=== PATIENT | female | born 1950 | race Caucasian/White ===

== ENCOUNTER → 2018-02-18 12:40 | Outpatient (CLI) | payer MEDICARE, BC, SELFPAY ==
--- NOTE | 2018-02-18 06:00 | DI.REPORT_ITS ---
SYMPTOMS/DIAGNOSIS: LUMBAR EPIDURAL STEROID INJECTION, LUMBAR RADICULOPATHY FLUOROSCOPY: Fluoroscopy Time: 11.45, 12.12 mGy Fluoroscopy was provided for guidance with lumbar spine pain clinic injection. Please see procedure note for details.
[2018-02-18 12:50] VITALS: BP 132/61; PULSE 55; RESP 22; TEMP 36.2; O2SAT 96
--- NOTE | 2018-02-18 13:13 | PDOC.PAIN ---
Date of Service: 02/18/18 Time of Service: 13:13 Pain Clinic Procedure Note Lumbar Epidural Steroid Injection Procedure Note COMMENTS: I did review Ms. Rey's notes on the patient. She has had this procedure in the past. SAMIRA MONTELONGO has been referred to the [facility] for lumbar epidural steroid injection. The patient was greeted by the nurse who verified patients name and . Patient was then taken to the fluoroscopy suite. The patient was interviewed and the medial record reviewed. There were no medical, pharmacologic, radiographic, or other structural contraindications to attempting fluoroscopically guided lumbar epidural steroid injection. Risks and expected side effects as well as potential benefits of the procedure were reviewed and voiced concerns expressed. The patient consent form was signed and witnessed. Standard patient time-out procedure was performed. The patient was placed in the prone position on the fluoroscopy table and automated blood pressure cuff and pulse oximeter applied. The skin entry point for entering/approaching the epidural space at the L5-S1 interspace on the left and marked. Following thorough chlorhexadine preparation of the skin and draping and 1% lidocaine infiltration of the skin entry point and subcutaneous tissues, a 18 gauge Touhy needle was placed under fluoroscopic guidance and with loss of resistance technique into the epidural space. Needle tip placement and depth were aided and confirmed by fluoroscopy. There was no paresthesia or return of blood or CSF through the needle. 1 cc's of Omnipaque 240 was injected with clear epidural spread confirmed with fluoroscopy. 15 mg Dexamethasone was injected. There was not any unusual discomfort expressed by SAMIRA MONTELONGO. Patient's vital signs were stable throughout the procedure and were as recorded in nursing records. Follow up plans and appointments were discussed with patient. Post procedure instruction was given as documented in nursing records and having met discharge criteria and was discharged from the [facility]. COMMENTS: If this procedure is found to be effective, it can be completed up to 3 times every 12 months.
[2018-02-18] MEDS: Dexamethasone Sod. Phos./Pres-Free 10 MG/ML VIAL IJ (13:18)
[2018-02-18] MEDS: Omnipaque 240 MG/ML 50 ML BTL IJ (13:18)
[2018-02-18 13:19] VITALS: BP 143/73; PULSE 62; RESP 17; O2SAT 98
== END ==
PROVIDERS: PCP Family Medicine; Visit Provider Preventive Medicine Occupational Medicine
DX: M54.17 Radiculopathy, lumbosacral region (principal)
CPT/HCPCS: 62323; 72100; Q9967

== ENCOUNTER 2018-06-03 01:59 | Outpatient (CLI) | payer MEDICARE, BC, SELFPAY ==
[2018-06-03 08:39] LABS: Anion Gap 10.7 mmol/L (3-11); BUN 29 mg/dL (7-18); CO2 27.3 mmol/L (21.0-32.0); CREATININE 0.95 mg/dL (0.55-1.02); Calcium 9.3 mg/dL (8.5-10.1); Chloride 102 mmol/L (98-107); Cholesterol 226 mg/dL (50-200); Glucose 106 mg/dL (70-100); HDL Cholesterol 88 mg/dL (40-60); LDL CHOLESTEROL 117 mg/dL (<100); Potassium 4.5 mmol/L (3.5-5.1); Sodium 140 mmol/L (136-145); Triglyceride 127 mg/dL (30-150)
== END 2018-06-03 02:19 ==
PROVIDERS: PCP Family Medicine; Visit Provider Family Medicine
DX: I73.9 Peripheral vascular disease, unspecified (principal); I10 Essential (primary) hypertension; E78.2 Mixed hyperlipidemia
CPT/HCPCS: 36415; 80048; 80061; 83721

== ENCOUNTER 2018-09-25 01:02 | Observation (INO) | payer MEDICARE, BC, SELFPAY ==
[2018-09-25] VITALS (65 sets, daily range): BP systolic 89–146; BP diastolic 35–77; PULSE 42–69; RESP 11–22; TEMP 36.1–36.9; O2SAT 89–100
--- NOTE | 2018-09-25 01:18 | ED.GENADUL_ITS ---
Discharge Plan Disposition Patient Disposition: [facility] INPATIENT Condition: Fair Discharge Details Chief Complaint: Chest Pain Clinical Impression: Chest pain Reason For Visit: JESSIE Primary Care Provider: Rehana Cornejo V ED Provider: Everardo Humphreys Diana Meds and New Rx's Prescriptions: No Action latanoprost [Xalatan] 2.5 ML drops 1 drp Ophthalmic DAILY RF: 0 sumatriptan succinate [Imitrex] 50 MG tablet 50 mg PO PRN RF: 0 Fish Oil 500 MG capsule,delayed release(DR/EC) 1,000 mg PO BID RF: 0 aspirin 81 MG tablet,delayed release (DR/EC) 81 mg PO DAILY RF: 0 venlafaxine [Effexor XR] 75 MG capsule,extended release 24hr 75 mg PO DAILY RF: 0 omeprazole 40 MG capsule,delayed release(DR/EC) 40 mg PO DAILY RF: 0 magnesium oxide 250 MG tablet 500 mg PO DAILY RF: 0 vitamin E mixed 1,000 UNIT capsule 1,600 unit PO DAILY RF: 0 Probiotic 1 EACH capsule, sprinkle 1 ea PO DAILY RF: 0 atenolol 50 MG tablet 50 mg PO HS RF: 0 Natural Psyllium Fiber 1,040 GM powder 8 oz PO DAILY RF: 0 pravastatin 40 MG tablet 60 mg PO HS RF: 0 losartan 100 MG tablet 100 mg PO QAM RF: 0 cholecalciferol (vitamin D3) [Vitamin D3] 2,000 UNIT capsule 5,000 unit PO DAILY RF: 0 amlodipine 10 MG tablet 10 mg PO DAILY RF: 0 timolol maleate 5 ML drops 1 drp Topical DAILY RF: 0 Medical Decision Making Patient presenting with chest pressure with associated symptoms that has waxed and waned in intensity since it started. IV eventually established here with ultrasound guidance. Laboratory studies sent. EKG shows an old left bundle branch block. She is given 1 nitroglycerin sublingually here. Residual chest pressure resolved. She already took aspirin, total of 4 baby, at home. Patient's laboratory studies are significant for LFTs being elevated. Her bilirubin is normal. She is status post cholecystectomy about 5 years ago. She has mild tenderness in the right upper quadrant. Doubt the chest pain is related to biliary disease given she is status post cholecystectomy but will need to consider right upper quadrant ultrasound in the morning to evaluate for duct stones. Her bilirubin being normal goes against this. CBC and chemistries are otherwise fine. First troponin is negative. Chest x-ray per my review is unremarkable. Case discussed with hospitalist for admission for chest pain. Pain did resolve with one nitroglycerin here. She does have known vascular disease with a carotid stent but does not have known coronary disease. She has remained hemodynamically stable. Lab Data Lab results reviewed: Yes I reviewed the patient's lab results. ECG Data Attestation: I personally reviewed and interpreted this ECG (s) as follows: Prior ECG tracings: available for review Interpretation: Sinus bradycardia at 49. Left bundle branch block present. This is old per comparison to [facility] records. HPI General Mode of arrival: EMS . Date/Time Provider Initiated Documentation: 09/25/18 01:04 . Limitations to Documentation: no limitations . Information obtained by: patient and old records reviewed . HPI Narrative: Patient presents to ED by ambulance with complaint of chest pain. Patient awoke from sleep with substernal chest pressure. She had achiness in both arms. She had some shortness of breath. She has had a cough for the last 2-3 weeks. She has been on a Z-Braulio. She had some diaphoresis and nausea. She went downstairs where she took 2 baby aspirin. Pain seemed to get a little bit better. Started to come back so she took more baby aspirin and EMS was eventually called. She did not receive nitroglycerin in route as EMS was unable to establish an IV. She does report that most of her symptoms have resolved other than some residual substernal chest discomfort. She has never had this previously. She does have a history of carotid stent. She does not smoke. She does have a history of hypertension and high cholesterol. Related Data Home Medications Medication Instructions Recorded Confirmed latanoprost [Xalatan] 1 drp OPHTHALMIC DAILY drp 10/19/14 02/18/18 omega 8-qmb-rgp-fish oil [Fish Oil] 1,000 mg PO BID 10/19/14 02/18/18 sumatriptan succinate [Imitrex] 50 mg PO PRN 10/19/14 02/18/18 atenolol 50 mg PO HS 10/20/14 02/18/18 psyllium husk (aspartame) 8 oz PO DAILY 10/20/14 02/18/18 [Metamucil Powder] cholecalciferol (vitamin D3) 6,000 unit PO DAILY 08/07/16 02/18/18 [Vitamin D3] losartan 100 mg PO QAM 08/07/16 02/18/18 pravastatin 60 mg PO HS 08/07/16 02/18/18 amlodipine 10 mg PO DAILY 08/19/16 02/18/18 timolol maleate 1 drp TOPICAL DAILY 12/24/16 02/18/18 aspirin 81 mg PO DAILY tab-cap 11/05/17 02/18/18 lactobacillus combo no.11 1 ea PO DAILY cap.[email or web address] 11/05/17 02/18/18 [Probiotic] magnesium oxide 500 mg PO DAILY 11/05/17 02/18/18 omeprazole 40 mg PO DAILY 11/05/17 02/18/18 venlafaxine [Effexor Xr] 75 mg PO DAILY 11/05/17 02/18/18 vitamin E mixed 1,000 unit PO DAILY 11/05/17 02/18/18 Allergies Allergy/AdvReac Type Severity Reaction Status Date / Time Sulfa (Sulfonamide Allergy Severe Anaphylaxsi Unverified 02/18/18 12:46 Antibiotics) s furosemide Allergy Intermediate Unverified 02/18/18 12:46 morphine Allergy Mild hives Unverified 02/18/18 12:46 brompheniramine maleate Allergy Unknown Unverified 02/18/18 12:46 [From Drixoral] dexbrompheniramine maleate Allergy Unknown Unverified 02/18/18 12:46 [From Drixoral] pseudoephedrine HCl Allergy Unknown Unverified 02/18/18 12:46 [From Drixoral] VINCENZO Inhibitors AdvReac Severe severe Unverified 02/18/18 12:46 muscle fatigue prednisone AdvReac Severe Psychosis, Unverified 09/25/18 02:46 SOB hydrochlorothiazide AdvReac Intermediate Doesn't Unverified 02/18/18 12:46 tolerate Review of Systems Constitutional Denies chills, Denies fever(s), Denies headache(s), Denies poor appetite and Denies weakness Eyes Denies eye pain ENT Denies vertigo, Denies dizziness, Denies otalgia, Denies facial pain, Denies headache(s), Denies neck pain and Denies sore throat Cardiovascular Reports chest pain, Reports diaphoresis, Denies syncope, Denies edema and Repo rts dyspnea Respiratory Reports cough and Reports dyspnea Gastrointestinal Denies abdominal pain, Denies diarrhea, Reports nausea and Denies vomiting Genitourinary Denies dysuria and Denies pelvic pain Musculoskeletal Denies back pain, Denies myalgias, Denies neck pain and Denies numbness Integumentary/Breasts Denies rash Neurologic Denies vertigo, Denies dizziness, Denies syncope, Denies headache(s), Denies focal weakness, Denies numbness, Denies sensory deficit and Denies weakness PFSH Medical History Barretts esophagus Bilateral hearing loss Depression Femoral neuropathy of right lower extremity History of anemia History of tobacco use Hx of abnormal mammogram Hypertension IBS (irritable bowel syndrome) Low back pain Lumbar radiculopathy Mixed hyperlipidemia Osteoarthritis of hip PVD (peripheral vascular disease) Pain of left calf Partial small bowel obstruction Sleep apnea Vertigo Surgical History History of common carotid artery stent placement (Chronic) S/P cholecystectomy (Resolved) Ventral hernia repair Social History Smoking and Tabacco status: Former Tobacco Use Exam Const General: cooperative, comfortable and no acute distress Orientation: alert and oriented x3 HENMT Head: normocephalic and atraumatic Neck Neck: trachea midline and supple Chest Chest: no tenderness Resp Effort & Inspection: normal respiratory effort Auscultation: clear to auscultation bilaterally Cardio Rate: regular rate Rhythm: regular rhythm Heart Sounds: S1 normal and S2 normal Pulses: radial pulses present GI Inspection: non-distended Palpation: soft, not firm, no guarding, no hepatomegaly and tender in the RUQ (mild) Skin Rashes: no rashes Neuro General: alert, oriented x3, no focal motor deficits and CN's II-XI intact bilaterally Cognition: normal cognition Speech: speech normal Extrem General: no clubbing, cyanosis or edema and no calf tenderness
[2018-09-25 01:38] LABS: Abs Immature Grans 0.02 k/cumm (0.0-0.09); Absolute Basophil Count 0.03 k/cumm (0.0-0.2); Absolute Lymphocyte Count 2.07 k/cumm (1.2-3.4); Absolute Monocyte Count 0.59 k/cumm (0.11-0.7); Absolute Neutrophil Count 4.03 k/cumm (1.2-6.7); Basophils % 0.4; Eosinophils % 2.9; HGB 12.5 g/dL (12.0-15.5); Immature Grans % 0.3; Lymphocytes % 29.8; Mean Corp. HGB Concentration 33.8 g/dL (32.0-36.0); Mean Corpuscular Hemoglobin 29.1 pg (27.0-33.0); Mean Corpuscular Volume 86.2 fL (80-95); Mean Platelet Volume 9.3 fL (8.0-11.0); Monocytes % 8.5; Neutrophils % 58.1; Platelet Count 216 x1000/uL (130-400); RBC 4.29 m/cumm (4.00-5.20); RBC Distribution Width 13.1 % (11.7-14.6); White Blood Cell Count 6.94 k/cumm (4.4-10.8)
[2018-09-25 01:57] LABS: ALT 111 U/L (12-78); AST 188 U/L (15-37); Albumin 3.3 g/dL (3.4-5.0); Alkaline Phosphatase 163 U/L (46-116); Anion Gap 8.5 mmol/L (3-11); BUN 29 mg/dL (7-18); Bilirubin, Total 0.7 mg/dL (0.2-1.0); CO2 27.5 mmol/L (21.0-32.0); CREATININE 1.03 mg/dL (0.55-1.02); Calcium 9.2 mg/dL (8.5-10.1); Chloride 102 mmol/L (98-107); Estimated GFR 53.29 (mL/min/1.73m2); Glucose 104 mg/dL (70-100); Magnesium 1.9 mg/dL (1.8-2.4); NT-proBNP 92 pg/mL; Potassium 4.1 mmol/L (3.5-5.1); Sodium 138 mmol/L (136-145); Total Protein 6.9 g/dL (6.4-8.2)
[2018-09-25 01:58] LABS: Troponin I < 0.02 ng/mL (0.00-0.06)
--- NOTE | 2018-09-25 02:24 | DI.RAD_ITS ---
SYMPTOM/DIAGNOSIS: CHEST PAIN PA AND LATERAL CHEST: Comparison is made with 03/18/17. Heart size appears stable. Pulmonary vasculature is within normal limits. The lungs are clear. No effusions or pneumothoraces are identified. IMPRESSION: No acute pulmonary process.
[2018-09-25] MEDS: Ondansetron 4 MG/2 ML VIAL (02:34)
--- NOTE | 2018-09-25 02:50 | W.PM.HP.N ---
Date of service: 09/25/18 Time of Service: 02:50 Assessment and Plan (1) Atypical chest pain: Current visit: Yes Status: Acute This is a 68-year-old lady who has a history of atherosclerotic arterial disease but no previous history of angina pectoris or cardiac disease. He was awakened with chest pressure and associated symptoms which responded to treatment with aspirin and nitroglycerin. She has a history of Arriaga's esophagus and elevated liver functions which are intermittent. Response gives some concern of new onset shortness and she will be admitted for observation trending troponins and cardiac monitoring. She may require cardiac stress test prior to discharge or transfer for cardiac catheterization if she has any recurrent symptoms or elevation in her troponins. She does have new left bundle branch block this admission. She is a full code and this will be respected. (2) Elevated liver function tests: Current visit: Yes Status: Acute Patient is through function tests have been elevated intermittently in the past and she is status post cholecystectomy. We will image her liver and common bile duct while she is hospitalized this stay. History of Present Illness Chief Complaint: Awakened with substernal chest pain Narrative: This is a 68-year-old lady who was awakened with substernal chest pressure and associated diaphoresis and nausea. She was awakened from a deep sleep with the sensation that the house was sitting on her chest with a 10 out of 10 discomfort and had soaked her sheets with diaphoresis. She tried to move her feet with arms a felt heavy but there was no radiation of the discomfort into her arms or neck. She got out of bed and went downstairs where she became weaker and sat On the floor and on the couch as her gave her 4 baby aspirin. EMS came and she did respond to questions sublingually. In the ED she was pain-free and had a new left bundle branch block on her EKG with previous EKG in 2008. Her troponins were negative and she had no acute interpretable ST-T changes. She does have a history of carotid stenosis requiring stenting on the right and PVD. She has been seen at [facility] before for her carotid stenosis. She has never had a cardiac workup the past and has had no cardiac symptoms in the past. She does have Arriaga's esophagus. In the emergency room was noted that her liver functions were slightly elevated but she has already had a cholecystectomy. Reviewing her past labs she has had intermittent elevation of her liver functions. She denies any weight gain or peripheral edema and she has not had exertional chest pain in the past. She was admitted for observation for atypical chest pain that responded well to treatment for possible angina. Review of Systems Review of Systems 13 point review of systems otherwise unrevealing or stable and as per HPI. COUNT INCLUDES [facility] Medical History Barretts esophagus Bilateral hearing loss Depression Femoral neuropathy of right lower extremity History of anemia History of tobacco use Hx of abnormal mammogram Hypertension IBS (irritable bowel syndrome) Low back pain Lumbar radiculopathy Mixed hyperlipidemia Osteoarthritis of hip PVD (peripheral vascular disease) Pain of left calf Partial small bowel obstruction Sleep apnea Vertigo Surgical History History of common carotid artery stent placement (Resolved) S/P cholecystectomy (Resolved) Ventral hernia repair Social History Smoking and Tabacco status: Former Tobacco Use Meds Home Medications Medication Instructions Recorded Confirmed Type latanoprost [Xalatan] 1 drp OPHTHALMIC DAILY drp 10/19/14 09/25/18 History omega 1-nsh-gpc-fish oil [Fish Oil] 1,000 mg PO BID 10/19/14 09/25/18 History sumatriptan succinate [Imitrex] 50 mg PO PRN 10/19/14 09/25/18 History atenolol 50 mg PO HS 10/20/14 09/25/18 History psyllium husk (aspartame) [Natural 8 oz PO DAILY 10/20/14 09/25/18 History Psyllium Fiber] cholecalciferol (vitamin D3) 5,000 unit PO DAILY 08/07/16 09/25/18 History [Vitamin D3] losartan 100 mg PO QAM 08/07/16 09/25/18 History pravastatin 60 mg PO HS 08/07/16 09/25/18 History amlodipine 10 mg PO DAILY 08/19/16 09/25/18 History timolol maleate 1 drp TOPICAL DAILY 12/24/16 09/25/18 History aspirin 81 mg PO DAILY tab-cap 11/05/17 09/25/18 History lactobacillus combo no.11 1 ea PO DAILY cap.[email or web address] 11/05/17 09/25/18 History [Probiotic] magnesium oxide 500 mg PO DAILY 11/05/17 09/25/18 History omeprazole 40 mg PO DAILY 11/05/17 09/25/18 History venlafaxine [Effexor Xr] 75 mg PO DAILY 11/05/17 09/25/18 History vitamin E mixed 1,600 unit PO DAILY 11/05/17 09/25/18 History Allergies Allergy/AdvReac Type Severity Reaction Status Date / Time Sulfa (Sulfonamide Allergy Severe Anaphylaxsi Unverified 02/18/18 12:46 Antibiotics) s furosemide Allergy Intermediate Unverified 02/18/18 12:46 morphine Allergy Mild hives Unverified 02/18/18 12:46 brompheniramine maleate Allergy Unknown Unverified 02/18/18 12:46 [From Drixoral] dexbrompheniramine maleate Allergy Unknown Unverified 02/18/18 12:46 [From Drixoral] pseudoephedrine HCl Allergy Unknown Unverified 02/18/18 12:46 [From Drixoral] VINCENZO Inhibitors AdvReac Severe severe Unverified 02/18/18 12:46 muscle fatigue prednisone AdvReac Severe Psychosis, Unverified 09/25/18 02:46 SOB hydrochlorothiazide AdvReac Intermediate Doesn't Unverified 02/18/18 12:46 tolerate Exam Narrative Exam Narrative: General: Patient appears older than stated age. She is alert and oriented x3. No acute distress. Patient's voice is raspy having had a recent URI occasional nonproductive cough. HEENT: Normocephalic, eyes with pupils equal react to light symmetrically, sclera anicteric and extra ocular movement intact, oropharynx with pink moist mucosa. Ears normal. Neck: Supple without JVD and no auscultated carotid bruits. Lungs: Clear to auscultation and percussion with no focalizing rales or rhonchi. Heart: Rate and rhythm with quiet systolic murmur over sternal border. No gallops or rubs appreciated. Heart sounds are distant. Breasts: Pendulous with no gross masses. Abdomen: Obese contour but soft to palpation but no tenderness. No palpable hepatosplenomegaly. Bowel sounds positive all quadrants. Genitalia rectal: Deferred. Extremities: Pitting edema, cyanosis or clubbing and some decreased range of motion of her larger joints lower extremities. Skin: Pale, warm and dry no rashes Neuro: Cranial nerves II through XII grossly intact. Motor intact with no focal findings. Psych: Normal mood and intact memory. Results Labs : 09/25/18 01:30 09/25/18 01:30 Laboratory Results - last 24 hr 09/25/18 09/25/18 01:30 01:30 WBC 6.94 RBC 4.29 Hgb 12.5 Hct 37.0 MCV 86.2 MCH 29.1 MCHC 33.8 RDW 13.1 Plt Count 216 MPV 9.3 Immature Gran % 0.3 Neutrophils % 58.1 Lymphocytes % 29.8 Monocytes % 8.5 Eosinophils % 2.9 Basophils % 0.4 Absolute Neutrophils 4.03 Absolute Lymphocytes 2.07 Absolute Monocytes 0.59 Absolute Eosinophils 0.20 Absolute Basophils 0.03 Sodium 138 Potassium 4.1 Chloride 102 Carbon Dioxide 27.5 Anion Gap 8.5 BUN 29 H Creatinine 1.03 H Estimated GFR/1.73 m2 53.29 Glucose 104 H Calcium 9.2 Magnesium 1.9 Total Bilirubin 0.7 AST 188 H ALT 111 H Alkaline Phosphatase 163 H Troponin I < 0.02 NT-Pro-B Natriuret Pep 92 Total Protein 6.9 Albumin 3.3 L Last Vital Signs Temp 36.4 C L 09/25/18 01:40 Pulse 52 L 09/25/18 02:31 Resp 19 09/25/18 02:31 BP 141/45 H 09/25/18 02:31 Pulse Ox 95 09/25/18 02:31
--- NOTE | 2018-09-25 03:01 | DI.VRAD_ITS ---
EXAM: XR Chest, 2 Views EXAM DATE/TIME: 09/25/2018 2:25 AM CLINICAL HISTORY: 68 years old, female; Pain; Chest pain; Type not specified TECHNIQUE: XR of the chest, 2 views. COMPARISON: No relevant prior studies available. FINDINGS: Lungs: Unremarkable. No consolidation. Pleural space: Unremarkable. No evidence of pneumothorax. Heart/Mediastinum: Unremarkable. Heart size within normal limits for technique. Bones/joints: Unremarkable. IMPRESSION: No acute findings. Dictated and Authenticated by: Nicolas Forrest MD. Ordering:TRINO Mcgee MD
[2018-09-25] MEDS: Normal Saline Flush 10 ML SYR IVP (06:08)
[2018-09-25] MEDS: Pantoprazole 40 MG VIAL IVP (06:08)
--- NOTE | 2018-09-25 06:19 | NUR.NOTE ---
Nursing Note: At 04:24 hrs. Patient admitted in room 214 via stretcher and accompanied by family., with presenting problem of chest pain and shortness of breath even at rest. Upon admission denied of pain. Has nitro paste on right chest remains intact. Pt has non productive cough Admission care rendered.Oriented to call lights system.
[2018-09-25 07:33] LABS: ALT 224 U/L (12-78); AST 305 U/L (15-37); Albumin 3.1 g/dL (3.4-5.0); Alkaline Phosphatase 172 U/L (46-116); Anion Gap 8.4 mmol/L (3-11); BUN 27 mg/dL (7-18); Bilirubin, Total 0.5 mg/dL (0.2-1.0); CO2 26.6 mmol/L (21.0-32.0); CREATININE 0.93 mg/dL (0.55-1.02); Calcium 8.6 mg/dL (8.5-10.1); Chloride 107 mmol/L (98-107); Estimated GFR 59.95 (mL/min/1.73m2); Glucose 101 mg/dL (70-100); Sodium 142 mmol/L (136-145); Total Protein 6.2 g/dL (6.4-8.2)
[2018-09-25 07:38] LABS: Troponin I 0.02 ng/mL (0.00-0.06)
[2018-09-25 07:44] LABS: TSH (W/Ref FT4) 3.52 uIU/mL (0.358-3.74)
[2018-09-25] MEDS: Psyllium PKT 1 EACH PO (09:00)
[2018-09-25] MEDS: Aspirin E.C. 81 MG TABEC PO (09:00)
[2018-09-25] MEDS: amLODIPine 10 MG TAB PO (09:00)
[2018-09-25] MEDS: Venlafaxine 37.5 MG CAPCR 75 MG PO (09:01)
[2018-09-25] MEDS: Timolol 0.5% 5 ML BTL OU (09:04)
[2018-09-25 10:53] LABS: Troponin I < 0.02 ng/mL (0.00-0.06)
--- NOTE | 2018-09-25 11:23 | DI.US_ITS ---
SYMPTOM/DIAGNOSIS: ATYPICAL CHEST PAIN WITH ELEVATED LFT'S, S/P CHOLECYSTECTOMY LIMITED ABDOMEN ULTRASOUND: The liver is homogeneous. No evidence of a hepatic mass is seen. No intrahepatic biliary ductal dilatation is present. Portal venous flow is normal in direction. The patient is status post cholecystectomy. The common duct is within normal limits measuring up to 6 mm. The pancreas could not be visualized due to overlying bowel. IMPRESSION: Limited examination. No acute abnormality.
--- NOTE | 2018-09-25 11:30 | PDOC.CMIN ---
Care Management Initial Assess REASON FOR HOSPITALIZATION:: Atypical Chest Pain PAST MEDICAL HISTORY/PAST SURGICAL HISTORY:: Barretts esophagus, Bilat hearing loss, depression, femoral neuropathy of right lower extremity, anemia, tobacco abuse, abnormal mammogram, hypertension, IBS, low back pain, hyperlipidemia, osteoarthritis of hip, pain of left calf, partial SBO, PVD, sleep apnea, vertigo, elevated liver function tests, spondylosis of lumbar region without myelopathy or radiculopathy PREVIOUS FUNCTIONAL STATUS/SOCIAL/FAMILY SUPPORTS:: Macy resides with her , Ant in [place], [place]. CURRENT FUNCTIONAL STATUS:: Macy was lying in bed when CM met with her, she was forthcoming with information and pleasant in interaction. She spoke in length about her life, and support network including her children and grandchildren. Her daughter was at her bedside. Has patient been provided with information about the portal?: Yes Did the patient sign up for the portal?: Yes (Previously) CODE STATUS:: Full Code INSURANCE COVERAGE / FINANCIAL ISSUES:: BC/BS. Medicare CURRENT HOME/COMMUNITY SERVICES/EQUIPMENT:: No current services or equipment. PRIMARY CARE PHYSICIAN:: Rehana Cornejo. POTENTIAL DISCHARGE NEEDS:: Possible MPI, transfer discharge, outpatient follow up plan. PATIENT/FAMILY EDUCATION NEEDS:: Review discharge instructions, discuss Ask Me Three. ANTICIPATED BARRIERS TO DISCHARGE:: None identified. TRANSPORTATION:: Via private vehicle with her , Ant. PLAN:: Per MD: She may require cardiac stress test prior to discharge or transfer for cardiac catheterization if she has any recurrent symptoms or elevation in her troponins. Anticipate with no recurrence of symptoms, Macy will likely discharge with an outpatient follow up [id number] MPI. She did request to restart home meds that were prescribed by her PCP yesterday, CM notified Clinical Coordinatior: Magi. CM will continue to follow.
--- NOTE | 2018-09-25 11:39 | INITIAL_ITS ---
Care Management Initial Assess REASON FOR HOSPITALIZATION:: Atypical Chest Pain PAST MEDICAL HISTORY/PAST SURGICAL HISTORY:: Barretts esophagus, Bilat hearing loss, depression, femoral neuropathy of right lower extremity, anemia, tobacco abuse, abnormal mammogram, hypertension, IBS, low back pain, hyperlipidemia, osteoarthritis of hip, pain of left calf, partial SBO, PVD, sleep apnea, vertigo, elevated liver function tests, spondylosis of lumbar region without myelopathy or radiculopathy PREVIOUS FUNCTIONAL STATUS/SOCIAL/FAMILY SUPPORTS:: Macy resides with her , Ant in [place], [place]. CURRENT FUNCTIONAL STATUS:: Macy was lying in bed when CM met with her, she was forthcoming with information and pleasant in interaction. She spoke in length about her life, and support network including her children and grandchildren. Her daughter was at her bedside. Has patient been provided with information about the portal?: Yes Did the patient sign up for the portal?: Yes (Previously) CODE STATUS:: Full Code INSURANCE COVERAGE / FINANCIAL ISSUES:: BC/BS. Medicare CURRENT HOME/COMMUNITY SERVICES/EQUIPMENT:: No current services or equipment. PRIMARY CARE PHYSICIAN:: Rehana Cornejo. POTENTIAL DISCHARGE NEEDS:: Possible MPI, transfer discharge, outpatient follow up plan. PATIENT/FAMILY EDUCATION NEEDS:: Review discharge instructions, discuss Ask Me Three. ANTICIPATED BARRIERS TO DISCHARGE:: None identified. TRANSPORTATION:: Via private vehicle with her , Ant. PLAN:: Per MD: She may require cardiac stress test prior to discharge or transfer for cardiac catheterization if she has any recurrent symptoms or elevation in her troponins. Anticipate with no recurrence of symptoms, Macy will likely discharge with an outpatient follow up [id number] MPI. She did request to restart home meds that were prescribed by her PCP yesterday, CM notified Clinical Coordinatior: Magi. CM will continue to follow.
--- NOTE | 2018-09-25 12:08 | DI.VRAD_ITS ---
EXAM: US Abdomen Limited EXAM DATE/TIME: 09/25/2018 11:46 AM CLINICAL HISTORY: 68 years old, female; Pain; Abdominal pain; Localized; Right upper quadrant (ruq); Prior surgery; Surgery date: 6+ months; Patient HX: Elevated lft's TECHNIQUE: Real-time ultrasound of the abdomen with image documentation. Examination is focused on the region of clinical interest. COMPARISON: No relevant prior studies available. FINDINGS: Limitations: Bowel gas. Liver: The liver is homogeneous in echotexture as seen. No demonstrated mass or intrahepatic biliary ductal dilatation. Gallbladder: The patient is status post cholecystectomy. No collection is demonstrated in the gallbladder fossa. Common bile duct: The common bile duct measures 6 mm. Pancreas: The pancreas is obscured by overlying bowel gas. Portal venous: Portal venous flow is normal in direction. IMPRESSION: No significant abnormality on this limited exam. Dictated and Authenticated by: Mc Perez MD. Ordering:DEBORAH Ruiz MD
--- NOTE | 2018-09-25 15:30 | PGE_ITS ---
Date of Service Date of service: 09/25/18 Time of Service: 15:23 Assessment and Plan (1) Atypical chest pain: Current visit: Yes Status: Acute 1 exacerbation this afternoon otherwise has been pain-free. Flat troponins, no dysrhythmias on telemetry. This still may be angina but no indication of acute coronary syndrome. I do not think we need to anticoagulate her at this point given ambiguity I am not making any changes to her aspirin, beta-madison or statin dose. Losartan remains on hold because of soft blood pressures. If no significant recurrent symptoms it is possible she could be discharged to return for an outpatient stress test. (2) Elevated liver function tests: Current visit: Yes Status: Acute Cause yet to be identified. No symptoms of right upper quadrant pain or tenderness. No nausea. No new drugs that might be hepatotoxic. Perhaps she passed a stone? Ultrasound does not show any abnormalities of the liver or obvious biliary dilatation. Concerning that LFTs and alk phos have been climbing. Await outcome of hepatitis B and C serology although I think it is doubtful this is the cause. Recheck labs tomorrow. If continuing to rise, consider MRCP. (3) Hypertension: Current visit: Yes Status: Chronic Spironolactone and losartan remain on hold. Follow with current beta- madison and calcium channel madison. (4) Chronic GERD: Current visit: Yes Status: Acute Possibly her chest pain related to exacerbation of GERD? Continue IV PPI tonight and likely change to p.o. tomorrow. (5) History of Arriaga's esophagus: Current visit: Yes Status: Acute Management as above. Subjective Interval history since last seen: Pain-free until this afternoon when she had another bout of chest pain, resolved on its own. ECG did not show any new changes, no dysrhythmias on telemetry. LFTs have gone up overnight. Has not had any nausea or right upper quadrant pain. Ultrasound was performed, did not show any evidence of obstruction. Poor view of the pancreas. Still has a nonproductive mild cough but no respiratory distress. Oxygen saturations have been good. She has not been febrile. Exam Narrative Exam Narrative: She is in good spirits and in no respiratory distress. Occasional cough. Cannot see neck veins because of neck size. Sclera are anicteric. Lungs clear no rub crackles or wheeze. Regular heart rhythm no S3- S4 or murmur heard. Abdomen soft obese nontender. No guarding or rebound. No mass felt in the epigastric area or right upper quadrant. Extremities are warm with 1+ pulses in the feet. She sits up unassisted with no ataxia. Oriented x3. Objective Objective Clinical Data: Abnormal lab results Abdominal ultrasound preliminary read with changes from her cholecystectomy, no hepatic abnormalities or evidence of biliary dilatation. Pancreas poorly viewed. 09/25/18 09/25/18 Range/Units 01:30 05:40 BUN 29 H 27 H (7-18) mg/dL Creatinine 1.03 H (0.55-1.02) mg/dL Glucose 104 H 101 H (70-100) mg/dL AST 188 H 305 H (15-37) U/L ALT 111 H 224 H (12-78) U/L Alkaline Phosphatase 163 H 172 H (46-116) U/L Total Protein 6.2 L (6.4-8.2) g/dL Albumin 3.3 L 3.1 L (3.4-5.0) g/dL Vital Signs Temperature 36.7 C 09/25/18 14:10 Temperature Source Tympanic 09/25/18 14:10 Pulse 54 L 09/25/18 14:10 Pulse Rhythm Regular 09/25/18 04:40 Pulse 47 L 09/25/18 04:12 Respiratory Rate 18 09/25/18 14:10 Respiratory Effort Non-Labored 09/25/18 04:40 Respiratory Depth Normal 09/25/18 04:40 Respiratory Pattern Normal 09/25/18 04:40 Blood Pressure 130/66 09/25/18 14:10 Blood Pressure Mean 55 09/25/18 04:12 Blood Pressure Position Supine 09/25/18 01:40 Pulse Oximetry 100 09/25/18 14:10 Oxygen Delivery Method Room Air 09/25/18 14:10 Oxygen Flow Rate 0 09/25/18 14:10 Pain Level 0 09/25/18 04:46 Comment 09/25/18 14:10 Intake & Output 09/24/18 09/25/18 09/25/18 23:59 11:59 23:59 Intake Total 260 / 500 240 / 500 Output Total 500 / 500 Balance -240 / 0 240 / 0 Weight 86.4 kg Intake: IV 20 / 20 Oral 240 / 480 240 / 480 Output: Urine 500 / 500 Other: Urine Color Light Fely Urine Appearance Clear Urine Odor Normal Comment pt daughter brought her to the bathroom, she said she went at about this time pt going to the bathroom right now with her daughter, hat was out of toilet when i went in there Voiding Methods Toilet Toilet Laboratory Results WBC 6.94 k/cumm (4.4-10.8) 09/25/18 01:30 RBC 4.29 m/cumm (4.00-5.20) 09/25/18 01:30 Hgb 12.5 g/dL (12.0-15.5) 09/25/18 01:30 Hct 37.0 % (36.0-46.0) 09/25/18 01:30 MCV 86.2 fL (80-95) 09/25/18 01:30 MCH 29.1 pg (27.0-33.0) 09/25/18 01:30 MCHC 33.8 g/dL (32.0-36.0) 09/25/18 01:30 RDW 13.1 % (11.7-14.6) 09/25/18 01:30 Plt Count 216 x1000/uL (130-400) 09/25/18 01:30 MPV 9.3 fL (8.0-11.0) 09/25/18 01:30 Immature Gran % 0.3 09/25/18 01:30 Neutrophils % 58.1 09/25/18 01:30 Lymphocytes % 29.8 09/25/18 01:30 Monocytes % 8.5 09/25/18 01:30 Eosinophils % 2.9 09/25/18 01:30 Basophils % 0.4 09/25/18 01:30 Absolute Neutrophils 4.03 k/cumm (1.2-6.7) 09/25/18 01:30 Absolute Lymphocytes 2.07 k/cumm (1.2-3.4) 09/25/18 01:30 Absolute Monocytes 0.59 k/cumm (0.11-0.7) 09/25/18 01:30 Absolute Eosinophils 0.20 k/cumm (0.0-0.7) 09/25/18 01:30 Absolute Basophils 0.03 k/cumm (0.0-0.2) 09/25/18 01:30 Sodium 142 mmol/L (136-145) 09/25/18 05:40 Potassium 4.0 mmol/L (3.5-5.1) 09/25/18 05:40 Chloride 107 mmol/L (98-107) 09/25/18 05:40 Carbon Dioxide 26.6 mmol/L (21.0-32.0) 09/25/18 05:40 Anion Gap 8.4 mmol/L (3-11) 09/25/18 05:40 BUN 27 mg/dL (7-18) H 09/25/18 05:40 Creatinine 0.93 mg/dL (0.55-1.02) 09/25/18 05:40 Estimated GFR/1.73 m2 59.95 (mL/min/1.73m2) 09/25/18 05:40 Glucose 101 mg/dL (70-100) H 09/25/18 05:40 Calcium 8.6 mg/dL (8.5-10.1) 09/25/18 05:40 Magnesium 1.9 mg/dL (1.8-2.4) 09/25/18 01:30 Total Bilirubin 0.5 mg/dL (0.2-1.0) 09/25/18 05:40 AST 305 U/L (15-37) H 09/25/18 05:40 ALT 224 U/L (12-78) H 09/25/18 05:40 Alkaline Phosphatase 172 U/L (46-116) H 09/25/18 05:40 Troponin I < 0.02 ng/mL (0.00-0.06) 09/25/18 10:15 NT-Pro-B Natriuret Pep 92 pg/mL (-299) 09/25/18 01:30 Total Protein 6.2 g/dL (6.4-8.2) L 09/25/18 05:40 Albumin 3.1 g/dL (3.4-5.0) L 09/25/18 05:40 TSH 3.52 uIU/mL (0.358-3.74) 09/25/18 05:40
[2018-09-25] MEDS: Benzonatate 100 MG CAP PO (19:54)
[2018-09-25] MEDS: Losartan 50 MG TAB 100 MG PO (19:55)
[2018-09-25] MEDS: Latanoprost 0.005% 2.5 ML BTL OU (19:55)
[2018-09-25] MEDS: Pravastatin 40 MG TAB 60 MG PO (21:21)
[2018-09-25] MEDS: Atenolol 50 MG TAB PO (21:22)
[2018-09-26 03:50] VITALS: BP 117/55; PULSE 54; RESP 16; TEMP 36.6; O2SAT 98
[2018-09-26] MEDS: Enoxaparin 40 MG/0.4 ML SYR SC (06:11)
[2018-09-26] MEDS: Normal Saline Flush 10 ML SYR IVP ×2 (06:12→08:42)
[2018-09-26] MEDS: Pantoprazole 40 MG VIAL IVP (06:12)
[2018-09-26 07:15] VITALS: BP 113/52; PULSE 53; RESP 18; TEMP 36.1; O2SAT 97
[2018-09-26 07:22] LABS: HCT 37.9 % (36.0-46.0); HGB 12.3 g/dL (12.0-15.5); Mean Corp. HGB Concentration 32.5 g/dL (32.0-36.0); Mean Corpuscular Hemoglobin 28.8 pg (27.0-33.0); Mean Corpuscular Volume 88.8 fL (80-95); Mean Platelet Volume 9.7 fL (8.0-11.0); Platelet Count 220 x1000/uL (130-400); RBC 4.27 m/cumm (4.00-5.20); RBC Distribution Width 13.4 % (11.7-14.6); White Blood Cell Count 5.22 k/cumm (4.4-10.8)
[2018-09-26 07:37] LABS: ALT 184 U/L (12-78); Albumin 3.5 g/dL (3.4-5.0); Alkaline Phosphatase 170 U/L (46-116); Anion Gap 6.5 mmol/L (3-11); BUN 21 mg/dL (7-18); Bilirubin, Total 0.6 mg/dL (0.2-1.0); CO2 29.5 mmol/L (21.0-32.0); CREATININE 1.04 mg/dL (0.55-1.02); Calcium 9.4 mg/dL (8.5-10.1); Chloride 105 mmol/L (98-107); Glucose 107 mg/dL (70-100); Potassium 4.1 mmol/L (3.5-5.1); Sodium 141 mmol/L (136-145)
[2018-09-26 07:47] LABS: AST 135 U/L (15-37)
[2018-09-26 07:55] VITALS: PULSE 55
[2018-09-26] MEDS: Timolol 0.5% 5 ML BTL OU (08:41)
[2018-09-26] MEDS: Benzonatate 100 MG CAP PO (08:41)
[2018-09-26] MEDS: Psyllium PKT 1 EACH PO (08:41)
[2018-09-26] MEDS: Venlafaxine 37.5 MG CAPCR 75 MG PO (08:42)
[2018-09-26] MEDS: Aspirin E.C. 81 MG TABEC PO (08:42)
[2018-09-26] MEDS: amLODIPine 10 MG TAB PO (08:42)
--- NOTE | 2018-09-26 09:52 | W.PM.DS.N ---
Date of service: 09/26/18 Time of Service: 09:54 DS: Diagnosis Discharge Diagnosis (1) Atypical chest pain: Status: Acute Asessment and Plan: Negative biomarkers, no dysrhythmias on telemetry other than sinus bradycardia. Recurrence during hospitalization resolved with GI cocktail. Asymptomatic on day of discharge. (2) Elevated liver function tests: Status: Acute Asessment and Plan: First increase then decrease on day of discharge. Never had abdominal pain. Ultrasound of the abdomen did not show any evidence of biliary obstruction. (3) Hypertension: Status: Chronic Asessment and Plan: Normal blood pressures on her outpatient medications except spironolactone which was held. (4) Chronic GERD: Status: Acute Asessment and Plan: Placed on IV Protonix. Still had some chest discomfort, resolved after GI cocktail and no recurrence since. (5) History of Arriaga's esophagus: Status: Acute Discharge Plan Disposition Patient Disposition: HOME Condition: Good Discharge Details Reason For Visit: ATYPICAL CHEST PAIN Admit Date/Time: 09/25/18 04:21 Admit Provider: Joseph Toney Attending Provider: Joseph Toney Primary Care Provider: Rehana Cornejo V Hospital Course Hospital Course: 68-year-old woman with no known cardiac history presented to the emergency room with sudden onset of crushing central chest pain, some radiation into the back, with associated diaphoresis, arm aching and sense of weakness. Self medicated with aspirin at home, nitroglycerin in the field and upon arrival her symptoms had abated. She had a little bit of tenderness transiently in the right side of her abdomen on palpation which also resolved. She found to have elevated transaminase levels and was admitted for assessment for acute coronary syndrome/unstable angina as well as further evaluation of her abnormal LFTs. She had recurrence of her chest discomfort during her hospitalization with no ECG changes or telemetry changes. Her troponins were all flat. Her symptoms resolved after GI cocktail and did not recur. She had been started on IV PPI at the time of admission and her symptoms broke through this but have not recurred. She never had any recurrence of abdominal pain. She did not have nausea. Her LFTs initially went up but on the day of discharge were trending down. She was never febrile. Ultrasound of the abdomen did not show any evidence of biliary obstruction, just or postsurgical changes. Pancreatic bed was not visualized due to overlying gas. It was felt that if her LFTs continue to normalize then no further workup would be needed but if they do not, consideration for outpatient MRCP. Because her symptoms were concerning for coronary etiology, she will be referred for outpatient stress test. Pending labs: Hepatitis B and hepatitis C serology Medication changes: Spironolactone put on hold, no changes to her other chronic home medications. Home Meds and New Rx's Prescriptions: Continued latanoprost [Xalatan] 2.5 ML drops 1 drp Ophthalmic DAILY RF: 0 sumatriptan succinate [Imitrex] 50 MG tablet 50 mg PO PRN RF: 0 Fish Oil 500 MG capsule,delayed release(DR/EC) 1,000 mg PO BID RF: 0 aspirin 81 MG tablet,delayed release (DR/EC) 81 mg PO DAILY RF: 0 venlafaxine [Effexor XR] 75 MG capsule,extended release 24hr 75 mg PO DAILY RF: 0 omeprazole 40 MG capsule,delayed release(DR/EC) 40 mg PO DAILY RF: 0 magnesium oxide 250 MG tablet 500 mg PO DAILY RF: 0 vitamin E mixed 1,000 UNIT capsule 1,600 unit PO DAILY RF: 0 Probiotic 1 EACH capsule, sprinkle 1 ea PO DAILY RF: 0 atenolol 50 MG tablet 50 mg PO HS RF: 0 Natural Psyllium Fiber 1,040 GM powder 8 oz PO DAILY RF: 0 pravastatin 40 MG tablet 60 mg PO HS RF: 0 losartan 100 MG tablet 100 mg PO QAM RF: 0 cholecalciferol (vitamin D3) [Vitamin D3] 2,000 UNIT capsule 5,000 unit PO DAILY RF: 0 amlodipine 10 MG tablet 10 mg PO DAILY RF: 0 timolol maleate 5 ML drops 1 drp Topical DAILY RF: 0 Discontinued spironolactone 25 mg Tablet 25 mg PO DAILY RF: 0 Discharge Instructions Instructions: Chest Pain (DC) Additional Instructions: Do not do any heavy lifting until you have had your stress test to be sure everything is okay with your heart. Hold spironolactone until instructed to resume it. Do not take atenolol the day before or the day of your stress test. Stand Alone Forms: Nursing Discharge Form Referrals: Rehana Cornejo MD [Primary Care Provider] - (Follow-up appointment after stress test) Activity:: no lifting >10 pounds Equipment/Supplies:: No Equipment Needed Diet:: As Tolerated Discharge Orders Discharge Orders: Discharge Order (Routine); Ordered 09/26/18 Ordered By: Nicolas Restrepo Other Ambulatory Orders: Comprehensive Metabolic Panel (Routine) Timeframe: 20181001 Facility: [facility] - Location: Laboratory Ordered By: Nicolas Restrepo Nuclear Medicine Stress Test (Outpt) (ONCE) (1) Timeframe: 1 Week Facility: [facility] - Location: DIAGNOSTIC IMAGING DEPT Ordered By: Nicolas Restrepo DS: Summary Status at Discharge Functional status at discharge: independent ambulation Time Spent with Patient Greater than 30 minutes Exam Narrative Exam Narrative: On the morning of discharge she is in excellent spirits, having had a good night sleep and feeling well with no pain. Neck veins are flat. Lungs are clear. No heart murmur S3 or S4. No chest wall tenderness. No epigastric pain. No pain to palpation in any part of the abdomen. No peripheral edema. 2+ distal pulses. Ambulatory without ataxia or development of any discomfort. DS: Data Vitals/I&O Vitals and I&O: Vital Signs Temperature 36.1 C L 09/26/18 07:15 Temperature Source Tympanic 09/26/18 07:15 Pulse 55 L 09/26/18 07:55 Pulse Rhythm Regular 09/25/18 20:24 Pulse 47 L 09/25/18 04:12 Respiratory Rate 18 09/26/18 07:15 Respiratory Effort Non-Labored 09/25/18 20:24 Respiratory Depth Normal 09/25/18 20:24 Respiratory Pattern Normal 09/25/18 20:24 Blood Pressure 113/52 L 09/26/18 07:15 Blood Pressure Mean 55 09/25/18 04:12 Blood Pressure Position Supine 09/25/18 01:40 Pulse Oximetry 97 09/26/18 07:15 Oxygen Delivery Method Room Air 09/26/18 07:15 Oxygen Flow Rate 0 09/26/18 07:15 Pain Level 0 09/26/18 03:50 Comment 09/26/18 07:15 Intake & Output 09/25/18 09/25/18 09/26/18 11:59 23:59 12:59 Intake Total 270 / 3270 3000 / 3270 1110 / 1110 Output Total 500 / 500 Balance -230 / 2770 3000 / 2770 1110 / 1110 Weight 86.4 kg 86.4 kg Intake: IV 30 / 30 Oral 240 / 3240 3000 / 3240 1110 / 1110 Output: Urine 500 / 500 Other: Urine Color Light Fely Yellow Yellow Urine Appearance Clear Clear Clear Urine Odor Normal Normal Comment pt daughter brought her to the bathroom, she said she went at about this time pt going to the bathroom right now with her daughter, hat was out of toilet when i went in there Voiding Methods Toilet Toilet Toilet Labs on day of discharge: Labs from last 24 hours 09/26/18 09/26/18 09/25/18 06:45 06:45 10:15 WBC 5.22 RBC 4.27 Hgb 12.3 Hct 37.9 MCV 88.8 MCH 28.8 MCHC 32.5 RDW 13.4 Plt Count 220 MPV 9.7 Sodium 141 Potassium 4.1 Chloride 105 Carbon Dioxide 29.5 Anion Gap 6.5 BUN 21 H D Creatinine 1.04 H Estimated GFR/1.73 m2 52.70 Glucose 107 H Calcium 9.4 Total Bilirubin 0.6 AST 135 H ALT 184 H Alkaline Phosphatase 170 H Troponin I < 0.02 Total Protein 7.0 Albumin 3.5 Chest x-ray on admission without infiltrate, effusion or cardiomegaly. EKG sinus bradycardia with left bundle branch block that was not present on ECG from 2008. No acute ST-T changes. Pending lab hepatitis B and hepatitis C serology. [facility] Medical History Barretts esophagus Bilateral hearing loss Depression Femoral neuropathy of right lower extremity History of anemia History of tobacco use Hx of abnormal mammogram Hypertension IBS (irritable bowel syndrome) Low back pain Lumbar radiculopathy Mixed hyperlipidemia Osteoarthritis of hip PVD (peripheral vascular disease) Pain of left calf Partial small bowel obstruction Sleep apnea Vertigo Surgical History History of common carotid artery stent placement (Resolved) S/P cholecystectomy (Resolved) Ventral hernia repair Social History Smoking and Tabacco status: Former Tobacco Use
[2018-09-26 10:36] VITALS: PULSE 47
--- NOTE | 2018-09-26 18:11 | PDOC.CMDIS ---
LACE Index Scoring Tool - Questions: Length of Stay (in days): 2 Acuity (Admit via E.D.?): Yes E.D. Visits: 1 - Answers: Total Score: 6 Risk of Readmission: Low Risk Care Management Discharge Reason for Hospitalization: Atypical Chest Pain Discharge Plan: Macy will discharge with an outpatient follow up plan. She will have orders for outpatient stress test and follow up with her PCP and plan of care as prescribed. She will transport home via private vehicle with family. Patient/Family Education Needs: Review of discharge instructions, activity limitations; discuss Ask Me Three.
[2018-09-27 10:04] LABS: HBs Antibody, Qual Negative; HBs Antibody, Quant 4.5 mIU/mL; Hepatitis B Core Antibody Negative (NEGAT); Hepatitis B surface Ag Negative (NEGAT); Hepatitis C Ab w Rflx HCV PCR Negative (NEGAT)
== END 2018-09-26 11:20 | disposition home or self-care (01) ==
LOC: ER 03:50 → MS 04:32
PROVIDERS: Admitting Provider Family Medicine; Emergency Provider Emergency Medicine; PCP Family Medicine; Visit Provider Internal Medicine
DX: R07.89 Other chest pain (principal); R74.8 Abnormal levels of other serum enzymes; I25.10 Atherosclerotic heart disease of native coronary artery without angina pectoris; I10 Essential (primary) hypertension; K21.9 Gastro-esophageal reflux disease without esophagitis; K22.70 Barrett's esophagus without dysplasia; I44.7 Left bundle-branch block, unspecified
CPT/HCPCS: 36415; 80053; 85027; 86704; 86706; 86803; 87340; 93005; 96374; 99217; 99220; 99226; 99285; J1650; 71046; 76705; 83735; 83880; 84443; 84484; 85025; 93010; G0378; J2405

== ENCOUNTER 2018-09-29 00:05 | Outpatient (CLI) | payer MEDICARE, BC, SELFPAY ==
--- NOTE | 2018-09-29 08:15 | MERGEMPI_ITS ---
*[facility]* *[facility]* [address] [place] [address] Myocardial Perfusion Imaging - SPECT Regadenoson Date of study: 09/29/2018 *PATIENT PRESENTATION* Height: 160cm (63in) Blood Pressure: Weight: 86.4kg (190lb) BSA: 2m^2 Referring physician: Angel Luis May Ordering physician: Nicolas Restrepo MD Impressions: Normal myocardial perfusion and contraction after pharmacological stress. Summary: 1. Myocardial perfusion imaging: No myocardial perfusion defects noted. 2. The calculated left ventricular ejection fraction after stress: 67%. LV global systolic function is normal. No left ventricular regional motion abnormality. 3. Stress: There is a normal resting blood pressure. Normal blood pressure response to adenosine. 4. Baseline ECG: Sinus bradycardia with left bundle branch block. Indication: R07.9. History: REASON FOR TESTING: ON 09/24/18 PATIENT WAS AWAKENED WITH HEAVY CRUSHING INTENSE MIDSTERAL CHEST PAIN (10/10), WITH BILATERAL ARM ACHING, BACK PAIN BETWEEN SHOULDER BLADES AND SOB; ALL OF WHICH LASTED APPROXIMATELY 15 MINUTES. CHEST PAIN AND ASSOCIATED SYMPTOMS SUBSIDED WITH TREATMENT OF ASPIRIN AND NITROGLYCERIN. TROPONINS NEGATIVE IN THE ER. PATIENT DENIES CHEST PAIN UPON ARRIVAL TO TESTING TODAY. NOTE: SPIRONOLACTONE 25 MG DAILY CURRENTLY ON HOLD UNTIL NEXT PCP'S VISIT. SIGNIFICANT PAST MEDICAL HISTORY: RIGHT CAROTID STENT 2006. SMOKING STATUS: QUIT 1976. SMOKED FOR 5 YEARS 1 PACK A WEEK. EXERCISE ROUTINE: DAILY WALKING OUTSIDE AND ADL'S. Risk factors: Hypertension. Obesity. Dyslipidemia. ALLERGIES: SULFA, FUROSEMIDE, MORPHINE, DEXBROMPHENIRAMINE MALEATE, BROMPHENIRAMINE MALEATE, PSEUDOEPHEDRINE, VINCENZO INHIBITORS, PREDNISONE, HYDROCHLOROTHIAZIDE. MEDICATIONS: VITAMIN E 1600 UNITS, VENLAFAXINE 75 MG DAILY, TIMOLOL MALEATE 1 DROP DAILY, IMITREX 50 MG PRN, BENEFIBER DAILY, PRAVASTATIN 60 MG HS, OMEPRAZOLE 40 MG DAILY, FISH OIL 1000 MG BID, MAGNESIUM OXIDE 500 DAILY, LOSARTAN 100 MG DAILY, LANTROPOST 1 DROP DAILY, PROBIOTIC DAILY, VITAMIN D 5000 MG DAILY, ATENOLOL 50 MG DAILY, ASPIRIN 81 MG DAILY, AMLODIPINE 10 MG DAILY. Imaging Technique: Protocol: Regadenoson. Acquisition: Gated SPECT; 1 day - rest/stress. The patient was imaged in the supine position. Attenuation correction used. Isotope administration: - Rest. Tc[99m]-sestamibi. Dose: 9.1mCi. Injection time: 08:30 AM. Injection to stress time: 00:45. - Stress. Tc[99m]-sestamibi. Dose: 29mCi. Injection time: 10:20 AM. 1-2 min before end of exercise Baseline ECG: SINUS BRADYCARDIA. LBBB. HR 55 BPM. Sinus bradycardia with left bundle branch block. Stress protocol: +--------+--+ + + !Stage !HR!BP (mmHg) !Comments ! +--------+--+ + + !Baseline!88!148/78 (101)! ! +--------+--+ + + !1 min !79!140/58 (85) !Inject Regadenoson.! +--------+--+ + + !3 min !77!130/58 (82) ! ! +--------+--+ + + !6 min !70!138/58 (85) ! ! +--------+--+ + + !9 min !70!144/64 (91) ! ! +--------+--+ + + !1 min !--! !Inject Regadenoson.! +--------+--+ + + * Stress results: LEXISCAN STRESS TEST ENDED IN 11 MINUTES 36 SECONDS. NORMAL HEART RATE AND BLOOD PRESSURE RESPONSE TO LEXISCAN INJECTION. LEFT BBB. MID CHEST HEAVYNESS (4/10) AT 3 MINUTES POST LEXISCAN INJECTION. MID CHEST HEAVYNESS SUBSIDED BY 7 MINUTES POST LEXISCAN INJECTION. NO SIGNIFICANT ST SEGMENT CHANGES. There is a normal resting blood pressure. Normal blood pressure response to adenosine. The rate-pressure product for the peak heart rate and blood pressure was 18679ux Hg/min. Myocardial perfusion: Imaging information: gated. The image quality was good. Left ventricular size is normal. No myocardial perfusion defects noted. Ventricular Function (Wall Motion): The calculated left ventricular ejection fraction after stress: 67%. LV global systolic function is normal. No left ventricular regional motion abnormality. Study data: Angel Luis May MD supervised and was readily available during the procedure. This study was interpreted by [facility]. Study status: Routine. Consent: The risks, benefits, and alternatives to the procedure were explained to the patient and informed consent was obtained. Procedure: Initial setup. A baseline ECG was recorded. Surface ECG leads and manual cuff blood pressure measurements were monitored. Heart sounds: Normal. Lung sounds: Normal. Regadenoson stress test. Stress testing was performed, with regadenoson by intravenous bolus, for a total dose of 0.4mgover 10.00sec, followed by a 5ml saline flush. The infusion was terminated due to per protocol. Study completion: All catheters inserted during the procedure were removed. The patient tolerated the procedure well and was discharged from the lab. Discharge: The patient left the laboratory in stable condition. Birthdate: Patient birthdate: 1950. Sex: Gender: female. Study date: Study date: 09/29/2018. Study time: 00:01 AM. Signature Documentation: - The imaging portion of this study was interpreted by Nuclear Photograph Inspector Angel Luis May MD. - The imaging portion of this study was interpreted by Nuclear Radiologist Kahlil London MD. - The Stress ECG portion of this study was interpreted by Angel Luis May MD. Electronically signed by Angel Luis May 09/29/2018 11:48
[2018-09-29] MEDS: Regadenoson 0.4 MG/5 ML SYR IVP (10:14)
== END 2018-09-29 00:25 ==
PROVIDERS: PCP Family Medicine; Visit Provider Internal Medicine
DX: R07.9 Chest pain, unspecified (principal); R06.02 Shortness of breath; I10 Essential (primary) hypertension; E78.5 Hyperlipidemia, unspecified; Z87.891 Personal history of nicotine dependence
CPT/HCPCS: 78452; 93016; 93018; 93017; J2785

== ENCOUNTER 2018-10-01 02:13 | Outpatient (CLI) | payer MEDICARE, BC, SELFPAY ==
[2018-10-01 12:50] LABS: ALT 59 U/L (12-78); AST 31 U/L (15-37); Albumin 3.6 g/dL (3.4-5.0); Alkaline Phosphatase 105 U/L (46-116); Anion Gap 7.4 mmol/L (3-11); BUN 21 mg/dL (7-18); Bilirubin, Total 0.4 mg/dL (0.2-1.0); CO2 28.6 mmol/L (21.0-32.0); CREATININE 1.03 mg/dL (0.55-1.02); Calcium 9.4 mg/dL (8.5-10.1); Chloride 101 mmol/L (98-107); Estimated GFR 53.29 (mL/min/1.73m2); Glucose 110 mg/dL (70-100); Potassium 5.4 mmol/L (3.5-5.1); Sodium 137 mmol/L (136-145); Total Protein 6.6 g/dL (6.4-8.2)
== END 2018-10-01 02:33 ==
PROVIDERS: PCP Family Medicine; Visit Provider Internal Medicine
DX: R94.5 Abnormal results of liver function studies (principal)
CPT/HCPCS: 36415; 80053

== ENCOUNTER 2018-10-11 01:54 | Outpatient (CLI) | payer MEDICARE, BC, SELFPAY ==
[2018-10-11 11:35] LABS: Anion Gap 13.1 mmol/L (3-11); BUN 24 mg/dL (7-18); CO2 22.9 mmol/L (21.0-32.0); CREATININE 1.04 mg/dL (0.55-1.02); Calcium 8.9 mg/dL (8.5-10.1); Chloride 102 mmol/L (98-107); Glucose 107 mg/dL (70-100); Potassium 4.4 mmol/L (3.5-5.1); Sodium 138 mmol/L (136-145)
== END 2018-10-11 02:14 ==
PROVIDERS: PCP Family Medicine; Visit Provider Family Medicine
DX: E87.5 Hyperkalemia (principal)
CPT/HCPCS: 36415; 80048

== ENCOUNTER 2018-12-24 14:42 | Outpatient (REF) | payer MEDICARE, BC, SELFPAY ==
[2018-12-24 19:12] LABS: ALT 41 U/L (12-78); AST 41 U/L (15-37); Alkaline Phosphatase 97 U/L (46-116); Anion Gap 14.1 mmol/L (3-11); BUN 18 mg/dL (7-18); Bilirubin, Direct 0.07 mg/dL (0.00-0.20); Bilirubin, Total 0.4 mg/dL (0.2-1.0); CO2 20.9 mmol/L (21.0-32.0); CREATININE 0.74 mg/dL (0.55-1.02); Calcium 9.6 mg/dL (8.5-10.1); Chloride 101 mmol/L (98-107); Creatine Kinase 97 U/L (26-192); Glucose 98 mg/dL (70-100); Potassium 4.9 mmol/L (3.5-5.1); Sodium 136 mmol/L (136-145); Total Protein 7.7 g/dL (6.4-8.2)
[2018-12-24 19:27] LABS: Abs Immature Grans 0.02 k/cumm (0.0-0.09); Absolute Basophil Count 0.04 k/cumm (0.0-0.2); Absolute Eosinophil Count 0.24 k/cumm (0.0-0.7); Absolute Lymphocyte Count 1.97 k/cumm (1.2-3.4); Absolute Monocyte Count 0.68 k/cumm (0.11-0.7); Absolute Neutrophil Count 3.77 k/cumm (1.2-6.7); Basophils % 0.6; Eosinophils % 3.6; HCT 42.1 % (36.0-46.0); HGB 13.8 g/dL (12.0-15.5); Immature Grans % 0.3; Lymphocytes % 29.3; Mean Corp. HGB Concentration 32.8 g/dL (32.0-36.0); Mean Corpuscular Hemoglobin 28.6 pg (27.0-33.0); Mean Corpuscular Volume 87.3 fL (80-95); Mean Platelet Volume 10.7 fL (8.0-11.0); Monocytes % 10.1; Neutrophils % 56.1; Platelet Count 195 x1000/uL (130-400); RBC 4.82 m/cumm (4.00-5.20); RBC Distribution Width 13.3 % (11.7-14.6); White Blood Cell Count 6.72 k/cumm (4.4-10.8)
[2018-12-27 11:07] LABS: Lyme Ab w Rflx to Lyme Confirm Negative
[2018-12-28 00:03] LABS: Anaplasma phagocytophilum Negative (Negative); B. miyamotoi PCR Negative (Negative); Babesia divergens/MO-1 Negative (Negative); Babesia duncani Negative (Negative); Babesia microti Negative (Negative); Ehrlichia chaffeensis Negative (Negative); Ehrlichia ewingii/canis Negative (Negative); Ehrlichia muris eauclairensis Negative (Negative)
== END 2018-12-24 15:02 ==
LOC: NCHCN 14:42
PROVIDERS: PCP Family Medicine; Visit Provider Physician Assistant Medical
DX: M79.10 Myalgia, unspecified site (principal); R53.83 Other fatigue; R79.89 Other specified abnormal findings of blood chemistry
CPT/HCPCS: 80048; 80076; 82550; 85025; 86618; 87798

== ENCOUNTER 2019-01-06 00:23 | Outpatient (CLI) | payer MEDICARE, BC, SELFPAY ==
[2019-01-06] MEDS: Omnipaque 350 MG/ML 50 ML BTL IJ (08:31)
[2019-01-06] MEDS: Normal Saline Flush 10 ML SYR IVP (08:31)
[2019-01-06] MEDS: Breeza Beverage 473 ML BTL PO ×2 (08:32)
[2019-01-06] MEDS: Omnipaque 350 MG/ML 100 ML BTL IJ (08:32)
--- NOTE | 2019-01-06 08:52 | DI.CT_ITS ---
SYMPTOM/DIAGNOSIS: RUQ PAIN R10.11 CT ABDOMEN AND PELVIS: The study was carried out according to the usual protocol with an intravenous administration of 100 cc Omnipaque 350. The lung bases are unremarkable. The liver is intact. The patient is status post cholecystectomy. There is no evidence of ductal dilatation. The pancreas and spleen are intact. The adrenals are normal. Aside from a small area of scarring involving the upper pole of the right kidney no renal abnormality is identified. There is no evidence of bowel obstruction. The appendix is not seen but there is nothing to suggest an acute appendix. There is no evidence of diverticulosis or diverticulitis. There is no evidence of free fluid or free air in the intraperitoneal space. The inferior portion of the pelvis is obscured by artifacts generated by the patient's hip prosthesis. The bladder is incompletely distended. The patient is status post hysterectomy. There is no evidence of an abdominal aortic aneurysm. There are degenerative changes involving the lumbar spine with a narrow vacuum disc at L4-5 and associated hypertrophic changes. There is no evidence of an acute bony abnormality. SUMMARY: No evidence of an acute abdomen.
== END 2019-01-06 00:43 ==
PROVIDERS: PCP Family Medicine; Visit Provider Physician Assistant Medical
DX: R10.11 Right upper quadrant pain (principal); Z90.49 Acquired absence of other specified parts of digestive tract; Z90.710 Acquired absence of both cervix and uterus
CPT/HCPCS: 74177; J3490; Q9967

== ENCOUNTER 2019-01-10 19:13 | Emergency (ER) | payer MEDICARE, BC, SELFPAY ==
[2019-01-10 19:17] VITALS: BP 186/68; PULSE 77; RESP 20; TEMP 36.4; O2SAT 96
--- NOTE | 2019-01-10 19:48 | DI.RAD_ITS ---
SYMPTOM/DIAGNOSIS: S/[P FALL ON TO LT SHOULDER, R/O ACUTE FRACTURE LEFT SHOULDER: No fracture or dislocation is seen. There are mild degenerative changes at the A-C joint and glenohumeral joint. Subchondral cyst is seen in the humeral head. No rib fracture or pneumothorax is seen. IMPRESSION: No acute abnormality.
--- NOTE | 2019-01-10 19:49 | ED.GENADUL_ITS ---
Discharge Plan Disposition Patient Disposition: HOME Condition: Stable Discharge Details Chief Complaint: Orthopedic Clinical Impression: Contusion of left shoulder, Contusion of face Primary Care Provider: Rehana Cornejo V ED Provider: Ayah Vincent Home Meds and New Rx's Prescriptions: Continued latanoprost [Xalatan] 2.5 ML drops 1 drp Ophthalmic DAILY RF: 0 sumatriptan succinate [Imitrex] 50 MG tablet 50 mg PO PRN RF: 0 Fish Oil 500 MG capsule,delayed release(DR/EC) 1,000 mg PO BID RF: 0 aspirin 81 MG tablet,delayed release (DR/EC) 81 mg PO DAILY RF: 0 venlafaxine [Effexor XR] 75 MG capsule,extended release 24hr 75 mg PO DAILY RF: 0 omeprazole 40 MG capsule,delayed release(DR/EC) 40 mg PO DAILY RF: 0 magnesium oxide 250 MG tablet 500 mg PO DAILY RF: 0 vitamin E mixed 1,000 UNIT capsule 1,600 unit PO DAILY RF: 0 Probiotic 1 EACH capsule, sprinkle 1 ea PO DAILY RF: 0 atenolol 50 MG tablet 50 mg PO HS RF: 0 Natural Psyllium Fiber 1,040 GM powder 8 oz PO DAILY RF: 0 pravastatin 40 MG tablet 60 mg PO HS RF: 0 losartan 100 MG tablet 100 mg PO QAM RF: 0 cholecalciferol (vitamin D3) [Vitamin D3] 2,000 UNIT capsule 5,000 unit PO DAILY RF: 0 amlodipine 10 MG tablet 10 mg PO DAILY RF: 0 timolol maleate 5 ML drops 1 drp Topical DAILY RF: 0 Discharge Instructions Instructions: Rib Fracture (ED), Head Injury (ED), Contusion in Adults (ED) Additional Instructions: Your shoulder was normal on your x-ray. Your x-ray noted a possible rib fracture. You may not have a rib fracture but a rib bruise or rib fracture are treated same with rest, ice and pain control. Rest and ice left shoulder several times daily for 20 minutes at a time. Alternate Tylenol and Motrin as needed and directed for pain. Use gentle range of motion exercises to left shoulder to prevent frozen shoulder. Follow-up with your primary care doctor in 1 week for reevaluation. Return immediately to the emergency department if you develop any worsening or concerning symptoms. Discharge Data Discharge Physician: Ayah Vincent Medical Decision Making 68-year-old female who presents with left shoulder pain status post mechanical fall at home prior to arrival. She has not taken anything for pain. She is holding her left upper extremity close to her body. No evidence of trauma to face. No C-spine/T-spine/L-spine tenderness. No chest tenderness. Lungs clear to auscultation. Abdomen soft nontender. Pain in left shoulder with range of motion or palpation. Neurovascular intact. No deformities. Do not see any indication for CT head or C-spine or facial imaging and patient is agreeable. Will send for left shoulder x-ray and give a dose of ibuprofen. 2114 --shoulder x-ray negative for fracture. There is a questionable fracture versus artifact in the left third rib which was noted on the scapular Y view. On reassessment of this area, patient has some mild tenderness but there is no evidence of trauma. Lungs clear to auscultation. Discussed with patient that we can obtain a rib series/chest x-ray but she is declining at this time. She was informed that the treatment for a rib contusion versus fracture is the same in terms of pain control, ice. No evidence of pneumothorax on limited view of lungs on rib x-ray. Patient instructed to rest and ice left shoulder and alternate Tylenol and Motrin. She is instructed to follow-up with her primary care doctor for reevaluation and to return at any time if worse. Medical Records Medical records reviewed: Yes I reviewed the patient's medical records. Imaging Data Radiologic Study: Radiologist's impression: XR Left Shoulder EXAM DATE/TIME: 01/10/2019 7:48 PM CLINICAL HISTORY: 68 years old, female; Pain; Left; Patient HX: S/P fall onto L shoulder; Additional info: R/O acute fracture TECHNIQUE: Imaging protocol: XR Left shoulder. Views: 2 or more views. COMPARISON: No relevant prior studies available. FINDINGS: Bones/joints: Minimal degenerative changes at the acromioclavicular joint. No acutely displaced fracture to the scapula, humerus, or clavicle. Subtle cortical discontinuity at the left third rib, only seen on the scapular Y-view. Visualized chest is unremarkable. Soft tissues: No significant soft tissue swelling. IMPRESSION: 1. No acute skeletal abnormality to the clavicle, scapula, or humerus. 2. Questionable fracture versus artifact in the left third rib, detailed above. Consider rib series if clinically warranted. HPI General Mode of arrival: ambulatory . Date/Time Provider Initiated Documentation: 01/10/19 19:20 . Limitations to Documentation: no limitations . Information obtained by: patient . HPI Narrative: Patient is a 68-year-old female who presents status post mechanical fall at home with left shoulder pain. Patient states she was walking when she tripped over a dog bed and fell hitting the left side of her face and left shoulder on the wooden banister. She denies LOC, vomiting, headache, dizziness, visual changes, neck pain or back pain. She states her main complaint is the left shoulder pain. She also states she hit her knee but denies any knee pain. She denies any left-sided facial swelling, pain or bruising. She has not taken anything for pain yet. She has applied ice to her left shoulder. Related Data Home Medications Medication Instructions Recorded Confirmed Fish Oil 1,000 mg PO BID 10/19/14 09/25/18 latanoprost [Xalatan] 1 drp OPHTHALMIC DAILY drp 10/19/14 01/10/19 sumatriptan succinate [Imitrex] 50 mg PO PRN 10/19/14 09/25/18 Natural Psyllium Fiber 8 oz PO DAILY 10/20/14 01/10/19 atenolol 50 mg PO HS 10/20/14 09/25/18 cholecalciferol (vitamin D3) 5,000 unit PO DAILY 08/07/16 09/25/18 [Vitamin D3] losartan 100 mg PO QAM 08/07/16 09/25/18 pravastatin 60 mg PO HS 08/07/16 09/25/18 amlodipine 10 mg PO DAILY 08/19/16 09/25/18 timolol maleate 1 drp TOPICAL DAILY 12/24/16 01/10/19 Probiotic 1 ea PO DAILY cap.sprink 11/05/17 09/25/18 aspirin 81 mg PO DAILY tab-cap 11/05/17 09/25/18 magnesium oxide 500 mg PO DAILY 11/05/17 09/25/18 omeprazole 40 mg PO DAILY 11/05/17 01/10/19 venlafaxine [Effexor XR] 75 mg PO DAILY 11/05/17 09/25/18 vitamin E mixed 1,600 unit PO DAILY 11/05/17 09/25/18 Allergies Allergy/AdvReac Type Severity Reaction Status Date / Time Sulfa (Sulfonamide Allergy Severe Anaphylaxsi Unverified 01/10/19 19:20 Antibiotics) s furosemide Allergy Intermediate Unverified 01/10/19 19:20 morphine Allergy Mild hives Unverified 01/10/19 19:20 brompheniramine maleate Allergy Unknown Unverified 01/10/19 19:20 [From Drixoral] dexbrompheniramine maleate Allergy Unknown Unverified 01/10/19 19:20 [From Drixoral] pseudoephedrine HCl Allergy Unknown Unverified 01/10/19 19:20 [From Drixoral] VINCENZO Inhibitors AdvReac Severe severe Unverified 01/10/19 19:20 muscle fatigue prednisone AdvReac Severe Psychosis, Unverified 01/10/19 19:20 SOB Blqxkse-Meo-Nik Reductase AdvReac Severe Other (See Unverified 01/10/19 19:21 Inhibitor Comment) hydrochlorothiazide AdvReac Intermediate Doesn't Unverified 01/10/19 19:20 tolerate General Stated Complaint: Orthopedic JULIO C: 4 Review of Systems Review of Systems All systems reviewed & are unremarkable except as noted in HPI and below Constitutional Reports as per HPI, Denies chills and Denies fever(s) Eyes Denies blurry vision ENT Denies dizziness, Denies sore throat and Denies throat swelling Cardiovascular Denies chest pain and Denies dyspnea Respiratory Denies cough and Denies dyspnea Gastrointestinal Denies abdominal pain, Denies diarrhea and Denies vomiting Genitourinary Denies hematuria and Denies dysuria Musculoskeletal Denies back pain and Denies numbness Comments: Left shoulder pain Integumentary/Breasts Denies lesions and Denies rash Neurologic Denies dizziness, Denies focal weakness and Denies numbness Allergic/Immunologic Denies throat swelling PFSH Medical History Barretts esophagus Bilateral hearing loss Depression Femoral neuropathy of right lower extremity History of anemia History of tobacco use Hx of abnormal mammogram Hypertension IBS (irritable bowel syndrome) Low back pain Lumbar radiculopathy Mixed hyperlipidemia Osteoarthritis of hip PVD (peripheral vascular disease) Pain of left calf Partial small bowel obstruction Sleep apnea Vertigo Surgical History History of common carotid artery stent placement (Resolved) S/P cholecystectomy (Resolved) Ventral hernia repair Social History Smoking/Tobacco Use Status: Former Tobacco Use Alcohol Intake: never Drug use: Never Substance use type: does not use Do you feel safe in your relationship?: Yes Exam Const General: cooperative, healthy appearing and no acute distress HENMT Head: normal to inspection Ears: hearing grossly normal bilaterally, external ears normal and TM's normal bilaterally General nose exam: external nose normal Face and sinus: normal facial exam Mouth: oral mucosae normal Teeth and gingiva: dentition normal Throat: posterior oropharynx normal Other: Minimal tenderness to palpation of area lateral to left eye and left temporal region but without evidence of trauma. No edema, ecchymosis, erythema, lacerations, abrasions. Eyes General: appearance normal, both eyes and all related structures Pupils: PERRL EOM: EOM intact bilaterally Neck Neck: normal visual inspection and No submandibular swelling Lymphatic: no lymphadenopathy noted Chest Chest: normal inspection of the chest and no tenderness Resp Effort & Inspection: normal respiratory effort and able to speak in complete sentences Auscultation: clear to auscultation bilaterally Cardio Rate: regular rate Rhythm: regular rhythm GI Inspection: normal to inspection Palpation: soft, not firm, not rigid and nontender Auscultation: normal bowel sounds Back/Spine/Pelvis Cervical Spine: No cervical spinal tenderness Thoracic/Lumbar Spine: thoracic and lumbar spine normal to inspection Pelvis: no pain with anterior-posterior compression Skin General skin exam: no rashes or lesions noted Neuro General: alert, awake and oriented x3 Cognition: normal cognition Speech: speech normal Motor: muscle tone normal throughout Sensory Exam: no sensory deficits noted Extrem General: normal to inspection, full ROM, normal capillary refill, no calf tenderness bilaterally and no edema Other: Pain in left shoulder with range of motion. Limitation of motion in left shoulder due to pain. No obvious deformities noted. No tenderness palpation of left elbow, left wrist or left hand. Normal range of motion without evidence of trauma to right upper extremity. No pain with palpation to right hip or right knee. Normal gait. Left radial and ulnar pulses intact. Cap refill less than 2 seconds. Psych Appearance: grossly normal Mental Status: mental status grossly normal Speech and Movement: speech and movement normal Affect: normal affect Course Vital Signs Temperature 97.5 F L 01/10/19 19:17 Pulse 77 01/10/19 19:17 Respiratory Rate 20 01/10/19 19:17 Blood Pressure 186/68 H 01/10/19 19:17 Pulse Oximetry 96 01/10/19 19:17 Temperature 97.5 F L 01/10/19 19:17 Temperature Source Skin 01/10/19 19:17 Pulse 77 01/10/19 19:17 Respiratory Rate 20 01/10/19 19:17 Respiratory Effort Non-Labored 01/10/19 19:22 Blood Pressure 186/68 H 01/10/19 19:17 Blood Pressure Position Sitting 01/10/19 19:17 Pulse Oximetry 96 01/10/19 19:17 Oxygen Delivery Method Room Air 01/10/19 19:17 Oxygen Flow Rate 0 01/10/19 19:17 Pain Level 12 01/10/19 19:17
[2019-01-10] MEDS: Ibuprofen 600 MG TAB PO (19:58)
--- NOTE | 2019-01-10 20:54 | DI.VRAD_ITS ---
EXAM: XR Left Shoulder EXAM DATE/TIME: 01/10/2019 7:48 PM CLINICAL HISTORY: 68 years old, female; Pain; Left; Patient HX: S/P fall onto L shoulder; Additional info: R/O acute fracture TECHNIQUE: Imaging protocol: XR Left shoulder. Views: 2 or more views. COMPARISON: No relevant prior studies available. FINDINGS: Bones/joints: Minimal degenerative changes at the acromioclavicular joint. No acutely displaced fracture to the scapula, humerus, or clavicle. Subtle cortical discontinuity at the left third rib, only seen on the scapular Y-view. Visualized chest is unremarkable. Soft tissues: No significant soft tissue swelling. IMPRESSION: 1. No acute skeletal abnormality to the clavicle, scapula, or humerus. 2. Questionable fracture versus artifact in the left third rib, detailed above. Consider rib series if clinically warranted. Dictated and Authenticated by: Venkat Watson MD. Ordering:MARGOT Poon MD
== END 2019-01-10 21:39 | disposition home or self-care (01) ==
PROVIDERS: Emergency Provider Physician Assistant; PCP Family Medicine
DX: S40.012A Contusion of left shoulder, initial encounter (principal); S00.83XA Contusion of other part of head, initial encounter; W01.0XXA Fall on same level from slipping, tripping and stumbling without subsequent striking against object, initial encounter; I10 Essential (primary) hypertension
CPT/HCPCS: 99283; 73030; 99282

== ENCOUNTER 2019-01-13 11:14 | Outpatient (CLI) | payer MEDICARE, BC, SELFPAY ==
--- NOTE | 2019-01-13 13:37 | DI.RAD_ITS ---
SYMPTOM/DIAGNOSIS: LT ARM PAIN, M79.602 LEFT HUMERUS: Two views were obtained. There are mild hypertrophic degenerative changes of acromioclavicular joint. No other significant bony abnormality is seen.
== END 2019-01-13 11:34 ==
PROVIDERS: PCP Family Medicine; Visit Provider Family Medicine
DX: M79.602 Pain in left arm (principal)
CPT/HCPCS: 73060

== ENCOUNTER 2019-01-19 15:31 | Outpatient (REF) | payer MEDICARE, BC, SELFPAY ==
[2019-01-19 18:59] LABS: HDL Cholesterol 78 mg/dL (40-60); LDL CHOLESTEROL 158 mg/dL (<100)
== END 2019-01-19 15:51 ==
LOC: NCHCN 15:31
PROVIDERS: PCP Family Medicine; Visit Provider Nurse Practitioner Family
DX: E78.2 Mixed hyperlipidemia (principal)
CPT/HCPCS: 83721; 83718

== ENCOUNTER 2019-02-03 00:30 | Outpatient (CLI) | payer MEDICARE, BC, SELFPAY ==
--- NOTE | 2019-02-03 08:38 | DI.MRI_ITS ---
SYMPTOM/DIAGNOSIS: LEFT SHOULDER PAIN M25.512, FELL 01/10. LIMITED ROM, ? ROTATOR CUFF TEAR MRI LEFT UPPER EXTREMITY: There is some increased signal seen in the supraspinatus tendon suggestive of a tendinosis or a partial tear on the bursal surface. The teres minor tendon is intact as is the subscapularis tendon. The muscles are within normal limits for size and signal. The biceps tendon has a normal appearance and location. There is increased signal seen in the superior labrum. This may represent degeneration or partial tear. The glenohumeral articular cartilage appears well maintained. There is increased signal in the lateral aspect of the humeral head. This may represent a bone bruise. There is a question of a nondisplaced trabecular fracture involving the greater tuberosity (Series 7, Image 14). There are degenerative changes seen at the acromioclavicular joint with moderate hypertrophic changes. There is a moderate amount of fluid seen in the subacromial, subdeltoid bursa. IMPRESSION: 1. Partial bursal surface tear involving the supraspinatus tendon. 2. Tendinosis vs partial tear of the infraspinatus tendon 3. Abnormal signal seen in the superior labrum which may represent degeneration vs a tear. 4. Marrow edema seen in the lateral aspect of the humeral head with a curvilinear hypo intense signal noted suspicious for a nondisplaced fracture 5. Moderate amount of fluid seen in the subacromial, subdeltoid bursa.
--- NOTE | 2019-02-03 16:48 | DI.VRAD_ITS ---
EXAM: MR Left Upper Extremity Joint Without Contrast, Shoulder EXAM DATE/TIME: 02/03/2019 8:35 AM CLINICAL HISTORY: 68 years old, female; Pain; Shoulder; Left; Patient HX: Fell 01/14 TECHNIQUE: Imaging protocol: MR of the Left upper extremity without contrast. Exam focused on the shoulder. COMPARISON: CR XR shoulder LT complete 2+V 01/10/2019 8:02 PM FINDINGS: TENDONS: Supraspinatus: There is moderate supraspinatus tendinopathy with partial-thickness bursal surface fraying and undersurface tearing. Infraspinatus: There is mild infraspinatus tendinopathy. Subscapularis: Unremarkable. No evidence of tear. Teres minor: Unremarkable. No evidence of tear. Biceps brachii, long head: Intact and normal in position. LIGAMENTS: Glenohumeral: Unremarkable. Glenoid labrum: Mild increased signal in the superior aspect of the glenoid labrum could be degenerative or related to tearing. Cartilage: There is very mild glenohumeral chondromalacia. Bones/joints: There is mild acromioclavicular arthrosis. A very small osteophyte projects from the undersurface of the acromion. There is a small degenerative cystic focus in the superior aspect of the glenoid. There is moderate marrow edema in the humeral head laterally, including along the greater tuberosity. This may represent bone bruising in the setting of trauma, though there could be a degenerative component. There may be nondisplaced curvilinear trabecular fracture along the greater tuberosity (images 7:14, 4:10, 9:8). There is also mild cystic change in the humeral head superiorly at the margin of the articular surface and greater tuberosity, likely degenerative. Fluid: Fluid in the glenohumeral joint is within physiologic limits. Muscles: There is mild patchy edema in the deltoid muscle posteriorly, which may relate to strain or contusion. Soft tissues: There is small to moderate fluid in the subacromial, subdeltoid bursa, as well as in the subcoracoid bursa. IMPRESSION: 1. Degenerative changes as described. 2. Moderate marrow in the humeral head laterally, may represent bone bruising in the setting of trauma, though there could be a degenerative component. 3. Rotator cuff tendinopathy as described, without full-thickness tear identified. 4. Small to moderate fluid in the subacromial, subdeltoid and subcoracoid bursae, suggesting bursitis, which could be posttraumatic. 5. Mild patchy edema in the deltoid muscle posteriorly, may relate to strain or contusion. Dictated and Authenticated by: Mc Perez MD. Ordering:DANNIELLE Mccormack MD
== END 2019-02-03 00:50 ==
PROVIDERS: PCP Nurse Practitioner Family; Visit Provider Nurse Practitioner Family
DX: M25.512 Pain in left shoulder (principal); M75.102 Unspecified rotator cuff tear or rupture of left shoulder, not specified as traumatic; R60.0 Localized edema; M75.82 Other shoulder lesions, left shoulder
CPT/HCPCS: 73221

== ENCOUNTER 2019-03-01 01:47 | Outpatient (CLI) | payer MEDICARE, BC, SELFPAY ==
--- NOTE | 2019-03-01 10:00 | NS.NUTBLAN_ITS ---
DESCRIPTION.ASSESSMENT: : Macy Mccurdy presents for nutrition consult to manage hyperlipidemia. She has had a recent fall and has decreased her physical activity because of need for arm surgery. Macy has not been receptive to medications as she has had reactions to many attempts. She would like to do this through lifestyle management. Macy describes eating from the DASH eating plan. She avoids processed foods and has an air frier. She only uses olive oil. She is lactose and glucose intolerant; she does not use salt, only spices. She recognizes her problem with food as portion control and she loves cheese. They have started to have their main meal mid=day. She also is following the clean food plan of eating between 10-6. SHe has a kale protein powder smoothie for breakfast with grapes and tumeric; protein and vegetables for dinner limiting beef to less than once a week. If she snacks in the afternoon it is microwaved popcorn. Last night she had 12 grapes and 1/4 c walnuts; at noon she had roast turkey with gravy, 1 cup mashed potato, sliced cucumbers. Macy goes to PT 3 times a week and walks he dogs twice a day, maybe walking a mile. She also does home exercise and hamstring stretch. She denies stress and states she has a great quality of life. ASSESSMENT: Description of food intake indicates less than 1200 calories daily. Voiced support for her current lifestyle changes INTERVENTION: Discussed elements of DASH food plan and noted she is not eating as much as is described. Discussed physical activity. Discussed priorities and she recognizes she could be more intentional about following the food plan and with physical activity. Discussed alternative medications including red yeast rice, She does take fish oil already. PLAN: She will increase physical activity to 150-200 minutes a week She will have at least 5 vegetable servings daily She knows to call with questions.
== END 2019-03-01 02:07 ==
PROVIDERS: PCP Nurse Practitioner Family; Visit Provider Dietitian, Registered
DX: E78.2 Mixed hyperlipidemia (principal); Z71.3 Dietary counseling and surveillance
CPT/HCPCS: 97802

== ENCOUNTER 2019-03-25 01:32 | Outpatient (CLI) | payer MEDICARE, BC, SELFPAY ==
--- NOTE | 2019-03-25 09:30 | DI.MAMMO_ITS ---
SYMPTOM/DIAGNOSIS: SCREENING, [facility] Z00.00 MAMMOGRAM: 03/25 Mammograms were interpreted according to the usual protocol including computer analysis with CAD system, tomosynthesis and C view imaging. The breasts are heterogeneously dense. No dominant mass or clumped microcalcification is identified in either breast. The current examination is compared with previous examinations including February 2017 and there has been no gross interval change in appearance in comparison with the previous studies. CONCLUSION: No specific evidence of malignancy at this time. Routine screening examinations are suggested at yearly intervals in this age group according to the ACS/ACR guidelines. Category 1, breast density category C. MQSA ASSESSMENT OF FINDINGS: Negative. Category 1. Patient will receive a letter notifying them of these results. Bi-RADS category C. The breasts are heterogeneously dense, which may obscure small masses.
== END 2019-03-25 01:52 ==
PROVIDERS: PCP Nurse Practitioner Family; Visit Provider Family Medicine
DX: Z12.31 Encounter for screening mammogram for malignant neoplasm of breast (principal)
CPT/HCPCS: 77063; 77067

== ENCOUNTER 2019-04-01 11:29 | Outpatient (CLI) | payer MEDICARE, BC, SELFPAY ==
[2019-04-01 12:52] LABS: Uric Acid 5.2 mg/dL (2.6-6.0)
== END 2019-04-01 11:49 ==
PROVIDERS: PCP Family Medicine; Visit Provider Family Medicine
DX: M79.675 Pain in left toe(s) (principal)
CPT/HCPCS: 36415; 84550; 86140

== ENCOUNTER 2019-04-04 12:36 | Outpatient (CLI) | payer MEDICARE, BC, SELFPAY ==
--- NOTE | 2019-04-04 12:43 | DI.RAD_ITS ---
SYMPTOMS/DIAGNOSIS: LEFT TOE PAIN LEFT GREAT TOE: The bony structures are normally mineralized. There are minimal periarticular degenerative changes. There is no evidence of a fracture or dislocation.
== END 2019-04-04 12:56 ==
PROVIDERS: PCP Family Medicine; Visit Provider Physician Assistant Medical
DX: M79.675 Pain in left toe(s) (principal); M19.072 Primary osteoarthritis, left ankle and foot
CPT/HCPCS: 73660

== ENCOUNTER 2019-06-14 14:33 | Outpatient (CLI) | payer MEDICARE, BC, SELFPAY ==
[2019-06-14 15:09] LABS: Bilirubin Negative (Negative); Blood Large (Negative); Clarity Cloudy (Clear); Glucose Negative (Negative); Ketones Trace mg/dL (Negative); Leukocyte Esterase Moderate (Negative); Nitrite Negative (Negative); Urobilinogen 0.2 EU/dL (Up TO 0.2); pH 6.5 (5-8)
[2019-06-14 15:24] LABS: Bacteria Few HPF (Negative); C & S Indicated? Yes; Crystals Negative HPF (Negative); Epithelial Cells Negative HPF (Negative); Mucus Negative (Negative); Other Cells Few Transitional (Negative); RBC >50 HPF (0-2); WBC >50 HPF (0-5)
== END 2019-06-14 14:53 ==
PROVIDERS: PCP Family Medicine; Visit Provider Physician Assistant Medical
DX: N39.0 Urinary tract infection, site not specified (principal)
CPT/HCPCS: 87077; 81003; 81015; 87086; 87186

== ENCOUNTER 2020-03-12 09:00 | Outpatient (REF) | payer MEDICARE, BC, SELFPAY ==
[2020-03-12 20:17] LABS: ALT 32 U/L (14-59); AST 23 U/L (15-37); Albumin 3.8 g/dL (3.4-5.0); Alkaline Phosphatase 58 U/L (46-116); Anion Gap 4.4 mmol/L (3-11); BUN 18 mg/dL (7-18); Bilirubin, Total 0.3 mg/dL (0.2-1.0); CO2 29.6 mmol/L (21.0-32.0); Calcium 9.3 mg/dL (8.5-10.1); Calculated LDL 162 mg/dL (<100); Chloride 107 mmol/L (98-107); Cholesterol 275 mg/dL (<200); Glucose 103 mg/dL (74-106); HDL Cholesterol 82 mg/dL (40-60); Potassium 4.4 mmol/L (3.5-5.1); Sodium 141 mmol/L (136-145); Total Protein 6.7 g/dL (6.4-8.2); Triglyceride 156 mg/dL (<150)
== END 2020-03-12 09:20 ==
LOC: NCHCN 09:00
PROVIDERS: PCP Family Medicine; Visit Provider Family Medicine
DX: I10 Essential (primary) hypertension (principal); E78.2 Mixed hyperlipidemia; I73.9 Peripheral vascular disease, unspecified
CPT/HCPCS: 80053; 80061

== ENCOUNTER 2020-04-03 09:39 | Outpatient (CLI) | payer MEDICARE, BC, SELFPAY ==
--- NOTE | 2020-04-03 08:00 | DI.RAD_ITS ---
EXAM: XR SHOULDER LT COMPLETE 2+V CLINICAL HISTORY: shoulder pain. TECHNIQUE: 2D digital imaging was performed. COMPARISON: CR XR shoulder LT complete 2+V from 01/10/2019 FINDINGS: BONES: No acute fracture is present. No bony destructive lesion is seen. JOINTS: No dislocation present. There are mild degenerative changes of the left acromioclavicular be nt. SOFT TISSUE: Normal. IMPRESSION: Mild degenerative changes of the left AC joint. DATA REPOSITORY: RADIATION DOSE DELIVERED:
== END 2020-04-03 09:59 ==
PROVIDERS: PCP Family Medicine; Referring Provider Family Medicine; Visit Provider Student in an Organized Health Care Education/Training Program
DX: M19.012 Primary osteoarthritis, left shoulder (principal); M25.512 Pain in left shoulder; M75.52 Bursitis of left shoulder; M75.22 Bicipital tendinitis, left shoulder; W19.XXXA Unspecified fall, initial encounter
CPT/HCPCS: 99204; 99215; 73030

== ENCOUNTER 2020-04-12 02:06 | Outpatient (CLI) | payer MEDICARE, BC, SELFPAY ==
--- NOTE | 2020-04-12 11:05 | DI.MAMMO_ITS ---
EXAM: MG MAMMO SCREENING CLINICAL HISTORY: SCREENING,Z12.39 TECHNIQUE: Bilateral full field digital CC and MLO mammographic images were obtained with 3D tomosyn thesis and utilizing computer aided detection (CAD). COMPARISON: Available for comparison. FINDINGS: Masses/Architectural Distortion: There is increased prominence of a focal asymmetric density in the u pper central left breast. Microcalcifications: No suspicious pleomorphic-type are seen. Skin Thickening/Nipple Retraction: None. IMPRESSION: 1. Increased prominence of asymmetric density in the upper central left breast. 2. This area should be further evaluated with spot compression views. Left breast ultrasound may be considered for further evaluation. BI-RADS Category 0 - Assessment Incomplete: Need additional imaging evaluation Breast Density - Category C - Heterogeneously dense The mammogram demonstrates the patient's breast tissue is dense. Dense breast tissue is very common a nd is not abnormal but dense breast tissue can make it harder to find cancer on a mammogram. Also, de nse breast tissue may increase their breast cancer risk. This information about the result of the [facility] mogram report was provided to the patient to raise their awareness. Use this report when you speak wi th the patient about their risks for breast cancer, which includes their family history. At that time , you may recommend for more screening tests (Ultrasound or MRI) as they might be useful based on the ir risk. A negative radiographic report should not delay biopsy if a dominant or clinically suspicious mass is present. Up to ten percent of cancers are not identified on mammography. A negative report may reinforce clinical impression. Adenosis and dense breasts may obscure an underlying neoplasm. False positive reports average 6 to 10%. Patient will receive a letter notifying them of these results.
== END 2020-04-12 02:26 ==
PROVIDERS: PCP Family Medicine; Visit Provider Family Medicine
DX: Z12.31 Encounter for screening mammogram for malignant neoplasm of breast (principal)
CPT/HCPCS: 77063; 77067

== ENCOUNTER 2020-04-13 04:00 | Outpatient (CLI) | payer MEDICARE, BC, SELFPAY ==
--- NOTE | 2020-04-13 09:55 | DI.MRI_ITS ---
EXAM: MR UPPER JOINT LT WO CLINICAL HISTORY: Question worsening rotator cuff tear,BURSITIS,TENDINITIS,M75.52,M75.22,. TECHNIQUE: Multiplanar multisequence MRI was performed. FINDINGS: The examination is limited due to patient motion artifact. BONES: There is no fracture or contusion pattern. JOINTS: Mild degenerative changes of the acromioclavicular joint. The glenohumeral joint is normal. TENDONS: Supraspinatus: There has been an increased size of the supraspinatus tear which is now full-thickness . Infraspinatus: Hyperintense signal is seen in the infraspinatus tendon consistent with tendinosis and /or partial tear. Subscapularis: Unremarkable. Teres [place]: Unremarkable. Biceps and [place]: Unremarkable. MUSCLES: Mild fatty atrophy of the supraspinatus muscle. The other rotator cuff muscles are unremark able. GLENOID LABRUM: Thickening and increased signal seen in the superior labrum. This may represent dege neration and/or partial tear. SOFT TISSUES: Unremarkable. LIGAMENTS: Unremarkable. OTHER: There is fluid in the subacromial subdeltoid bursa. There is a moderate glenohumeral joint ef fusion IMPRESSION: 1. Full-thickness supraspinatus tendon tear. 2. Tendinosis or partial tear involving the infraspinatus tendon. 3. Degeneration and/or partial tear of the superior labrum. 4. Mild fatty atrophy of the supraspinatus muscle. 5. Degenerative changes of the AC joint. 6. Fluid in the subacromial subdeltoid bursa. Moderate glenohumeral joint effusion. DATA REPOSITORY:
== END 2020-04-13 04:20 ==
PROVIDERS: PCP Family Medicine; Visit Provider Student in an Organized Health Care Education/Training Program
DX: M75.122 Complete rotator cuff tear or rupture of left shoulder, not specified as traumatic (principal); M19.012 Primary osteoarthritis, left shoulder; M25.412 Effusion, left shoulder; M75.22 Bicipital tendinitis, left shoulder; M75.52 Bursitis of left shoulder
CPT/HCPCS: 73221

== ENCOUNTER 2020-04-13 08:57 | Outpatient (CLI) | payer MEDICARE, BC, SELFPAY ==
--- NOTE | 2020-04-13 09:15 | DI.US_ITS ---
EXAM: MG MAMMO SCREEN CALL BACK UNI and U/S breast LT limited CLINICAL HISTORY: F/U MAMMO, INCREASED PROMINENCE FOCAL ASYMMETRIC DENSITY. TECHNIQUE: Craniocaudal and mediolateral oblique Full Field Digital Mammography views of the left br east with Computer Aided Diagnosis followed by Tomosynthesis and left breast ultrasound. COMPARISON: Priors available for comparison. FINDINGS: Mammography/Tomosynthesis: Masses/Architectural Distortion: None seen. Microcalcifictions: No suspicious pleomorphic-type are seen. Skin Thickening/Nipple Retraction: None. Left breast US: Echotexture: Normal appearance of the glandular tissue. Shadowing: No suspicious foci. Cyst: None. Solid lesions: None seen. Ductal dilation: None. IMPRESSION: 1. No evidence of malignancy is noted. 2. A six-month follow-up left mammogram is recommended for re-evaluation. 3. The findings were discussed with the patient on the date of the examination. BI-RADS Category 3 - 6 month - Probably Benign Finding: Recommend follow-up mammography in 6 months Breast Density - Category C - Heterogeneously dense The mammogram demonstrates the patient's breast tissue is dense. Dense breast tissue is very common a nd is not abnormal but dense breast tissue can make it harder to find cancer on a mammogram. Also, de nse breast tissue may increase their breast cancer risk. This [facility] was provided to the patient to raise their awareness. Use this report when you speak wi th the patient about their risks for breast cancer, which includes their family history. At that time , you may recommend for more screening tests (Ultrasound or MRI) as they might be useful based on the ir risk. A negative radiographic report should not delay biopsy if a dominant or clinically suspicious mass is present. Up to ten percent of cancers are not identified on mammography. A negative report may reinforce clinical impression. Adenosis and dense breasts may obscure an underlying neoplasm. False positive reports average 6 to 10%. Patient will receive a letter notifying them of these results.
== END 2020-04-13 09:17 ==
PROVIDERS: PCP Family Medicine; Visit Provider Family Medicine
DX: R92.8 Other abnormal and inconclusive findings on diagnostic imaging of breast (principal); R92.2 Inconclusive mammogram
CPT/HCPCS: 76642; 77063; 77067

== ENCOUNTER → 2020-04-24 08:06 | Outpatient (BNVA) | payer MEDICARE, BC, SELFPAY | PROVIDERS: PCP Family Medicine; Referring Provider Family Medicine; Visit Provider Student in an Organized Health Care Education/Training Program | DX: S46.012D Strain of muscle(s) and tendon(s) of the rotator cuff of left shoulder, subsequent encounter (principal); W01.0XXD Fall on same level from slipping, tripping and stumbling without subsequent striking against object, subsequent encounter; M75.52 Bursitis of left shoulder; M75.22 Bicipital tendinitis, left shoulder; I10 Essential (primary) hypertension | CPT/HCPCS: 99214 ==

== ENCOUNTER 2020-04-30 01:44 | Outpatient (CLI) | payer MEDICARE, BC, SELFPAY ==
[2020-05-01 20:26] LABS: COVID-19 RT-PCR Result NEGATIVE (Negative)
== END 2020-04-30 02:04 ==
PROVIDERS: PCP Family Medicine; Visit Provider Student in an Organized Health Care Education/Training Program
DX: Z11.59 Encounter for screening for other viral diseases (principal); Z01.818 Encounter for other preprocedural examination
CPT/HCPCS: U0003

== ENCOUNTER 2020-05-03 07:16 | Day surgery (SDC) | payer MEDICARE, BC, SELFPAY ==
--- NOTE | 2020-04-24 09:46 | PDOC.ANES ---
Anesthesia Note Request for Anestheisa consult due to medication intolerances and hx of Lt carotid stent 15 years ago by Jojo Stringer. I reviewed the patients [facility] and [facility] charts and found ongoing and recent cardiology notes relating to this patient. Due to concerns related to orthostatic dizziness the patient has had recent followup with [facility] cardilogy, including a carotid duplex study which found bilateral internal carotid stenosis to be less than 15% with no significant change from her previous study in 2019. The patients ECAs were stenotic >50% bilaterally. Right internal carotid artery stent was present and widely patent per study. Review of recent EKG at [facility] found: Normal sinus rhythm with left axis deviation, left bundle branch block. No significant change from previous studies. The patient was experiencing recurrent chest pain in 2019, stress test was negative and has been evaluated by cardiology since. Notes entered into plexus preop and appears appropriate to proceed.
[2020-05-03 07:24] VITALS: BP 130/50; PULSE 46; RESP 18; TEMP 36.2; O2SAT 97
[2020-05-03] MEDS: Lactated Ringers 1,000 ML 100 ML IV (08:24)
[2020-05-03] MEDS: ceFAZolin 2 GM/50 ML BAG IVPB (09:16)
--- NOTE | 2020-05-03 12:00 | PDOC.DSDIS_ITS ---
Discharge Plan Disposition Patient Disposition: HOME Condition: Stable Discharge Details Reason For Visit: Left rotator cuff tear Attending Provider: Ad Stringer Primary Care Provider: Rehana Cornejo V Home Meds and New Rx's Prescriptions: New ibuprofen 800 mg tablet 800 mg PO BID PRN (Reason: pain, moderate) Qty: 90 RF: 0 ondansetron 4 mg tablet,disintegrating 4 mg PO Q6H PRN (Reason: nausea or vomiting) Qty: 5 RF: 0 oxycodone 5 mg tablet 5 - 10 mg PO Q4H PRN (Reason: moderate to severe pain) Qty: 12 RF: 0 Continued vitamin B complex Tablet 1 tab PO DAILY RF: 0 cholecalciferol (vitamin D3) 125 mcg (5,000 unit) capsule 125 mcg PO DAILY RF: 0 vitamin E 200 unit capsule 400 unit PO DAILY RF: 0 biotin 5 mg tablet 5 mg PO DAILY RF: 0 olmesartan [Benicar] 20 mg tablet 20 mg PO HS RF: 0 baclofen 10 mg tablet 10 mg PO DAILY PRNRF: 0 ibuprofen 800 mg tablet 800 mg PO Q8H PRNRF: 0 latanoprost [Xalatan] 2.5 ML drops 1 drp Ophthalmic DAILY RF: 0 aspirin 81 MG tablet,delayed release (DR/EC) 81 mg PO DAILY RF: 0 omeprazole 40 MG capsule,delayed release(DR/EC) 40 mg PO DAILY RF: 0 vitamin E mixed 1,000 UNIT capsule 1,600 unit PO DAILY RF: 0 Probiotic 1 EACH capsule, sprinkle 1 ea PO DAILY RF: 0 Natural Psyllium Fiber 1,040 GM powder 8 oz PO DAILY RF: 0 cholecalciferol (vitamin D3) [Vitamin D3] 2,000 UNIT capsule 5,000 unit PO DAILY RF: 0 timolol maleate 0.5 % drops 1 drp Topical BID RF: 0 Discharge Instructions Additional Instructions: Surgery: Shoulder arthroscopy with rotator cuff repair, arthroscopic biceps tenodesis, extensive debridement, and subacromial decompression. Activity: You should keep your arm at your side in a neutral position at all times except for physical therapy. Do not try to lift or raise your arm using your own muscles. You should use the sling whenever you are out of the house. You may have to adjust the abduction pillow or remove it for comfort. At home it is best to remove the sling and rest the arm on a pillow at your side or support the operative side with your other hand. You may allow the arm to dangle at your side. A physical therapy prescription will be sent electronically to start in about 3 weeks. Prescriptions: Aspirin 81 mg take 1 daily resume tomorrow Ibuprofen 800 mg take 1-2 every 12 hours with a meal as needed for moderate pain Oxycodone 5 mg take 1-2 every 4-6 hours as needed for severe pain You may use [id number] Tylenol (acetaminophen) as needed for mild pain. These pain medications may be taken all at once or in different combinations as needed. Also, recommend Colace (docusate) as a stool softener as surgery and pain medicine cause constipation. Ondansetron (Zofran) 4 mg take 1 orally dissolving tablet every 6 hours as needed for nausea or vomiting Dressings: Remove shoulder bandage after 3 days. Leave the sticky Steri-Strips in place until they fall off or remove them after you shower. Cover the incisions with Band-Aids or leave them open to air. You may shower after 5 days. Follow-up: 10-[address] Stringer You may take off the leg compression stockings this evening at home. You may also leave them on a few days longer if you have a history of leg swelling or edema. Let us know right away if you develop any redness, drainage, fevers, chest pain, or trouble breathing. Do not drink alcohol or drive for at least 24 hours after anesthesia. Please call the office during business hours with any questions or concerns. Referrals: Ad Stringer MD [ [facility] STAFF PHYSICIAN] - Discharge Orders Discharge Orders: Discharge Order (Routine); Ordered 05/03/20 Ordered By: Ad Stringer DS: Diagnosis Discharge Diagnosis (1) Tendinitis of long head of biceps brachii of left shoulder: Status: Acute (2) Bursitis of left shoulder: Status: Acute (3) Left rotator cuff tear: Status: Acute
[2020-05-03] MEDS: EPINEPHrine 30 MG/30 ML VIAL (12:05)
--- NOTE | 2020-05-03 12:13 | W.PM.OP ---
Date of service: 05/03/20 Time of Service: 12:02 Operative Note Operative Note DATE OF PROCEDURE: 05/03/20 PRE-OP DIAGNOSIS: Left: 1. Rotator cuff tear 2. LHB tendinopathy 3. Bursitis POST-OP DIAGNOSIS: same PROCEDURE: Left: 1. Rotator cuff repair, CPT# 69581. This involved repair of the supraspinatus using anchors and sutures to reattach the rotator cuff back to the footprint of the greater tuberosity. 2. Extensive debridement, CPT# 09406. This involved using arthroscopic hand instruments, power instruments, and radiofrequency instruments to release to release the long head of the biceps tendon and debride areas of labral tearing, synovitis, and frayed middle glenohumeral ligament within the glenohumeral joint anteriorly, superiorly and posteriorly. 3. Subacromial decompression with partial acromioplasty, CPT# 50072. This involved using arthroscopic power instruments and a radiofrequency wand to complete a bursectomy and remove bone spurs on the undersurface of the acromion. 4. Arthroscopic biceps tenodesis, CPT# 53053. This involved arthroscopically suturing and reattaching the long head of the biceps tendon to the proximal humerus in the subacromial space with a screw at the correct tension. The sales assistant entertainment and media was medically required in order to help assist in techniques above, which require positioning the arm, holding the arthroscope, and manipulating multiple instruments and sutures at the same time. This cannot be done without the help of an experienced sales assistant entertainment and media. SURGEON: Ad Stringer PMO BUSINESS ANALYST: Yoli Braswell ANESTHESIA: GETA and regional ESTIMATED BLOOD LOSS: 5 PATHOLOGY: none sent COMPLICATIONS: None Patient was transported to: PACU Patient's condition: stable Implants: Arthrex: 4.75mm SwiveLocks x 2, 4.75 mm knotless SwiveLocks x2 Indications: The patient was diagnosed with the above conditions and appropriately indicated for surgical intervention. Please see complete medical record for details. Findings: Exam under anesthesia: Full, symmetrical range of motion with no instability Glenohumeral joint: Significant anterior synovitis and hemorrhagic fraying about the rotator interval, split tearing of the long head of the biceps tendon and a displaced SLAP tear, fraying of the middle glenohumeral ligament, majority intact subscapularis tendon, anterior full-thickness supraspinatus tear, undersurface minor tearing of the infraspinatus, degenerative labral fraying anteriorly superiorly and posteriorly Subacromial space: Moderate bursitis, moderate subacromial bone spur, full-thickness supraspinatus tear with moderate retraction starting at the anterior margin with the rotator interval with delamination throughout and stopping at the start of infraspinatus, which was attached strongly wrapping around the humerus Procedure Description: In the operating room, general anesthesia was induced. Bilateral shoulders were examined. The patient was positioned in the beachchair position. All bony prominences were well-padded. Preoperative antibiotics were administered. The shoulder was prepped and draped in the usual sterile fashion. The correct patient, procedure, and side of the procedure were all verified prior to incision. Starting through the posterior portal a standard complete diagnostic arthroscopy was performed of the glenohumeral joint including inspection of the long head of the biceps, anterior and superior labrum, subscapularis tendon, supraspinatus and infraspinatus tendons, and axillary recess. The glenoid and humeral head cartilage as well as the posterior labrum were inspected from an anterior viewing portal. Significant findings and interventions noted above. The biceps tendon was released from the superior labrum using arthroscopic scissors. Starting through the posterior portal, the arthroscope was directed into the subacromial space. A lateral 50 yard line lateral portal was created. A combination of power instruments and a radiofrequency ablator were used to debride bursitis anteriorly, posteriorly, and laterally as well as expose and smooth bone spurring on the undersurface of the acromion. The cortical acromial ligament was preserved. The bursectomy was completed viewing laterally and working from posteriorly and the rotator cuff was thoroughly inspected with findings noted above. Cannulas were inserted at the superior anterior lateral and superior posterior lateral margins of the acromion as well as at the lateral 50 yard line portal. The rotator cuff tear was inspected and debrided of frayed tissue at the margins exposing a full-thickness moderately sized supraspinatus tear. The greater was tuberosity cleared of fibrous tissue over the footprint and the bursectomy was extended laterally. A punch was used to localize placement through a percutaneous portal of the first medial row anchor at the articular margin starting anteriorly that was loaded with fiber tape. A suture passer was used as well as a tissue grasper was used to pass both ends of this fiber tape through all layers of the tendon at the appropriate level medially. This process was repeated for the second posterior medial row anchor. Next, a self retrieving suture passer was used to pass fiber link suture in cinch mode anterior to the first medial row anchor. The rotator cuff tear was provisionally reduced across the entire greater tuberosity footprint with gentle traction on this FiberLink and a fiber tape and had been grasped from each of the medial row anchors. An anterior lateral row anterior anchor was localized and used to secure these 3 sutures. A knotless swivel lock was selected for this anterior lateral row anchor as the biceps tendon that had been released was clearly visible adjacent to this very anterior supraspinatus tear. The repair stitch from this knotless anchor was passed through the biceps tendon and tested with good pullout strength before tensioning appropriately down through this knotless anchor. This process repeated for the posterior lateral row posterior anchor. Another knotless anchor was used in the repair stitch was passed at the margin of the supraspinatus tear and infraspinatus posterior to the posterior middle row fiber tape to secure fixation of the tissue at this level. The repair and biceps tenodesis were probed and inspected through shoulder range of motion and found to be stable with secure fixation. The shoulder was drained of arthroscopic fluid. All portal sites were copiously irrigated. These incisions were closed using 3-0 Monocryl in a buried fashion, covered with Mastisol, Steri-Strips, Xeroform, dry gauze, and ABDs. The dressings were covered and secured with Medipore tape. The operative extremity was placed into a sling for immobilization. The patient awoke from anesthesia without complication and was transferred to the recovery room in a stable condition.
[2020-05-03 12:24] VITALS: BP 103/38; PULSE 53; RESP 17; TEMP 36.5; O2SAT 97
[2020-05-03 12:29] VITALS: BP 107/81; PULSE 56; RESP 11; TEMP 36.5; O2SAT 99
[2020-05-03 12:34] VITALS: BP 111/34; PULSE 50; RESP 13; TEMP 36.5; O2SAT 99
[2020-05-03 12:49] VITALS: BP 113/40; PULSE 54; RESP 13; TEMP 36.8; O2SAT 99
[2020-05-03 13:31] VITALS: BP 128/54; PULSE 52; RESP 16; TEMP 36.4; O2SAT 96
== END 2020-05-03 14:13 | disposition home or self-care (01) ==
PROVIDERS: PCP Family Medicine; Visit Provider Student in an Organized Health Care Education/Training Program
PROC: (CPT 29827; principal; 2020-05-03 08:30)
PROC: (CPT 23430; 2020-05-03 08:30)
DX: M75.22 Bicipital tendinitis, left shoulder (principal); M75.52 Bursitis of left shoulder; M75.122 Complete rotator cuff tear or rupture of left shoulder, not specified as traumatic; M65.812 Other synovitis and tenosynovitis, left shoulder; M75.82 Other shoulder lesions, left shoulder
CPT/HCPCS: 29827; 29823; 29828; 29826; 76942; L3670; J0690; J1100; J2405

== ENCOUNTER → 2020-05-15 09:46 | Outpatient (BNVA) | payer MEDICARE, BC, SELFPAY | PROVIDERS: PCP Family Medicine; Referring Provider Family Medicine; Visit Provider Student in an Organized Health Care Education/Training Program | DX: Z47.89 Encounter for other orthopedic aftercare (principal); M75.22 Bicipital tendinitis, left shoulder; M75.52 Bursitis of left shoulder; I10 Essential (primary) hypertension ==

== ENCOUNTER 2020-06-06 14:21 | Outpatient (REF) | payer MEDICARE, BC, SELFPAY ==
[2020-06-10 13:15] LABS: Patient Race White; SARS-CoV-2 RNA Undetected (Undetected); SARS-CoV-2 Specimen Source Nasal
== END 2020-06-06 14:41 ==
LOC: NCHCN 14:21
PROVIDERS: PCP Family Medicine; Visit Provider Family Medicine
DX: R09.81 Nasal congestion (principal)
CPT/HCPCS: U0003

== ENCOUNTER → 2020-07-03 10:28 | Outpatient (BNVA) | payer MEDICARE, BC, SELFPAY | PROVIDERS: PCP Family Medicine; Referring Provider Family Medicine; Visit Provider Student in an Organized Health Care Education/Training Program | DX: Z47.89 Encounter for other orthopedic aftercare (principal); M75.22 Bicipital tendinitis, left shoulder; M75.52 Bursitis of left shoulder ==

== ENCOUNTER 2020-07-06 11:29 | Outpatient (REF) | payer MEDICARE, BC, SELFPAY ==
[2020-07-06 19:44] LABS: Anion Gap 4.9 mmol/L (3-11); BUN 23 mg/dL (7-18); CO2 30.1 mmol/L (21.0-32.0); CREATININE 0.82 mg/dL (0.55-1.02); Calculated LDL 170 mg/dL (<100); Chloride 102 mmol/L (98-107); Cholesterol 289 mg/dL (<200); Glucose 96 mg/dL (74-106); HDL Cholesterol 96 mg/dL (40-60); Potassium 5.9 mmol/L (3.5-5.1); Sodium 137 mmol/L (136-145); Triglyceride 119 mg/dL (<150)
== END 2020-07-06 11:49 ==
LOC: NCHCN 11:29
PROVIDERS: PCP Family Medicine; Visit Provider Family Medicine
DX: E78.2 Mixed hyperlipidemia (principal)
CPT/HCPCS: 80048; 80061

== ENCOUNTER → 2020-08-22 09:17 | Outpatient (BNVA) | payer MEDICARE, BC, SELFPAY | PROVIDERS: PCP Family Medicine; Visit Provider Student in an Organized Health Care Education/Training Program | DX: S46.012D Strain of muscle(s) and tendon(s) of the rotator cuff of left shoulder, subsequent encounter (principal); X58.XXXD Exposure to other specified factors, subsequent encounter; M75.22 Bicipital tendinitis, left shoulder; M75.52 Bursitis of left shoulder | CPT/HCPCS: 99213 ==

== ENCOUNTER 2020-10-16 02:44 | Outpatient (CLI) | payer MEDICARE, BC, SELFPAY ==
--- NOTE | 2020-10-16 | DI.MAMMO_ITS ---
EXAM: MG MAMMO DIAGNOSTIC UNI CLINICAL HISTORY: DIAGNOSTIC, 6 MO F/U, F/U ABNL MAMMO,R92.8. COMPARISON: MG MG MAMMO SCREENING from 04/12/2020 MG MG MAMMO SCREENING from 04/12/2020 MG MG MAMMO SCREEN CALL BACK UNI from 04/13/2020 [id number] TECHNIQUE: Craniocaudal and mediolateral oblique Full Field Digital Mammography views of the left br east with Computer Aided Diagnosis FINDINGS: Mammography/Tomosynthesis: Masses/Architectural Distortion: None seen. Microcalcifications: No suspicious pleomorphic-type are seen. Skin Thickening/Nipple Retraction: None. IMPRESSION: 1. No evidence of malignancy is noted. 2. Resume bilateral screening in 6 months. BI-RADS Category 1 - Negative Breast Density - Category C - Heterogeneously dense Breast density category C or D implies that the patient has dense breast tissue. Dense breast tissue is very common and is not abnormal but dense breast tissue can make it harder to find cancer on a ma mmogram. Also, dense breast tissue may increase their breast cancer risk. This information about the result of the mammogram report was provided to the patient to raise their awareness. Use this report when you speak with the patient about their risks for breast cancer, which includes their family hist ory. At that time, you may recommend for more screening tests (Ultrasound or MRI) as they might be us eful based on their risk. A negative radiographic report should not delay biopsy if a dominant or clinically suspicious mass is present. Up to ten percent of cancers are not identified on mammography. A negative report may reinforce clinical impression. Adenosis and dense breasts may obscure an underlying neoplasm. False positive reports average 6 to 10%. Patient will receive a letter notifying them of these results.
== END 2020-10-16 03:04 ==
PROVIDERS: PCP Family Medicine; Visit Provider Family Medicine
DX: Z12.31 Encounter for screening mammogram for malignant neoplasm of breast (principal); R92.8 Other abnormal and inconclusive findings on diagnostic imaging of breast; N64.89 Other specified disorders of breast
CPT/HCPCS: 77061; 77065; G0279

== ENCOUNTER 2020-11-21 14:44 | Outpatient (REF) | payer MEDICARE, BC, SELFPAY ==
[2020-11-21 15:48] LABS: Anion Gap 11.4 mmol/L (3-11); BUN 19 mg/dL (7-18); CO2 27.6 mmol/L (21.0-32.0); CREATININE 0.9 mg/dL (0.55-1.02); Calcium 10.1 mg/dL (8.5-10.1); Chloride 102 mmol/L (98-107); Glucose 99 mg/dL (74-106); Sodium 141 mmol/L (136-145)
== END 2020-11-21 14:45 | disposition home or self-care (01) ==
LOC: NCHCN 14:44
PROVIDERS: PCP Family Medicine; Visit Provider Nurse Practitioner Family
DX: R10.11 Right upper quadrant pain (principal); R20.8 Other disturbances of skin sensation
CPT/HCPCS: 80048

== ENCOUNTER 2020-11-26 09:00 | Outpatient (CLI) | payer MEDICARE, BC, SELFPAY ==
[2020-11-26] MEDS: Omnipaque 350 MG/ML 50 ML BTL PO (14:02)
--- NOTE | 2020-11-26 14:30 | DI.CT_ITS ---
Exam(s) CT ABDOMEN PELVIS W EXAM: CT ABDOMEN PELVIS W CLINICAL HISTORY: RUQ PAIN, R10.11,H/O ABSCESS 7 YEARS AGO,H/O APPY AND JULIAN AND HYST. TECHNIQUE: Imaging Protocol: Axial computed tomography images with coronal and sagittal reformatted images were created and reviewed CONTRAST MATERIAL: Intravenous: Omnipaque 100cc Oral: Yes COMPARISON: CT CT ABDOMEN PELVIS W from 01/06/2019 FINDINGS: VISUALIZED LUNG BASES: No nodules nor pleural effusions evident. ABDOMEN: There is no ascites. LIVER: Tiny 3 millimeters cyst in the lateral aspect of the right hepatic lobe is unchanged from 2019 . No new significant focal hepatic lesions evident. GALLBLADDER/BILIARY: The gallbladder is again noted be surgically absent. CBD is not dilated and the re is no dilatation of intrahepatic ducts. PANCREAS: No evidence of pancreatic mass nor dilatation of the pancreatic duct. SPLEEN: Spleen is not enlarged. No obvious intrasplenic lesions. Splenic and portal veins are paten t. ADRENALS: There are no significant adrenal masses. KIDNEYS:No cysts evident. No solid renal masses. No calculi nor hydronephrosis.. ABDOMINAL AORTA: Abdominal aorta is not enlarged. LYMPH NODES:There is no retroperitineal nor paraaortic adenopathy. ABDOMINAL WALL: No evidence of significant anterior abdominal wall hernia. GI: Slightly thickened terminal ileum at the level of the ileocecal valve. PELVIS: GI: Appendix is not seen and is probably surgically absent.No evidence of sigmoid diverticulitis. LYMPH NODES: There is no intrapelvic nor inguinal adenopathy. REPRODUCTIVE: Prior hysterectomy. No abnormal adnexal masses. Lower pelvis somewhat obscured by christiane m hardening artifact from bilateral hip prostheses. URINARY BLADDER: Not distended but poorly visualized due to beam hardening artifact from hip prosthes es. OSSEOUS: Bilateral hip prostheses.. Advanced disc space narrowing at L3-4 level with retrolisthesis of L3 upon L4. No osseous lesions identified. IMPRESSION: 1. Previous cholecystectomy, hysterectomy and probable appendectomy. No bowel obstruction. No free air. No abscess. No ascites. 2. Slight irregular appearance of the terminal ileum at the ileocecal valve level. Follow-up colonos copy would be prudent. Comment access terminal ileum. 3. Bilateral hip prostheses. Beam hardening artifact from this hardware makes evaluation of the lowe r pelvis difficult. Bladder is not distended but is difficult to evaluate because of this beam harde amaris artifact. RADIATION DOSE DELIVERED: 833.14mGy.cm Total DLP DATA REPOSITORY: All CT scans at this facility are submitted to the National Radiology Data Registry (NRDR) Dose Index Registry (DIR) with the [employer] ([employer]). RADIATION OPTIMIZATION: All CT scans at this facility use at least one of these dose optimization te chniques: automated exposure control; mA and/or kV adjustment per patient size (includes targeted exa ms where dose is matched to clinical indication); or iterative reconstruction.
[2020-11-26] MEDS: Omnipaque 350 MG/ML 100 ML BTL IJ (14:39)
[2020-11-26] MEDS: Normal Saline - Diluent 50 ML VIAL IV (14:40)
== END 2020-11-26 09:20 ==
PROVIDERS: PCP Family Medicine; Visit Provider Nurse Practitioner Family
DX: R10.11 Right upper quadrant pain (principal); K76.89 Other specified diseases of liver; K63.89 Other specified diseases of intestine; Z96.643 Presence of artificial hip joint, bilateral
CPT/HCPCS: 74177; J3490; Q9967

== ENCOUNTER 2020-12-06 12:48 | Outpatient (CLI) | payer MEDICARE, BC, SELFPAY ==
--- NOTE | 2020-12-06 14:45 | DI.RAD_ITS ---
Exam(s) XR ABDOMEN FLAT UPRIGHT EXAM: XR ABDOMEN FLAT UPRIGHT CLINICAL HISTORY: ruq pain/hx of SBO, partial small bowel obstruction, K56.600. TECHNIQUE: 2D digital imaging was performed. COMPARISON: CR ABDOMEN FLAT PLATE from 03/31/2017 FINDINGS: There are surgical clips in right upper quadrant from prior cholecystectomy. Bilateral hip prosthese s are noted. There appears to be a: I ileus pattern the transverse colon. No obvious small bowel obstruction. No free air. No calcifications seen over the kidneys nor along the course of the ureters. Lumbar scol iosis noted as well as multilevel degenerative disc disease. IMPRESSION: I ileus pattern. Previous surgery. Bilateral hip prostheses. DATA REPOSITORY: RADIATION DOSE DELIVERED:
== END 2020-12-06 13:08 ==
PROVIDERS: PCP Family Medicine; Visit Provider Surgery
DX: K56.600 Partial intestinal obstruction, unspecified as to cause (principal)
CPT/HCPCS: 74019

== ENCOUNTER → 2020-12-06 13:53 | Outpatient (BNVA) | payer MEDICARE, BC, SELFPAY | PROVIDERS: PCP Family Medicine; Referring Provider Family Medicine; Visit Provider Surgery | DX: R10.11 Right upper quadrant pain (principal); K56.600 Partial intestinal obstruction, unspecified as to cause; Z98.890 Other specified postprocedural states ==

== ENCOUNTER 2020-12-06 16:05 | Inpatient (IN) | payer MEDICARE, BC, SELFPAY ==
[2020-12-06 16:59] VITALS: BP 155/71; PULSE 67; RESP 18; TEMP 37; O2SAT 97
[2020-12-06 17:01] VITALS: BP 155/71; PULSE 67; RESP 18; TEMP 37; O2SAT 97
[2020-12-06 17:10] VITALS: BP 155/71; PULSE 67; RESP 18; TEMP 37; O2SAT 97
[2020-12-06 18:40] LABS: Source Nasal/Nares
[2020-12-06] MEDS: Lactated Ringers 1,000 ML 150 ML IV (19:19)
[2020-12-06] MEDS: Normal Saline Flush 10 ML SYR IVP (19:19)
[2020-12-06] MEDS: Enoxaparin 40 MG/0.4 ML SYR SC (19:19)
[2020-12-06 20:05] VITALS: PULSE 67; RESP 18; O2SAT 97
[2020-12-06 21:49] LABS: ALT 28 U/L (14-59); AST 31 U/L (15-37); Albumin 3.4 g/dL (3.4-5.0); Alkaline Phosphatase 57 U/L (46-116); Anion Gap 10.4 mmol/L (3-11); BUN 10 mg/dL (7-18); Bilirubin, Total 0.7 mg/dL (0.2-1.0); CO2 23.6 mmol/L (21.0-32.0); CREATININE 0.8 mg/dL (0.55-1.02); Calcium 8.8 mg/dL (8.5-10.1); Chloride 94 mmol/L (98-107); Glucose 85 mg/dL (74-106); Magnesium 1.4 mg/dL (1.8-2.4); Sodium 128 mmol/L (136-145); Total Protein 6.3 g/dL (6.4-8.2)
[2020-12-06 21:58] LABS: COVID-19 PCR Negative (Negative)
--- NOTE | 2020-12-06 22:39 | HPE_ITS ---
Date of service: 12/06/20 Time of Service: 22:46 Assessment and Plan Assessment and plan (1) Partial small bowel obstruction: Status: None Assessment and plan: Patient is being admitted for hydration and pain management. I do not feel she needs an NG tube at this time. There is no signs of acute abdomen. We discussed that because of her multiple surgeries and 2 intra-abdominal infections she probably has a lot of scar tissue that is formed. We discussed how this functions in producing a bowel obstruction. I think she is intermittently obstructing. I do not think she has a severe active ins truction currently. I would not recommend surgical intervention unless she has a obstruction that persists for more than 5 days. She has had quite a bit of surgery and probably has a very hostile abdomen. 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 sHe states the pain started in October.?during August she was having constipation.? She started MIralax in mid aug.-it is helped with her constipation. The constipation is new for her. She has never had any problems like that before..? She had her GB our 6yrs ago at [facility].? She had it out for biliary dyskinesia and sludge. ? Patient has had multiple abdominal surgeries. She had a open ruptured appendix as a child. She had a laparoscopic hysterectomy. She had what sounded like off and on again partial bowel obstructions, and she underwent a quasielective laparoscopic lysis of adhesions this turned into a open laparotomy. She sustained a enterotomy at that time. She developed an abscess from this. She had to have another laparotomy for repair. She did not have any bowel resection that she is aware of. This was in 2015. she developed a wound infection after this surgery. She ultimately went and had a hernia repair with mesh down at [facility] in 2017. She says she has not had any problems with bowel obstructions since hernia repair in 2017. She has been on a liquid diet for the last 7 dyas.?She has a low heaviness and feeling like not completely empyting her bowels.? Bowels are moving daily, her.? stools are liquid. ? She has not had any vomiting, but she feels feels very nauseated.? She feels very bloated. She has having crampy right upper quadrant pain that comes in spasms. When she does get pain it is pretty sharp and takes her breath away. She has had no fevers or chills. She has had no chest pain or shortness of breath. She is not she has no productive cough. She is not been exposed to Covid that she is aware Review of Systems All systems reviewed & are unremarkable except as noted in HPI and below PFSH Medical History (Updated 12/06/20 @ 14:44 by Yoli Abdi DO) Abn find-abdominal area Abnormal laboratory test Arm pain, left Barretts esophagus Bilateral hearing loss Carotid artery stenosis Depression Disturbance of skin sensation Femoral neuropathy of right lower extremity Head congestion History of anemia History of post traumatic stress disorder History of tobacco use Hx of abnormal mammogram Hypertension IBS (irritable bowel syndrome) Low back pain Lumbar radiculopathy Mixed hyperlipidemia Osteoarthritis of hip Pain of left calf Partial obstruction of small intestine Partial small bowel obstruction PVD (peripheral vascular disease) RUQ pain Scapulalgia Screening for HPV (human papillomavirus) Shoulder pain, left Sleep apnea Toe pain, left Unresolved grief Vertigo Surgical History (Updated 12/05/20 @ 13:02 by Nadine Duong RN) History of appendectomy History of cholecystectomy History of common carotid artery stent placement On the right carotid system History of hysterectomy History of ventral hernia repair Hx of bilateral hip replacements S/P cholecystectomy Ventral hernia repair Social History Smoking/Tobacco Use Status: Former Tobacco Use Quit Date: 07/20/76 Smoking risk assessment performed?: Yes Alcohol Intake: never Drug use: Never Substance use type: does not use Current gender identity: female Do you feel safe at home: Yes Do you feel safe in your relationship?: Yes Meds Allergies and Home Medications Allergies Allergy/AdvReac Type Severity Reaction Status Date / Time Calcium Channel Blocking Allergy Severe Verified 08/22/20 09:28 Agent Dilt furosemide Allergy Severe Other (See Unverified 05/15/20 09:53 Comment) Sulfa (Sulfonamide Allergy Severe Anaphylaxsi Unverified 05/15/20 09:53 Antibiotics) s morphine Allergy Mild hives Unverified 05/15/20 09:53 brompheniramine maleate Allergy Unknown Anaphylaxsi Unverified 05/15/20 09:53 [From Drixoral] s dexbrompheniramine maleate Allergy Unknown Anaphylaxsi Unverified 05/15/20 09:53 [From Drixoral] s pravastatin Allergy Unknown Verified 12/03/20 11:14 pseudoephedrine HCl Allergy Unknown Anaphylaxsi Unverified 05/15/20 09:53 [From Drixoral] s VINCENZO Inhibitors AdvReac Severe severe Unverified 05/15/20 09:53 muscle fatigue prednisone AdvReac Severe Psychosis, Unverified 05/15/20 09:53 SOB Qbohpis-Zew-Awq Reductase AdvReac Severe Other (See Unverified 05/15/20 09:53 Inhibitor Comment) hydrochlorothiazide AdvReac Intermediate Doesn't Unverified 05/15/20 09:53 tolerate Furosemide Allergy Unknown Uncoded 12/03/20 11:14 Home Medications Medication Instructions Recorded Confirmed Type latanoprost [Xalatan] 1 drp OPHTHALMIC DAILY drp 10/19/14 12/06/20 History Probiotic 1 ea PO DAILY cap.sprink 11/05/17 12/06/20 History aspirin 81 mg PO DAILY tab-cap 11/05/17 12/06/20 History omeprazole 40 mg PO DAILY 11/05/17 12/06/20 History vitamin E mixed 1,600 unit PO DAILY 11/05/17 12/06/20 History biotin 5 mg tablet 5 mg PO DAILY 04/03/20 12/06/20 History timolol maleate 0.5 % eye drops 1 drp TOPICAL BID ml 04/03/20 12/06/20 History vitamin B complex 1 tab PO DAILY 04/03/20 12/06/20 History vitamin E 200 unit capsule 400 unit PO DAILY cap 04/03/20 12/06/20 History cholecalciferol (vitamin D3) 125 250 mcg PO DAILY cap 08/22/20 12/06/20 History mcg (5,000 unit) capsule olmesartan 20 mg tablet 25 mg PO HS tab 08/22/20 12/06/20 History gabapentin 100 mg capsule 100 mg PO TID 12/03/20 12/06/20 History polyethylene glycol 3350 [Miralax] 17 g PO DAILY 12/06/20 12/06/20 History psyllium 1 packet PO DAILY 12/06/20 12/06/20 History Exam HENMT Head: normal to inspection Ears: hearing grossly normal bilaterally General nose exam: external nose normal Mouth: oral mucosae normal Teeth and gingiva: other (Dentition in good repair) Eyes Sclera: sclerae normal EOM: EOM intact bilaterally Resp Effort & Inspection: normal respiratory effort and able to speak in complete sentences Auscultation: clear to auscultation bilaterally Cardio Rate: regular rate Rhythm: regular rhythm GI Inspection: distended Auscultation: hyperactive bowel sounds Other: pain in ruq. localized guarding. No peritonitis Extrem General: normal exam except as noted Other: Joints show mild changes consistent with osteoarthritis Results Labs Result diagrams: 12/06/20 21:25 12/06/20 21:25 Labs: Laboratory Results - last 24 hr 12/06/20 12/06/20 18:30 21:25 Sodium 128 L Potassium 4.0 Chloride 94 L Carbon Dioxide 23.6 Anion Gap 10.4 BUN 10 Creatinine 0.8 Estimated GFR/1.73 m2 >= 60.00 Glucose 85 Calcium 8.8 Magnesium 1.4 L Total Bilirubin 0.7 AST 31 ALT 28 Alkaline Phosphatase 57 Total Protein 6.3 L Albumin 3.4 COVID-19 Source Nasal/nares SARS-CoV-2 (PCR) Negative Last Vital Signs Temp 37.0 C 12/06/20 17:10 Pulse 67 12/06/20 20:05 Resp 18 12/06/20 20:05 BP 155/71 H 12/06/20 17:10 Pulse Ox 97 12/06/20 20:05 COVID-19 Screening Have you, or household traveled for leisure in last 14 days?: No Had IN PERSON contact w/suspected or confirmed C-19 person: No
[2020-12-06 23:56] VITALS: BP 148/55; PULSE 59; RESP 18; TEMP 36.7; O2SAT 92
[2020-12-07] MEDS: MAGNESIUM SULFATE 2 GM/50 ML BAG IVPB (00:52)
[2020-12-07] MEDS: Lactated Ringers 1,000 ML 150 ML IV ×2 (04:32→13:40)
[2020-12-07] MEDS: Hyoscyamine 0.125 MG SL/ORAL/CHEW PO ×4 (04:33→22:39)
--- NOTE | 2020-12-07 07:00 | DI.RAD_ITS ---
Exam(s) XR ABDOMEN FLAT UPRIGHT EXAM: XR ABDOMEN FLAT UPRIGHT CLINICAL HISTORY: partial SBO TECHNIQUE: COMPARISON: CR XR ABDOMEN FLAT UPRIGHT from 12/06/2020 FINDINGS: Three views were obtained. Bowel gas pattern is within normal limits with no gross small bowel or la rge bowel dilatation and gas noted throughout the colon to the level of the rectum. No organomegaly. No free air seen on the upright view. IMPRESSION: Negative examination of the abdomen. Apparent resolution of previously noted small bowel obstruction . RADIATION DOSE DELIVERED: Total DLP
[2020-12-07 07:10] LABS: Anion Gap 6.8 mmol/L (3-11); BUN 7 mg/dL (7-18); CO2 29.2 mmol/L (21.0-32.0); CREATININE 0.8 mg/dL (0.55-1.02); Calcium 9.2 mg/dL (8.5-10.1); Chloride 102 mmol/L (98-107); Glucose 90 mg/dL (74-106); Potassium 4.7 mmol/L (3.5-5.1); Sodium 138 mmol/L (136-145)
[2020-12-07 07:19] VITALS: BP 122/69; PULSE 68; RESP 17; TEMP 36.5; O2SAT 97
[2020-12-07] MEDS: Pantoprazole 40 MG VIAL IVP (07:43)
[2020-12-07] MEDS: Normal Saline Flush 10 ML SYR IVP ×2 (07:43→10:09)
--- NOTE | 2020-12-07 08:09 | W.PM.PROGNOT ---
Date of Service Date of service: 12/07/20 Time of Service: 08:09 Assessment and Plan Assessment and plan (1) Partial small bowel obstruction: Status: None Assessment and plan: Continue supportive care for pain management and hydration. She appears to be opening up, will continue NPO and re-evaluate around lunch time. Encouraged ambulation and activity as tolerated. 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 (+) Flatus and BM. She states that she has not had any discomfort since 4am. Exam Const General: cooperative, healthy appearing and comfortable Orientation: alert and oriented x3 Resp Effort & Inspection: normal respiratory effort, no audible wheezes and no cough GI Inspection: normal to inspection Palpation: soft, no guarding and nontender Auscultation: normal bowel sounds Objective Last Vital Signs Temp 36.5 C 12/07/20 07:19 Pulse 68 12/07/20 07:19 Resp 17 12/07/20 07:19 BP 122/69 12/07/20 07:19 Pulse Ox 97 12/07/20 07:19 Laboratory Results - last 24 hr 12/06/20 12/06/20 12/07/20 18:30 21:25 06:33 Sodium 128 L 138 Potassium 4.0 4.7 Chloride 94 L 102 Carbon Dioxide 23.6 29.2 Anion Gap 10.4 6.8 BUN 10 7 Creatinine 0.8 0.8 Estimated GFR/1.73 m2 >= 60.00 >= 60.00 Glucose 85 90 Calcium 8.8 9.2 Magnesium 1.4 L 2.0 Total Bilirubin 0.7 AST 31 ALT 28 Alkaline Phosphatase 57 Total Protein 6.3 L Albumin 3.4 COVID-19 Source Nasal/nares SARS-CoV-2 (PCR) Negative
[2020-12-07] MEDS: Ondansetron 4 MG/2 ML VIAL IVP (10:09)
[2020-12-07 15:55] VITALS: BP 125/64; PULSE 60; RESP 17; TEMP 36.6; O2SAT 97
--- NOTE | 2020-12-07 16:08 | INITIAL_ITS ---
- If Service Date Differs Date of service: 12/07/20 Time of Service: 16:08 Care Management Initial Assess REASON FOR HOSPITALIZATION:: SBO PAST MEDICAL HISTORY/PAST SURGICAL HISTORY:: Abn find-abdominal area. Abnormal laboratory test. Arm pain, left. Barretts esophagus. Bilateral hearing loss. Carotid artery stenosis. Depression. Disturbance of skin sensation. Femoral neuropathy of right lower extremity. Head congestion. History of anemia. His tory of post traumatic stress disorder. History of tobacco use. Hx of abnormal mammogram. Hypertension. IBS (irritable bowel syndrome). Low back pain. Lumbar radiculopathy. Mixed hyperlipidemia. Osteoarthritis of hip. Pain of left calf. Partial obstruction of small intestine. Partial small bowel obstruction. PVD (peripheral vascular disease). RUQ pain. Scapulalgia. Screening for HPV (human papillomavirus). Shoulder pain, left. Sleep apnea. Toe pain, left. Unresolved grief. Vertigo. History of appendectomy. History of cholecystectomy. History of common carotid artery stent placement. On the right carotid system. History of hysterectomy. History of ventral hernia repair. Hx of bilateral hip replacements. S/P cholecystectomy. Ventral hernia repair PREVIOUS FUNCTIONAL STATUS/SOCIAL/FAMILY SUPPORTS:: Macy resides in [place] with her Be and their dog, Susan. She is independent at baseline in the community. The couple has a daughter, Aixa who resides with her family nearby. CURRENT FUNCTIONAL STATUS:: Macy is sitting up in her chair when meets with her. She is pleasant in interaction and forthcoming with information, speaking to her experience with recurrent SBO as well as her family that she is quite close with. ADVANCE DIRECTIVES:: Be as agent, Be Bui as alternate. Has patient been provided with info about the portal/API?: Yes Did the patient sign up for the portal?: Yes (Previously) CODE STATUS:: Full Code INSURANCE COVERAGE / FINANCIAL ISSUES:: BC/BS. Medicare CURRENT HOME/COMMUNITY SERVICES/EQUIPMENT:: None, currently PRIMARY CARE PHYSICIAN:: Rehana Cornejo POTENTIAL DISCHARGE NEEDS:: Follow up appointments. PATIENT/FAMILY EDUCATION NEEDS:: Review discharge instructions, discuss Ask Me Three. ANTICIPATED BARRIERS TO DISCHARGE:: None identified at this time. TRANSPORTATION:: Via private vehicle with family. PLAN:: Macy will return home when ready per MD. She anticipates being treated conservatively with IVF, with slow diet advancement. No additional services anticipated upon discharge, she will transport via private vehicle with family.
[2020-12-07] MEDS: Enoxaparin 40 MG/0.4 ML SYR SC (17:48)
[2020-12-07 18:18] LABS: Platelet Count 206 10^3/uL (130-400)
[2020-12-07] MEDS: Acetaminophen 325 MG TAB 650 MG PO (20:50)
[2020-12-07] MEDS: Lactated Ringers 1,000 ML 80 ML IV (21:53)
[2020-12-07 22:49] VITALS: BP 140/47; PULSE 56; RESP 19; TEMP 36.4; O2SAT 97
[2020-12-08] MEDS: Hyoscyamine 0.125 MG SL/ORAL/CHEW PO (02:32)
[2020-12-08 05:10] VITALS: BP 167/66; PULSE 58; RESP 18; TEMP 36.6; O2SAT 97
[2020-12-08 07:15] LABS: Platelet Count 197 10^3/uL (130-400)
[2020-12-08 07:49] VITALS: BP 183/68; PULSE 59; RESP 17; TEMP 36.1; O2SAT 97
[2020-12-08] MEDS: Normal Saline Flush 10 ML SYR IVP (08:59)
[2020-12-08] MEDS: Pantoprazole 40 MG VIAL IVP (08:59)
--- NOTE | 2020-12-08 09:58 | W.PM.PROGNOT ---
Date of Service Date of service: 12/08/20 Time of Service: 09:58 Assessment and Plan Assessment and plan (1) Partial small bowel obstruction: Status: None Assessment and plan: Will have her try a soft diet for lunch. If able to tolerate then will D/C to home. Small bowel follow through as outpatient. Order placed in computer. Follow up with me or Dr. 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 She is drinking without increased pain. She continues to pass flatus and has now had a couple of liquid BM's. The abdominal pain has resolved. Abdominal Xray yesterday showed resolution of her dilated bowel. Exam Const General: cooperative, comfortable and no acute distress Orientation: alert and oriented x3 HENMT Head: normocephalic and atraumatic GI Inspection: normal to inspection Palpation: soft and nontender Auscultation: normal bowel sounds Objective Last Vital Signs Temp 97.0 F L 12/08/20 07:49 Pulse 59 L 12/08/20 07:49 Resp 17 12/08/20 07:49 BP 183/68 H 12/08/20 07:49 Pulse Ox 97 12/08/20 07:49 Laboratory Results - last 24 hr 12/07/20 12/08/20 18:05 06:34 Plt Count 206 197
--- NOTE | 2020-12-08 10:03 | W.PM.DS.N ---
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 Mccurdy is a pleasant 70 year old female with a PMHx significant for multiple abdominal surgeries who was admitted for a PSBO on . On Thursday her XRay showed resolution of her dilated small bowel. She was started on a clear liquid diet which she tolerated without increase in pain, N?V. On Thursday her diet was advanced to a soft, low fiber diet which she tolerated. She is passing flatus and has had several liquid stools. Home Meds and New Rx's Prescriptions: Continued vitamin B complex Tablet 1 tab PO DAILY RF: 0 vitamin E 200 unit capsule 400 unit PO DAILY RF: 0 biotin 5 mg tablet 5 mg PO DAILY RF: 0 cholecalciferol (vitamin D3) 125 mcg (5,000 unit) capsule 250 mcg PO DAILY RF: 0 olmesartan [Benicar] 20 mg tablet 25 mg PO HS RF: 0 latanoprost [Xalatan] 2.5 ML drops 1 drp Ophthalmic DAILY RF: 0 aspirin 81 MG tablet,delayed release (DR/EC) 81 mg PO DAILY RF: 0 omeprazole 40 MG capsule,delayed release(DR/EC) 40 mg PO DAILY RF: 0 vitamin E mixed 1,000 UNIT capsule 1,600 unit PO DAILY RF: 0 Probiotic 1 EACH capsule, sprinkle 1 ea PO DAILY RF: 0 gabapentin 100 mg capsule 100 mg PO TID RF: 0 polyethylene glycol 3350 [Miralax] 17 gram/dose Powder 17 g PO DAILY RF: 0 timolol maleate 0.5 % drops 1 drp Topical BID RF: 0 Discontinued psyllium Packet 1 packet PO DAILY RF: 0 Discharge Instructions Instructions: Low Fiber Diet (GEN) Additional Instructions: Small bowel follow through has been ordered as an outpatient. You should be getting a call from Radiology at [facility] to schedule that. Once it has been scheduled please give the Surgical office a call at and make an appointment to see Dr. Abdi or Dr. lowry in the office so we can reviewe the results. Stand Alone Forms: Nursing Discharge Form Activity:: Activity as Tolerated Equipment/Supplies:: No Equipment Needed Diet:: low fiber Discharge Orders Discharge Orders: Discharge Order (Routine); Ordered 12/08/20 Ordered By: Rae Lowry DS: Summary Time Spent with Patient providing and/or coordinating discharge services: Greater than 30 minutes Status at Discharge Functional status at discharge: independent ambulation Overall status at discharge: patient is back to baseline Mental Status: mental status grossly normal Speech and Movement: speech and movement normal Mood: congruent mood Affect: normal affect Exam GI Inspection: normal to inspection Palpation: soft and nontender Auscultation: normal bowel sounds Psych Mental Status: mental status grossly normal Speech and Movement: speech and movement normal Mood: congruent mood Affect: normal affect DS: Data Vitals/I&O Vitals and I&O: Vital Signs Temperature 97.0 F L 12/08/20 07:49 Temperature Source Tympanic 12/08/20 07:49 Pulse 59 L 12/08/20 07:49 Pulse Rhythm Regular 12/08/20 04:38 Respiratory Rate 17 12/08/20 07:49 Respiratory Effort Non-Labored 12/08/20 04:38 Respiratory Depth Normal 12/08/20 04:38 Respiratory Pattern Normal 12/08/20 04:38 Blood Pressure 183/68 H 12/08/20 07:49 Pulse Oximetry 97 12/08/20 07:49 Oxygen Delivery Method Room Air 12/08/20 07:49 Oxygen Flow Rate 0 12/08/20 07:49 Pain Level 0 12/08/20 07:49 Comment 12/06/20 23:56 Intake & Output 12/07/20 12/07/20 12/08/20 11:59 23:59 11:59 Intake Total 835 / 2806.333 1970.333 / 2806.333 160 / 160 Output Total 1000 / 1000 Balance -165 / 0925.730 2135.333 / 1806.333 160 / 160 Intake: IV 835 / 2586.333 1751.333 / 2586.333 Oral 220 / 220 150 / 150 Output: Urine 1000 / 1000 Other: Urine Color Yellow Yellow Urine Appearance Clear Clear Clear Urine Odor None None Comment Patient reports normal voiding independently in toilet. Patient reports normal voiding independently in toilet. Stool Size Moderate Stool Characteristics Liquid Voiding Methods Toilet Toilet Data Completed and Pending Labs on day of discharge: Labs from last 24 hours 12/08/20 12/07/20 06:34 18:05 Plt Count 197 206 PFSH Medical History Abn find-abdominal area Abnormal laboratory test Arm pain, left Barretts esophagus Bilateral hearing loss Carotid artery stenosis Depression Disturbance of skin sensation Femoral neuropathy of right lower extremity Head congestion History of anemia History of post traumatic stress disorder History of tobacco use Hx of abnormal mammogram Hypertension IBS (irritable bowel syndrome) Low back pain Lumbar radiculopathy Mixed hyperlipidemia Osteoarthritis of hip Pain of left calf Partial obstruction of small intestine Partial small bowel obstruction PVD (peripheral vascular disease) RUQ pain Scapulalgia Screening for HPV (human papillomavirus) Shoulder pain, left Sleep apnea Toe pain, left Unresolved grief Vertigo Surgical History History of appendectomy History of cholecystectomy History of common carotid artery stent placement On the right carotid system History of hysterectomy History of ventral hernia repair Hx of bilateral hip replacements S/P cholecystectomy Ventral hernia repair Social History Smoking/Tobacco Use Status: Former Tobacco Use Quit Date: 07/20/76 Smoking risk assessment performed?: Yes Alcohol Intake: never Drug use: Never Substance use type: does not use Current gender identity: female Do you feel safe at home: Yes Do you feel safe in your relationship?: Yes
--- NOTE | 2020-12-08 18:14 | PDOC.CMDIS ---
- If Service Date Differs Date of service: 12/08/20 Time of Service: 18:14 LACE Index Scoring Tool - Questions: Length of Stay (in days): 2 Acuity (Admit via E.D.?): No E.D. Visits: 0 - Answers: Total Score: 2 Risk of Readmission: Low Risk Care Management Discharge Reason for Hospitalization: SBO Discharge Plan: Macy will return home with no new services at this time. Her will drive her home via private vehicle. She will follow up with surgical services, her PCP and discharge plan of care. She is happy to be going home. Patient/Family Education Needs: Review discharge instructions regarding activity levels and medications, discussion of self care needs and goals of care.
== END 2020-12-08 14:05 | disposition home or self-care (01) | DRG 390 ==
PROVIDERS: Admitting Provider Surgery; PCP Family Medicine; Visit Provider Surgery
DX: K56.600 Partial intestinal obstruction, unspecified as to cause (principal); K21.9 Gastro-esophageal reflux disease without esophagitis; H90.3 Sensorineural hearing loss, bilateral; K22.70 Barrett's esophagus without dysplasia; I65.29 Occlusion and stenosis of unspecified carotid artery; F32.9 Major depressive disorder, single episode, unspecified; G62.9 Polyneuropathy, unspecified; F43.10 Post-traumatic stress disorder, unspecified; Z87.891 Personal history of nicotine dependence; I10 Essential (primary) hypertension; K58.9 Irritable bowel syndrome, unspecified; M47.26 Other spondylosis with radiculopathy, lumbar region; E78.2 Mixed hyperlipidemia; I73.9 Peripheral vascular disease, unspecified; G47.30 Sleep apnea, unspecified; Z96.643 Presence of artificial hip joint, bilateral; Z20.822 Contact with and (suspected) exposure to COVID-19
CPT/HCPCS: 36415; 80048; 80053; 87635; 99221; 99232; 99239; J1650; 74019; 83735; 85049; 94667; J2405; J3490

== ENCOUNTER 2020-12-12 06:11 | Outpatient (CLI) | payer MEDICARE, BC, SELFPAY ==
--- NOTE | 2020-12-12 08:00 | DI.RAD_ITS ---
Exam(s) RF SMALL BOWEL SERIES EXAM: RF SMALL BOWEL SERIES CLINICAL HISTORY: ? chronic narrowing in the small bowel,PARTIAL SMALL BOWEL OBSTRUCTION,K56. TECHNIQUE: 2D and realtime digital imaging was performed. CONTRAST MATERIAL: Oral barium Oral water soluble contrast was administered. COMPARISON: No exams were available for comparison FINDINGS: The standing c d reactor operator film reveals no free air and no obvious bowel obstruction pattern. Surgical clips from prior cholecystectomy in the right upper quadrant are noted. Bilateral hip prostheses are note d. The stomach and duodenum are not distended. Diverticulum on the medial aspect of the descending duod enum is noted, the this being the typical location for this finding. No evidence of midgut malrotation. The caliber and fold pattern of left-sided jejunal loops is ellyn l. Also no abnormalities seen in the ileum loops which also exhibit normal caliber and fold thicknes s. Spot imaging of the right lower quadrant reveals normal appearing terminal ileum. No abnormal thicke amaris nor nodularity of the terminal ileum. The appendix is surgically absent. Transit time to the colon is normal. IMPRESSION: Normal small bowel follow-through. No evidence of small-bowel obstruction. No strictures evident. Terminal ileum appears unremarkable. Appendix is surgically absent RADIATION DOSE DELIVERED: Ka,r=34.4 mGy
[2020-12-12] MEDS: Barium Sulfate 60% W/V 355 ML BTL PO ×2 (10:34→12:24)
== END 2020-12-12 06:31 ==
PROVIDERS: PCP Family Medicine; Visit Provider Surgery
DX: K63.89 Other specified diseases of intestine (principal)
CPT/HCPCS: 74250

== ENCOUNTER → 2020-12-20 11:18 | Outpatient (BNVA) | payer MEDICARE, BC, SELFPAY | PROVIDERS: PCP Family Medicine; Referring Provider Family Medicine; Visit Provider Surgery | DX: K56.600 Partial intestinal obstruction, unspecified as to cause (principal) | CPT/HCPCS: 99213; 99214 ==

== ENCOUNTER → 2021-02-12 13:00 | Outpatient (BNVA) | payer MEDICARE, BC, SELFPAY | PROVIDERS: PCP Family Medicine; Referring Provider Family Medicine; Visit Provider Student in an Organized Health Care Education/Training Program | DX: M75.22 Bicipital tendinitis, left shoulder (principal); M75.52 Bursitis of left shoulder; Z98.890 Other specified postprocedural states | CPT/HCPCS: 99213 ==

== ENCOUNTER 2021-04-09 15:55 | Outpatient (REF) | payer MEDICARE, BC, SELFPAY ==
[2021-04-09 20:25] LABS: ALT 32 U/L (14-59); AST 33 U/L (15-37); Albumin 3.8 g/dL (3.4-5.0); Alkaline Phosphatase 67 U/L (46-116); Anion Gap 10.9 mmol/L (3-11); BUN 9 mg/dL (7-18); Bilirubin, Total 0.5 mg/dL (0.2-1.0); CO2 26.1 mmol/L (21.0-32.0); CREATININE 0.7 mg/dL (0.55-1.02); Calcium 9.3 mg/dL (8.5-10.1); Calculated LDL 118 mg/dL (<100); Chloride 102 mmol/L (98-107); Cholesterol 214 mg/dL (<200); Glucose 95 mg/dL (74-106); HDL Cholesterol 76 mg/dL (40-60); Potassium 4.2 mmol/L (3.5-5.1); Sodium 139 mmol/L (136-145); Total Protein 6.8 g/dL (6.4-8.2); Triglyceride 103 mg/dL (<150)
[2021-04-09 20:58] LABS: HCT 35.9 % (36.0-46.0); HGB 11.7 g/dL (11.2-15.7)
== END 2021-04-09 15:56 | disposition home or self-care (01) ==
LOC: NCHCN 15:55
PROVIDERS: PCP Family Medicine; Visit Provider Family Medicine
DX: I10 Essential (primary) hypertension (principal); E78.5 Hyperlipidemia, unspecified; Z86.2 Personal history of diseases of the blood and blood-forming organs and certain disorders involving the immune mechanism; I65.29 Occlusion and stenosis of unspecified carotid artery
CPT/HCPCS: 80053; 80061; 85014; 85018

== ENCOUNTER → 2021-04-18 09:16 | Outpatient (BNVA) | payer MEDICARE, BC, SELFPAY | PROVIDERS: PCP Family Medicine; Referring Provider Family Medicine; Visit Provider Surgery | DX: K22.70 Barrett's esophagus without dysplasia (principal); K56.600 Partial intestinal obstruction, unspecified as to cause; Z12.11 Encounter for screening for malignant neoplasm of colon; Z87.19 Personal history of other diseases of the digestive system | CPT/HCPCS: 99213 ==

== ENCOUNTER 2021-05-03 00:18 | Outpatient (CLI) | payer MEDICARE, BC, SELFPAY ==
--- NOTE | 2021-05-03 | DI.MAMMO_ITS ---
Exam(s) MAMMO SCREENING EXAM: MAMMO SCREENING CLINICAL HISTORY: SCREENING, Z12.31 TECHNIQUE: Mammograms were interpreted according to the usual protocol including computer analysis w [employer] CAD system, tomosynthesis and C-view imaging. COMPARISON: 2011 through 16 October 2020 FINDINGS: The breasts are composed of heterogeneously dense fibroglandular densities, Breast Density category C . No suspicious masses or suspicious microcalcifications are seen. No skin thickening or abnormal axillary lymph nodes are seen. There has been no significant change from prior exams. IMPRESSION: BI-RADS Category 1, Negative mammogram. Yearly screening mammography is recommended. Breast Density Category C, heterogeneously Dense. The mammogram demonstrates the patient's breast tissue is dense. Dense breast tissue is very common a nd is not abnormal but dense breast tissue can make it harder to find cancer on a mammogram. Also, de nse breast tissue may increase breast cancer risk. This information about the result of the mammogram report was provided to the patient to raise their awareness. Use this report when you speak with the patient about their risks for breast cancer, which includes their family history. At that time, you may recommend additional screening tests (Ultrasound or MRI) as they might be useful based on their r isk. A negative radiographic report should not delay biopsy if a dominant or clinically suspicious mass is present. Up to ten percent of cancers are not identified on mammography. A negative report may reinforce clinical impression. Adenosis and dense breasts may obscure an underlying neoplasm. False positive reports average 6 to 10%.
== END 2021-05-03 00:38 ==
PROVIDERS: PCP Family Medicine; Visit Provider Family Medicine
DX: Z12.31 Encounter for screening mammogram for malignant neoplasm of breast (principal)
CPT/HCPCS: 77063; 77067

== ENCOUNTER 2021-05-13 02:22 | Outpatient (CLI) | payer MEDICARE, BC, SELFPAY ==
[2021-05-13 11:18] LABS: Source Nasal/Nares
[2021-05-13 14:48] LABS: COVID-19 PCR Negative (Negative)
== END 2021-05-13 02:23 | disposition home or self-care (01) ==
LOC: LBO 02:23
PROVIDERS: PCP Family Medicine; Visit Provider Surgery
DX: Z20.822 Contact with and (suspected) exposure to COVID-19 (principal); Z01.818 Encounter for other preprocedural examination
CPT/HCPCS: 87635

== ENCOUNTER 2021-05-14 07:27 | Day surgery (SDC) | payer MEDICARE, BC, SELFPAY ==
--- NOTE | 2021-05-13 14:39 | W.COLOREPORT ---
Colonoscopy Report Date of procedure: 05/14/21 Pre-op diagnosis general: enlarged IC helen on CT Post-op diagnosis procedure note: other (divertic) Surgeon: Yoli Abdi Anesthesia Type: General:No Airway Estimated blood loss (mL): 0 Pathology: none sent Complications: None Disposition: same day Prep: Miralax/Dulcolax Retraction Time: 7 mins Procedure Description: After informed consent was obtained the patient was taken to the procedure room and placed in a left decubitous position. Monitors were applied and a time out was done. The patients name, date of , procedure, allergies to medications and metal in their body was reviewed. The patient was then sedated. Once sedated and comfortable a rectal exam was done. External exam was normal. Internal exam revealed a normal sphincter tone and no palpable masses. The scope was then introduced and retrofelexed. no internal hemorrhoids were identified. The scope was then advanced to the cecum w/out difficulty. The TI and appendiceal orifice were identified. The prep was good. The scope was then slowly retracted over 7 minutes back into the rectum. There are no polyps or AVMs noted today. Patient has a few small scattered diverticula in sigmoid colon. These are very minor. We will schedule the scope was removed and the patient was woken up and taken back to Same day surgery in stable condition. The patient tolerated the procedure well and there were no immediate complications. Follow up: The patient does not require any further colonoscopies, unless they develop changes in bowel habits or other new gastrointestinal complaints.
--- NOTE | 2021-05-13 14:40 | W.PM.ENDDOP ---
Date of service: 05/14/21 Endoscopy Report DATE OF PROCEDURE: 05/14/21 PRE-OP DIAGNOSIS: hx of mathews's POST-OP DIAGNOSIS: other (bile reflux/chronic esophagitis) SURGEON: Yoli Abdi ESTIMATED BLOOD LOSS: 1 PATHOLOGY: other COMPLICATIONS: None DISPOSITION: same day PROCEDURE DESCRIPTION: After informed consent was obtained the patient was take to the procedure room and placed in a supine position. Monitors were applied and a time out was done. The patients name, date of , procedure type, allergies to medications and metal in their body was reviewed. A bite block was placed and the patient was sedated. Once sedated and comfortable the gastroscope was advanced through the oropharynx which was grossly normal into the esophagus. The proximal and mid-esophagus were nl. In the distal esophagus there was no: Varices, diverticula, or stricture apparent. The scope was advanced into the stomach and through the pylorus into the 3rd portion of the duodenum. The duodenum was noted to be normal. Biopsies were done, all specimens are retrieved and no bleeding is noted. The scope was retracted back into the stomach and biopsies were done to rule out H. pylori. There were no ulcers. The scope was retroflexed. The cardia and fundus were noted to be normal. There no a hiatal hernia noted. The scope was retracted back into the esophagus and biopsies were done of the GE junction to rule out Mathews's. The GE junction, the Z-line is irregular. She appears to have 2 less than 1 cm tongues of Mathews's. There are no active erosions or ulcerations. There is signs of chronic esophagitis and chronic reflux. Biopsies were taken. The scope was removed and the patient was woken up and taken back to [facility] in stable condition.
--- NOTE | 2021-05-13 14:41 | PDOC.DSDIS_ITS ---
Discharge Plan Disposition Patient Disposition: HOME Condition: Good Discharge Details Reason For Visit: stomach and colon scope Attending Provider: Yoli Abdi Primary Care Provider: Rehana Cornejo V Home Meds and New Rx's Prescriptions: Continued vitamin B complex Tablet 1 tab PO DAILY RF: 0 vitamin E 200 unit capsule 400 unit PO DAILY RF: 0 biotin 5 mg tablet 5 mg PO DAILY RF: 0 cholecalciferol (vitamin D3) 125 mcg (5,000 unit) capsule 250 mcg PO DAILY RF: 0 olmesartan [Benicar] 20 mg tablet 25 mg PO HS RF: 0 latanoprost [Xalatan] 2.5 ML drops 1 drp Ophthalmic DAILY RF: 0 aspirin 81 MG tablet,delayed release (DR/EC) 81 mg PO DAILY RF: 0 omeprazole 40 MG capsule,delayed release(DR/EC) 40 mg PO DAILY RF: 0 Probiotic 1 EACH capsule, sprinkle 1 ea PO DAILY RF: 0 polyethylene glycol 3350 [Miralax] 17 gram/dose Powder 17 g PO DAILY RF: 0 timolol maleate 0.5 % drops 1 drp Topical BID RF: 0 Discontinued polyethylene glycol 3350 17 gram/dose powder 238 g PO ONCE Qty: 238 RF: 0 bisacodyl [Dulcolax (bisacodyl)] 5 mg tablet,delayed release (DR/EC) 5 mg PO ONCE Qty: 4 RF: 0 Discharge Instructions Additional Instructions: [facility] Colonoscopy Post- Op Instructions Instructions for Everyone who is given Anesthesia: For your safety, please do the following for the next twenty-four (24) hours: *Do Not operate a motor vehicle (car, truck, motorcycle, etc.) *Do Not drink alcoholic beverages or use any recreational drugs for the first 24 hours or while taking pain medications. The medications in your body may have a reaction that can be dangerous. *Do Not make any important decisions or sign any important papers. Findings: chronic esophagitis Continue with lifestyle modifications: no alcohol, tobacco products, Aspirin or NSAID's (ibuprofen, Motrin, Naprosyn, aleve, etc), soda pop/any carbonated beverages, caffeine (including tea & chocolate), and acidic foods, (tomatoes, citrus, onions, peppermints) spicy or fried/fatty foods. Do not lie down for 30 minutes after eating, and do not eat 2 hours prior to bedtime. Avoid wearing tight fitting clothing/ belts Follow up: My office will send a letter in 2 to 3 weeks time with the biopsy results 1. No lifting over 20 pounds or strenuous activity for the first 24 hours after your procedure. After 24 hours there are no restrictions on your activity but you may feel fatigued for a few days. 2. After you arrive home you may have a light meal and return to your normal diet as you can tolerate it without feeling sick to your stomach. 3. You may have a bloated, gaseous feeling in your belly (abdomen) after a colonoscopy. Passing gas and belching will help. Walking or lying down on your left side with your knees flexed may relieve the discomfort. Call the office at [phone] (Office) or [phone] (Hospital) right away if you notice any of the following: a.Vomiting of blood or ?coffee ground stools?. b.Rectal bleeding 1Tbsp, blood clots or continuous bleeding. c.Severe belly (abdominal) pain. d.A hard distended belly (abdomen) and an inability to pass gas. 4. Please don?t expect to have a normal BM (bowel movement) for 2-3 days after your procedure. 5. If there are questions regarding the findings of your procedure, please contact your doctor 6. If you are unable to contact your doctor with a problem, contact the hospital at [phone]. 7. Continue all your regular medications unless directed otherwise. I understand the above instructions and have no questions. Signature of Patient or Adult Escort Name of Responsible Adult Escort Signature of Nurse Date/Time Activity:: see above Diet:: see above Discharge Orders Discharge Orders: Discharge Order (Routine); Ordered 05/13/21 Ordered By: Yoli Abdi DS: Diagnosis Discharge Diagnosis (1) Chronic GERD: Status: Acute (2) History of Arriaga's esophagus: Status: Acute (3) Abnormal CT of the abdomen: Status: Acute (4) Diverticular disease of left colon: Status: Acute
--- NOTE | 2021-05-14 07:26 | ANES.PREOP_ITS ---
General Info Date of Service Date Performed: 05/14/21 Height: 5 ft 2 in Weight: 65.771 kg Body Mass Index (BMI): 26.5 Surgical Procedure: Operation Date: 05/14/21 08:50 Proposed Procedures Side Surgeon p Colonoscopy/Gastroscopy Yoli Abdi, DO Meds Allergies and Home Medications Allergies Allergy/AdvReac Type Severity Reaction Status Date / Time Calcium Channel Blocking Allergy Severe Verified 05/14/21 08:19 Agent Dilt furosemide Allergy Severe SOB and Unverified 05/14/21 08:19 severe muscle pain Sulfa (Sulfonamide Allergy Severe Anaphylaxsi Unverified 05/14/21 08:19 Antibiotics) s morphine Allergy Mild hives Unverified 05/14/21 08:19 brompheniramine maleate Allergy Unknown Anaphylaxsi Unverified 05/14/21 08:19 [From Drixoral] s dexbrompheniramine maleate Allergy Unknown Anaphylaxsi Unverified 05/14/21 08:19 [From Drixoral] s pseudoephedrine HCl Allergy Unknown Anaphylaxsi Unverified 05/14/21 08:19 [From Drixoral] s VINCENZO Inhibitors AdvReac Severe severe Unverified 05/14/21 08:19 muscle fatigue prednisone AdvReac Severe Psychosis, Unverified 05/14/21 08:19 SOB Fcwziqx-NFL-FlU Reductase AdvReac Severe Severe Unverified 05/14/21 08:30 Inhibitor muscle [Elnyepk-Ulg-Yfj Reductase aches/ankle Inhibitor] & foot swelling hydrochlorothiazide AdvReac Intermediate Doesn't Unverified 05/14/21 08:19 tolerate pravastatin AdvReac Unknown fatigue, Verified 05/14/21 08:30 muscle pain Furosemide Allergy Unknown Uncoded 05/14/21 08:19 Home Medication Medication Instructions Recorded latanoprost [Xalatan] 1 drp OPHTHALMIC DAILY drp 10/19/14 Probiotic 1 ea PO DAILY cap.sprink 11/05/17 aspirin 81 mg PO DAILY tab-cap 11/05/17 omeprazole 40 mg PO DAILY 11/05/17 biotin 5 mg tablet 5 mg PO DAILY 04/03/20 timolol maleate 0.5 % eye drops 1 drp TOPICAL BID ml 04/03/20 vitamin B complex 1 tab PO DAILY 04/03/20 vitamin E 200 unit capsule 400 unit PO DAILY cap 04/03/20 cholecalciferol (vitamin D3) 125 250 mcg PO DAILY cap 08/22/20 mcg (5,000 unit) capsule olmesartan 20 mg tablet 25 mg PO HS tab 08/22/20 polyethylene glycol 3350 [Miralax] 17 g PO DAILY 12/06/20 bisacodyl 5 mg tablet,delayed 5 mg PO ONCE #4 tab 04/18/21 release polyethylene glycol 3350 17 238 g PO ONCE #238 g 04/18/21 gram/dose oral powder Current Visit Medications: Current Medications Generic Name Dose Route Start Last Admin Trade Name Freq PRN Reason Stop Dose Admin Hyoscyamine Sulfate 0.125 mg 05/13/21 14:35 Hyoscyamine 0.125 Mg Sl/Oral/Chew SL DIRECTED PRN Ringer's Solution 1,000 mls @ 80 mls/hr 05/14/21 06:00 IV 06/12/21 23:59 [facility] IV Miscellaneous Supplies 1 each 05/14/21 06:00 Iv Access IV 06/12/21 23:59 DIRECTED [facility] Ondansetron HCl 4 mg 05/13/21 14:35 Ondansetron 4 Mg/2 Ml Vial IVP Q4H PRN PRN Nausea / Vomiting Sodium Chloride 0 ml 05/14/21 06:00 Normal Saline Flush 10 Ml Syr IV 06/12/21 23:59 PRN PRN Sodium Chloride 0 ml 05/14/21 06:00 Normal Saline 10 Ml Vial IJ 06/12/21 23:59 DIRECTED PRN Sterile Water 0 ml 05/14/21 06:00 Water,Injection,Sterile 10 Ml Vial IJ 06/12/21 23:59 DIRECTED PRN PFSH Active Problems Active Problems: Problem Status Onset Code Abnormal CT of the abdomen R93.5 Spondylosis of lumbar region without myelopathy or radiculopathy M47.816 Lumbar radiculitis M54.16 Atypical chest pain R07.89 Elevated liver function tests R94.5 Hypertension I10 Chronic GERD K21.9 History of Arriaga's esophagus Z87.19 Sensorineural hearing loss of combined sites, bilateral 01/28/16 Dizziness R42 Abnormal auditory perception of both ears 01/28/16 H93.293 Left rotator cuff tear ~12/2018 M75.102 Tendinitis of long head of biceps brachii of left shoulder M75.22 Bursitis of left shoulder M75.52 Medical History Medical History Abn find-abdominal area Abnormal laboratory test Arm pain, left Barretts esophagus Bilateral hearing loss Carotid artery stenosis Depression Disturbance of skin sensation Femoral neuropathy of right lower extremity Head congestion History of anemia History of post traumatic stress disorder History of tobacco use Hx of abnormal mammogram Hypertension IBS (irritable bowel syndrome) Low back pain Lumbar radiculopathy Mixed hyperlipidemia Osteoarthritis of hip Pain of left calf Partial obstruction of small intestine Partial small bowel obstruction PVD (peripheral vascular disease) RUQ pain Scapulalgia Screening for HPV (human papillomavirus) Shoulder pain, left Sleep apnea Toe pain, left Unresolved grief Vertigo Surgical History Surgical History (Updated 05/14/21 @ 07:50 by Alta Gomes) History of appendectomy History of cholecystectomy History of colonoscopy History of common carotid artery stent placement On the right carotid system History of hysterectomy History of ventral hernia repair Hx of bilateral hip replacements S/P cholecystectomy Ventral hernia repair Tobacco Smoking/Tobacco Use Status: Former Tobacco Use Alcohol Alcohol Intake: never Substance Use Substance use: Never Substance use type: does not use Vital Signs and Lab Results Lab Results Blood Type / Crossmatch: No Data to Display Complete Blood Count: No Data to Display Complete Metabolic Panel: No Data to Display Liver Function Panel: No Data to Display Coagulation Panel: No Data to Display Cardiac Panel: No Data to Display Arterial Blood Gas: No Data to Display Venous Blood Gas: No Data to Display Pancreas Panel: No Data to Display Thyroid Panel: No Data to Display Infectious Disease: Coronavirus (COVID-19)(PCR) Negative (Negative) 05/13/21 09:10 05/13/21 Coronavirus 2019 Source Nasal/Nares 05/13/21 09:10 05/13/21 Blood Cultures: No Data to Display Toxicology Panel: No Data to Display Imaging and Studies Imaging and Studies Stress Test Summary: Impressions: Normal myocardial perfusion and contraction after pharmacological stress. Summary: 1. Myocardial perfusion imaging: No myocardial perfusion defects noted. 2. The calculated left ventricular ejection fraction after stress: 67%. LV global systolic function is normal. No left ventricular regional motion abnormality. 3. Stress: There is a normal resting blood pressure. Normal blood pressure response to adenosine. 4. Baseline ECG: Sinus bradycardia with left bundle branch block. Anesthesia Assessment and Plan Anesthesia History Personal History: No History of Anesthesia Complications Family History: No Family History of Anesthesia Complications Exercise Tolerance Exercise Tolerance: Metabolic Equivalents>4 Pertinent Negatives Pertinent Negatives: No Symptoms of GERD, No Major Cardiovascular Symptoms or Complaints, No Major Pulmonary Symptoms or Complaints and No History of CVA/TIA Cardiac & Pulmonary Exam Cardiac Exam: Normal S1/S2 Heart Sounds Pulmonary Exam: Clear Bilateral Breath Sounds Airway Exam Known Difficult Airway: No Mallampati Class: 2 Mouth Opening: Normal (> 3cm) Thyromental Distance: Greater than 3 cm Neck Range of Motion: Full ROM Neck Circumference: Normal Teeth Condition: Normal Dentition ASA Classification ASA Score: ASA 3 Emergency Case?: No NPO Status NPO Status: NPO Clears >2 hours, Solids >8 hours Anesthesia Plan Resuscitation Status: Full Code Anesthesia Technique: General Anesthesia Airway Planned: Natural Airway Monitors Used: Standard Monitors
[2021-05-14 07:30] VITALS: BP 198/57; PULSE 59; RESP 18; TEMP 36.2; O2SAT 97
[2021-05-14] MEDS: Lactated Ringers 1,000 ML 80 ML IV (08:15)
[2021-05-14 08:30] VITALS: BMI 26.5
--- NOTE | 2021-05-14 08:40 | STOM_PTH ---
PATIENT: Macy Mccurdy LOC: [facility] U#:[id number] AGE/SX: 71/F ROOM: RE05/14/[address]: Yoli Abdi : 1950 BED: DIS: 05/14/2021 SPEC #: [id number] RECD: 05/14/21 12:33 STATUS: MARIA D REBill #: [id number] DAGO: 05/14/21 08:[address]: Yoli Abdi DEPT: Surgical Specimen RECD BY: Ilene Duffy ENTERED: 05/14/21 12:36 SP TYPE: STOMACH OTHR DR: Rehana Cornejo V Tissues: 1 - BIOPSY BOWEL 2 - BIOPSY BOWEL 3 - STOMACH BIOPSY 4 - STOMACH BIOPSY 5 - ESOPHAGUS BIOPSY 6 - ESOPHAGUS BIOPSY Procedures: GROSS AND MICRO LEVEL 4 Comments: [id number]
[2021-05-14 09:14] VITALS: BP 106/36; PULSE 49; RESP 16; TEMP 36.1; O2SAT 98
--- NOTE | 2021-05-14 10:06 | W.ANESPOSTOP ---
Postoperative Evaluation Date, Time and Location Date Performed: 05/14/21 Time Performed: 10:07 Patient Location: Day Surgery Unit Vital Signs Most Recent Imported Vital Signs: Most Recent Vital Signs Temp Pulse Resp BP Pulse Ox 36.1 C L 49 L 16 106/36 L 98 05/14/21 09:14 05/14/21 09:14 05/14/21 09:14 05/14/21 09:14 05/14/21 09:14 Pain Score Most Recent Pain Score: Most Recent Pain Score Pain Level 0 05/14/21 09:14 Assessment Mental Status: Awake (Alert & Oriented to Patient Baseline) Airway and Respiratory Function: Patent airway with normal (patient baseline) respiratory exam Cardiovascular Function: Hemodynamically Stable Hydration Status: Adequately Hydrated Nausea & Vomiting: No Nausea or Vomiting Pain: Pt. Denies Any Pain Peripheral Nerve Block: Patient did not receive a nerve block
== END 2021-05-14 10:38 | disposition home or self-care (01) ==
PROVIDERS: PCP Family Medicine; Visit Provider Surgery
PROC: (CPT 43239; principal; 2021-05-14 08:45)
DX: Z12.11 Encounter for screening for malignant neoplasm of colon (principal); K21.00 Gastro-esophageal reflux disease with esophagitis, without bleeding; K57.30 Diverticulosis of large intestine without perforation or abscess without bleeding; K31.89 Other diseases of stomach and duodenum
CPT/HCPCS: 43239; G0121; 88305; J2001

== ENCOUNTER 2021-07-15 15:41 | Emergency (ER) | payer MEDICARE, BC, SELFPAY ==
[2021-07-15] VITALS (7 sets, daily range): BP systolic 129–159; BP diastolic 40–60; PULSE 63–95; RESP 14–16; TEMP 36.3–37.3; O2SAT 90–96
--- NOTE | 2021-07-15 16:03 | W.ED.GENAD ---
Discharge Plan Disposition Patient Disposition: HOME Condition: Improving Discharge Details Clinical Impression: Pyelonephritis Primary Care Provider: Rehana Cornejo V ED Provider: Ayah Vincent Home Meds and New Rx's Prescriptions: New prochlorperazine maleate [Compazine] 10 mg tablet 10 mg PO TID PRN (Reason: nausea and vomiting) Qty: 7 RF: 0 ciprofloxacin HCl 500 mg tablet 500 mg PO BID 7 Days Qty: 14 RF: 0 Continued vitamin B complex Tablet 1 tab PO DAILY RF: 0 vitamin E 200 unit capsule 400 unit PO DAILY RF: 0 biotin 5 mg tablet 5 mg PO DAILY RF: 0 cholecalciferol (vitamin D3) 125 mcg (5,000 unit) capsule 250 mcg PO DAILY RF: 0 olmesartan [Benicar] 20 mg tablet 25 mg PO HS RF: 0 latanoprost [Xalatan] 2.5 ML drops 1 drp Ophthalmic DAILY RF: 0 aspirin 81 MG tablet,delayed release (DR/EC) 81 mg PO DAILY RF: 0 omeprazole 40 MG capsule,delayed release(DR/EC) 40 mg PO DAILY RF: 0 Probiotic 1 EACH capsule, sprinkle 1 ea PO DAILY RF: 0 polyethylene glycol 3350 [Miralax] 17 gram/dose Powder 17 g PO DAILY RF: 0 timolol maleate 0.5 % drops 1 drp Topical BID RF: 0 Discharge Instructions Instructions: Kidney Infection (ED) Additional Instructions: Your lab work and imaging today revealed evidence of a kidney infection. There was no evidence of small bowel obstruction on your CT scan today. There is no obvious fluid collection consistent with a drainable kidney abscess at this time, however the urologist would like you to follow-up with his office within the next 48 hours for reevaluation and consideration for repeat imaging if your symptoms do not improve or are worsening to rule out potential development of a kidney abscess. Drink plenty of fluids and get plenty of rest. Alternate tylenol and motrin as needed and directed for pain. Take the oxycodone for pain not relieved with Tylenol or Motrin. A prescription for antibiotics and nausea medication has been sent electronically to your pharmacy. Call the urology office tomorrow to confirm your follow-up appointment within the next 48 hours. Return immediately to the emergency department if you develop any worsening or new concerning symptoms such as fever, worsening pain or any other concerns. Referrals: Elder Nickerson MD [ [facility] STAFF PHYSICIAN] - Discharge Data Discharge Physician: Ayah Vincent Medical Decision Making 71-year-old female w/a h/o GERD, hypertension, hyperlipidemia, Arriaga's esophagus, history of small bowel obstruction with multiple abdominal surgeries including hysterectomy, appendectomy, cholecystectomy, ventral hernia repair presents for nausea since yesterday and right lower quadrant pain today. Patient appears comfortable and nontoxic. She has right upper and lower quadrant tenderness but no rigidity or guarding. Differential diagnosis includes bowel obstruction, UTI, pyelonephritis, gastroenteritis, etc. Will place an IV, bolus with fluids, screening labs, urinalysis, CT abdomen pelvis with p.o. and IV contrast. Patient given a dose of IV Tylenol and zofran. Labs reviewed. Normal white blood cell count at 9. Sodium 131. Urinalysis consistent with UTI. Patient reassessed and her nausea and pain is improved. Just prior to transfer to CT, patient complained of return of nausea and give a dose of Phenergan. She declines any pain medication. Imaging reviewed and notes: IMPRESSION: 1. There is evidence of pyelonephritis involving the lower pole of the left kidney, with associated right-sided ureteritis/pyelitis. No hydronephrosis. 2. 1.5 cm low-density component in the medial lower pole cortex could represent very early changes of developing renal abscess although no clearly defined peripheral enhancing wall is present currently. Consider short-term follow-up imaging as clinically indicated. Case discussed and imaging reviewed with Dr. Nickerson. Agrees that as patient has no fever, normal white blood cell count, and no obvious drainable fluid collection, can trial with oral antibiotics and reassess within 48 hours. Does not see any indication for stent or percutaneous nephrostomy tube. If patient symptoms do not improve or worsen, can consider repeat imaging at this time. Recommends treatment with Cipro. Patient reassessed and her pain and nausea is returned. She feels restless which is likely from the Phenergan. Will order a dose of Dilaudid, Benadryl and Compazine and additional fluids and reassess. Patient states she would prefer to go home if possible. Patient reassessed and she feels much better and feels good to go home. Denies any nausea or pain at this time. Prescriptions for antibiotics and nausea medication sent electronically to her pharmacy. We will also sent home with pain medication, antibiotics and nausea medication for home tonight. Patient placed on urology follow-up list. Advised to return here immediately if she develops any worsening or new concerning symptoms. Medical Records Medical records reviewed: Yes I reviewed the patient's medical records. Imaging Data Radiologic Study: Radiologist's impression: CT Abdomen And Pelvis With Contrast Exam date and time: 07/15/2021 4:46 PM Age: 71 years old Clinical indication: Abdominal pain; Localized; Right lower quadrant (rlq); Prior surgery; Surgery date: 6+ months; Surgery type: Appendectomy, cholecystectomy, total hysterectomy, f/u surgery to remove scar tissue; Patient HX: Rlq abd pain, nausea, constipation. H/o sbo, abd surgeries, R/O sbo TECHNIQUE: Imaging protocol: Computed tomography of the abdomen and pelvis with contrast. Total images: 1168 Radiation optimization: All CT scans at this facility use at least one of these dose optimization techniques: automated exposure control; mA and/or kV adjustment per patient size (includes targeted exams where dose is matched to clinical indication); or iterative reconstruction. Contrast material: OMNIPAQUE 350; Contrast volume: 100 ml; Contrast route: INTRAVENOUS (IV); Other contrast: Oral, omnipaque 350, 50; COMPARISON: CT ABDOMEN PELVIS W 11/26/2020 2:30 PM FINDINGS: Lungs: Moderate bronchiectasis in the visualized lung bases with mild bilateral peripheral pulmonary fibrosis which is unchanged. Heart: Heart size normal. Mediastinal space: The visualized distal esophagus is largely contracted without gross abnormality. Liver: Normal contour. Well-circumscribed low-density hepatic lesions demonstrating benign CT features consistent with hepatic cysts. No further imaging evaluation is required based on current consensus criteria. No intrahepatic biliary ductal dilatation. Gallbladder and bile ducts: Prior cholecystectomy with expected mild postoperative dilatation of the common bile duct. This is unchanged. 10 mm aerated duodenal diverticulum noted near the ampulla. Pancreas: Normal. No inflammatory changes or ductal dilation. Spleen: Normal. No splenomegaly. Adrenal glands: Normal. No adrenal mass. Kidneys and ureters: Ill-defined renal cortical under enhancement in the lower pole of the right kidney consistent with pyelonephritis. Rounded 15 mm low-density component in this region without a well-defined peripheral enhancing rim, suspicious for early developing renal abscess. Moderate right periureteral stranding with mild ureterectasis and ureteral wall thickening consistent with associated ureteritis. No hydronephrosis. No urinary tract stones are identified. The left kidney and left collecting system are unremarkable. Stomach and bowel: The stomach is largely contracted without gross abnormality. The small bowel is nondilated with no gross abnormality. No acute colonic abnormalities. Mild diverticulosis involving the distal colon without evidence of acute diverticulitis. Appendix: Prior appendectomy. Intraperitoneal space: No free fluid or air. Vasculature: Moderate atherosclerotic aortoiliac calcification without aneurysm. Lymph nodes: No adenopathy. Urinary bladder: Unremarkable as visualized. Reproductive: Unremarkable as visualized. Bones/joints: No acute osseous abnormalities. Bilateral bipolar hip arthroplasties without gross hardware complication or change. Moderate multilevel lumbar degenerative disc and facet changes and mild rightward convexity lumbar scoliosis. Soft tissues: Unremarkable. IMPRESSION: 1. There is evidence of pyelonephritis involving the lower pole of the left kidney, with associated right-sided ureteritis/pyelitis. No hydronephrosis. 2. 1.5 cm low-density component in the medial lower pole cortex could represent very early changes of developing renal abscess although no clearly defined peripheral enhancing wall is present currently. Consider short-term follow-up imaging as clinically indicated. 3. Additional nonemergent findings detailed above. Lab Data Lab results reviewed: Yes I reviewed the patient's lab results. Labs: 07/15/21 16:25 Urine - Reflex from Ua Urine Culture - Pending Laboratory Tests Range/Units 07/15/21 07/15/21 07/15/21 16:14 16:14 16:25 WBC (4.4-10.8) 10^3/uL 9.21 RBC (3.93-5.22) 10^6/uL 4.15 Hgb (11.2-15.7) g/dL 11.9 Hct (36.0-46.0) % 36.7 MCV (80-95) fL 88.4 MCH (27.0-33.0) pg 28.7 MCHC (32.0-36.0) % 32.4 RDW (11.7-14.6) % 13.2 Plt Count (130-400) 10^3/uL 207 MPV (8.0-11.0) fL 8.9 Immature Gran % 0.3 Neutrophils % 80.5 Lymphocytes % 9.1 Monocytes % 9.8 Eosinophils % 0.0 Basophils % 0.3 Nucleated RBC % % 0 Absolute Neutrophils (1.2-6.7) 10^3/uL 7.41 H Absolute Lymphocytes (1.2-3.4) 10^3/uL 0.84 L Absolute Monocytes (0.1-0.8) 10^3/uL 0.90 H Absolute Eosinophils (0.0-0.7) 10^3/uL 0.00 Absolute Basophils (0.0-0.2) 10^3/uL 0.03 Sodium (136-145) mmol/L 131 L Potassium (3.5-5.1) mmol/L 4.1 Chloride (98-107) mmol/L 96 L Carbon Dioxide (21.0-32.0) mmol/L 25.6 Anion Gap (3-11) mmol/L 9.4 BUN (7-18) mg/dL 17 Creatinine (0.55-1.02) mg/dL 0.9 Estimated GFR/1.73 m2 (mL/min/1.73m2) >= 60.00 Glucose (74-106) mg/dL 122 H Calcium (8.5-10.1) mg/dL 8.9 Total Bilirubin (0.2-1.0) mg/dL 0.6 AST (15-37) U/L 51 H ALT (14-59) U/L 49 Alkaline Phosphatase (46-116) U/L 117 H Total Protein (6.4-8.2) g/dL 7.4 Albumin (3.4-5.0) g/dL 3.4 Lipase (73-393) U/L 171 Urine Color (Yellow) Yellow Urine Clarity (Clear) Sl Cloudy Urine pH (5-8) 6.0 Ur Specific [place] (1.005-1.025) 1.025 Urine Protein (Negative) mg/dL 30 H Urine Ketones (Negative) mg/dL 15 H Urine Blood (Negative) Trace-intact H Urine Nitrite (Negative) Positive H Urine Bilirubin (Negative) Negative Urine Urobilinogen (Up TO 0.2) EU/dL 0.2 Ur Leukocyte Esterase (Negative) Small H Urine RBC (0-2) HPF 0-2 Urine WBC (0-5) HPF >50 H Ur Epithelial Cells (Negative) HPF Rare Urine Crystals (Negative) HPF Negative Urine Bacteria (Negative) HPF Many Urine Casts (Negative) LPF Negative Urine Mucus (Negative) Negative Ur Culture Indicated? Yes Urine Glucose (Negative) mg/dL Negative HPI General Mode of arrival: ambulatory. Date/Time Provider Initiated Documentation: 07/15/21 15:58. Limitations to Documentation: no limitations. Information obtained by: patient. HPI Narrative: Patient is a 71-year-old female with a history of GERD, hypertension, hyperlipidemia, Arriaga's esophagus, history of small bowel obstruction with multiple abdominal surgeries including hysterectomy, appendectomy, cholecystectomy, ventral hernia repair presents for nausea since yesterday and right lower quadrant pain today. Review of records note that patient had an EGD in April which noted chronic esophagitis and a colonoscopy which noted diverticula. Patient states that she has had nausea since yesterday but has not had any vomiting. She states today she developed aching right lower quadrant pain which is 7/10 at worst and has been constant. She denies any radiation of pain, aggravating or alleviating factors. She took a Zofran earlier with temporary relief of her nausea. She has not taken a medication for pain. She states her symptoms do feel similar with previous small bowel obstruction. She states she normally has a daily bowel movement but has not had one since yesterday which is unusual for her. She states she took MiraLAX yesterday with a regular bowel movement and MiraLAX today without any bowel movement. She denies any fever, urinary symptoms, new prescriptions or recent antibiotics. She states she has not eaten anything today due to the nausea. Related Data Home Medications Medication Instructions Recorded Confirmed latanoprost [Xalatan] 1 drp OPHTHALMIC DAILY drp 10/19/14 07/15/21 Probiotic 1 ea PO DAILY cap.sprink 11/05/17 07/15/21 aspirin 81 mg PO DAILY tab-cap 11/05/17 07/15/21 omeprazole 40 mg PO DAILY 11/05/17 07/15/21 biotin 5 mg tablet 5 mg PO DAILY 04/03/20 07/15/21 timolol maleate 0.5 % eye drops 1 drp TOPICAL BID ml 04/03/20 07/15/21 vitamin B complex 1 tab PO DAILY 04/03/20 07/15/21 vitamin E 200 unit capsule 400 unit PO DAILY cap 04/03/20 07/15/21 cholecalciferol (vitamin D3) 125 250 mcg PO DAILY cap 08/22/20 07/15/21 mcg (5,000 unit) capsule olmesartan 20 mg tablet 25 mg PO HS tab 08/22/20 07/15/21 polyethylene glycol 3350 [Miralax] 17 g PO DAILY 12/06/20 07/15/21 ciprofloxacin HCl 500 mg PO BID 7 Days #14 tab 07/15/21 prochlorperazine maleate 10 mg PO TID PRN #7 tab 07/15/21 [Compazine] Previous Rx's Medication Instructions Recorded ciprofloxacin HCl 500 mg PO BID 7 Days #14 tab 07/15/21 prochlorperazine maleate 10 mg PO TID PRN #7 tab 07/15/21 [Compazine] Allergies Allergy/AdvReac Type Severity Reaction Status Date / Time Calcium Channel Blocking Allergy Severe Verified 07/15/21 15:53 Agent Dilt furosemide Allergy Severe SOB and Unverified 07/15/21 15:53 severe muscle pain Sulfa (Sulfonamide Allergy Severe Anaphylaxsi Unverified 07/15/21 15:53 Antibiotics) s morphine Allergy Mild hives Unverified 07/15/21 15:53 brompheniramine maleate Allergy Unknown Anaphylaxsi Unverified 07/15/21 15:53 [From Drixoral] s dexbrompheniramine maleate Allergy Unknown Anaphylaxsi Unverified 07/15/21 15:53 [From Drixoral] s pseudoephedrine HCl Allergy Unknown Anaphylaxsi Unverified 07/15/21 15:53 [From Drixoral] s VINCENZO Inhibitors AdvReac Severe severe Unverified 07/15/21 15:53 muscle fatigue prednisone AdvReac Severe Psychosis, Unverified 07/15/21 15:53 SOB [id number] Reductase AdvReac Severe Severe Unverified 07/15/21 15:53 Inhibitor muscle [[id number] Reductase aches/ankle Inhibitor] & foot swelling hydrochlorothiazide AdvReac Intermediate Doesn't Unverified 07/15/21 15:53 tolerate pravastatin AdvReac Unknown fatigue, Verified 07/15/21 15:53 muscle pain Furosemide Allergy Unknown Uncoded 07/15/21 15:53 General Stated Complaint: Abd Prob JULIO C: 3 Review of Systems All systems reviewed & are unremarkable except as noted in HPI and below Constitutional Constitutional: Reports as per HPI, Denies chills and Denies fever(s) Eyes Eyes: Denies blurry vision ENT Ears, Nose, Mouth, and Throat: Denies dizziness, Denies sore throat and Denies throat swelling Cardiovascular Cardiovascular: Denies chest pain and Denies dyspnea Respiratory Respiratory: Denies cough and Denies dyspnea Gastrointestinal Gastrointestinal: Reports abdominal pain, Reports constipation, Denies diarrhea, Reports nausea and Denies vomiting Genitourinary Genitourinary: Denies hematuria and Denies dysuria Musculoskeletal Musculoskeletal: Denies back pain and Denies numbness Integumentary/Breasts Skin/Breast: Denies lesions and Denies rash Neurologic Neurologic: Denies dizziness, Denies localized weakness and Denies numbness Allergic/Immunologic Allergic/Immunologic: Denies throat swelling PFSH All Active Problems (Updated 07/15/21 @ 22:21 by Ayah Vincent DO) Pyelonephritis (Acute) Diverticular disease of left colon (Acute) minimal Spondylosis of lumbar region without myelopathy or radiculopathy (Chronic) Lumbar radiculitis (Acute) Atypical chest pain (Acute) Elevated liver function tests (Acute) Hypertension (Chronic) Chronic GERD (Acute) History of Arriaga's esophagus (Acute) Sensorineural hearing loss of combined sites, bilateral (Acute 01/28/16) fit with b/l tamekae sean zhu [id number] [facility] 02/08/16 [place] Dizziness (Acute) Abnormal auditory perception of both ears (Acute 01/28/16) Left rotator cuff tear (Acute ~12/2018) Tendinitis of long head of biceps brachii of left shoulder (Acute) Bursitis of left shoulder (Acute) Abnormal CT of the abdomen (Acute) Medical History (Updated 07/15/21 @ 22:21 by Ayah Vincent DO) Abn find-abdominal area Abnormal laboratory test Arm pain, left Barretts esophagus Bilateral hearing loss Carotid artery stenosis Depression Disturbance of skin sensation Femoral neuropathy of right lower extremity Head congestion History of anemia History of post traumatic stress disorder History of tobacco use Hx of abnormal mammogram Hypertension IBS (irritable bowel syndrome) Low back pain Lumbar radiculopathy Mixed hyperlipidemia Osteoarthritis of hip Pain of left calf Partial obstruction of small intestine PVD (peripheral vascular disease) RUQ pain Scapulalgia Screening for HPV (human papillomavirus) Shoulder pain, left Sleep apnea Toe pain, left Unresolved grief Vertigo Surgical History (Updated 05/22/21 @ 13:34 by Nadine Duong RN) History of appendectomy History of cholecystectomy History of colonoscopy (~05/14/21) History of common carotid artery stent placement On the right carotid system History of esophagogastroduodenoscopy (EGD) (~05/14/21) History of hysterectomy History of ventral hernia repair Hx of bilateral hip replacements S/P cholecystectomy Ventral hernia repair Social History Smoking/Tobacco Use Status: Former Tobacco Use Quit Date: 07/20/76 Smoking risk assessment performed?: Yes Alcohol Intake: never Drug use: Never Substance use type: does not use Current gender identity: female Do you feel safe at home: Yes Do you feel safe in your relationship?: Yes Exam Const General: cooperative, healthy appearing and no acute distress HENMT Head: normal to inspection Face and sinus: normal facial exam Eyes General: appearance normal, both eyes and all related structures Pupils: PERRL EOM: EOM intact bilaterally Neck Neck: normal visual inspection and No submandibular swelling Lymphatic: no lymphadenopathy noted Chest Chest: normal inspection of the chest and no tenderness Resp Effort & Inspection: normal respiratory effort and able to speak in complete sentences Auscultation: clear to auscultation bilaterally Cardio Rate: regular rate Rhythm: regular rhythm GI Inspection: normal to inspection Palpation: soft, not firm, not rigid and nontender Auscultation: normal bowel sounds Back/Spine/Pelvis Thoracic/Lumbar Spine: thoracic and lumbar spine normal to inspection Pelvis: no pain with anterior-posterior compression Skin General skin exam: no rashes or lesions noted Neuro General: patient alert, patient awake and patient oriented x3 Cognition: normal cognition Speech: speech normal Motor: muscle tone normal throughout Sensory Exam: no sensory deficits noted Extrem General: normal to inspection, full ROM, capillary refill normal, no calf tenderness bilaterally and no edema Psych Appearance: grossly normal Mental Status: mental status grossly normal Speech and Movement: speech and movement normal Affect: normal affect Course Vital Signs Vital signs: Vital Signs Temperature 99.1 F 07/15/21 15:48 Pulse 95 H 07/15/21 15:48 Respiratory Rate 14 07/15/21 15:48 Blood Pressure 159/60 H 07/15/21 15:48 Pulse Oximetry 96 07/15/21 15:48 Temperature 99.1 F 07/15/21 15:48 Temperature Source Temporal Artery Scan 07/15/21 15:48 Pulse 95 H 07/15/21 15:48 Respiratory Rate 14 07/15/21 15:48 Respiratory Effort Non-Labored 07/15/21 15:51 Blood Pressure 159/60 H 07/15/21 15:48 Blood Pressure Position Sitting 07/15/21 15:48 Pulse Oximetry 96 07/15/21 15:48 Oxygen Delivery Method Room Air 07/15/21 15:48 Oxygen Flow Rate 0 07/15/21 15:48 Pain Level 7 07/15/21 15:48
[2021-07-15 16:27] LABS: Abs Immature Grans 0.03 10^3/uL (0.0-0.06); Absolute Basophil Count 0.03 10^3/uL (0.0-0.2); Absolute Lymphocyte Count 0.84 10^3/uL (1.2-3.4); Absolute Neutrophil Count 7.41 10^3/uL (1.2-6.7); Basophils % 0.3; HCT 36.7 % (36.0-46.0); HGB 11.9 g/dL (11.2-15.7); Immature Grans % 0.3; Lymphocytes % 9.1; MCH 28.7 pg (27.0-33.0); MCHC 32.4 % (32.0-36.0); MCV 88.4 fL (80-95); MPV 8.9 fL (8.0-11.0); Monocytes % 9.8; Neutrophils % 80.5; Nucleated RBC 0 %; Platelet Count 207 10^3/uL (130-400); RBC 4.15 10^6/uL (3.93-5.22); RDW 13.2 % (11.7-14.6); WBC 9.21 10^3/uL (4.4-10.8)
--- NOTE | 2021-07-15 16:30 | DI.CT_ITS ---
Exam(s) CT ABDOMEN PELVIS W EXAM: CT ABDOMEN PELVIS W INDICATION: RLQ abd pain, nausea, constipation. COMPARISON: CT CT ABDOMEN PELVIS W from 11/26/2020 TECHNIQUE: FINDINGS: CT examination of the abdomen and pelvis was performed with a bolus infusion of 100 cc of Omnipaque 3 50. Images obtained through the lung bases are unremarkable. The liver is unremarkable in appearance except tiny low-attenuation lesions too small to characterize but consistent with cysts.. Prior cholecystectomy noted. No biliary dilatation. Pancreas appears normal. Spleen is unremarkable in appearance. Adrenals appear normal. The left kidney is unremarkable in appearance with no evidence of hydronephrosis or left nephrolithia sis. No ureterolithiasis on the right or left. The right kidney shows decreased attenuation of the cortex at the lower pole raising the possibility of infectious process, this finding was not present on prior examination November 26 of this year. Bin y renal abscess not excluded with a rounded 15 millimeter area of significantly lower attenuation. N o right nephrolithiasis. Mild enhancement the wall of the pelvicaliceal system noted which is also c onsistent with infectious process. Urinary bladder partially obscured by artifact from bilateral hip prostheses. No definite urinary bl adder identified as visualized. Abdominal aorta is of normal diameter. There are atheromatous changes of aorta and major visceral br anches. Probable 50 percent luminal diameter stenosis proximal superior mesenteric artery. No abdominal wall hernia. No abdominal or pelvic adenopathy. The uterus is atrophic or absent. Appendix not specifically visualized but there is no evidence of appendicitis.. No evidence of diver ticulitis or bowel obstruction. IMPRESSION: The appearance of the right kidney is suggestive of an infectious process, presumably pyelonephritis predominantly involving lower pole of the kidney, early renal abscess not excluded on the basis this examination. Appropriate follow-up studies requested. No urinary tract obstruction or calcification. RADIATION DOSE DELIVERED: 784.57mGy.cm Total DLP 784.57mGy.cm Total DLP 15.98mGy CTDIvol RADIATION OPTIMIZATION: All CT scans at this facility use at least one of these dose optimization te chniques: automated exposure control; mA and/or kV adjustment per patient size (includes targeted exa ms where dose is matched to clinical indication); or iterative reconstruction.
[2021-07-15 16:37] LABS: Bilirubin Negative (Negative); Blood Trace-intact (Negative); Clarity Sl Cloudy (Clear); Glucose Negative (Negative); Ketones 15 mg/dL (Negative); Leukocyte Esterase Small (Negative); Nitrite Positive (Negative); Specific Gravity 1.025 (1.005-1.025); Urobilinogen 0.2 EU/dL (Up TO 0.2)
[2021-07-15 16:46] LABS: Bacteria Many HPF (Negative); C & S Indicated? Yes; Casts Negative LPF (Negative); Crystals Negative HPF (Negative); Epithelial Cells Rare HPF (Negative); Mucus Negative (Negative); RBC 0-2 HPF (0-2); WBC >50 HPF (0-5)
[2021-07-15 16:54] LABS: ALT 49 U/L (14-59); AST 51 U/L (15-37); Albumin 3.4 g/dL (3.4-5.0); Alkaline Phosphatase 117 U/L (46-116); Anion Gap 9.4 mmol/L (3-11); BUN 17 mg/dL (7-18); Bilirubin, Total 0.6 mg/dL (0.2-1.0); CO2 25.6 mmol/L (21.0-32.0); CREATININE 0.9 mg/dL (0.55-1.02); Calcium 8.9 mg/dL (8.5-10.1); Chloride 96 mmol/L (98-107); Glucose 122 mg/dL (74-106); Lipase 171 U/L (73-393); Potassium 4.1 mmol/L (3.5-5.1); Sodium 131 mmol/L (136-145); Total Protein 7.4 g/dL (6.4-8.2)
[2021-07-15] MEDS: ACETAMINOPHEN 1,000 MG/100 ML BTL 400 MG IVPB (17:10)
[2021-07-15] MEDS: Normal Saline 250 ML IV (17:10)
[2021-07-15] MEDS: Ondansetron 4 MG/2 ML VIAL IVP (17:11)
[2021-07-15] MEDS: Omnipaque 350 MG/ML 100 ML BTL IJ (18:56)
--- NOTE | 2021-07-15 20:05 | DI.VRAD_ITS ---
Addendum created by Elkin Thakur MD on 07/15/2021 9:36:46 PM EST: Addendum: There is an error in the 1st item of the impression. This was intended to read as follows: There is evidence of pyelonephritis involving the lower pole of the right kidney, with associated right-sided ureteritis/pyelitis. No hydronephrosis. Initial report created on 07/15/2021 8:04:30 PM EST: PROCEDURE INFORMATION: Exam: CT Abdomen And Pelvis With Contrast Exam date and time: 07/15/2021 4:46 PM Age: 71 years old Clinical indication: Abdominal pain; Localized; Right lower quadrant (rlq); Prior surgery; Surgery date: 6+ months; Surgery type: Appendectomy, cholecystectomy, total hysterectomy, f/u surgery to remove scar tissue; Patient HX: Rlq abd pain, nausea, constipation. H/o sbo, abd surgeries, R/O sbo TECHNIQUE: Imaging protocol: Computed tomography of the abdomen and pelvis with contrast. Total images: 1168 Radiation optimization: All CT scans at this facility use at least one of these dose optimization techniques: automated exposure control; mA and/or kV adjustment per patient size (includes targeted exams where dose is matched to clinical indication); or iterative reconstruction. Contrast material: OMNIPAQUE 350; Contrast volume: 100 ml; Contrast route: INTRAVENOUS (IV); Other contrast: Oral, omnipaque 350, 50; COMPARISON: CT ABDOMEN PELVIS W 11/26/2020 2:30 PM FINDINGS: Lungs: Moderate bronchiectasis in the visualized lung bases with mild bilateral peripheral pulmonary fibrosis which is unchanged. Heart: Heart size normal. Mediastinal space: The visualized distal esophagus is largely contracted without gross abnormality. Liver: Normal contour. Well-circumscribed low-density hepatic lesions demonstrating benign CT features consistent with hepatic cysts. No further imaging evaluation is required based on current consensus criteria. No intrahepatic biliary ductal dilatation. Gallbladder and bile ducts: Prior cholecystectomy with expected mild postoperative dilatation of the common bile duct. This is unchanged. 10 mm aerated duodenal diverticulum noted near the ampulla. Pancreas: Normal. No inflammatory changes or ductal dilation. Spleen: Normal. No splenomegaly. Adrenal glands: Normal. No adrenal mass. Kidneys and ureters: Ill-defined renal cortical under enhancement in the lower pole of the right kidney consistent with pyelonephritis. Rounded 15 mm low-density component in this region without a well-defined peripheral enhancing rim, suspicious for early developing renal abscess. Moderate right periureteral stranding with mild ureterectasis and ureteral wall thickening consistent with associated ureteritis. No hydronephrosis. No urinary tract stones are identified. The left kidney and left collecting system are unremarkable. Stomach and bowel: The stomach is largely contracted without gross abnormality. The small bowel is nondilated with no gross abnormality. No acute colonic abnormalities. Mild diverticulosis involving the distal colon without evidence of acute diverticulitis. Appendix: Prior appendectomy. Intraperitoneal space: No free fluid or air. Vasculature: Moderate atherosclerotic aortoiliac calcification without aneurysm. Lymph nodes: No adenopathy. Urinary bladder: Unremarkable as visualized. Reproductive: Unremarkable as visualized. Bones/joints: No acute osseous abnormalities. Bilateral bipolar hip arthroplasties without gross hardware complication or change. Moderate multilevel lumbar degenerative disc and facet changes and mild rightward convexity lumbar scoliosis. Soft tissues: Unremarkable. IMPRESSION: 1. There is evidence of pyelonephritis involving the lower pole of the left kidney, with associated right-sided ureteritis/pyelitis. No hydronephrosis. 2. 1.5 cm low-density component in the medial lower pole cortex could represent very early changes of developing renal abscess although no clearly defined peripheral enhancing wall is present currently. Consider short-term follow-up imaging as clinically indicated. 3. Additional nonemergent findings detailed above. Dictated and Authenticated by: Elkin Thakur MD. Ordering:MARGOT Poon MD
[2021-07-15] MEDS: Ciprofloxacin 500 MG TAB PO (20:38)
[2021-07-15] MEDS: HYDROmorphone 2 MG/ML VIAL 1 MG IVP (20:54)
[2021-07-15] MEDS: diphenhydrAMINE 50 MG/ML VIAL 25 MG IVP (20:54)
[2021-07-15] MEDS: Prochlorperazine 10 MG/2 ML VIAL IVP (20:55)
[2021-07-15] MEDS: Normal Saline 500 ML IV (20:55)
--- NOTE | 2021-07-15 21:23 | NUR.NOTE ---
Referral faxed to [facility] to f/u in 48 hours for possible Renal Abscess per Dr Nickerson.Nursing Note:
[2021-07-15] MEDS: Prochlorperazine 10 MG TAB 30 MG PO (22:43)
== END 2021-07-15 22:50 | disposition home or self-care (01) ==
PROVIDERS: Emergency Provider Physician Assistant; PCP Family Medicine
DX: N10 Acute pyelonephritis (principal); R10.31 Right lower quadrant pain; B96.1 Klebsiella pneumoniae [K. pneumoniae] as the cause of diseases classified elsewhere; R11.0 Nausea
CPT/HCPCS: 36415; 80053; 83690; 87077; 96361; 96374; 96375; 99284; 74177; 81003; 81015; 85025; 87086; 87186; J0131; J0780; J1200; J2405; J3490

== ENCOUNTER → 2021-07-22 08:34 | Outpatient (BNVA) | payer MEDICARE, BC, SELFPAY | PROVIDERS: PCP Family Medicine; Referring Provider Family Medicine; Visit Provider Urology | DX: N12 Tubulo-interstitial nephritis, not specified as acute or chronic (principal); Z98.890 Other specified postprocedural states | CPT/HCPCS: 81003; 99214 ==

== ENCOUNTER → 2022-07-10 13:07 | Outpatient (CLI) | payer MEDICARE, BC, SELFPAY ==
--- NOTE | 2022-07-10 09:38 | DI.RAD_ITS ---
Exam(s) XR LUMBAR SPINE COMPLETE EXAM: XR LUMBAR SPINE COMPLETE CLINICAL HISTORY: LOW BACK PAIN M54.59, LEFT LEG PAIN, WEAKNESS, NUMBNESS. TECHNIQUE: 2D digital imaging was performed. Five views. COMPARISON: No exams were available for comparison FINDINGS: Vertebral body heights are maintained. There is multi level disc space narrowing, greatest at L3-4 a nd L4-5. The disc space narrowing is eccentric toward the left creating dextroscoliosis. There prom inent endplate osteophytes at these levels projecting toward the left. Facet degenerative changes ar e prominent from from L2-3 through L5-S1. There is mild degenerative spondylolisthesis at L 3 4 and L4-5 no spondylolysis. Bilateral hip prostheses noted. IMPRESSION: Degenerative disc changes and facet degenerative changes as well as scoliosis. DATA REPOSITORY: RADIATION DOSE DELIVERED:
== END ==
PROVIDERS: PCP Family Medicine; Visit Provider Nurse Practitioner Family
DX: M47.816 Spondylosis without myelopathy or radiculopathy, lumbar region (principal); M41.86 Other forms of scoliosis, lumbar region; M43.16 Spondylolisthesis, lumbar region
CPT/HCPCS: 72110

== ENCOUNTER 2022-07-23 15:35 | Outpatient (CLI) | payer MEDICARE, BC, SELFPAY ==
--- NOTE | 2022-07-23 13:40 | DI.MRI_ITS ---
Exam(s) MR LUMBAR SPINE WO EXAM: MR LUMBAR SPINE WO CLINICAL HISTORY: LUMBAR RADICULOPATHY, M54.16, LT LEG WEAKNESS, ANTERIOR LT THIGH NUMBNESS. TECHNIQUE: Multiplanar multisequence MRI of the Lumbar spine was performed. CR XR LUMBAR SPINE COMPLETE from 07/10/2022 FINDINGS: Bones: The last intervertebral disc space is designated the L5/S1 level for the numbering purpose of this examination. The vertebral body heights are well maintained. A dextroscoliosis is present. Th e marrow signal characteristics are unremarkable. Cord: The conus tip ends at the T12 level. It is of normal size and signal intensity. T12-L1: No disc herniations or bulges are present. No central spinal canal or neural foraminal stenos is. L1-2: Slight loss of disc height. Mild concentric bulging. Facet degenerative changes mild in the e ncroaching into the central canal. There is mild bilateral neural foraminal encroachment. L2-3: Mild loss of disc height, mild concentric disc bulging. Mild facet degenerative changes, great er on the left. Severe left neural foraminal narrowing. No significant central canal stenosis. L3-4: Severe loss of disc height eccentric toward the left where there are prominent endplate osteoph ytes. There are also prominent facet degenerative changes combine to produce moderate to severe neur al foraminal narrowing. No significant central canal stenosis. L4-5: Loss of disc height on the right side with right-sided disc bulging. Facet degenerative change s combine with disc osteophytes combine produce moderate central canal stenosis and moderate neural f oraminal narrowing. The facet degenerative changes cause slight spondylolisthesis at this level. L5-S1: Minimal disc bulging. Facet degenerative changes. No significant neural foraminal encroachme nt or central canal stenosis. The visualized SI joints and sacrum are well maintained. Soft tissues: The paraspinal soft tissues are unremarkable. IMPRESSION: Multilevel degenerative disc changes and facet degenerative changes combine to produce multilevel kourtney ateral neural foraminal narrowing, greatest on the left at L2-3. Moderate central canal stenosis at L4-5. Some interval worsening of degenerative changes when compared with 2018 DATA REPOSITORY:
== END 2022-07-23 15:55 ==
LOC: DI 15:37
PROVIDERS: PCP Family Medicine; Visit Provider Nurse Practitioner Family
DX: R20.2 Paresthesia of skin; M51.16 Intervertebral disc disorders with radiculopathy, lumbar region; M48.061 Spinal stenosis, lumbar region without neurogenic claudication; M47.26 Other spondylosis with radiculopathy, lumbar region
CPT/HCPCS: 72148

== ENCOUNTER 2022-07-28 11:17 | Outpatient (REF) | payer MEDICARE, BC, SELFPAY ==
[2022-07-28 16:09] LABS: Anion Gap 6.1 mmol/L (3-11); BUN 27 mg/dL (7-18); CO2 26.9 mmol/L (21.0-32.0); CREATININE 0.8 mg/dL (0.55-1.02); Calcium 8.9 mg/dL (8.5-10.1); Chloride 101 mmol/L (98-107); Estimated GFR 78.24 (mL/min/1.73m2); Glucose 102 mg/dL (74-106); Potassium 4.8 mmol/L (3.5-5.1); Sodium 134 mmol/L (136-145)
== END 2022-07-28 11:18 | disposition home or self-care (01) ==
LOC: NCHCN 11:17
PROVIDERS: PCP Family Medicine; Visit Provider Family Medicine
DX: I10 Essential (primary) hypertension (principal); E78.2 Mixed hyperlipidemia
CPT/HCPCS: 80048

== ENCOUNTER 2022-07-31 10:53 | Outpatient (CLI) | payer MEDICARE, BC, SELFPAY ==
--- NOTE | 2022-07-31 09:55 | DI.RAD_ITS ---
Exam(s) XR HIP RT AP LAT ONLY EXAM: XR HIP RT AP LAT ONLY CLINICAL HISTORY: RIGHT HIP PAIN. TECHNIQUE: 2D digital imaging was performed. Two images were obtained. AP, lateral and oblique view s were obtained. COMPARISON: CR PELVIS AP from 10/16/2008 FINDINGS: BONES: There are stable post operative changes present. No fracture or dislocation. JOINTS: The orthopedic hardware is in good position. No evidence of hardware loosening. SOFT TISSUE: Normal. IMPRESSION: Stable postoperative changes. DATA REPOSITORY: RADIATION DOSE DELIVERED:
== END 2022-07-31 10:54 | disposition home or self-care (01) ==
LOC: DIORS 10:53
PROVIDERS: PCP Family Medicine; Referring Provider Family Medicine; Visit Provider Student in an Organized Health Care Education/Training Program
DX: M25.551 Pain in right hip (principal); Z96.641 Presence of right artificial hip joint; Z96.642 Presence of left artificial hip joint; G89.29 Other chronic pain
CPT/HCPCS: 99214; 73502

== ENCOUNTER 2022-08-04 01:54 | Outpatient (CLI) | payer MEDICARE, BC, SELFPAY ==
--- NOTE | 2022-08-04 06:45 | DI.CT_ITS ---
Exam(s) CT LOWER EXTREMITY RT WO EXAM: CT LOWER EXTREMITY RT WO CLINICAL HISTORY: rt hip PAIN, ?LOOSENING,infection,inflammtory,t84.50xa,m25.551. TECHNIQUE: Imaging Protocol: Axial computed tomography images with coronal and sagittal reformatted images were created and reviewed. COMPARISON: CR XR HIP RT AP LAT ONLY from 07/31/2022 FINDINGS: Bones: The patient has a right total hip replacement. No lucencies are seen about the orthopedic aponte rdware to suggest loosening. No osseous fracture is identified. The orthopedic hardware is intact. Bony alignment is satisfactory. No cellulitic or osteomyelitic changes are identified. No lytic or sclerotic lesions are identified. Soft Tissues: Normal. No fluid collection is identified. IMPRESSION: Right total hip replacement. No evidence to suggest loosening or infection. RADIATION DOSE DELIVERED: 213.89mGy.cm Total DLP 213.89mGy.cm Total DLP DATA REPOSITORY: All CT scans at this facility are submitted to the National Radiology Data Registry (NRDR) Dose Index Registry (DIR) with the [employer] (A[employer]). RADIATION OPTIMIZATION: All CT scans at this facility use at least one of these dose optimization te chniques: automated exposure control; mA and/or kV adjustment per patient size (includes targeted exa ms where dose is matched to clinical indication); or iterative reconstruction.
== END 2022-08-04 02:14 ==
LOC: DI 01:54
PROVIDERS: PCP Family Medicine; Visit Provider Student in an Organized Health Care Education/Training Program
DX: Z96.641 Presence of right artificial hip joint (principal); T84.51XA Infection and inflammatory reaction due to internal right hip prosthesis, initial encounter
CPT/HCPCS: 73700

== ENCOUNTER 2022-08-06 01:45 | Outpatient (CLI) | payer MEDICARE, BC, SELFPAY ==
--- NOTE | 2022-08-06 07:15 | DI.NM_ITS ---
Exam(s) NM BONE SCAN 3 PHASE EXAM: NM BONE SCAN 3 PHASE CLINICAL HISTORY: ?LOOSENING OR INFECTION, RT HIP PAIN, M25.551,T84.50XA. TECHNIQUE: Injected Dose: 24 mCi Tc-99m MDP Triple phase study was performed COMPARISON: Plain films 07/31/2022 FINDINGS: Perfusion phase: No asymmetric flow evident in the pelvis and hip region. Blood Pool: No abnormal asymmetric uptake Delayed (3.5 hours) imaging: Photopenic zones in both hips are consistent with bilateral prostheses. There is mild increased upta ke in the right femur around the lower aspect of the femoral stem when compared to the opposite side. Mild focal symmetrical uptake in both greater trochanters. No abnormal uptake in the pubic rami an d other bones of the pelvis. Incidentally noted is some mild increased uptake in the right ankle consistent with degenerative higgins ge. Also some uptake in the lower lumbosacral spine consistent with facet arthropathy. No evidence of osseous metastatic disease. IMPRESSION: 1. There is mild increased uptake around the lower femoral stem of the right hip evident on delayed i maging. May indicate mild loosening. 2. Other findings as above. DATA REPOSITORY:
[2022-08-06 11:22] LABS: ESR 11 mm/hr (0-30)
[2022-08-06 11:35] LABS: C-Reactive Protein 0.08 mg/dL (0.0-0.3)
== END 2022-08-06 02:05 ==
LOC: DI 01:47
PROVIDERS: PCP Family Medicine; Visit Provider Student in an Organized Health Care Education/Training Program
DX: M25.551 Pain in right hip (principal); Z96.641 Presence of right artificial hip joint; T84.030A Mechanical loosening of internal right hip prosthetic joint, initial encounter; T84.51XA Infection and inflammatory reaction due to internal right hip prosthesis, initial encounter
CPT/HCPCS: 85652; 78315; 86140

== ENCOUNTER 2022-08-12 02:24 | Outpatient (CLI) | payer MEDICARE, BC, SELFPAY ==
--- NOTE | 2022-08-12 | DI.MAMMO_ITS ---
Exam(s) MAMMO SCREENING EXAM: MAMMO SCREENING CLINICAL HISTORY: SCREENING, Z12.31, H/O ABNL LT MAMMO. TECHNIQUE: Bilateral full field digital CC and MLO mammographic images were obtained with 3D tomosyn thesis and utilizing computer aided detection (CAD). COMPARISON: Prior mammograms were reviewed. FINDINGS: There has been no significant change in the appearance and distribution of the fibroglandular tissue. Asymmetric tissue in the left breast is unchanged from prior mammograms dating back to at least 2013. Few benign-appearing nodules in the upper outer quadrant of the left breast also unchanged prior ma mmograms. There are no new spiculated masses nor malignant appearing microcalcification groups. There is no significant architectural distortion nor skin thickening-retraction. IMPRESSION: No radiographic evidence of malignancy. BI-RADS Category 1 - Negative Breast Density - Category C - Heterogeneously dense Breast density Category C or D implies that the patient has dense breast tissue. Dense breast tissue can make it harder to find cancer on a mammogram. Dense breast tissue is also associated with an incr eased risk of breast cancer. This information about the result of the mammogram report was provided to the patient to raise their awareness. Use this report when you speak with the patient about their risks for breast cancer, which includes their family history. At that time, you may recommend additional screening tests (Ultrasoun d or MRI) as these tests may add significant information. A negative radiographic report should not delay biopsy if a dominant or clinically suspicious mass is present. Up to ten percent of cancers are not identified on mammography. A negative report may reinforce clinical impression. Adenosis and dense breasts may obscure an underlying neoplasm. False positive reports average 6 to 10%. Patient will receive a letter notifying them of these results.
== END 2022-08-12 02:44 ==
PROVIDERS: PCP Family Medicine; Visit Provider Family Medicine
DX: Z12.31 Encounter for screening mammogram for malignant neoplasm of breast (principal)
CPT/HCPCS: 77063; 77067

== ENCOUNTER 2022-09-01 12:06 | Outpatient (REF) | payer MEDICARE, BC, SELFPAY ==
[2022-09-01 16:30] LABS: ALT 25 U/L (14-59); AST 33 U/L (15-37); Albumin 3.8 g/dL (3.4-5.0); Alkaline Phosphatase 65 U/L (46-116); Anion Gap 6.6 mmol/L (3-11); BUN 17 mg/dL (7-18); Bilirubin, Total 0.4 mg/dL (0.2-1.0); CO2 28.4 mmol/L (21.0-32.0); CREATININE 1.1 mg/dL (0.55-1.02); Chloride 106 mmol/L (98-107); Estimated GFR 53.39 (mL/min/1.73m2); Glucose 112 mg/dL (74-106); Lipase 96 U/L (16-77); Potassium 4.3 mmol/L (3.5-5.1); Sodium 141 mmol/L (136-145)
== END 2022-09-01 12:07 | disposition home or self-care (01) ==
LOC: NCHCN 12:06
PROVIDERS: PCP Family Medicine; Visit Provider Family Medicine
DX: R10.13 Epigastric pain (principal); I10 Essential (primary) hypertension
CPT/HCPCS: 80053; 83690

== ENCOUNTER 2022-09-04 00:18 | Outpatient (CLI) | payer MEDICARE, BC, SELFPAY ==
--- NOTE | 2022-09-04 07:45 | DI.RAD_ITS ---
Exam(s) RF JOINT INJECTION FLUORO GUID EXAM: RF JOINT INJECTION FLUORO GUID CLINICAL HISTORY: R HIP INJ UNDER FLUORO,chronic hip pain, m25.551,z96.641,presence of hip TECHNIQUE: Fluoroscopy provided. Radiologist not present. CONTRAST MATERIAL: None COMPARISON: No exams were available for comparison FINDINGS: Fluoroscopy was provided for Dr. Sotelo during right hip para prosthetic therapeutic injection. Please refer to the procedure report for complete details. Cumulative Dose: tana Nam=0.2 mGy IMPRESSION: RADIATION DOSE DELIVERED:
--- NOTE | 2022-09-04 14:22 | W.PROCNOTE ---
Date of service: 09/04/22 Time of Service: 14:22 Procedure Note Date of procedure: 09/04/22 Procedure: Right Hip Injection with Fluoroscopic Guidance Surgeon/Proceduralist/Physician: Gregg Sotelo Procedure Diagnosis: Right Hip Osteoarthritis Procedure Indications: Tawnya has had persistent pain of the RIGHT hip and groin after hip replacement. Noninvasive measures have been tried. To serve as diagnosti, an injection under fluoroscopy was recommended. I had discussed the risks of the procedure and the patient elected to proceed. Procedure Description: Tawnya was greeted in the flouroscopy room. The correct side was identified and the consent was reviewed with the patient and signed. The patient was then placed in the supine position on the fluoroscopy table. The RIGHT hip was then prepped with Chloraprep. The anterolateral injection starting point was identiifed by bony landmarks and fluoroscopy. The skin and soft tissue in the tract of the injection was anesthetized with 1% Lidocaine. A spinal needle was then inserted deep into the hip joint at the level of the lateral femoral neck under fluoroscopic guidance. A small amount of Omnipaque solution was injected to confirm intraarticular placement. Once confirmed, the hip was injected with 5cc of 0.5% Bupivicaine and 80mg of Depo-Medrol. A bandaid was placed on the injection site. The patient tolerated the procedure well and noted improvement in pre-injection pain.
[2022-09-04] MEDS: Bupivacaine 0.5% Pres-Free 10 ML VIAL 8 ML IJ (14:36)
== END 2022-09-04 00:38 ==
LOC: DI 00:19
PROVIDERS: PCP Family Medicine; Visit Provider Student in an Organized Health Care Education/Training Program
DX: G89.29 Other chronic pain (principal); M25.551 Pain in right hip; Z96.641 Presence of right artificial hip joint
CPT/HCPCS: 20610; 77002

== ENCOUNTER 2022-09-18 02:02 | Outpatient (CLI) | payer MEDICARE, BC, SELFPAY ==
--- NOTE | 2022-09-18 07:30 | DI.US_ITS ---
APPROVED REPORT EXAM: Comprehensive 2D, Doppler, and color-flow Echocardiogram Patient Location: Out-Patient Lap Welder: Jeannette Tinoco RDCS (AE) Indications: HTN, LBBB Other Information Study Quality: Adequate Conclusion Normal left ventricular wall thickness and chamber size. Estimated ejection fraction is 55 to 60%. There are no segmental wall motion abnormalities Normal right ventricular size and systolic function Left atrium is mildly dilated. Right atrial size is normal The aortic valve is trileaflet, mildly sclerotic without stenosis or regurgitation Normal mitral valve with mild to moderate regurgitation Estimated right ventricular systolic pressure is 22 mmHg Borderline dilated ascending aorta Wall motion Left Ventricle The left ventricle is normal size. The left ventricular systolic function is normal. The left ventric ular ejection fraction is within the normal range. There is normal left ventricular wall thickness. T here is normal LV segmental wall motion. There is no ventricular septal defect visualized. LVEF is 55 -60%. Right Ventricle The right ventricle is normal size. The right ventricular systolic function is normal. The RVSP is 21 .7mmHg. Atria Left atrium is mildly dilated. The right atrium size is normal. The interatrial septum is intact with no evidence for an atrial septal defect. Aortic Valve The Aortic valve is mildly sclerotic. Aortic valve is trileaflet. There is no aortic valvular stenosi s. No aortic regurgitation is present. Mitral Valve The mitral valve is normal in structure. No evidence of mitral valve stenosis. Mild to moderate mitr al regurgitation. Tricuspid Valve The tricuspid valve is normal in structure. There is no tricuspid valve stenosis. Mild tricuspid regu rgitation. Pulmonic Valve The pulmonary valve is normal in structure. There is no pulmonic valvular stenosis. Trace pulmonic re gurgitation. Great Vessels The aortic root is normal in size. The ascending aorta is mildly dilated. Aortic arch is normal in ca liber. IVC is normal in size and collapses >50% with inspiration. Pericardium There is no pericardial effusion. 2D Dimensions IVSD d PLAX 1.03 cm F: 0.6-1.0 LV Vol A2C d MOD 94.6 mL LVPW d PLAX 1.02 cm F: 0.6 - 1.0 LV Vol A4C d MOD 94.8 mL LVID d PLAX 4.22 cm F: 3.8 - 5.2 LA vol/ BSA A2C s A-L 39.4 mL/m2 LVDs 2.95 cm F: 2.2 - 3.5 LA vol/ BSA A4C s A-L 34.8 mL/m2 Ao Root d 2.80 cm F: 2.7 - 3.3 LA Vol/ BSA Biplane s A-L 37.9 mL/m2 RA Area A4C 15.31 cm2 LA Area A4C s MOD 20.62 cm2 RA Vol/ BSA A4C s A-L 23.6 mL/m2 LA Area A2C s MOD 21.42 cm2 Ao Asc Diam d 3.31 cm F: 2.3 - 3.1 LV EF A4C MOD 55.0 % LV EF Teichholz 56.1 % LV EF A2C MOD 58.0 % LVEF (Cole's) 56.65 % F: 54 - 74 LV EF Biplane MOD 56.6 % LV Volume 77.27 mL F: 46 - 106 SV 55.13 mL LV Volume Index 45.45 mL/m2 F: 29 - 61 SV Index 32.41 mL/m2 LV Vol Biplane MOD 97.3 mL FS 29.00 % M-Mode TAPSE 1.57 cm (M/F) >1.7 LV Diastology MV E' medial 0.078 (>0.07 m/s) E/A Ratio 0.9 LV E/e MED 7.60 (<14) MV E Vmax 0.60 (0.4-1.3 m/s) MV E' lateral 0.075 (>0.1 m/s) MV A Vmax 0.70 (0.4-1.3 m/s) LV E/e LAT 7.95 (<14) MV E/A Ratio 0.85 MV E/E' medial 7.62 MV E/E' lateral 7.99 Aortic Valve LVOT Area 2.88 cm2 AoV Area Vmax 2.07 cm2 LVOT Vmax 1.15 m/s AoV Area/ BSA (Vmax) 1.21 cm2/m2 LVOT Mean Chucho. 0.79 m/s JONO Mean Chucho. 2.06 cm2 LVOT Peak Grad 5.3 mmHg JONO Mean Chucho. Index 1.21 cm2/m2 LVOT Mean Grad 2.9 mmHg LVOT VTI 0.268 m LVOT Diam s 1.90 cm AoV Vmax 1.60 m/s Velocity Ratio 0.72 AoV Mean Chucho. 1.11 m/s AoV Peak Grad 10.3 mmHg LVOT SV 77.31 mL AoV Mean Grad 5.7 mmHg AoV VTI 0.331 m AoV Area VTI 2.33 cm2 AoV Area/ BSA (VTI) 1.37 cm/m2 Mitral Valve MV DT 222 (160-240 msec) MR Vmax 5.48 m/s MV PHT 64 msec MR VTI 1.888 m MV Area PHT 3.41 cm2 MR Peak Grad 119.9 mmHg MV VTI 0.280 m MR Mean Grad 79.9 mmHg MV VTI Annulus 0.280 m MV Area VTI 2.75 (4.0-6.0 cm2) Pulmonary Valve PV Vmax 0.92 (0.5-1.5 m/s) RVOT Peak Gr. 1.79 mmHg PV Peak Grad 3.4 mmHg RVOT Mean Gr. 1.00 mmHg PV Mean Grad 1.8 mmHg RVOT VTI 0.154 m PV VTI 0.190 m RVOT Vmax 0.67 m/s Tricuspid Valve TR Peak Grad 18.6 mmHg TR Vmax 2.16 m/s RA Pressure 3.00 mmHg RVSP (TR) 21.7 mmHg
== END 2022-09-18 02:22 ==
LOC: DI 02:03
PROVIDERS: PCP Family Medicine; Visit Provider Family Medicine
DX: I10 Essential (primary) hypertension (principal)
CPT/HCPCS: 93306

== ENCOUNTER 2022-09-29 03:14 | Outpatient (CLI) | payer MEDICARE, BC, SELFPAY ==
[2022-09-29 15:25] LABS: HCT 40.3 % (36.0-46.0); HGB 12.8 g/dL (11.2-15.7); MCH 28.9 pg (27.0-33.0); MCHC 31.8 % (32.0-36.0); MCV 91 fL (80-95); MPV 9.1 fL (8.0-11.0); Platelet Count 292 10^3/uL (130-400); RBC 4.43 10^6/uL (3.93-5.22); RDW 13.1 % (11.7-14.6); RDW-SD 43.7 fL; WBC 9.45 10^3/uL (4.4-10.8)
[2022-09-29 16:22] LABS: Anion Gap 10.8 mmol/L (3-11); BUN 30 mg/dL (7-18); CO2 26.2 mmol/L (21.0-32.0); CREATININE 1.1 mg/dL (0.55-1.02); Calcium 10.3 mg/dL (8.5-10.1); Chloride 101 mmol/L (98-107); Estimated GFR 53.39 (mL/min/1.73m2); Glucose 107 mg/dL (74-106); Potassium 4.1 mmol/L (3.5-5.1); Sodium 138 mmol/L (136-145)
== END 2022-09-29 03:15 | disposition home or self-care (01) ==
LOC: LBO 03:14
PROVIDERS: PCP Family Medicine; Visit Provider Student in an Organized Health Care Education/Training Program
DX: M25.551 Pain in right hip (principal); T84.84XA Pain due to internal orthopedic prosthetic devices, implants and grafts, initial encounter; Z96.641 Presence of right artificial hip joint; Z01.818 Encounter for other preprocedural examination; Z01.812 Encounter for preprocedural laboratory examination
CPT/HCPCS: 36415; 80048; 85027

== ENCOUNTER 2022-10-14 07:30 | Inpatient (IN) | payer MEDICARE, BC, SELFPAY ==
[2022-10-14] VITALS (10 sets, daily range): BP systolic 101–146; BP diastolic 25–74; PULSE 50–64; RESP 16–20; TEMP 36–37.2; O2SAT 95–99; BMI 29.2
[2022-10-14 09:06] LABS: Source Nasal/Nares
[2022-10-14 09:38] LABS: COVID-19 PCR Negative (Negative)
[2022-10-14] MEDS: Acetaminophen 500 MG TAB 1000 MG PO ×2 (10:02→20:32)
--- NOTE | 2022-10-14 10:18 | W.ANESPRE ---
General Info Date of Service Date Performed: 10/14/22 Height: 5 ft 2 in Weight: 72.5 kg Body Mass Index (BMI): 29.2 Surgical Procedure: Operation Date: 10/14/22 11:55 Proposed Procedure Side Surgeon p Hip Revision- Acetabular Revision Right Gregg Sotelo MD Meds Allergies and Home Medications Allergies Allergy/AdvReac Type Severity Reaction Status Date / Time Calcium Channel Blocking Allergy Severe Anaphylaxis Verified 10/14/22 09:09 Agent Dilt furosemide Allergy Severe SOB and Unverified 10/14/22 09:09 severe muscle pain Sulfa (Sulfonamide Allergy Severe Anaphylaxsi Unverified 10/14/22 09:09 Antibiotics) s morphine Allergy Mild hives Unverified 10/14/22 09:09 brompheniramine maleate Allergy Unknown Anaphylaxsi Unverified 10/14/22 09:09 [From Drixoral] s dexbrompheniramine maleate Allergy Unknown Anaphylaxsi Unverified 10/14/22 09:09 [From Drixoral] s pseudoephedrine HCl Allergy Unknown Anaphylaxsi Unverified 10/14/22 09:09 [From Drixoral] s VINCENZO Inhibitors AdvReac Severe severe Unverified 10/14/22 09:09 muscle fatigue Fvvjprs-SME-GwE Reductase AdvReac Severe Severe Unverified 10/14/22 09:09 Inhibitor muscle [Zjnjdms-Qkg-Xkp Reductase aches/ankle Inhibitor] & foot swelling hydrochlorothiazide AdvReac Intermediate Doesn't Unverified 10/14/22 09:09 tolerate pravastatin AdvReac Unknown fatigue, Verified 10/14/22 09:09 muscle pain Furosemide Allergy Unknown Other (See Uncoded 10/14/22 09:09 Comment) Home Medication Medication Instructions Recorded latanoprost 0.005 % eye drops 1 drp ophthalmic (eye) DAILY 10/19/14 (Xalatan) lactobacillus combo no.11 15 1 ea PO DAILY 11/05/17 billion cell sprinkle capsule (Probiotic) biotin 5 mg tablet 5 mg PO DAILY 04/03/20 timolol maleate 0.5 % eye drops 1 drp topical BID 04/03/20 vitamin B complex 1 tab PO DAILY 04/03/20 vitamin E 200 unit capsule 400 unit PO DAILY 04/03/20 cholecalciferol (vitamin D3) 125 250 mcg PO DAILY 08/22/20 mcg (5,000 unit) capsule polyethylene glycol 3350 17 17 g PO DAILY 12/06/20 gram/dose oral powder (Miralax) olmesartan 20 mg tablet (Benicar) 30 mg PO HS 07/22/21 evolocumab 140 mg/mL subcutaneous 140 mg subcut Q2W 05/14/22 pen injector (Allen VijayaShea) hydralazine 25 mg tablet 25 mg PO TID 05/14/22 resveratrol 250 mg capsule 1,200 mg PO DAILY 05/14/22 ascorbate calcium (vitamin C) 500 1 g PO DAILY 09/05/22 mg tablet selenium 200 mcg tablet 200 mcg PO DAILY 09/05/22 pantoprazole 40 mg tablet,delayed 40 mg PO BID 09/16/22 release (Protonix) acetaminophen 500 mg tablet 1,000 mg PO Q8H PRN pain #90 tabs 10/14/22 aspirin 81 mg tablet,delayed 81 mg PO BID 30 days #60 tabs 10/14/22 release dexamethasone 4 mg tablet 4 mg PO DAILY #2 tabs 10/14/22 docusate sodium 100 mg capsule 100 mg PO BID #30 caps 10/14/22 (Colace) meloxicam 15 mg tablet 15 mg PO DAILY #30 tabs 10/14/22 oxycodone 5 mg tablet 5 mg PO Q6H PRN #12 tabs 10/14/22 Current Visit Medications: Current Medications Generic Name Dose Route Start Last Admin Trade Name Freq PRN Reason Stop Dose Admin Acetaminophen 1,000 mg 10/14/22 06:00 10/14/22 10:02 Acetaminophen 500 Mg Tab PO 10/14/22 16:00 1,000 mg PREOP GREYSON Administration Acetaminophen 1,000 mg 10/14/22 08:30 Acetaminophen 500 Mg Tab PO TID GREYSON Aspirin 81 mg 10/14/22 20:00 Aspirin E.C. 81 Mg Tabec PO BID GREYSON Dexamethasone 4 mg 10/15/22 08:30 Dexamethasone 4 Mg Tab PO 10/16/22 08:31 DAILY GREYSON Docusate Sodium 100 mg 10/14/22 07:30 Docusate Sodium 100 Mg Cap PO BID PRN PRN Constipation Hydromorphone HCl 0.5 mg 10/14/22 07:30 Hydromorphone 2 Mg/Ml Syr IVP Q2H PRN PRN Tranexamic Acid 1,000 mg/ 60 mls @ 360 mls/hr 10/14/22 06:00 Sodium Chloride IV 10/14/22 16:00 PREOP GREYSON Ringer's Solution 1,000 mls @ 80 mls/hr 10/14/22 06:00 IV 11/12/22 23:59 INFUSION GREYSON Cefazolin Sodium/Dextrose 2 gm in 50 mls @ 100 mls/hr 10/14/22 06:00 Ancef Duplex IVPB 11/12/22 23:59 PREOP GREYSON Cefazolin Sodium/Dextrose 1 gm in 50 mls @ 100 mls/hr 10/14/22 08:00 Ancef Duplex IVPB 10/15/22 00:29 Q8H GREYSON IV Miscellaneous Supplies 1 each 10/14/22 06:00 Iv Access IV 11/12/22 23:59 DIRECTED GREYSON Meloxicam 15 mg 10/14/22 08:30 Meloxicam 15 Mg Tab PO DAILY GREYSON Oxycodone HCl 0 mg 10/14/22 07:30 Oxycodone 5 Mg Tab PO Q3H PRN PRN Pain Pantoprazole Sodium 40 mg 10/15/22 07:30 Pantoprazole 40 Mg Tabcr PO DAILY@0730 GREYSON Polyethylene Glycol 17 gm 10/14/22 07:30 Polyethylene Glycol 3350 17 Gm Packet PO BID PRN PRN Constipation Sodium Chloride 0 ml 10/14/22 06:00 Normal Saline Flush 10 Ml Syr IV 11/12/22 23:59 PRN PRN Sodium Chloride 0 ml 10/14/22 06:00 Normal Saline 10 Ml Vial IJ 11/12/22 23:59 DIRECTED PRN Sterile Water 0 ml 10/14/22 06:00 Water,Injection,Sterile 10 Ml Vial IJ 11/12/22 23:59 DIRECTED PRN PFSH Active Problems Active Problems: Problem Status Onset Code Spondylosis of lumbar region without myelopathy or radiculopathy M47.816 Lumbar radiculitis M54.16 Atypical chest pain R07.89 Elevated liver function tests R94.5 Hypertension I10 Chronic GERD K21.9 History of Arriaga's esophagus Z87.19 Sensorineural hearing loss of combined sites, bilateral 01/28/16 Dizziness R42 Abnormal auditory perception of both ears 01/28/16 H93.293 Left rotator cuff tear ~12/2018 M75.102 Tendinitis of long head of biceps brachii of left shoulder M75.22 Bursitis of left shoulder M75.[address] of the abdomen R93.5 Diverticular disease of left colon K57.30 Chronic hip pain after total replacement of right hip joint M25.551, G89.29, Z96.641 Pain in hip region after total hip replacement T84.84XA, Z96.649 Medical History Medical History (Updated 10/14/22 @ 09:05 by Marquita Adhikari) Abn find-abdominal area Abnormal laboratory test Anemia Arm pain, left Barretts esophagus Bilateral hearing loss Carotid artery stenosis Cellulitis Depression Disturbance of skin sensation Femoral neuropathy of right lower extremity Head congestion History of anemia History of post traumatic stress disorder History of tobacco use Hx of abnormal mammogram Hx of fracture of ankle right Hyperlipidemia Hypertension IBS (irritable bowel syndrome) Low back pain Lumbar radiculopathy Mixed hyperlipidemia Osteoarthritis Osteoarthritis of hip Pain in right hip Pain of left calf Pain of left sacroiliac joint Partial obstruction of small intestine Partial small bowel obstruction PTSD (post-traumatic stress disorder) PVD (peripheral vascular disease) RUQ pain Scapulalgia Screening for HPV (human papillomavirus) Shoulder pain, left Sleep apnea CPAP Superior mesenteric artery syndrome Synovial cyst Toe pain, left Unresolved grief Vertigo Medical History Comments:: chronic low back pin; 4/10 at rest Surgical History Surgical History History of appendectomy History of cholecystectomy History of colonoscopy (~05/14/21) History of common carotid artery stent placement On the right carotid - 2006 [facility] [place] Follows yearly - no complications History of esophagogastroduodenoscopy (EGD) (~05/14/21) History of exploratory laparotomy (2012) SBO due to adhesions [facility] then had abscess and repeat surgery at [facility] History of hysterectomy (1998) Followed by bladder mesh in 2011 History of total left hip arthroplasty History of total right hip replacement (2008) History of ventral hernia repair Status post carpal tunnel release of both wrists 1999 2002 Tobacco Smoking/Tobacco Use Status: Former Tobacco Use Alcohol Alcohol Intake: never Substance Use Substance use: Never Substance use type: does not use Vital Signs and Lab Results Vital Signs Most Recent Vital Signs in EMR: Most Recent Vital Signs Temp Pulse Resp BP Pulse Ox 36 C L 64 16 123/59 L 99 10/14/22 09:00 10/14/22 09:00 10/14/22 09:00 10/14/22 09:00 10/14/22 09:00 Lab Results Blood Type / Crossmatch: No Data to Display Complete Blood Count: White Blood Count 9.45 10^3/uL (4.4-10.8) 09/29/22 15:15 Red Blood Count 4.43 10^6/uL (3.93-5.22) 09/29/22 15:15 Hemoglobin 12.8 g/dL (11.2-15.7) 09/29/22 15:15 Hematocrit 40.3 % (36.0-46.0) 09/29/22 15:15 Platelet Count 292 10^3/uL (130-400) 09/29/22 15:15 Complete Metabolic Panel: Sodium 138 mmol/L (136-145) 09/29/22 15:15 Potassium 4.1 mmol/L (3.5-5.1) 09/29/22 15:15 Chloride 101 mmol/L (98-107) 09/29/22 15:15 Carbon Dioxide 26.2 mmol/L (21.0-32.0) 09/29/22 15:15 BUN 30 mg/dL (7-18) H 09/29/22 15:15 Creatinine 1.1 mg/dL (0.55-1.02) H 09/29/22 15:15 Est GFR (CKD-EPI 2020) 53.39 (mL/min/1.73m2) 09/29/22 15:15 Calcium 10.3 mg/dL (8.5-10.1) H 09/29/22 15:15 Glucose 107 mg/dL (74-106) H 09/29/22 15:15 Liver Function Panel: No Data to Display Coagulation Panel: No Data to Display Cardiac Panel: No Data to Display Arterial Blood Gas: No Data to Display Venous Blood Gas: No Data to Display Pancreas Panel: No Data to Display Thyroid Panel: No Data to Display Infectious Disease: Coronavirus (COVID-19)(PCR) Negative (Negative) 10/14/22 08:50 Coronavirus 2019 Source Nasal/Nares 10/14/22 08:50 Blood Cultures: No Data to Display Toxicology Panel: No Data to Display Imaging and Studies Imaging and Studies Study information below may be from another EMR and interpreted by another provider. Please see original notes in EMR for more complete details. Stress Test Summary: Impressions: Normal myocardial perfusion and contraction after pharmacological stress. Summary: 1. Myocardial perfusion imaging: No myocardial perfusion defects noted. 2. The calculated left ventricular ejection fraction after stress: 67%. LV global systolic function is normal. No left ventricular regional motion abnormality. 3. Stress: There is a normal resting blood pressure. Normal blood pressure response to adenosine. 4. Baseline ECG: Sinus bradycardia with left bundle branch block. Echocardiogram Summary: Patient Name: Macy Mccurdy #: [id number]: DI Ordering Provider: Rehana Cornejo M.D. : [facility] Primary Care Provider: Rehana Cornejo M.D.Date of Exam: 09/18/22Sex: F Admission Date: 09/18/22 : 1950 Age: 72 APPROVED REPORT EXAM: Comprehensive 2D, Doppler, and color-flow Echocardiogram Patient Location: Out-Patient Regional Economic Liaison: Jeannette Tinoco RDCS (AE) Indications: HTN, LBBB Other Information Study Quality: Adequate Conclusion Normal left ventricular wall thickness and chamber size. Estimated ejection fraction is 55 to 60%. There are no segmental wall motion abnormalities Normal right ventricular size and systolic function Left atrium is mildly dilated. Right atrial size is normal The aortic valve is trileaflet, mildly sclerotic without stenosis or regurgitation Normal mitral valve with mild to moderate regurgitation Estimated right ventricular systolic pressure is 22 mmHg Borderline dilated ascending aorta Other Study Summary:: Patient Name: Macy Mccurdy #: [id number]: DI Ordering Provider: Jennifer Velásquez #: [id number]: [facility] Primary Care Provider: Rehana Cornejo M.D.Date of Exam: 07/23/22Sex: F Admission Date: 07/23/22 : 1950 Age: 72 Exam(s) MR LUMBAR SPINE WO EXAM: MR LUMBAR SPINE WO CLINICAL HISTORY: LUMBAR RADICULOPATHY, M54.16, LT LEG WEAKNESS, ANTERIOR LT THIGH NUMBNESS. TECHNIQUE: Multiplanar multisequence MRI of the Lumbar spine was performed. CR XR LUMBAR SPINE COMPLETE from 07/10/2022 FINDINGS: Bones: The last intervertebral disc space is designated the L5/S1 level for the numbering purpose of this examination. The vertebral body heights are well maintained. A dextroscoliosis is present. The marrow signal characteristics are unremarkable. Cord: The conus tip ends at the T12 level. It is of normal size and signal intensity. T12-L1: No disc herniations or bulges are present. No central spinal canal or neural foraminal stenosis. L1-2: Slight loss of disc height. Mild concentric bulging. Facet degenerative changes mild in the encroaching into the central canal. There is mild bilateral neural foraminal encroachment. L2-3: Mild loss of disc height, mild concentric disc bulging. Mild facet degenerative changes, greater on the left. Severe left neural foraminal narrowing. No significant central canal stenosis. L3-4: Severe loss of disc height eccentric toward the left where there are prominent endplate osteophytes. There are also prominent facet degenerative changes combine to produce moderate to severe neural foraminal narrowing. No significant central canal stenosis. L4-5: Loss of disc height on the right side with right-sided disc bulging. Facet degenerative changes combine with disc osteophytes combine produce moderate central canal stenosis and moderate neural foraminal narrowing. The facet degenerative changes cause slight spondylolisthesis at this level. L5-S1: Minimal disc bulging. Facet degenerative changes. No significant neural foraminal encroachment or central canal stenosis. The visualized SI joints and sacrum are well maintained. Soft tissues: The paraspinal soft tissues are unremarkable. IMPRESSION: Multilevel degenerative disc changes and facet degenerative changes combine to produce multilevel bilateral neural foraminal narrowing, greatest on the left at L2-3. Moderate central canal stenosis at L4-5. Some interval worsening of degenerative changes when compared with 2018 Anesthesia Assessment and Plan Anesthesia History Personal History: No History of Anesthesia Complications Family History: No Family History of Anesthesia Complications Exercise Tolerance Exercise Tolerance: Metabolic Equivalents>4 Pertinent Negatives Pertinent Negatives: No Symptoms of GERD, No Major Cardiovascular Symptoms or Complaints, No Major Pulmonary Symptoms or Complaints and No History of CVA/TIA Cardiac & Pulmonary Exam Cardiac Exam: Normal S1/S2 Heart Sounds Pulmonary Exam: Clear Bilateral Breath Sounds Implantable Cardiac Device Does patient have a Pacemaker or an ICD?: No Airway Exam Known Difficult Airway: No Mallampati Class: 2 Mouth Opening: Normal (> 3cm) Thyromental Distance: Greater than 3 cm Neck Range of Motion: Full ROM Neck Circumference: Normal Teeth Condition: Normal Dentition ASA Classification ASA Score: ASA 3 Emergency Case?: No NPO Status NPO Status: NPO Clears >2 hours, Solids >8 hours Anesthesia Plan Resuscitation Status: Full Code Anesthesia Technique: Spinal Anesthesia Airway Planned: Natural Airway Monitors Used: Standard Monitors Preoperative Comments:: Discussed plan at length, as noted in lumbar MRI, significant disk space loss. I believe best approach at L2/L3. Patient agrees to give the spinal a chance, if any significant issues will transition to GA.
[2022-10-14] MEDS: Lactated Ringers 1,000 ML 80 ML IV ×2 (10:48→23:50)
[2022-10-14] MEDS: ceFAZolin 2 GM/50 ML BAG IVPB (11:57)
--- NOTE | 2022-10-14 12:33 | SYNOVIUM_PTH ---
PATIENT: Macy Mccurdy LOC: U#:[id number] AGE/SX: 72/F ROOM: [id number] RE10/14/[address]: Gregg Sotelo MD : 1950 BED: A DIS: 10/15/2022 SPEC #: [id number] RECD: 10/14/22 17:46 STATUS: SOULucas REQ #: [id number] DAGO: 10/14/22 12:[address]: Gregg Sotelo DEPT: Surgical Specimen RECD BY: Ilene Duffy ENTERED: 10/14/22 17:47 SP TYPE: SYNOVIUM OTHR DR: Rehana Cornejo Tissues: 1 - SYNOVIUM/IAL Procedures: GROSS AND MICRO LEVEL 4 Comments: [id number]
--- NOTE | 2022-10-14 13:39 | DI.RAD_ITS ---
Exam(s) XR HIP RT IN OR EXAM: XR HIP RT IN OR CLINICAL HISTORY: revision right hip TECHNIQUE: 2D and realtime digital imaging was performed. CONTRAST MATERIAL: Refer to procedure report. COMPARISON: CR XR HIP RT AP LAT ONLY from 07/31/2022 RF RF JOINT INJECTION FLUORO GUID from 09/04/2022 FINDINGS: Fluoroscopy was provided for Dr. Sotelo during the performance of a right hip arthroplasty revisio n. Please refer to the procedure report for complete details. Ka,r=3 mGy IMPRESSION: RADIATION DOSE DELIVERED:
--- NOTE | 2022-10-14 14:09 | ROE_ITS ---
Date of service: 10/14/22 Time of Service: 14:09 Operative Note Operative Note DATE OF PROCEDURE: 10/14/22 PRE-OP DIAGNOSIS: Painful Right Hip Replacement POST-OP DIAGNOSIS: same PROCEDURE: Right Acetabular Revision with Dual Mobility Component, Anterior Approach SURGEON: Gregg Sotelo STATOR CONNECTOR: Yoli Braswell ANESTHESIA TYPE: Spinal Refer to Anesthesia Record ESTIMATED BLOOD LOSS: 250 PATHOLOGY: none sent TOURNIQUET TIME: 0 COMPLICATIONS: None Patient was transported to: PACU Patient's condition: stable Implants: 1. Newman [employer] Nephew Redapt Acetabular Component, 54mm 2. Newman [employer]hew Dual Mobility Acetabular Liner, [id number] 3. Selena Trunion Sleeve, +2.5 4. Selena Biolox Ceramic Femoral Head, 28mm Indications: Tawnya is an active 72-year-old who has had ongoing pain about her right hip after hip replacement done in 2008. She had constant groin pain with all activities which is only worsened over the years. CT scan confirmed a retroverted acetabular component and examination fit with this diagnosis along with iliopsoas impingement. Therefore, given the persistence of her symptoms I offered revision of the acetabular component. I explained the risks of the procedure to include, but not limited to, bleeding, infection, pain, stiffness, fracture, damage to nerves and vessels, damage to muscles and tendons, loosening, instability, leg length inequality, need for repeat procedure, blood clot and cardiopulmonary demise. Despite these risks, Tawnya elected to proceed. Findings: There was significant retroversion of the acetabular component with a significant amount of porous coated metal exposed anteriorly. The iliopsoas tendon was seen draped over the anterior edge of the acetabulum with fraying about the tendon. There was hemosiderin stained synovium with dark blood fluid pockets throughout. Procedure Description: Tawnya was greeted in the preoperative holding area where the correct side was identified and marked. The consent was reviewed with the patient and signed. The history and physical was updated. All questions were answered. She was taken back to the operating room. A spinal anesthestic was then ad ministered. The feet were wrapped with cast padding and Coban and then placed into the boot liners and then into the boots. Care was taken to protect the skin and make sure the heels were fully down and the boots were stable. The patient was then positioned onto the HANA table. Both legs were held in a neutral position. SCDs were applied. The patient was then slid down onto a peroneal post. Prophylactic antibiotics in the form of Cefazolin were administered. 1g of Tranxemic Acid was given intravenously within 30 minutes of incision. The right leg was then prepped with Chloraprep and draped in a standard fashion. A second prep with Chloraprep was performed prior to placement of a shower-curtain type drape with Iodine impregnated skin protection. A timeout to confirm correct identity, side and site, procedure, allergies, anesthesia, and medical concerns was performed. An obliquely oriented incision was made starting lateral to the ASIS and running distal over the Tensor Fascia Suzy (TFL) muscle belly toward the fibular head, approximately 10cm. The skin and soft tissue was dissected sharply, through Bisi?s fascia, and to the fascia of the TFL. With the fascia and superior border of the IT band identified, the fascia was incised with a new knife just above any perforators from the IT band. The TFL muscle belly was bluntly dissected away from the fascia and moved laterally. The fat between TFL and rectus was identified to ensure the dissection was not within the TFL. Blunt dissection created space between abductors and the capsule and retractor was placed over the lateral femoral neck. The fibers of the rectus femoris tendon were identified and these were freed from the anterior capsule. A second cobra retractor was placed around the medial femoral neck. The TFL was further retracted laterally to show the deep fascia. Careful dissection through this layer identified three main crossing vessels of the lateral femoral circumflex. These were cauterized in multiple locations and then cut without any noticeable bleeding. The TFL was further released bluntly from the deep fascia to expose anterior hip capsule and fat The Gallo orthopaedic retractor was then placed beneath the TFL and against sartorius and medial soft tissues to protect and retract the soft tissues. A T-capsulotomy was then performed starting at the superior lateral acetabulum and moving distally to the intertrochanteric ridge. These capsular flaps were tagged with a No. 1 Ethibond and elevated from within. The capsular flaps were released to the shoulder of the lateral neck and to the lesser trochanter to give excellent visualization of the proximal femur. There was notable hemosiderin stained tissue as well as bronze colored joint fluid abundantly throughout the hip. The synovium which was easily accessible was resected at this time. The capsule was released fully to give exposure to the hip joint. There is significant scarring seen around the base of the hip component. This was released. I then dislocated the hip. Using a bone tamp I removed the femoral head. Capsular releases were continued around the proximal femur until I was able to actively externally rotate the right femur. In doing so there was notable tension against the iliopsoas and the anterior acetabulum. The acetabulum was easily retroverted 20+ degrees with direct irritation of the iliopsoas tendon over the anterior aspect of the acetabular component. Using osteotome I remove the polyethylene. I then removed the screws from within the cup without difficulty. An aggressive synovectomy was performed within the hip joint. This had excellent visualization now of the acetabular component in its whole entirety. Unfortunate, given the amount of retroversion was difficult to utilize the cup extractor system. I was able to use it briefly but the positioning of the cuff rendered it very difficult. Therefore, I was able to assemble a back slap component to the central hole of the cup and backstop to component out with minimal bone loss. The acetabulum was inspected and there showed to be some small cystic areas but otherwise good bone. Acetabular reaming began with a 52mm reamer. This first reaming was directed anterior to posterior and medial to get down to the true floor and medialize the cup position. I then reamed with a 54 mm reamer and the proposed positioning of the cup. This seemed to have good purchase of the surrounding bone without any overhang of the acetabular reamer. I then inserted a 54 mm Newman & Nephew readapt cup. This was positioned under fluoroscopy with an AP pelvis showing approximately 40-45 degrees of abduction and 15-20 degrees of anteversion. This is a berry contrast to the retroverted position at the start. There was excellent chainstitch binder of the acetabular component and the inserting handle was removed. A primary acetabular screw was placed into the ilium by drilling through one of the holes in the acetabular component. This was measured and an approrpriately sized screw was placed with excellent purchase. It was checked not to be proud. A second screw was placed in a similar fashion. The acetabular liner, Newman [employer] Nephew 54x48 dual mobility liner, was inserted and impacted into position and confirmed to be well-seated. A portion of the oc- articular cocktail was then injected around the acetabulum into the capsule and periosteum. This cocktail consisted of 123mg of Ropivacaine, 0.25mg of Epinephrine, 0.04mg of Clonidine, and 15mg of Ketorolac, diluted to 50cc. I then trialed the dual ability system with a 28+2.5 mm head. This was able to be reduced and showed excellent range of motion without any impingement nor dislocation either anteriorly or posteriorly. I then removed the trial components and we assembled the bipolar construct on the back table using a [email or web address] 2.5 mm metal taper inside the 28 mm Biolox ceramic head. This was impacted and then this head was then seated into the dual mobility liner. The dual mobility construct was then impacted onto the clean and dried trunnion. The hip was reduced. The deep and subcutaneous tissues were injected with remaining portion of the pe ri-articular cocktail. The deep tissues were thoroughly irrigated with Irrisept chlorhexidine solution. This was allowed to sit in the wound for 3 minutes before being thoroughly irrigated out with normal saline. The capsule was then reapproximated with the previously placed Ethibond sutures in addition to #1 Vicryl. The TFL fascia was finally closed with a No. 2 Stratafix, barbed suture. Deep tissues were then reapproximated with 0 Vicryl and a running 2-0 Vicryl. The skin was closed with a running 4-0 Monocryl in a subcuticular fashion. This was reinforced with skin glue. A Mepilex silver dressing was applied. At the end of the case, all counts were correct. Tawnya was transferred to the hospital bed without difficulty and suffering no apparent complication. She has a good prognosis. Physical therapy will start today and without restrictions, weight-bearing as tolerated. Aspirin 81mg BID will be used for DVT prophylaxis.
--- NOTE | 2022-10-14 14:28 | W.ANESPOSTOP ---
Postoperative Evaluation Date, Time and Location Date Performed: 10/14/22 Time Performed: 14:28 Patient Location: PACU Vital Signs Most Recent Imported Vital Signs: Most Recent Vital Signs Temp Pulse Resp BP Pulse Ox 36 C L 64 16 123/59 L 99 10/14/22 09:00 10/14/22 09:00 10/14/22 09:00 10/14/22 09:00 10/14/22 09:00 Pain Score Most Recent Pain Score: Most Recent Pain Score Pain Level 4 10/14/22 09:00 Pain currently 0/10 at 1429 Assessment Mental Status: Awake (Alert & Oriented to Patient Baseline) Airway and Respiratory Function: Patent airway with normal (patient baseline) respiratory exam Cardiovascular Function: Hemodynamically Stable Hydration Status: Adequately Hydrated Nausea & Vomiting: No Nausea or Vomiting Pain: Pt. Denies Any Pain Peripheral Nerve Block: Regional nerve block not resolved at time of post operative discharge (Spinal wearing off appropriately. )
[2022-10-14] MEDS: ceFAZolin 1 GM/50 ML BAG IVPB ×2 (15:55→23:51)
[2022-10-14] MEDS: oxyCODONE 5 MG TAB PO (16:55)
--- NOTE | 2022-10-14 16:55 | IN_ITS ---
Date of service: 10/14/22 Time of Service: 16:08 PT Notes Visit Reasons: Chronic pain following right MADDIE Physical Therapy Inpatient Initial Evaluation Date: 10/14/2022 Referring Doctor: NITISH Gresham PT Orders: PT CONSULT: S/P Ortho surgery Precautions: Fall. Standard. WBAT on left LE with AD. Patient Profile/Admitting Diagnosis: Macy Mccurdy is a 72-year-old female with chronic painful right hip from right MADDIE 14 years ago. Patient is status post R partial hip arthroplasty with acetabular revision with a dual mobility component utilizing anterior approach on postoperative day 0. PMHX: Medical History?(Updated 09/29/22 @ 14:31 by Yoli Braswell) Abn find-abdominal area Abnormal laboratory test Anemia Arm pain, left Barretts esophagus Bilateral hearing loss Carotid artery stenosis Cellulitis Depression Disturbance of skin sensation Femoral neuropathy of right lower extremity Head congestion History of anemia History of post traumatic stress disorder History of tobacco use Hx of abnormal mammogram Hyperlipidemia Hypertension IBS (irritable bowel syndrome) Low back pain Lumbar radiculopathy Mixed hyperlipidemia Osteoarthritis Osteoarthritis of hip Pain in right hip Pain of left calf Pain of left sacroiliac joint Partial obstruction of small intestine Partial small bowel obstruction PTSD (post-traumatic stress disorder) PVD (peripheral vascular disease) RUQ pain Scapulalgia Screening for HPV (human papillomavirus) Shoulder pain, left Sleep apnea CPAPSuperior mesenteric artery syndrome Synovial cyst Toe pain, left Unresolved grief Vertigo Surgical History?(Updated 09/29/22 @ 14:31 by Yoli Braswell) History of appendectomy History of cholecystectomy History of colonoscopy (~05/14/21) History of common carotid artery stent placement On the right carotid - 2006 [facility] – [place] Follows yearly - no complications History of esophagogastroduodenoscopy (EGD) (~05/14/21) History of exploratory laparotomy (2012) SBO due to adhesions [facility] then had abscess and repeat surgery at [facility] [place] History of hysterectomy (1998) Followed by bladder mesh in 2011 History of total left hip arthroplasty History of total right hip replacement (2008) History of ventral hernia repair Status post carpal tunnel release of both wrists 1999 2002 Social History/Home Situation: Lives with in a private home with 4 steps to enter with rails on both sides. There is a flight of steps to the bedroom. Patient had manage level surface indoor ambulation without an assistive device but had been hurting in the left hip prior to surgery. Equipment Owned/DME: [facility] Subjective: Patient states that her left hip began to hurt postoperatively 14 years ago but she has learned to get used to the pain until 2 years before today when the pain was getting too much and she needed to work with physicl therapy. She stopped PT when the COVID pandemic hit and she came back and continued strengthening about 2 months ago. Reports lack of full control of the R leg stating that it moves a little awkwardly. Denies headache, chest pain, and lightheadedness throughout session. Complained of burnig pain in the R hip and thigh at 4-5/10. States that she has visited the [employer] website and has been doing her pre-op exercises. Objective: General Observation: Supine in bed. In NAD. IV through L UE. TEDS to B legs. SCDs to B legs unattached. Mepilex Ag over surgical incision. Mental Status: Alert and oriented as to person, place, time, and purpose. Able to pay attention, focus, and respond appropriately. Pain: 4-5/10 in the R hip and thigh Vital Signs: WNL as closely monitored by nursing staff ROM: Right Lower Extremity: Hip flexion lacks the last 25% of AROM with discomfort at end of range. Hip abduction WFL. Knee flexion WFL. Ankle dorsiflexion WFL. Ankle plantarflexion WFL. Left Lower Extremity: Hip flexion WFL. Hip abduction WFL. Knee flexion WFL. Ankle dorsiflexion WFL. Ankle plantarflexion WFL. Strength: Right Lower Extremity: Hip flexors 3-/5. Hip abductors 4-/5. Knee flexors 4-/5. Knee extensors 4-/5. Ankle dorsiflexors 5/5. Ankle plantarflexors 5/5. Left Lower Extremity: Hip flexors 5/5. Hip abductors 5/5. Knee flexors 5/5. Knee extensors 5/5. Ankle dorsiflexors 5/5. Ankle plantarflexors 5/5. Bed Mobility/Transfers: Supine to sit stand by assist Sit to stand contact guard assist Stand to sit contact guard assist Bed to reclining chair minimal assist Gait: Instructed patient with level surface ambulation of 30 feet requiring minimal assist. Step to gait pattern. Cues given to ensure that R knee is locked into extension prior to advancing the L LE to prevent R knee buckling. Denies headache, chest pain, and lightheadedness throughout activity. Wheelchair follow provided by MAUDE Jones for safety. Balance: Static Sitting: Normal Dynamic Sitting: Good Static Standing: Fair Dynamic Standing: Fair Special Tests: Mobility Limitations Standardized Measure [facility] AM-PAC 6 clicks Basic Mobility Inpatient Short Form: Raw Score: 19 CMS Score: 42% deficit Informed Consent/Education: Patient was instructed in purpose of PT consult and plan of care. Agreeable to proceed with established PT POC to achieve personal goals. THERA EX: Supine quads sets x 5, 5 sh Supine glutes sets x 5, 5 sh Supine ankle pumps x 10 Seated B LAQs x 10 Seated ankle DF/PF x 10 Seated marches x 10 Assessment: R quadricep activation impaired resulting in initial R knee buckling but no LOB. Needed to ensure that R knee is locked during R LE weight acceptance prior to L LE advancement to avoid buckling of R knee allowing up to 30 feet of ambulation with FWW. Patient presents with clinical signs and symptoms consistent with current/admitting diagnoses that have resulted to mobility limitations, gait instability, generalized weakness, and overall ADL decline as demonstrated by the following impairment level findings: 1. Decreased strength to R anterior thigh muscle group 2. Impaired sitting/standing balance 3. Impaired activity tolerance 4. Limitation of joint range of motion in R hip due to discomfort 5. Pain at 4-5/10 in the R hip 6. Abnormal gait pattern Impairments are contributing to the following functional limitations: 1. Difficulty with ambulation without assistive device and physical assistance 2. Increased completion time for mobility ADL performance 3. Increased risk for falls 4. Difficulty with managing steps alone safely Patient is assessed as a 04022 moderate complexity based on the following: History: 72-year-old female with past medical history as indicated above Examination: Demonstrable impairment in strength, balance, and mobility level with underlying impairments and functional limitations as exhibited above as well as deficit score of 42% utilizing the [facility] Mobility Inpatient Short Form Presentation: Evolving Decision Makin moderate complexity Goals: Goals X1 week 1. Supine-Sit independent 2. Sit-Supine independent 3. Sit-Stand independent 4. Stand-Sit independent with FWW 5. Bed-Chair independent with FWW 6. Chair-Bed independent with FWW 7. Independent gait on level surface with use of FWW for at least 300 feet without report of pain nor dyspnea 8. Independent stair negotiation while holding onto B rails for at least 4 steps without report of pain nor dyspnea 9. Independent with home exercise program 10. Good static and dynamic standing balance/tolerance Plan of Care/Treatment Plan: 1-2x/day, 7 days/week x 1 week. Plan of care has been reviewed with the LABOR CUSTODIAN providing the service under Physical Therapy direction. Initiate Physical Therapy intervention for pain management as needed, strengthening, bed mobility, transfers, gait, stairs, balance training, and use of assistive device. DISCHARGE RECOMMENDATIONS: [] Home with no services [] [] Home with services [specify] [X] Home with outpatient PT. Home when medically cleared by orthopedic surgeon. Recommend doing outpatient PT services in order to optimize functional mobility outcomes and facilitate return to independent community ambulation without an assistive device. [] SNF for continued rehabilitation [] [] [facility] [employer] [facility] [] [] SNF versus LTC based on ability to participate and progress [] TREATMENT CODE/TIME: 59146 x 20 minutes, 41126 x 17 minutes beginning at 16:08 PM Thank you for the opportunity to participate in the care of this patient. Linda Stoll PT, DPT, CLT [facility] [place], [place]
[2022-10-14] MEDS: Pantoprazole 40 MG TABCR PO (20:33)
[2022-10-14] MEDS: hydrALAZINE 25 MG TAB PO (20:33)
[2022-10-14] MEDS: Aspirin E.C. 81 MG TABEC PO (20:34)
[2022-10-14] MEDS: Timolol 0.5% 5 ML BTL OU (20:34)
[2022-10-14] MEDS: Latanoprost 0.005% 2.5 ML BTL OP (21:29)
[2022-10-14] MEDS: Polyethylene Glycol 3350 17 GM PACKET PO (21:30)
[2022-10-15 03:28] VITALS: BP 134/60; PULSE 60; RESP 17; TEMP 36.5; O2SAT 98
--- NOTE | 2022-10-15 07:27 | W.PM.DS.N ---
Date of service: 10/15/22 Time of Service: 07:26 DS: Diagnosis Discharge Diagnosis (1) Pain in hip region after total hip replacement: Status: Acute (2) Chronic hip pain after total replacement of right hip joint: Status: Acute Discharge Plan Disposition Patient Disposition: Home Condition: Good Discharge Details Reason For Visit: Chronic pain following right MADDIE Admit Date/Time: 10/14/22 08:17 Admit Provider: Gregg Sotelo Attending Provider: Gregg Sotelo Primary Care Provider: Rehana Cornejo V Hospital Course Hospital Course: Patient was admitted to the medical/surgical floor following the procedure. The surgery was tolerated well without any notable medical, surgical, or anesthetic complications. Mobilization began postoperatively. She was voiding spontaneously. Vitals were stable. Physical therapy worked with the patient and was cleared for discharge home. No acute medical issues. Pain was controlled on oral regimen. Home Meds and New Rx's Prescriptions: New docusate sodium [Colace] 100 mg capsule 100 mg PO BID Qty: 30 0RF oxycodone 5 mg tablet 5 mg PO Q6H PRNQty: 12 0RF Rx Instructions: Take one tablet up to every 6 hours as needed for severe postoperative pain oxycodone 5 mg tablet 5 mg PO Q6H PRNQty: 10 0RF acetaminophen 500 mg tablet 1,000 mg PO Q8H PRN (Reason: pain) Qty: 90 3RF aspirin 81 mg tablet,delayed release (DR/EC) 81 mg PO BID Qty: 60 0RF dexamethasone 4 mg tablet 4 mg PO DAILY Qty: 2 0RF Rx Instructions: Starting Post-Operative Day #1 (Day after surgery) meloxicam 15 mg tablet 15 mg PO DAILY Qty: 30 0RF Continued ascorbate calcium (vitamin C) 500 mg tablet 1 g PO DAILY selenium 200 mcg tablet 200 mcg PO DAILY pantoprazole [Protonix] 40 mg tablet,delayed release (DR/EC) 40 mg PO BID vitamin B complex Tablet 1 tab PO DAILY vitamin E 200 unit capsule 400 unit PO DAILY biotin 5 mg tablet 5 mg PO DAILY cholecalciferol (vitamin D3) 125 mcg (5,000 unit) capsule 250 mcg PO DAILY latanoprost [Xalatan] 2.5 ML drops 1 drp Ophthalmic HS Probiotic 1 EACH capsule, sprinkle 1 ea PO DAILY resveratrol 250 mg capsule 1,200 mg PO DAILY hydralazine 25 mg tablet 25 mg PO TID Repatha SureClick 140 mg/mL pen injector 140 mg subcut Q2W polyethylene glycol 3350 [Miralax] 17 gram/dose Powder 17 g PO DAILY timolol maleate 0.5 % drops 1 drp Topical BID Discontinued aspirin 81 MG tablet,delayed release (DR/EC) 81 mg PO DAILY No Action olmesartan 40 mg tablet 40 mg PO HS Discharge Instructions Additional Instructions: Total Hip Discharge Instructions Activity: The most important activity is to walk. You should try to take short walks a few times a day. You have no restrictions on movement or positioning, but do not try to force what you do. You will find some stiffness and weakness with hip flexion (lifting your knee). Do not try to strengthen this too early, continue to practice walking and stairs and this will come. - Outpatient physical therapy can be helpful to help return you to a normal gait and improve your flexibility and strength. This can start around 2 weeks. For some patients, it?s not necessary. Usually this is determined at the time of discharge or at the first post-operative visit. - You should wear the MEKA hose on both legs for 2 weeks. Dressing: Keep the surgical dressing in place for at least one week. After the first week it may be removed and replace with light gauze and tape or nothing. It may get wet after 3 days but avoid soaking the dressing. If it gets wet, just lightly pat dry. It is important to always keep some gauze between skin folds, especially when you are sitting. Spend some time with the wound exposed when you are lying flat as the incision does wrinkle onto itself. Medications: - You should take Tylenol and an anti-inflammatory Meloxicam as your primary pain control medications. If the Meloxicam is too expensive or not covered, please call the office for another alternative (Advil/Ibuprofen or Naproxen/Aleve). - You have been prescribed a stronger pain medication Oxycodone for breakthrough pain, take as needed as prescribed. - You take a stomach acid reduction agent Pantoprozole at baseline - continue with this to help reduce stomach acid and reflux. - You have also been prescribed Decadron to help with post-operative nausea and pain. You will take this for two days starting tomorrow. - You will be taking Aspirin 81mg twice a day for DVT prevention unless instructed otherwise. - If you have constipation you should take Colace (which has been prescribed) or Miralax (which is available [id number]). It takes most people 3-4 days to have a bowel movement. Follow-up: 2 weeks If you have any acute concerns or questions, please do not hesitate to contact the office at [phone]. You may contact Dr. Sotelo with any questions after hours through the hospital at [phone] or on his cell phone at [phone]. Referrals: Gregg Sotelo MD [ [facility] STAFF PHYSICIAN] - Activity:: Activity as Tolerated Equipment/Supplies:: Walker Diet:: As Tolerated Discharge Orders Discharge Orders: Discharge Order (Routine); Ordered 10/15/22 Ordered By: Gregg Sotelo DS: Summary Time Spent with Patient providing and/or coordinating discharge services: Less than 30 minutes Status at Discharge Functional status at discharge: uses cane/walker Overall status at discharge: patient is progressing back to baseline Mental Status: mental status grossly normal Speech and Movement: speech and movement normal Mood: congruent mood Affect: normal affect Exam Const General: cooperative, healthy appearing, comfortable and no acute distress Extrem Other: RLE dressing is c/d/i. Decreased sensation over the lateral thigh. Femoral nerve sensation intact. SILT DP/SP/Tib. Hip flexion is week but knee extension is strong. +ADF/APF/EHL/FHL. No pain with hip IR/ER. Psych Mental Status: mental status grossly normal Speech and Movement: speech and movement normal Mood: congruent mood Affect: normal affect DS: Data Vitals/I&O Vitals and I&O: Intake & Output 10/13/22 10/13/22 10/14/22 11:59 23:59 11:59 Weight 158 lb 15.993 oz Data Completed and Pending Labs on day of discharge: Labs from last 24 hours 10/14/22 08:30 COVID-19 Source Pending SARS-CoV-2 (PCR) Pending [facility] All Active Problems Spondylosis of lumbar region without myelopathy or radiculopathy (Chronic) Lumbar radiculitis (Acute) Atypical chest pain (Acute) Elevated liver function tests (Acute) Hypertension (Chronic) Chronic GERD (Acute) History of Arriaga's esophagus (Acute) Sensorineural hearing loss of combined sites, bilateral (Acute 01/28/16) fit with b/l bte sean zhu [id number] [facility] 02/08/16 [place] Dizziness (Acute) Abnormal auditory perception of both ears (Acute 01/28/16) Left rotator cuff tear (Acute ~12/2018) Tendinitis of long head of biceps brachii of left shoulder (Acute) Bursitis of left shoulder (Acute) Abnormal CT of the abdomen (Acute) Diverticular disease of left colon (Acute) minimal Chronic hip pain after total replacement of right hip joint (Acute) Pain in hip region after total hip replacement (Acute) Medical History Abn find-abdominal area Abnormal laboratory test Anemia Arm pain, left Barretts esophagus Bilateral hearing loss Carotid artery stenosis Cellulitis Depression Disturbance of skin sensation Femoral neuropathy of right lower extremity Head congestion History of anemia History of post traumatic stress disorder History of tobacco use Hx of abnormal mammogram Hx of fracture of ankle right Hyperlipidemia Hypertension IBS (irritable bowel syndrome) Low back pain Lumbar radiculopathy Mixed hyperlipidemia Osteoarthritis Osteoarthritis of hip Pain in right hip Pain of left calf Pain of left sacroiliac joint Partial obstruction of small intestine Partial small bowel obstruction PTSD (post-traumatic stress disorder) PVD (peripheral vascular disease) RUQ pain Scapulalgia Screening for HPV (human papillomavirus) Shoulder pain, left Sleep apnea CPAP Superior mesenteric artery syndrome Synovial cyst Toe pain, left Unresolved grief Vertigo Surgical History History of appendectomy History of cholecystectomy History of colonoscopy (~05/14/21) History of common carotid artery stent placement On the right carotid - 2006 [facility] Follows yearly - no complications History of esophagogastroduodenoscopy (EGD) (~05/14/21) History of exploratory laparotomy (2012) SBO due to adhesions [facility] then had abscess and repeat surgery at [facility] History of hysterectomy (1998) Followed by bladder mesh in 2011 History of total left hip arthroplasty History of total right hip replacement (2008) History of ventral hernia repair Status post carpal tunnel release of both wrists 1999 2002 Social History Smoking/Tobacco Use Status: Former Tobacco Use Quit Date: 07/20/76 Smoking risk assessment performed?: Yes Alcohol Intake: never Drug use: Never Substance use type: does not use Current gender identity: female Do you feel safe at home: Yes Do you feel safe in your relationship?: Yes Time Spent with Patient Time Spent with Patient: <45 minutes Time was spent: obtaining and/or reviewing separately otained hiistory, ordering medications,tests, procedures and counseling the patient
[2022-10-15 07:30] VITALS: BP 166/73; PULSE 63; RESP 16; TEMP 36.4; O2SAT 97
[2022-10-15] MEDS: ceFAZolin 1 GM/50 ML BAG IVPB (07:35)
[2022-10-15] MEDS: Aspirin E.C. 81 MG TABEC PO (07:36)
[2022-10-15] MEDS: Acetaminophen 500 MG TAB 1000 MG PO (07:36)
[2022-10-15] MEDS: Meloxicam 15 MG TAB PO (07:37)
[2022-10-15] MEDS: Pantoprazole 40 MG TABCR PO (07:37)
[2022-10-15] MEDS: hydrALAZINE 25 MG TAB PO (07:37)
[2022-10-15] MEDS: Dexamethasone 4 MG TAB PO (07:37)
[2022-10-15] MEDS: Lactobacillus Acidophilus CAP 1 CAP PO (07:37)
[2022-10-15] MEDS: Timolol 0.5% 5 ML BTL OU (07:39)
[2022-10-15] MEDS: Polyethylene Glycol 3350 17 GM PACKET PO (07:47)
--- NOTE | 2022-10-15 10:59 | PT.INTREAT ---
Date of service: 10/15/22 Time of Service: 08:30 PT Notes Visit Reasons: Chronic Right Hip Pain,S/P Right MADDIE Inpatient Physical Therapy Treatment Note [facility] Date: 10/15/2022 PRECAUTIONS: WBAT R, Activity as tolerated SUBJECTIVE: Tawnya is pleasant and agreeable to participating in PT. She reports that she is feeling good and does not have pain. She feels ready to return to home later today. OBJECTIVE: PAIN: Patient c/o burning along anterior thigh with gait training BED MOBILITY/TRANSFERS Supine-sit: I with HOB flat Sit-supine: I with HOB flat Sit-stand: I Stand-sit: I Bed-Chair: I Chair-bed: I GAIT Assistive Device: FWW Weight bearing: WBAT R Assist: S Distance: 300' Deviation: Slightly antalgic gait THEREX: Patient was instructed in a LE strengthening program, completed in a seated position, to include: ankle pumps, LAQ, hip flexion and hip abduction. STAIRS: Up/down 6x4 and 4x6 using B rails and a step-to pattern with supervision ASSESSMENT: Patient tolerated session well, although with minimal complaint of burning in anterior thigh with gait training. She demonstrates independence with all bed mobility and transfers at this time. PLAN: Patient to discharge to home later today, per provider. Recommend follow up with outpatient PT, per surgeon's recommendations. TREATMENT CODE/TIME: 30 minutes; [id number], [id number] (08:30)
--- NOTE | 2022-10-16 16:42 | PT.INDS ---
Date of service: 10/15/22 PT Notes Visit Reasons: Chronic Right Hip Pain,S/P Right MADDIE Physical Therapy Inpatient Discharge Summary Date: 10/15/2022 Dates of service: 10/14/2022 through 10/15/2022 This is a clinical summary of care provided for the duration of dates listed above. No charge was made in the completion of this documentation. Referring Doctor: NITISH Gresham PT Orders: PT CONSULT: S/P Ortho surgery Precautions: Fall. Standard.? WBAT on left LE with AD. Patient Profile/Admitting Diagnosis:?? Macy Mccurdy is a 72-year-old female with chronic painful right hip from right MADDIE 14 years ago.? Patient is status post R partial hip arthroplasty with acetabular revision with a dual mobility component utilizing anterior approach on postoperative day 0. PMHX: Medical History?(Updated 09/29/22 @ 14:31 by Yoli Braswell) Abn find-abdominal area Abnormal laboratory test Anemia Arm pain, left Barretts esophagus Bilateral hearing loss Carotid artery stenosis Cellulitis Depression Disturbance of skin sensation Femoral neuropathy of right lower extremity Head congestion History of anemia History of post traumatic stress disorder History of tobacco use Hx of abnormal mammogram Hyperlipidemia Hypertension IBS (irritable bowel syndrome) Low back pain Lumbar radiculopathy Mixed hyperlipidemia Osteoarthritis Osteoarthritis of hip Pain in right hip Pain of left calf Pain of left sacroiliac joint Partial obstruction of small intestine Partial small bowel obstruction PTSD (post-traumatic stress disorder) PVD (peripheral vascular disease) RUQ pain Scapulalgia Screening for HPV (human papillomavirus) Shoulder pain, left Sleep apnea CPAPSuperior mesenteric artery syndrome Synovial cyst Toe pain, left Unresolved grief Vertigo Surgical History?(Updated 09/29/22 @ 14:31 by Yoli Braswell) History of appendectomy History of cholecystectomy History of colonoscopy (~05/14/21) History of common carotid artery stent placement On the right carotid - [place] [facility] [place] - no complications History of esophagogastroduodenoscopy (EGD) (~05/14/21) History of exploratory laparotomy (2012) SBO due to adhesions [facility] then had abscess and repeat surgery [place] [facility] History of hysterectomy (1998) Followed by bladder mesh in 2011 History of total left hip arthroplasty History of total right hip replacement (2008) History of ventral hernia repair Status post carpal tunnel release of both wrists 1999 2002 Social History/Home Situation:? Lives with in a private home with 4 steps to enter with rails on both sides.? There is a flight of steps to the bedroom.? Patient had manage level surface indoor ambulation without an assistive device but had been hurting in the left hip prior to surgery.? Equipment Owned/DME: FWW Subjective: NT. See most recent [employer] MACHINE OPERATOR HELPER notes. Objective: General Observation: NT. See most recent [employer]ACHINE OPERATOR HELPER notes. Mental Status: NT. See most recent [employer] BL[employer] MACHINE OPERATOR HELPER notes. Pain: NT. See most recent [employer] BL[employer] MACHINE OPERATOR HELPER notes. Vital Signs: NT. See most recent [employer] BL[employer] MACHINE OPERATOR HELPER notes. ROM: Right Lower Extremity: Hip flexion lacks the last 25% of AROM with discomfort at end of range. Hip abduction WFL. Knee flexion WFL. Ankle dorsiflexion WFL.? Ankle plantarflexion WFL. Left Lower Extremity: Hip flexion WFL. Hip abduction WFL. Knee flexion WFL. Ankle dorsiflexion WFL. Ankle plantarflexion WFL. Strength: Right Lower Extremity: Hip flexors 3-/5. Hip abductors 4-/5. Knee flexors 4-/5. Knee extensors 4-/5. Ankle dorsiflexors 5/5. Ankle plantarflexors 5/5. Left Lower Extremity: Hip flexors 5/5. Hip abductors 5/5. Knee flexors 5/5. Knee extensors 5/5. Ankle dorsiflexors 5/5. Ankle plantarflexors 5/5. BED MOBILITY/TRANSFERS? Supine-sit: I with HOB flat? Sit-supine: I with HOB flat ? Sit-stand: I? Stand-sit: I ? Bed-Chair: I ? Chair-bed: I ? GAIT? Assistive Device: FWW? Weight bearing: WBAT R Assist: S? Distance:? 300' ? Deviation: Slightly antalgic gait? Balance: Static Sitting: Normal Dynamic Sitting: Good Static Standing: Fair Dynamic Standing: Fair Special Tests: Mobility Limitations Standardized Measure [facility] AM-PAC 6 clicks Basic Mobility Inpatient Short Form: Raw Score: 19? CMS Score: 42% deficit? ? ? THERA EX: Supine quads sets x 5,? 5 sh Supine glutes sets x 5,? 5 sh Supine ankle pumps x 10 Seated B LAQs x 10 Seated ankle DF/PF x 10 Seated marches x 10 Assessment: R quadricep activation impaired resulting in initial R knee buckling but no LOB.? Needed to ensure that R knee is locked during R LE weight acceptance prior to L LE advancement to avoid buckling of R knee allowing up to 30 feet of ambulation with FWW. ? Patient presents with clinical signs and symptoms consistent with current/admitting diagnoses that have resulted to mobility limitations, gait instability, generalized weakness, and overall ADL decline as demonstrated by the following impairment level findings: 1.? Decreased strength to R anterior thigh muscle group 2.? Impaired sitting/standing balance 3.? Impaired activity tolerance ? Impairments are contributing to the following functional limitations: 1.? Difficulty with ambulation without assistive device 2.? Increased completion time for mobility ADL performance 3.? Increased risk for falls 4.? Difficulty with managing steps alone safely Goals: Goals X1 week 1. Supine-Sit independent MET 2. Sit-Supine independent MET 3. Sit-Stand independent MET 4. Stand-Sit independent with FWW MET 5. Bed-Chair independent with FWW MET 6. Chair-Bed independent with FWW MET 7. Independent gait on level surface with use of FWW for at least 300 feet without report of pain nor dyspnea NOT MET 8. Independent stair negotiation while holding onto B rails for at least 4 steps without report of pain nor dyspnea NOT MET 9. Independent with home exercise program MET 10. Good static and dynamic standing balance/tolerance NOT MET DISCHARGE RECOMMENDATIONS: [] ? Home with no services [] [] ? Home with services [specify] [X] ? Home with outpatient PT. Home when medically cleared by orthopedic surgeon.? Recommend doing outpatient PT services in order to optimize functional mobility outcomes and facilitate return to independent community ambulation without an assistive device. [] ? SNF for continued rehabilitation [] [] ? Intermediate Care [] [] ? SNF versus LTC based on ability to participate and progress [] TREATMENT CODE/TIME: AK Thank you for the opportunity to participate in the care of this patient. Linda Stoll PT, DPT, CLT [facility], [place]
== END 2022-10-15 11:40 | disposition home or self-care (01) | DRG 468 ==
LOC: PDS 08:58 → MS 10-15 07:42 → PDS 10-28 10:04
PROVIDERS: Admitting Provider Student in an Organized Health Care Education/Training Program; PCP Family Medicine; Visit Provider Student in an Organized Health Care Education/Training Program
PROC: 0SRA00A Replacement of Right Hip Joint, Acetabular Surface with Polyethylene Synthetic Substitute, Uncemented, Open Approach (ICD-10-PCS; CPT 27137; principal; 2022-10-14 11:45)
DX: T84.84XA Pain due to internal orthopedic prosthetic devices, implants and grafts, initial encounter (principal); I10 Essential (primary) hypertension; D64.9 Anemia, unspecified; I65.29 Occlusion and stenosis of unspecified carotid artery; F32.A Depression, unspecified; Z96.641 Presence of right artificial hip joint; M54.16 Radiculopathy, lumbar region; G89.29 Other chronic pain; K21.9 Gastro-esophageal reflux disease without esophagitis; M75.52 Bursitis of left shoulder; H90.3 Sensorineural hearing loss, bilateral; E78.5 Hyperlipidemia, unspecified; K58.9 Irritable bowel syndrome, unspecified; E78.2 Mixed hyperlipidemia; M47.816 Spondylosis without myelopathy or radiculopathy, lumbar region
CPT/HCPCS: 27137; 87635; 88305; 97110; 97162; 97530; 27134; 73501; J0690; J1100; J2370; J2405; J8540

== ENCOUNTER 2022-10-27 15:36 | Outpatient (CLI) | payer MEDICARE, BC, SELFPAY ==
--- NOTE | 2022-10-27 15:15 | DI.RAD_ITS ---
Exam(s) XR HIP RT AP LAT ONLY EXAM: XR HIP RT AP LAT ONLY CLINICAL HISTORY: 1ST POST OP S/P REVISION L MADDIE. TECHNIQUE: 2D digital imaging was performed. Two images were obtained. AP and lateral views were ob tained. COMPARISON: CR XR HIP RT AP LAT ONLY from 07/31/2022 FINDINGS: BONES: There are stable post operative changes present. No fracture or dislocation. JOINTS: The orthopedic hardware is in good position. No evidence of hardware loosening. SOFT TISSUE: Normal. IMPRESSION: Stable postoperative changes. DATA REPOSITORY: RADIATION DOSE DELIVERED:
== END 2022-10-27 15:37 | disposition home or self-care (01) ==
LOC: DIORS 15:36
PROVIDERS: PCP Family Medicine; Referring Provider Family Medicine; Visit Provider Student in an Organized Health Care Education/Training Program
DX: M25.551 Pain in right hip (principal); G89.29 Other chronic pain; Z96.641 Presence of right artificial hip joint; Z47.89 Encounter for other orthopedic aftercare
CPT/HCPCS: 73502

== ENCOUNTER 2022-11-12 02:58 | Outpatient (CLI) | payer MEDICARE, BC, SELFPAY ==
[2022-11-12 08:07] LABS: Anion Gap 8.4 mmol/L (3-11); BUN 53 mg/dL (7-18); CO2 26.6 mmol/L (21.0-32.0); CREATININE 1.6 mg/dL (0.55-1.02); Calcium 9.7 mg/dL (8.5-10.1); Calculated LDL 67 mg/dL (<100); Chloride 102 mmol/L (98-107); Cholesterol 192 mg/dL (<200); Estimated GFR 34.05 (mL/min/1.73m2); Glucose 110 mg/dL (74-106); HDL Cholesterol 100 mg/dL (40-60); Potassium 4.9 mmol/L (3.5-5.1); Sodium 137 mmol/L (136-145); Triglyceride 128 mg/dL (<150)
== END 2022-11-12 02:59 | disposition home or self-care (01) ==
PROVIDERS: PCP Family Medicine; Visit Provider Family Medicine
DX: K55.1 Chronic vascular disorders of intestine (principal); R10.13 Epigastric pain; I10 Essential (primary) hypertension; E78.2 Mixed hyperlipidemia
CPT/HCPCS: 36415; 80048; 80061

== ENCOUNTER 2022-11-17 15:54 | Emergency (ER) | payer MEDICARE, BC, SELFPAY ==
[2022-11-17] VITALS (7 sets, daily range): BP systolic 174–198; BP diastolic 55–98; PULSE 55–78; RESP 18; TEMP 37; O2SAT 97–99
--- NOTE | 2022-11-17 16:46 | W.ED.GENAD ---
Discharge Plan Disposition Patient Disposition: Home Discharge Details Clinical Impression: Creatinine elevation, Abnormal laboratory test Primary Care Provider: Rehana Cornejo V ED Provider: Betsy Way Home Meds and New Rx's Prescriptions: Continued pantoprazole [Protonix] 40 mg tablet,delayed release (DR/EC) 40 mg PO BID aspirin 81 mg tablet,delayed release (DR/EC) 81 mg PO BID Qty: 60 0RF No Action ascorbate calcium (vitamin C) 500 mg tablet 1 g PO DAILY selenium 200 mcg tablet 200 mcg PO DAILY vitamin B complex Tablet 1 tab PO DAILY vitamin E 200 unit capsule 400 unit PO DAILY biotin 5 mg tablet 5 mg PO DAILY cholecalciferol (vitamin D3) 125 mcg (5,000 unit) capsule 250 mcg PO DAILY latanoprost [Xalatan] 2.5 ML drops 1 drp Ophthalmic HS Probiotic 1 EACH capsule, sprinkle 1 ea PO DAILY resveratrol 250 mg capsule 1,200 mg PO DAILY hydralazine 25 mg tablet 25 mg PO TID Repatha SureClick 140 mg/mL pen injector 140 mg subcut Q2W polyethylene glycol 3350 [Miralax] 17 gram/dose Powder 17 g PO DAILY docusate sodium [Colace] 100 mg capsule 100 mg PO BID Qty: 30 0RF olmesartan 40 mg tablet 40 mg PO HS acetaminophen 500 mg tablet 1,000 mg PO Q8H PRN (Reason: pain) Qty: 90 3RF meloxicam 15 mg tablet 15 mg PO DAILY Qty: 30 0RF timolol maleate 0.5 % drops 1 drp Topical BID sucralfate 1 gram tablet 1 g PO TID Discharge Instructions Instructions: Dehydration (ED), Hyperkalemia (ED) Additional Instructions: Potassium level is 5.7, BUN 64 and 1.7. Hemoglobin is 10.2 and hematocrit 31.4 which is slightly low but not emergent. Please keep your primary care appointment tomorrow. Was trace leukocytes or white blood cells in your urine, however a culture is pending at this time. Follow up with primary care provider in1-2 days. Return to ED sooner if any blood in your stool, vomiting, dizziness, chest pain shortness of breath or concerns. Increase oral fluids. Referrals: Rehana Cornejo MD [Primary Care Provider] - 1 day Discharge Data Discharge Date/Time-TO BE ENTERED AT DEPARTURE: 11/17/22 19:37 Medical Decision Making 72-year-old female presents to the ER from PCP office after finding a low hemoglobin of 7.5 in the clinic today. She is 5 weeks post right hip replacement. She does have a history of Arriaga's esophagus, GERD hypertension diverticulosis. She reports that she has not had any nausea vomiting diarrhea. Denies any hematochezia or blood in her stool. No fever or chills. CBC, CMP PT, ordered we will consider CT chest abdomen if labs are abnormal. CBC shows hemoglobin of 10.1 hematocrit is 31.4, sodium 133 potassium 6.1 BUN 65 creatinine 1.8 GFR is 29.57, will repeat BMP and give 500 cc normal saline to verify potassium level. Discussed lab results with patient and family who verbalized understanding. Repeat BMP shows sodium 133 potassium 5.7 BUN 64 creatinine 1.7 which could indicate prerenal azotemia, discussed urinalysis results with trace leukocytes culture is pending at this time. Patient would rather wait for the culture results instead of beginning antibiotics at this time which I agree with. Patient was recently placed on meloxicam after the surgery and was taken off to repeat BUN/creatinine in a week see if this could be causing the elevation in renal function. Patient does have a PCP appointment in the morning. I did encourage her to keep that. We will give 500 cc normal saline bolus here prior to discharge. Guaiac stool will obtain which is negative. Discussed results and follow-up care with patient and she reports she does have a PCP appointment tomorrow I encouraged her to keep this. This text was generated using Blueboxation system, please disregard any oddities of phrase or misspellings. Medical Records Medical records reviewed: Yes I reviewed the patient's medical records. Lab Data Lab results reviewed: Yes I reviewed the patient's lab results. Labs: 11/17/22 18:00 Urine - Reflex from Ua Urine Culture - Preliminary Escherichia coli Laboratory Tests Range/Units 11/17/22 11/17/22 11/17/22 16:43 16:43 16:43 WBC (4.4-10.8) 10^3/uL 8.19 RBC (3.93-5.22) 10^6/uL 3.45 L Hgb (11.2-15.7) g/dL 10.2 L Hct (36.0-46.0) % 31.4 L MCV (80-95) fL 91 MCH (27.0-33.0) pg 29.6 MCHC (32.0-36.0) % 32.5 RDW (11.7-14.6) % 14.0 Plt Count (130-400) 10^3/uL 227 MPV (8.0-11.0) fL 10.7 Immature Gran % 0.4 Neutrophils % 55.6 Lymphocytes % 26.9 Monocytes % 10.9 Eosinophils % 5.7 Basophils % 0.5 Nucleated RBC % (0.0-0.3) % 0.0 Absolute Neutrophils (1.2-6.7) 10^3/uL 4.56 Absolute Lymphocytes (1.2-3.4) 10^3/uL 2.20 Absolute Monocytes (0.1-0.8) 10^3/uL 0.89 H Absolute Eosinophils (0.0-0.7) 10^3/uL 0.47 Absolute Basophils (0.0-0.2) 10^3/uL 0.04 PT Cancelled INR Cancelled Sodium Cancelled Potassium Cancelled Chloride Cancelled Carbon Dioxide Cancelled Anion Gap Cancelled BUN Cancelled Creatinine Cancelled Est GFR (CKD-EPI 2020) Cancelled Glucose Cancelled Calcium Cancelled Magnesium Cancelled Total Bilirubin Cancelled AST Cancelled ALT Cancelled Alkaline Phosphatase Cancelled Total Protein Cancelled Albumin Cancelled Urine Color (Yellow) Urine Clarity (Clear) Urine pH (5-8) Ur Specific Elton (1.005-1.025) Urine Protein (Negative) mg/dL Urine Ketones (Negative) mg/dL Urine Blood (Negative) Urine Nitrite (Negative) Urine Bilirubin (Negative) Urine Urobilinogen (Up to 0.2) mg/dL Ur Leukocyte Esterase (Negative) Urine RBC (0-2) HPF Urine WBC (0-5) HPF Ur Epithelial Cells (Negative) HPF Urine Crystals (Negative) HPF Urine Bacteria (Negative) HPF Urine Casts (Negative) LPF Urine Mucus (Negative) Ur Culture Indicated? Urine Glucose (Negative) mg/dL Range/Units 11/17/22 11/17/22 11/17/22 17:24 17:24 18:00 WBC (4.4-10.8) 10^3/uL RBC (3.93-5.22) 10^6/uL Hgb (11.2-15.7) g/dL Hct (36.0-46.0) % MCV (80-95) fL MCH (27.0-33.0) pg MCHC (32.0-36.0) % RDW (11.7-14.6) % Plt Count (130-400) 10^3/uL MPV (8.0-11.0) fL Immature Gran % Neutrophils % Lymphocytes % Monocytes % Eosinophils % Basophils % Nucleated RBC % (0.0-0.3) % Absolute Neutrophils (1.2-6.7) 10^3/uL Absolute Lymphocytes (1.2-3.4) 10^3/uL Absolute Monocytes (0.1-0.8) 10^3/uL Absolute Eosinophils (0.0-0.7) 10^3/uL Absolute Basophils (0.0-0.2) 10^3/uL PT 9.0 L INR 0.9 Sodium 133 L Potassium 6.1 H* Chloride 102 Carbon Dioxide 22.6 Anion Gap 8.4 BUN 65 H Creatinine 1.8 H Est GFR (CKD-EPI 2020) 29.57 Glucose 101 Calcium 8.8 Magnesium 1.8 Total Bilirubin 0.3 AST 20 ALT 19 Alkaline Phosphatase 111 Total Protein 6.7 Albumin 3.4 Urine Color (Yellow) Yellow Urine Clarity (Clear) Clear Urine pH (5-8) 6.0 Ur Specific Elton (1.005-1.025) 1.010 Urine Protein (Negative) mg/dL Negative Urine Ketones (Negative) mg/dL Negative Urine Blood (Negative) Negative Urine Nitrite (Negative) Negative Urine Bilirubin (Negative) Negative Urine Urobilinogen (Up to 0.2) mg/dL 0.2 Ur Leukocyte Esterase (Negative) Trace H Urine RBC (0-2) HPF Negative Urine WBC (0-5) HPF 3-5 Ur Epithelial Cells (Negative) HPF Rare Urine Crystals (Negative) HPF Negative Urine Bacteria (Negative) HPF Moderate Urine Casts (Negative) LPF 0-2 Hyaline Urine Mucus (Negative) Negative Ur Culture Indicated? Yes Urine Glucose (Negative) mg/dL Negative Range/Units 11/17/22 18:05 WBC (4.4-10.8) 10^3/uL RBC (3.93-5.22) 10^6/uL Hgb (11.2-15.7) g/dL Hct (36.0-46.0) % MCV (80-95) fL MCH (27.0-33.0) pg MCHC (32.0-36.0) % RDW (11.7-14.6) % Plt Count (130-400) 10^3/uL MPV (8.0-11.0) fL Immature Gran % Neutrophils % Lymphocytes % Monocytes % Eosinophils % Basophils % Nucleated RBC % (0.0-0.3) % Absolute Neutrophils (1.2-6.7) 10^3/uL Absolute Lymphocytes (1.2-3.4) 10^3/uL Absolute Monocytes (0.1-0.8) 10^3/uL Absolute Eosinophils (0.0-0.7) 10^3/uL Absolute Basophils (0.0-0.2) 10^3/uL PT INR Sodium 133 L Potassium 5.7 H Chloride 102 Carbon Dioxide 22.4 Anion Gap 8.6 BUN 64 H Creatinine 1.7 H Est GFR (CKD-EPI 2020) 31.66 Glucose 105 Calcium 8.9 Magnesium Total Bilirubin AST ALT Alkaline Phosphatase Total Protein Albumin Urine Color (Yellow) Urine Clarity (Clear) Urine pH (5-8) Ur Specific Elton (1.005-1.025) Urine Protein (Negative) mg/dL Urine Ketones (Negative) mg/dL Urine Blood (Negative) Urine Nitrite (Negative) Urine Bilirubin (Negative) Urine Urobilinogen (Up to 0.2) mg/dL Ur Leukocyte Esterase (Negative) Urine RBC (0-2) HPF Urine WBC (0-5) HPF Ur Epithelial Cells (Negative) HPF Urine Crystals (Negative) HPF Urine Bacteria (Negative) HPF Urine Casts (Negative) LPF Urine Mucus (Negative) Ur Culture Indicated? Urine Glucose (Negative) mg/dL HPI General Mode of arrival: ambulatory. Date/Time Provider Initiated Documentation: 11/17/22 15:59. Limitations to Documentation: no limitations. Information obtained by: patient, RN notes reviewed and old records reviewed. HPI Narrative: 72-year-old female presents to the ER from PCP office after finding a low hemoglobin of 7.5 in the clinic today. She is 5 weeks post right hip replacement. She does have a history of Arriaga's esophagus, GERD hypertension diverticulosis. She reports that she has not had any nausea vomiting diarrhea. Denies any hematochezia or blood in her stool. No fever or chills. Related Data Home Medications Medication Instructions Recorded Confirmed latanoprost 0.005 % eye drops 1 drp ophthalmic (eye) HS 10/19/14 11/17/22 (Xalatan) lactobacillus combo no.11 15 1 ea PO DAILY 11/05/17 11/17/22 billion cell sprinkle capsule (Probiotic) biotin 5 mg tablet 5 mg PO DAILY 04/03/20 11/17/22 timolol maleate 0.5 % eye drops 1 drp topical BID 04/03/20 11/17/22 vitamin B complex 1 tab PO DAILY 04/03/20 11/17/22 vitamin E 200 unit capsule 400 unit PO DAILY 04/03/20 11/17/22 cholecalciferol (vitamin D3) 125 250 mcg PO DAILY 08/22/20 11/17/22 mcg (5,000 unit) capsule polyethylene glycol 3350 17 17 g PO DAILY 12/06/20 11/17/22 gram/dose oral powder (Miralax) evolocumab 140 mg/mL subcutaneous 140 mg subcut Q2W 05/14/22 11/17/22 pen injector (Allen Silva) hydralazine 25 mg tablet 25 mg PO TID 05/14/22 11/17/22 resveratrol 250 mg capsule 1,200 mg PO DAILY 05/14/22 11/17/22 ascorbate calcium (vitamin C) 500 1 g PO DAILY 09/05/22 11/17/22 mg tablet selenium 200 mcg tablet 200 mcg PO DAILY 09/05/22 11/17/22 pantoprazole 40 mg tablet,delayed 40 mg PO BID 09/16/22 11/17/22 release (Protonix) docusate sodium 100 mg capsule 100 mg PO BID #30 caps 10/14/22 11/17/22 (Colace) olmesartan 40 mg tablet 40 mg PO HS 10/14/22 11/17/22 acetaminophen 500 mg tablet 1,000 mg PO Q8H PRN pain #90 tabs 10/15/22 11/17/22 aspirin 81 mg tablet,delayed 81 mg PO BID #60 tabs 10/15/22 11/17/22 release meloxicam 15 mg tablet 15 mg PO DAILY #30 tabs 10/15/22 11/17/22 sucralfate 1 gram tablet 1 g PO TID 11/17/22 11/17/22 Previous Rx's Medication Instructions Recorded docusate sodium 100 mg capsule 100 mg PO BID #30 caps 10/14/22 (Colace) acetaminophen 500 mg tablet 1,000 mg PO Q8H PRN pain #90 tabs 10/15/22 aspirin 81 mg tablet,delayed 81 mg PO BID #60 tabs 10/15/22 release meloxicam 15 mg tablet 15 mg PO DAILY #30 tabs 10/15/22 Allergies Allergy/AdvReac Type Severity Reaction Status Date / Time Calcium Channel Blocking Allergy Severe Anaphylaxis Verified 10/27/22 15:20 Agent Dilt furosemide Allergy Severe SOB and Unverified 10/27/22 15:20 severe muscle pain Sulfa (Sulfonamide Allergy Severe Anaphylaxsi Unverified 10/27/22 15:20 Antibiotics) s morphine Allergy Mild hives Unverified 10/27/22 15:20 brompheniramine maleate Allergy Unknown Anaphylaxsi Unverified 10/27/22 15:20 [From Drixoral] s dexbrompheniramine maleate Allergy Unknown Anaphylaxsi Unverified 10/27/22 15:20 [From Drixoral] s pseudoephedrine HCl Allergy Unknown Anaphylaxsi Unverified 10/27/22 15:20 [From Drixoral] s VINCENZO Inhibitors AdvReac Severe severe Unverified 10/27/22 15:20 muscle fatigue [id number]-[id number]-IqK Reductase AdvReac Severe Severe Unverified 10/27/22 15:20 Inhibitor muscle [Jwlanbp-Miz-Ytp Reductase aches/ankle Inhibitor] & foot swelling hydrochlorothiazide AdvReac Intermediate Doesn't Unverified 10/27/22 15:20 tolerate pravastatin AdvReac Unknown fatigue, Verified 10/27/22 15:20 muscle pain Furosemide Allergy Unknown Other (See Uncoded 10/27/22 15:20 Comment) General Stated Complaint: GenMedical JULIO C: 3 Review of Systems All systems reviewed & are unremarkable except as noted in HPI and below Constitutional Constitutional: Reports fatigue Cardiovascular Cardiovascular: Denies chest pain and Denies dyspnea Respiratory Respiratory: Denies dyspnea Gastrointestinal Gastrointestinal: Denies abdominal pain, Denies melena, Denies bloating, Denies hematochezia, Denies change in bowel habits, Denies diarrhea, Denies nausea and Denies vomiting Musculoskeletal Musculoskeletal: Reports as per HPI and Reports other (Recent hip replacement) Endocrine Endocrine: Reports fatigue PFSH All Active Problems (Updated 11/17/22 @ 18:[address] NP) Creatinine elevation (Acute) Abnormal laboratory test (Acute) Spondylosis of lumbar region without myelopathy or radiculopathy (Chronic) Lumbar radiculitis (Acute) Atypical chest pain (Acute) Elevated liver function tests (Acute) Hypertension (Chronic) Chronic GERD (Acute) History of Arriaga's esophagus (Acute) Sensorineural hearing loss of combined sites, bilateral (Acute 01/28/16) fit with b/l bte phonak audeo [id number] ann-marie 02/08/16 [place] Dizziness (Acute) Abnormal auditory perception of both ears (Acute 01/28/16) Left rotator cuff tear (Acute ~12/2018) Tendinitis of long head of biceps brachii of left shoulder (Acute) Bursitis of left shoulder (Acute) Abnormal CT of the abdomen (Acute) Diverticular disease of left colon (Acute) minimal Chronic hip pain after total replacement of right hip joint (Acute) Pain in hip region after total hip replacement (Acute) Medical History Abn find-abdominal area Abnormal laboratory test Anemia Arm pain, left Barretts esophagus Bilateral hearing loss Carotid artery stenosis Cellulitis Depression Disturbance of skin sensation Femoral neuropathy of right lower extremity Head congestion History of anemia History of post traumatic stress disorder History of tobacco use Hx of abnormal mammogram Hx of fracture of ankle right Hyperlipidemia Hypertension IBS (irritable bowel syndrome) Low back pain Lumbar radiculopathy Mixed hyperlipidemia Osteoarthritis Osteoarthritis of hip Pain in right hip Pain of left calf Pain of left sacroiliac joint Partial obstruction of small intestine Partial small bowel obstruction PTSD (post-traumatic stress disorder) PVD (peripheral vascular disease) RUQ pain Scapulalgia Screening for HPV (human papillomavirus) Shoulder pain, left Sleep apnea CPAP Superior mesenteric artery syndrome Synovial cyst Toe pain, left Unresolved grief Vertigo Surgical History History of appendectomy History of cholecystectomy History of colonoscopy (~05/14/21) History of common carotid artery stent placement On the right carotid - 2006 [facility] [place] Follows yearly - no complications History of esophagogastroduodenoscopy (EGD) (~05/14/21) History of exploratory laparotomy (2012) SBO due to adhesions NC then had abscess and repeat surgery at [facility] [place] History of hysterectomy (1998) Followed by bladder mesh in 2011 History of total left hip arthroplasty History of total right hip replacement (2008) 10/14/22--S/P REVISION ACETABLUAR COMPONENT History of ventral hernia repair Status post carpal tunnel release of both wrists 1999 2002 Social History Smoking/Tobacco Use Status: Former Tobacco Use Quit Date: 07/20/76 Smoking risk assessment performed?: Yes Alcohol Intake: never Drug use: Never Substance use type: does not use Current gender identity: female Do you feel safe at home: Yes Do you feel safe in your relationship?: Yes Exam Narrative Exam Narrative: Constitutional: Alert and oriented x3. Appears stated age. Normal body habitus. Head: Normocephalic, no trauma. Eyes: Pupils PERRL, Red reflex noted, EOM's intact. Eyelids symmetrical without lesions, discharge, or swelling. ENT: Bilateral TM's WNL, External ear normal to inspection, no mastoid TTP, swelling, or erythema, Nasal turbinates WNL, no nasal discharge. Normal dentition, Posterior pharynx WNL, no exudate. Chest: RRR, Normal S1, S2, distal pulses intact. Resp: Lungs clear to auscultation bilaterally, no wheezes, rales, or rhonchi. Abdomen: Soft, non-distended, Normoactive bowel sounds all 4 quads. Musculoskeletal: Normal gait, 5/5 strength to all four extremities. Skin: No suspicious rashes or lesions. Capillary refill less than 2 sec. Neurologic: Cranial nerves II-XII intact. Alert and oriented x 3. Motor: No deficits noted. Sensory: Intact bilaterally all 4 extremities. Reflexes: DTR's intact bilaterally.. Hematologic/Lymphatic: No ecchymosis, no lymphadenopathy. Course Vital Signs Vital signs: Vital Signs Temperature 37.0 C 11/17/22 16:09 Pulse 78 11/17/22 16:09 Respiratory Rate 18 11/17/22 16:09 Blood Pressure 180/98 H 11/17/22 16:09 Pulse Oximetry 99 11/17/22 16:09 Temperature 37.0 C 11/17/22 16:09 Temperature Source Temporal Artery Scan 11/17/22 16:09 Pulse 78 11/17/22 16:09 Respiratory Rate 18 11/17/22 16:09 Respiratory Effort Normal, Non-Labored 11/17/22 16:14 Blood Pressure 180/98 H 11/17/22 16:09 Blood Pressure Position Sitting 11/17/22 16:09 Pulse Oximetry 99 11/17/22 16:09 Oxygen Delivery Method Room Air 11/17/22 16:09 Oxygen Flow Rate 0 11/17/22 16:09 Pain Level 0 11/17/22 16:09 Procedures Stool Hemoccult Procedural Steps Taken: stool placed in appropriate test area, developer placed on stool and control areas and controls appropriately positive and negative Hemoccult result: negative
[2022-11-17 17:02] LABS: Abs Immature Grans 0.03 10^3/uL (0.0-0.06); Absolute Basophil Count 0.04 10^3/uL (0.0-0.2); Absolute Eosinophil Count 0.47 10^3/uL (0.0-0.7); Absolute Monocyte Count 0.89 10^3/uL (0.1-0.8); Absolute Neutrophil Count 4.56 10^3/uL (1.2-6.7); Basophils % 0.5; Eosinophils % 5.7; HCT 31.4 % (36.0-46.0); HGB 10.2 g/dL (11.2-15.7); Immature Grans % 0.4; Lymphocytes % 26.9; MCH 29.6 pg (27.0-33.0); MCHC 32.5 % (32.0-36.0); MCV 91 fL (80-95); MPV 10.7 fL (8.0-11.0); Monocytes % 10.9; Neutrophils % 55.6; Platelet Count 227 10^3/uL (130-400); RBC 3.45 10^6/uL (3.93-5.22); RDW-SD 46.8 fL; WBC 8.19 10^3/uL (4.4-10.8)
[2022-11-17 17:45] LABS: INR 0.9 (0.9-1.1)
[2022-11-17 17:50] LABS: ALT 19 U/L (14-59); AST 20 U/L (15-37); Albumin 3.4 g/dL (3.4-5.0); Alkaline Phosphatase 111 U/L (46-116); Anion Gap 8.4 mmol/L (3-11); BUN 65 mg/dL (7-18); Bilirubin, Total 0.3 mg/dL (0.2-1.0); CO2 22.6 mmol/L (21.0-32.0); CREATININE 1.8 mg/dL (0.55-1.02); Calcium 8.8 mg/dL (8.5-10.1); Chloride 102 mmol/L (98-107); Estimated GFR 29.57 (mL/min/1.73m2); Glucose 101 mg/dL (74-106); Magnesium 1.8 mg/dL (1.8-2.4); Sodium 133 mmol/L (136-145); Total Protein 6.7 g/dL (6.4-8.2)
[2022-11-17 17:54] LABS: Potassium 6.1 mmol/L (3.5-5.1)
[2022-11-17 18:11] LABS: Bilirubin Negative (Negative); Blood Negative (Negative); Clarity Clear (Clear); Glucose Negative (Negative); Ketones Negative (Negative); Leukocyte Esterase Trace (Negative); Nitrite Negative (Negative); Urobilinogen 0.2 mg/dL (Up to 0.2)
[2022-11-17 18:19] LABS: Anion Gap 8.6 mmol/L (3-11); BUN 64 mg/dL (7-18); CO2 22.4 mmol/L (21.0-32.0); CREATININE 1.7 mg/dL (0.55-1.02); Calcium 8.9 mg/dL (8.5-10.1); Chloride 102 mmol/L (98-107); Estimated GFR 31.66 (mL/min/1.73m2); Glucose 105 mg/dL (74-106); Potassium 5.7 mmol/L (3.5-5.1); Sodium 133 mmol/L (136-145)
[2022-11-17 18:23] LABS: Bacteria Moderate HPF (Negative); C & S Indicated? Yes; Casts 0-2 Hyaline LPF (Negative); Crystals Negative HPF (Negative); Epithelial Cells Rare HPF (Negative); Mucus Negative (Negative); RBC Negative HPF (0-2)
[2022-11-17] MEDS: Normal Saline 500 ML IV (18:36)
== END 2022-11-17 19:37 | disposition home or self-care (01) ==
PROVIDERS: Emergency Provider Registered Nurse Emergency; PCP Family Medicine
DX: R79.89 Other specified abnormal findings of blood chemistry (principal); I10 Essential (primary) hypertension; Z96.641 Presence of right artificial hip joint; N39.0 Urinary tract infection, site not specified; B96.20 Unspecified Escherichia coli [E. coli] as the cause of diseases classified elsewhere
CPT/HCPCS: 36415; 80048; 80053; 87077; 96360; 99283; 81003; 81015; 83735; 85025; 85610; 87086; 87186

== ENCOUNTER 2022-11-24 03:12 | Outpatient (CLI) | payer MEDICARE, BC, SELFPAY ==
[2022-11-24 14:10] LABS: Abs Immature Grans 0.03 10^3/uL (0.0-0.06); Absolute Basophil Count 0.05 10^3/uL (0.0-0.2); Absolute Eosinophil Count 0.35 10^3/uL (0.0-0.7); Absolute Lymphocyte Count 2.06 10^3/uL (1.2-3.4); Absolute Monocyte Count 0.81 10^3/uL (0.1-0.8); Absolute Neutrophil Count 4.93 10^3/uL (1.2-6.7); Basophils % 0.6; Eosinophils % 4.3; HCT 30.5 % (36.0-46.0); HGB 9.7 g/dL (11.2-15.7); Immature Grans % 0.4; MCH 28.9 pg (27.0-33.0); MCHC 31.8 % (32.0-36.0); MCV 91 fL (80-95); MPV 8.8 fL (8.0-11.0); Monocytes % 9.8; Neutrophils % 59.9; Platelet Count 262 10^3/uL (130-400); RBC 3.36 10^6/uL (3.93-5.22); RDW 13.8 % (11.7-14.6); RDW-SD 45.8 fL; WBC 8.23 10^3/uL (4.4-10.8)
[2022-11-24 15:02] LABS: Iron 53 ug/dL (50-170); Total Iron Binding Capacity 302 ug/dL (250-450); Transferrin Sat 18 % (15-50)
[2022-11-24 15:22] LABS: Anion Gap 9.3 mmol/L (3-11); BUN 35 mg/dL (7-18); CO2 24.7 mmol/L (21.0-32.0); CREATININE 1.4 mg/dL (0.55-1.02); Calcium 9.2 mg/dL (8.5-10.1); Chloride 96 mmol/L (98-107); Estimated GFR 39.97 (mL/min/1.73m2); Ferritin 296 ng/mL (8-252); Glucose 95 mg/dL (74-106); Sodium 130 mmol/L (136-145)
== END 2022-11-24 03:13 | disposition home or self-care (01) ==
PROVIDERS: PCP Family Medicine; Visit Provider Physician Assistant Medical
DX: D64.9 Anemia, unspecified (principal); R79.89 Other specified abnormal findings of blood chemistry
CPT/HCPCS: 36415; 80048; 82728; 83540; 83550; 85025

== ENCOUNTER 2022-12-08 02:14 | Outpatient (CLI) | payer MEDICARE, BC, SELFPAY ==
[2022-12-08 12:23] LABS: HCT 33.4 % (36.0-46.0); HGB 10.4 g/dL (11.2-15.7); MCH 28.7 pg (27.0-33.0); MCHC 31.1 % (32.0-36.0); MCV 92 fL (80-95); MPV 8.6 fL (8.0-11.0); Platelet Count 281 10^3/uL (130-400); RBC 3.63 10^6/uL (3.93-5.22); RDW-SD 47.6 fL; WBC 9.01 10^3/uL (4.4-10.8)
[2022-12-08 13:44] LABS: Anion Gap 9.3 mmol/L (3-11); BUN 33 mg/dL (7-18); CO2 24.7 mmol/L (21.0-32.0); Chloride 95 mmol/L (98-107); Estimated GFR 59.86 (mL/min/1.73m2); Glucose 106 mg/dL (74-106); Sodium 129 mmol/L (136-145)
== END 2022-12-08 02:15 | disposition home or self-care (01) ==
PROVIDERS: PCP Family Medicine; Visit Provider Physician Assistant Medical
DX: D64.9 Anemia, unspecified (principal); R79.89 Other specified abnormal findings of blood chemistry
CPT/HCPCS: 36415; 80048; 85027

== ENCOUNTER 2022-12-26 01:14 | Outpatient (CLI) | payer MEDICARE, BC, SELFPAY ==
[2022-12-26 13:25] LABS: Anion Gap 8.9 mmol/L (3-11); BUN 25 mg/dL (7-18); CO2 27.1 mmol/L (21.0-32.0); CREATININE 0.9 mg/dL (0.55-1.02); Calcium 9.4 mg/dL (8.5-10.1); Chloride 97 mmol/L (98-107); Estimated GFR 67.92 (mL/min/1.73m2); Glucose 106 mg/dL (74-106); Potassium 5.1 mmol/L (3.5-5.1); Sodium 133 mmol/L (136-145)
== END 2022-12-26 01:15 | disposition home or self-care (01) ==
PROVIDERS: PCP Family Medicine; Visit Provider Physician Assistant Medical
DX: E87.1 Hypo-osmolality and hyponatremia (principal); R79.89 Other specified abnormal findings of blood chemistry; I10 Essential (primary) hypertension
CPT/HCPCS: 36415; 80048

== ENCOUNTER 2023-01-01 15:02 | Outpatient (CLI) | payer MEDICARE, BC, SELFPAY ==
--- NOTE | 2023-01-01 06:00 | DI.RAD_ITS ---
Exam(s) XR PAIN CLINIC LUMBAR SP 2V EXAM: XR PAIN CLINIC LUMBAR SP 2V CLINICAL HISTORY: Dx: Lumbar Spondylosis TECHNIQUE: 2D and realtime digital imaging was performed. Radiologist not present. CONTRAST MATERIAL: None. COMPARISON: No exams were available for comparison FINDINGS: Fluoroscopy was provided for pain management therapy. Please refer to procedure report or details. Radiation Exposure Index: Ka,r=7.09 mGy IMPRESSION: As above. RADIATION DOSE DELIVERED:
[2023-01-01 15:23] VITALS: BP 127/58; PULSE 76; RESP 20; TEMP 36.5; O2SAT 98
--- NOTE | 2023-01-01 15:59 | PDOC.PAIN ---
Date of service: 01/01/23 Time of Service: 15:59 Pain Managment Procedure Note Procedure Note Procedure Note: Lumbar/Sacral Medial Branch Blocks Macy Mccurdy has been referred to the [facility] Management [facility] for lumbar/sacral medial branch blocks. COMMENTS: I previously evaluated her in the office. Pre-procedure pain VAS was 7/10. Dx: Lumbosacral spondylosis without myelopathy Patient was interviewed and the medical record reviewed. There were no medical, pharmacologic, radiographic or other structural contraindications to attempting fluoroscopically guided local anesthetic lumbar/sacral medial branch blocks. Risks and expected side effects as well as potential benefit of the procedure were reviewed and voiced concerns addressed. The printed consent form was signed and witnessed. Standard time-out procedure was performed. Patient was placed in the prone position on the fluoroscopy table and automated blood pressure cuff and pulse oximeter applied. The skin entry points for approaching the anatomic target points of the segmental medial branches of the left L2-L5 were identified with fluoroscopy and marked. Following thorough Chlorhexadine preparation of the skin and draping, a 25 gauge 3.5 spinal needle was placed under fluoroscopic guidance down on to the target point for each respective segmental medial branch. Position was confirmed in A/P, oblique and lateral views with 0.25ml of omnipaque 240. At this point I injected 0.5ml of 0.5% Bupivacaine at each segmental sensory nerve. Vital signs were stable throughout the procedure and were as recorded in the docflowsheet by the nursing staff. Follow up plans and appointments were discussed and was instructed to keep careful note of how the usual pain was modified by these injections. Specifically was asked to keep a pain diary for the next 24 hours using a numeric pain scale of 0-10 and report these results at the follow-up visit. Post procedure instruction was given as documented in the nursing documentation and having met discharge criteria. Patient was discharged from the Pain Management Center. Based on the medial branches blocked today, if the patient has adequate relief and we are able to proceed to radiofrequency ablation, the treatment should result in the denervation of the left L3-L4, L4-L5 and L5-S1 FACET JOINTS. We would expect to denervate a total of 3 facets during the radiofrequency ablation. COMMENTS: Post-procedure pain VAS was 0/10. Joseph Evans DO, MPH [facility]-Pain Management [facility] for [facility] CC: Rehana Cornejo V
[2023-01-01 16:05] VITALS: BP 157/58; PULSE 69; RESP 21; O2SAT 99
[2023-01-01] MEDS: Omnipaque 240 MG/ML 50 ML BTL IJ (16:08)
[2023-01-01] MEDS: Bupivacaine 0.5% Pres-Free 10 ML VIAL IJ (16:09)
== END 2023-01-01 15:03 | disposition home or self-care (01) ==
LOC: PC 15:15
PROVIDERS: PCP Family Medicine; Visit Provider Preventive Medicine Occupational Medicine
DX: M47.817 Spondylosis without myelopathy or radiculopathy, lumbosacral region (principal); M54.50 Low back pain, unspecified
CPT/HCPCS: 64493; 64494; 64495; 72100; Q9967

== ENCOUNTER → 2023-01-05 10:46 | Outpatient (BNVA) | payer MEDICARE, BC, SELFPAY | PROVIDERS: PCP Family Medicine; Referring Provider Family Medicine | DX: Z47.1 Aftercare following joint replacement surgery (principal); Z96.641 Presence of right artificial hip joint ==

== ENCOUNTER 2023-01-21 12:16 | Outpatient (CLI) | payer MEDICARE, BC, SELFPAY ==
--- NOTE | 2023-01-21 07:00 | DI.RAD_ITS ---
Exam(s) XR PAIN CLINIC LUMBAR SP 2V EXAM: XR PAIN CLINIC LUMBAR SP 2V CLINICAL HISTORY: Dx: Lumbar Spondylosis. TECHNIQUE: Fluoroscopy was provided for the referring physician for guidance with performing pain cl inic injection procedure. COMPARISON: No exams were available for comparison FINDINGS: Please see procedure note for details. Fluoro time: 45.1 seconds RADIATION DOSE DELIVERED: tana Nam=7.83 mGy
[2023-01-21 12:37] VITALS: BP 131/65; PULSE 64; RESP 20; TEMP 36.4; O2SAT 100
[2023-01-21 13:08] VITALS: BP 156/60; PULSE 71; RESP 20; O2SAT 98
[2023-01-21] MEDS: Bupivacaine 0.5% Pres-Free 10 ML VIAL IJ (13:14)
[2023-01-21] MEDS: Omnipaque 240 MG/ML 50 ML BTL IJ (13:20)
--- NOTE | 2023-01-21 13:50 | PDOC.PAIN ---
Date of service: 01/21/23 Time of Service: 13:00 Pain Managment Procedure Note Procedure Note Procedure Note: PROCEDURE NOTE Left Lumbar Medial Branch Blocks Date of Service: January 21, 2023 Patient: Macy Mccurdy Provider: Basil Evans DO, MPH Macyrosita Mccurdy has been [facility] to the [facility] for lumbar medial branch blocks. Pre-operative diagnosis: Lumbar Spondylosis without Myelopathy Post-operative diagnosis: Same Pre-procedure pain: VAS= 7/10 COMMENTS: She did exceedingly well with her left L2-L5 LMBBs on 01/01/23. Macy? was interviewed and the medical records were reviewed. There were no medical, pharmacologic, radiographic or other structural contraindications to attempting fluoroscopically guided local anesthetic lumbar medial branch blocks. Risks and potential side effects were discussed. I also discussed the potential benefit(s) of the procedure with Macy, and voiced concerns were addressed. After Macy was completely informed about the procedure, the printed consent form was signed. A standard time-out procedure was performed. Macy was placed in the prone position on the fluoroscopy table. Automated blood pressure cuff and pulse oximeter were applied. The skin entry points for approaching the anatomic target points of the segmental medial branches of left L2,L3,L4,L5 were identified with fluoroscopy and marked. The skin at the target site area was thoroughly prepared with Chlorhexadine. The skin was then draped. Next, a 25 gauge 3.5 spinal needle was placed under fluoroscopic guidance down on to the target point (the articular pillar) for each respective segmental medial branch. Position was confirmed in A/P and lateral views. Aspiration revealed no blood or clear fluid. Next, 0.25ml of omnipaque 240 was injected at each level. No contrast following a vascular or neural pattern was visualized under continuous fluoroscopy. Next, 0.25 ml of preservative-free 0.5% bupivicaine was injected at each level. There was no unusual discomfort expressed by Macy. The needles were withdrawn without difficulty. (49 mls of Omnipaque was wasted) Macy was observed and was without hemodynamic, neurologic, or allergic reactions.? Fluoroscopic images were digitally archived. Any improved physical functioning directly after the blocks? Able to walk without a limp Follow up plans and appointments were discussed with Macy. Macy was instructed to keep careful note of how the usual pain was modified by these injections. Specifically, to keep a pain diary for the next 4 hours using a numeric pain scale of 0-10 and report these results. Post procedure instruction was given as documented in the nursing documentation and having met discharge criteria, the patient was [facility] the [facility]. Based on the medial branches blocked today, if they patient has adequate relief and we are able to proceed to radiofrequency ablation, the treatment should result in the denervation of the Left L3-L4,L3-L4 and L4-L5 facet joints. We would expect to denervate a total of 3 facets during the radiofrequency ablation. COMMENTS: No apparent complications. Post-procedure pain: VAS= 0/10 Macy will call back with 0-4 hour post-procedure pain scores. I personally performed the entire procedure. BASIL EVANS DO, MPH ABPM&R-subspecialty board certification in Pain Medicine [facility] [facility]
== END 2023-01-21 12:17 | disposition home or self-care (01) ==
LOC: PC 12:16
PROVIDERS: PCP Family Medicine; Visit Provider Preventive Medicine Occupational Medicine
DX: M47.817 Spondylosis without myelopathy or radiculopathy, lumbosacral region (principal); M54.50 Low back pain, unspecified
CPT/HCPCS: 64493; 64494; 64495; 72100; Q9967

== ENCOUNTER 2023-02-05 02:11 | Outpatient (CLI) | payer MEDICARE, BC, SELFPAY ==
[2023-02-05 09:13] LABS: HCT 38.1 % (36.0-46.0); HGB 11.9 g/dL (11.2-15.7); MCH 28.5 pg (27.0-33.0); MCHC 31.2 % (32.0-36.0); MCV 91 fL (80-95); MPV 8.8 fL (8.0-11.0); Platelet Count 240 10^3/uL (130-400); RBC 4.18 10^6/uL (3.93-5.22); RDW 13.4 % (11.7-14.6); RDW-SD 45.1 fL; WBC 8.06 10^3/uL (4.4-10.8)
[2023-02-05 10:06] LABS: ALT 24 U/L (14-59); AST 27 U/L (15-37); Albumin 3.7 g/dL (3.4-5.0); Alkaline Phosphatase 87 U/L (46-116); Anion Gap 5.6 mmol/L (3-11); BUN 28 mg/dL (7-18); Bilirubin, Total 0.5 mg/dL (0.2-1.0); CO2 28.4 mmol/L (21.0-32.0); CREATININE 0.9 mg/dL (0.55-1.02); Calcium 9.4 mg/dL (8.5-10.1); Chloride 105 mmol/L (98-107); Estimated GFR 67.92 (mL/min/1.73m2); Glucose 101 mg/dL (74-106); Potassium 4.9 mmol/L (3.5-5.1); Sodium 139 mmol/L (136-145); Total Protein 7.3 g/dL (6.4-8.2)
== END 2023-02-05 02:12 | disposition home or self-care (01) ==
PROVIDERS: PCP Family Medicine; Visit Provider Physician Assistant Medical
DX: R79.89 Other specified abnormal findings of blood chemistry (principal); E87.1 Hypo-osmolality and hyponatremia; D64.9 Anemia, unspecified
CPT/HCPCS: 36415; 80053; 85027

== ENCOUNTER 2023-02-09 08:24 | Outpatient (CLI) | payer MEDICARE, BC, SELFPAY ==
--- NOTE | 2023-02-09 07:00 | DI.RAD_ITS ---
Exam(s) XR PAIN CLINIC LUMBAR SP 2V EXAM: XR PAIN CLINIC LUMBAR SP 2V CLINICAL HISTORY: Dx: Lumbar Spondylosis TECHNIQUE: 2D and realtime digital imaging was performed. CONTRAST MATERIAL: Refer to procedure report. COMPARISON: No exams were available for comparison FINDINGS: Fluoroscopy was provided for Dr. Evans during the performance of a lumbar radiofrequency ablation. P lease refer to the procedure report for complete details. Ka,r=9.77 mGy IMPRESSION:
[2023-02-09 08:37] VITALS: BP 122/61; PULSE 58; RESP 20; TEMP 36.5; O2SAT 100
[2023-02-09] MEDS: fentaNYL 100 MCG/2 ML VIAL IVP (09:12)
[2023-02-09] MEDS: Midazolam 2 MG/2 ML VIAL IVP (09:12)
[2023-02-09] MEDS: Lactated Ringers 500 ML 80 ML IV (09:15)
[2023-02-09] MEDS: methylPREDNISolone ACETATE 40 MG/ML VIAL IJ (09:45)
[2023-02-09] MEDS: Bupivacaine 0.5% Pres-Free 10 ML VIAL IJ (09:45)
[2023-02-09 09:46] VITALS: BP 139/71; PULSE 69; RESP 16; O2SAT 96
--- NOTE | 2023-02-09 09:49 | PDOC.PAIN_ITS ---
Date of service: 02/09/23 Time of Service: 09:49 Pain Managment Procedure Note Procedure Note Procedure Note: PROCEDURE NOTE LEFT LUMBAR RADIOFREQUENCY ABLATION Date of Service: February 09, 2023 Patient:? Macy Mccurdy? Provider:? Joseph Evans DO, MPH Macy Mccurdy has been [facility] to the [facility] Left Lumbar Radiofrequency Ablation with the FlipKeys Machine.? Pre Operative Diagnosis: Lumbosacral Spondylosis without Myelopathy Post Operative Diagnosis: Same Pre procedure pain; VAS= 6/10 Comments: She had excellent relief with the two LMBBs. Her pain did return to baseline each time. PROCEDURE: Radiofrequency Ablation of medial branches - left L3, L4, L5 and lateral branches of bilateral S1. Erinwas interviewed and the medical record was reviewed.? There were no medical, pharmacologic, radiographic or other structural contraindications to attempting fluoroscopically guided LEFT Lumbar Radiofrequency Ablation.?Risks and expected side effects as well as potential benefit of the procedure were reviewed with Macy, and the patient's voiced concerns were addressed.? The printed consent form was signed.? Standard time-out procedure was performed. Macy was brought into the fluoroscopy suite and positioned into the prone position on the fluoroscopy table and allowed to adjust to a position of comfort. A grounding pad was placed on the left abdomen. The sterile field was prepared using chlorhexidine preparation of the skin and sterile draping. Local anesthesia superficial and deep was provided by local infiltration of 2% lidocaine. A 17g 100 mm radiofrequency introducer needle was placed to the planned anatomic targets guided with intermittent fluoroscopy with a perpendicular approach to terminally place at the junction of the superior articular process and the transverse process of the Left L3, L4, and L5, the base of the sacral ala on the left for the L5 medial branch nerve and the area between base of the sacral ala to the S1 foramen on the left. The stylets were removed and radiofrequency probes with a 4mm active tip were then inserted. Needle tip position of the probes was verified in the AP, oblique, and lateral views. At each site, the medial branch nerve was stimulated at 2 Hz to a maximum 1-2 volts determined to finalize safe needle and electrode placement. The patient was awake and responsive during this portion of the procedure. Each target was anesthetized with 1-2 mL of 2 % Lidocaine for anesthesia for lesioning and then each target was lesioned at 80 degrees Celsius for 2 minutes and 30 seconds. Tissue impedances were noted to be between 250 and 500 Ohms. There was no unusual discomfort expressed by Macy. The needles were withdrawn without difficulty and bandages placed over the needle placement sites, the patient was observed and was without hemodynamic, neurologic, or allergic reactions. Fluoroscopic images were digitally archived. POST PROCEDURE EVALUATION: IMPRESSION: 1. Summary of procedure. Medication given is documented in the MAR. 2. Follow up plan: Macy to contact [facility] as needed.?This procedure may be repeated if the patient achieves at least 50% improvement in pain/function for at least 6 months. 3. Estimated Blood Loss: <5 mls 4. Fluoroscopy time: Documented in the EMR. Follow up plans and appointments were discussed with the Macy. Post procedure instruction was given as documented in nursing documentation and having met discharge criteria, Macy was discharged from the [facility]. COMMENTS: No apparent complications. Post-procedure pain: VAS= 0/10. I personally completed the entire procedure. JOSEPH EVANS DO, MPH ABPM&R - Subspecialty board certification in Pain Medicine [facility] [facility]
[2023-02-09] MEDS: Lidocaine 2% Pres-Free 5 ML VIAL IJ (09:50)
== END 2023-02-09 08:25 | disposition home or self-care (01) ==
LOC: PC 08:25
PROVIDERS: PCP Family Medicine; Visit Provider Preventive Medicine Occupational Medicine
DX: M47.817 Spondylosis without myelopathy or radiculopathy, lumbosacral region (principal); M54.50 Low back pain, unspecified
CPT/HCPCS: 64635; 64636; 72100; J1030; J2250; J3010

== ENCOUNTER 2023-06-02 13:09 | Outpatient (CLI) | payer MEDICARE, BC, SELFPAY ==
--- NOTE | 2023-06-02 10:44 | DI.RAD_ITS ---
Exam(s) XR ANKLE RT COMPLETE EXAM: XR ANKLE RT COMPLETE CLINICAL HISTORY: ankle pain. TECHNIQUE: 2D digital imaging was performed. Three views. COMPARISON: No exams were available for comparison FINDINGS: BONES: No acute fracture is present. No bony destructive lesion is seen. No talar dome defect. Smal l plantar calcaneal spur. JOINTS: The ankle mortise is normally aligned. The tibiotalar joint space is maintained. Mild spurring at the malleoli. SOFT TISSUE: Swelling around lateral malleolus. IMPRESSION: Mild degenerative changes.. DATA REPOSITORY: RADIATION DOSE DELIVERED:
== END 2023-06-02 13:10 | disposition home or self-care (01) ==
LOC: DIORS 13:09
PROVIDERS: PCP Family Medicine; Referring Provider Family Medicine; Visit Provider Student in an Organized Health Care Education/Training Program
DX: M19.071 Primary osteoarthritis, right ankle and foot (principal); M54.16 Radiculopathy, lumbar region
CPT/HCPCS: 99213; 73610

== ENCOUNTER 2023-08-04 04:44 | Outpatient (CLI) | payer MEDICARE, BC, SELFPAY ==
--- OUTSIDE RECORDS SUMMARY | 2023-08-04 04:50 | XMS_ITS | Continuity of Care Document ---
Author Name Unknown Organization [facility] Ambulatory Clinics Address [address] [place] [address] Care Team Providers Care Utility Manager Name Role Phone RICK SANTO Primary Care Physician Encounter [facility] NBR [id number] Date(s): 06/15/23 - 06/15/23 [facility] Ambulatory Clinics [address] [place], [place] [address] Discharge Disposition: Home Patient Care team information Care Team Personnel Name: RICK SANTO Position: No Access Member Role: Primary Care Physician Address: Address: [address] [place] [id number] Care Team Related Persons Name: TRUE MONTELONGO
--- OUTSIDE RECORDS SUMMARY | 2023-08-04 04:50 | XMS_ITS | Continuity of Care Document ---
Author Name Unknown Organization [facility] Address [address] [place] [address] Care Team Providers Care Solar Pv Installer Name Role Phone RICK SANTO Primary Care Physician Encounter [facility] NBR [id number] Date(s): 11/21/22 - 11/21/[address] [address]- Discharge Disposition: Home or Self Care Attending Physician: NISHANT BARRIENTOS PA-C Admitting Physician: NISHANT BARRIENTOS PA-C Referring Physician: RICK SANTO Results Radiology Reports * Exam Date Time Procedure Performing Provider Status 11/21/22 8:23 AM US Kidney Bladder Amanda Montes; Janet (Verified) Notes: (US Kidney Bladder) Reason For Exam: ELEVATED CREATININE US Kidney Bladder EXAM DESCRIPTION: US Kidney Bladder 11/21/2022 INDICATION: ELEVATED CREATININE TECHNIQUE: Technique: Grayscale and color doppler ultrasound examination of the kidney and bladder region. COMPARISON: None FINDINGS: The left kidney measures 4.8 cm x 10.3 cm x 5 cm. The right kidney measures 4.2 cm x 9 cm x 5.3 cm. No focal renal mass, hydronephrosis or perinephric fluid collection on either side. The bladder is mostly decompressed. No gross intraluminal bladder filling defect identified. Neither ureteral jet was identified. Prevoid bladder volume was 16.5 mL. Postvoid bladder volume was 3.6 mL. IMPRESSION: Renal sizes as described above No focal renal mass, hydronephrosis or perinephric fluid collection on either side. Mild postvoid bladder residual. JOB #: [id number] Final Signed by: Satinder Hunter MD Signed (Electronic Signature): 11/21/2022 8:25 am US Kidney - bilateral and Urinary bladder * Satinder Hunter MD: VERIFY, VERIFY Event Display: Report EXAM DESCRIPTION: US Kidney Bladder 11/21/2022 INDICATION: ELEVATED CREATININE TECHNIQUE: Technique: Grayscale and color doppler ultrasound examination of the kidney and bladder region. COMPARISON: None FINDINGS: The left kidney measures 4.8 cm x 10.3 cm x 5 cm. The right kidney measures 4.2 cm x 9 cm x 5.3 cm. No focal renal mass, hydronephrosis or perinephric fluid collection on either side. The bladder is mostly decompressed. No gross intraluminal bladder filling defect identified. Neither ureteral jet was identified. Prevoid bladder volume was 16.5 mL. Postvoid bladder volume was 3.6 mL. IMPRESSION: Renal sizes as described above No focal renal mass, hydronephrosis or perinephric fluid collection on either side. Mild postvoid bladder residual. JOB #: [id number] Final Signed by: Satinder Hunter MD Signed (Electronic Signature): 11/21/2022 8:25 am Patient Care team information Care Team Personnel Name: RICK SANTO Position: No Access Member Role: Primary Care Physician Address: Address: [address] [place] [id number] [place] Care Team Related Persons Name: TRUE MONTELONGO
[2023-08-04 08:31] LABS: HCT 37.8 % (36.0-46.0); HGB 12.1 g/dL (11.2-15.7)
[2023-08-04 09:53] LABS: Anion Gap 4.5 mmol/L (3-11); BUN 33 mg/dL (7-18); CO2 29.5 mmol/L (21.0-32.0); CREATININE 1.2 mg/dL (0.55-1.02); Calcium 9.4 mg/dL (8.5-10.1); Chloride 101 mmol/L (98-107); Glucose 117 mg/dL (74-106); Sodium 135 mmol/L (136-145); Vitamin B12 1369 pg/mL (193-986)
== END 2023-08-04 04:45 | disposition home or self-care (01) ==
PROVIDERS: PCP Family Medicine; Visit Provider Family Medicine
DX: Z86.2 Personal history of diseases of the blood and blood-forming organs and certain disorders involving the immune mechanism (principal); I10 Essential (primary) hypertension
CPT/HCPCS: 36415; 80048; 82607; 85014; 85018

== ENCOUNTER → 2023-08-24 04:39 | Outpatient (CLI) | payer MEDICARE, BC, SELFPAY ==
--- NOTE | 2023-08-24 | DI.MRI_ITS ---
Exam(s) MR LUMBAR SPINE WO EXAM: MR LUMBAR SPINE WO CLINICAL HISTORY: LUMBAR RADICULOPATHY,M54.16,SPONDYLOLYSIS,M47.816,RT LEG WEAKNESS. TECHNIQUE: Multiplanar multisequence MRI of the Lumbar spine was performed. COMPARISON: CT CT ABDOMEN PELVIS W from 07/15/2021 CR XR LUMBAR SPINE COMPLETE from 07/10/2022 MR MR LUMBAR SPINE WO from 07/23/2022 FINDINGS: There is degenerative scoliosis convex right which appears unchanged from prior study. Conus medullaris is at normal level. There is no evidence of conus mass nor subjacent clumping of in trathecal nerve roots to suggest arachnoiditis. The distal thecal sac is at the S1 level. No eviden ce of Tarlov intra sacral CIS nor other significant findings within the sacral canal. Bones:There are no fractures nor ominous osseous lesions in the lumbar vertebral bodies and visualize d sacrum. With respect to the individual levels... T12-L1: Unremarkable L1-2: Preserved disc height. There is annular bulging bilaterally at this level again noted. Centra l canal dimensions are lower normal. Bulging annulus extends into the exiting neural foramina bilate rally. There is mild bilateral foraminal stenosis. In addition, the degenerative change in the left facet joint indents the left lateral aspect of the thecal sac. The amount of degenerative change in the left facet joint is again noted to exceed that on the right side. L2-3: This level exhibits some disc space narrowing, more so on the left than the right side and ther e are left-sided osteophytes noted. Posteriorly there is some annular bulging but without a dominant disc herniation. Central canal dimensions are lower normal. There is no foraminal stenosis stenosi s on the right side but there is significant left-sided foraminal stenosis due to the asymmetric decr eased disc height on the left side. This is slightly further progressed when compared to the prior s tudy. Facet joints at this level are normal on the right side and exhibit moderate degenerative higgins ge on the left side, similar to the previous study. L3-4: This level exhibits advanced disc space narrowing on the left side with lateral left osteophyte s again noted and more moderate disc space narrowing on the right side. Central canal dimensions are lower normal at this level. On the left side there is prominent posterior osteophytic ridging and a nnular bulging again noted, similar to previous. This results in moderate left-sided foraminal steno sis at this level which appears similar to the prior MRI study of 07/23/2022. There is no foraminal stenosis on the right side at this level. Mild degenerative changes in the left facet joint.Minimal degenerative changes in the right facet joint. L4-5: This level again exhibits degenerative anterolisthesis of L4 upon L5 due to facet arthropathy. The amount of anterior slippage is grade 1-unchanged. The slippage is more prominent on the left th an the right side which is also similar to the previous study. This is because the left facet joint and is more degenerated than the right facet joint. There is pseudo herniation of the annulus again noted without a distinct focal disc herniation. There is moderate central spinal canal stenosis agai n noted. There is an element of bilateral foraminal stenosis noted, similar to the previous study. L5-S1: This study exhibits preserved disc height and signal without evidence of disc herniation or ce ntral canal stenosis. There is mild-moderate degenerative change in the facet joints but there is no foraminal stenosis. No listhesis. IMPRESSION: 1. Multilevel findings as described above but with minimal if any significant change when compared to the prior MRI scan of 07/23/2022. There is degenerative scoliosis convex right which is unchanged. 2. There is moderate central spinal canal stenosis at L4-5 level due to degenerative anterolisthesis of L4 upon L5. 3. The most prominent foraminal stenosis is again noted to be on the left side at L2-3 level, slightl y further progressed from the prior MRI study. DATA REPOSITORY:
--- OUTSIDE RECORDS SUMMARY | 2023-08-24 04:42 | XMS_ITS | Continuity of Care Document ---
Author Name Unknown Organization [facility] Ambulatory Clinics Address [address] [place] [address] Care Team Providers Care Preschool Teacher Aide Name Role Phone RICK SANTO Primary Care Physician Encounter [facility] NBR [id number] Date(s): 08/04/23 - 08/04/23 [facility] Ambulatory Clinics [address], [place] [address] Encounter Diagnosis Lumbar radiculopathy(Discharge Diagnosis) - 08/04/23 Lumbar spondylosis(Discharge Diagnosis) - 08/04/23 Weakness of right lower extremity(Discharge Diagnosis) - 08/04/23 Discharge Disposition: Home or Self Care Attending Physician: MATIAS Phan Referring Physician: RICK SANTO Allergies, Adverse Reactions, Alerts Substance Reaction Severity Status furosemide Unknown Active morphine Unknown Unknown Active pravastatin Unknown Active spironolactone Unknown Active sulfa drugs Unknown Unknown Active beta blockers Unknown Active predniSONE Unknown Unknown Active Drixoral Allergy Sinus Unknown Unknown Activ e VINCENZO inhibitors Unknown Unknown Active hydroCHLOROthiazide Unknown Unknown Active Assessment and Plan Future Scheduled Tests Radiology* MRI Spine Lumbar w/o Contrast 08/04/23 Medications aspirin 81 mg oral capsule 0 Refill(s) Start Date: 08/04/23 Status: Ordered brimonidine 0.2% ophthalmic solution 0 Refill(s) Start Date: 08/03/23 Status: Ordered gabapentin 100 mg oral capsule 0 Refill(s) Start Date: 08/03/23 Status: Ordered hydrALAZINE 25 mg oral tablet 0 Refill(s) Start Date: 08/03/23 Status: Ordered lactobacillus acidophilus oral tablet 0 Refill(s) Start Date: 08/04/23 Status: Ordered latanoprost 0.005% ophthalmic solution 1 drops, Eye-Both, every evening, # 2.5 mL, 0 Refill(s) Start Date: 08/03/23 Status: Ordered Medrol 4 mg oral tablet 1 packets, Oral, Daily, as directed on package labeling, # 21 tab, 0 Refill(s), Pharmacy: [facility], 157.48, cm, 08/04/23 15:17:00 EST, Height, 72.57, kg, 08/04/23 15:28:00 EST, Weight Dosing Start Date: 08/04/23 Stop Date: 08/10/23 Status: Ordered olmesartan 40 mg oral tablet 0 Refill(s) Start Date: 08/03/23 Status: Ordered pantoprazole 40 mg oral delayed release tablet 0 Refill(s) Start Date: 08/03/23 Status: Ordered Repatha SureClick 140 mg/mL subcutaneous solution 0 Refill(s) Start Date: 08/03/23 Status: Ordered sucralfate 1 g oral tablet 0 Refill(s) Start Date: 08/03/23 Status: Ordered timolol maleate 0.5% ophthalmic solution 0 Refill(s) Start Date: 08/03/23 Status: Ordered Problem List Condition Confirmation Course Effective Dates Status H ealth Status Informant Anemia Confirmed Active Arthritis Confirmed Active Cataracts, bilateral Confirmed Active Chronic pain Confirmed Active GERD (gastroesophageal reflux disease) Confirmed Active Glaucoma Confirmed Active Headache Confirmed Active Hearing loss Confirmed Active High cholesterol Confirmed Active Hypertension Confirmed Active Lumbar radiculopathy Confirmed Active Lumbar spondylosis Confirmed Active Weakness of right lower extremity Confirmed Active Procedures Procedure Date Related Diagnosis Body Site Status Appendectomy Completed Carpal tunnel release Com pleted Cholecystectomy Completed Hysterectomy Completed Radiofrequency ablation 1 Completed Shoulder repair 2 Complet ed Stent placement 3 Complet ed Surgery 4 Completed Surgery 5 Completed Surgery 6 Completed Total hip replacement Com pleted 1L2-5 medial branch blocks 2Left 3Right Carotid stent 4small bowel obstruction 5[facility] surgeries[facility] 6bladder mesh Vital Signs Most recent to oldest [Reference Range]: 1 Temperature Temporal Artery [36-38 Deg C ] 36.1 Deg C (08/04/23 3:17 PM) Peripheral Pulse Rate [60-100 bpm] 77 bp m (08/04/23 3:17 PM) Blood Pressure [90-140/60-90 mmHg] 152/7 0mmHg *HI* (08/04/23 3:17 PM) Mean Arterial Pressure, Cuff [70-110 mmH g] 97 mmHg (08/04/23 3:17 PM) Weight 72.57 kg (08/04/23 3:17 PM) Weight Measured (lbs) 159.989 lb (08/04/23 3:17 PM) Weight Dosing 72.570 kg (08/04/23 3:17 PM) [place] Body Weight Calculated 50.1 kg (08/04/23 3:17 PM) Height 157.48 cm (08/04/23 3:17 PM) Height/Length Measured (inches) 62 inch (08/04/23 3:17 PM) BSA Measured 1.78 m2 (08/04/23 3:17 PM) Body Mass Index 29.26 kg/m2 (08/04/23 3:17 PM) Social History Social History Type Response Tobacco Never tobacco user T obacco Use:. Sex Physician Outpatient Note * RADHA PhanP: PERFORM Event Display: Office Clinic Note Physician Authored Date: [id number] SAMIRA MONTELONGO :1950 Age:73 years Sex:Female Visit Date:08/04/2023 Primary Care Physician: RICK SANTO Chief Complaint Right leg pain, started in foot and radiates up leg History of Present Illness The patient presents for evaluation of her right leg and low back pain.?? The patient reports that she has struggled with left-sided low back pain for multiple years. ??The pain became most bothersome in 2015 when she had a fall while she was camping and fell off of the tent platform landing on herleft side.?? She has been evaluated by Dr. Huynh and at time surgery was not recommended. ??She has been followed by the??pain clinic at [facility] where she states she has received nerve blocks and RFL which did provide??very good relief in her pain for quite some time.?? However, the pain has since returned and is in the left low back. ??However,??what is more concerning and more bothersome at this point is the development of this right leg pain.?? She has done multiple rounds of physical therapy and was discharged from physical therapy on May 19.??Two days after??finishing the physicaltherapy she developed severe right leg pain. ??She denies any known injury.?? She states that the pain is most severe in the right lateral ankle and radiates up the entire lateral leg to the low back.?? She finds that laying down??is particularly bothersome. ??If she stands up or puts pressure on the right leg that seems to alleviate some of the pain.?? She has experienced some numbness and tingling in the same distribution as well but??overall there is more pain. ??She does feel that her rightleg is weak. ??She does recall at 1 point she went to go step down after sitting??and the right leg??was quite weak and was gave out on her.?? She states that she has chronic numbness affecting the right thigh after she had her??right hip replaced??at [facility] in September. ??She states that she was also told that??the nerve and tendon??were injured during the surgery, hence the??numbness.?? The numbness is unchanged.?? The patient is taking Tylenol 1000 mg 3 times a day and that does help a little bit. ??She has been prescribed gabapentin that she is taking 3 times a day and that does help her sleepa little bit but does not provide much relief in her symptoms. ?? Review of Systems Relevant ROS discussed in HPI Physical Exam Vitals & Measurements T:??36.1?C ??(Temporal Artery)?? HR:??77??(Peripheral)?? BP:??152/70?? SpO2:??95%?? HT:??157.48??cm?? WT:??72.57??kg?? BMI:??29.26?? BSA:??1.78?? GENERAL:?General Appearance:?pleasant, age appropriate.?? The patient does appear uncomfortable intermittently throughout the exam and has to change positions. MUSCULOSKELETAL:?Musculoskeletal:??No??lumbar spine tenderness. ??Mild tenderness over the left SI joint. NEUROLOGICAL:?Neurological:??Positive straight leg??on the right from a seated position.?? All movement and strength testing of the right leg also increases??the right leg pain. ?Motor:?Strength 5/5 with bilateral hip flexion??though right hip flexion testing does increase the right leg as well as low back pain.?? Strength??4+/5??right??knee extension and flexion, 4/5 right ankle dorsiflexion.?? Strength 5/5 with bilateral plantarflexion and??strength 5/5 of the entire left lower extremity. ?Reflexes:?2+ and symmetric in biceps, triceps, brachioradialis??bilaterally.?? 1+ right knee jerk, 3+ left knee jerk. ??Unable to elicit bilateral ankle jerks. ? Tone: normal? Gait:??Antalgic. Assessment/Plan 1.??Lumbar radiculopathy??M54.16 Ordered: Medrol 4 mg oral tablet, 1 packets, Oral, Daily, as directed on package labeling, # 21 tab, 0 Refill(s), Pharmacy: [facility], 157.48, cm, 08/04/23 15:17:00 EST, Height, 72.57, kg, 08/04/23 15:28:00 EST, Weight Dosing MRI Spine Lumbar w/o Contrast, 08/04/23, Routine, Reason: lumbar radiculopathy RLE, right lower extremity weakness, lumbar spondylosis, No, No, To be done at [facility], Transport Mode: Ambulatory, Lumbarradiculopathy Lumbar spondylosis Weakness of right lower extremity, ABN Status... ?? 2.??Lumbar spondylosis??M47.816 Ordered: MRI Spine Lumbar w/o Contrast, 08/04/23, Routine, Reason: lumbar radiculopathy RLE, right lower extremity weakness, lumbar spondylosis, No, No, To be done at [facility], Transport Mode: Ambulatory, Lumbarradiculopathy Lumbar spondylosis Weakness of right lower extremity, ABN Status... ?? 3.??Weakness of right lower extremity??R29.898 Ordered: MRI Spine Lumbar w/o Contrast, 08/04/23, Routine, Reason: lumbar radiculopathy RLE, right lower extremity weakness, lumbar spondylosis, No, No, To be done at [facility], Transport Mode: Ambulatory, Lumbarradiculopathy Lumbar spondylosis Weakness of right lower extremity, ABN Status... ?? The patient has been struggling with??chronic low back pain on the left side for multiple years.?? This had responded well to physical therapy and??RFL. ??However, in April after finishing physicaltherapy she developed an acute onset of right leg pain. ??The pain is most pronounced in the right lateral ankle and radiates up the entire lateral leg to the low back.?? The pain is somewhat alleviated by putting pressure on her leg. ??She is not sleeping well.?? Her symptoms are concerning for lumbar radiculopathy. ??On physical examination she also has some mild weakness??of the right??quadricep and hamstring as well as a left foot drop.?? I recommended obtaining MRI of the lumbar spine without contrast and the patient is in agreement. ??I also recommended that we start her on a short course of oral steroids. ??She is in agreement. ??The patient does have prednisone listed as an allergy though she does not recall the reaction that she had previously.?? She has since been prescribed Medrol Dosepak's on multiple occasions with no adverse effects.?? She was??advised take his medication with food and to avoid NSAIDs while she is taking the oral steroid.?? She can continue her Tylenol and gabapentin. Plan: MRI lumbar spine without contrast. Medrol Dosepak. Future Orders MRI Spine Lumbar w/o Contrast, 08/04/23, Routine, Reason: lumbar radiculopathy RLE, right lower extremity weakness, lumbar spondylosis, No, No, To be done at [facility], Transport Mode: Ambulatory, Lumbarradiculopathy Lumbar spondylosis Weakness of right lower extremity, ABN Status... Problem List/Past Medical History Ongoing Anemia Arthritis Cataracts, bilateral Chronic pain GERD (gastroesophageal reflux disease) Glaucoma Headache Hearing loss High cholesterol Hypertension Lumbar radiculopathy Lumbar spondylosis Weakness of right lower extremity Historical No qualifying data Procedure/Surgical History ???Appendectomy???Carpal tunnel release???Cholecystectomy???Hysterectomy???Radiofrequency ablation???Shoulder repair???Stent placement???Surgery???Surgery???Surgery???Total hip replacement Medications aspirin 81 mg oral capsule brimonidine 0.2% ophthalmic solution gabapentin 100 mg oral capsule hydrALAZINE 25 mg oral tablet lactobacillus acidophilus oral tablet latanoprost 0.005% ophthalmic solution, 1 drops, Eye-Both, every evening Medrol 4 mg oral tablet, 1 packets, Oral, Daily olmesartan 40 mg oral tablet pantoprazole 40 mg oral delayed release tablet Repatha SureClick 140 mg/mL subcutaneous solution sucralfate 1 g oral tablet timolol maleate 0.5% ophthalmic solution Allergies VINCENZO inhibitors??(Unknown) Drixoral Allergy Sinus??(Unknown) beta blockers furosemide hydroCHLOROthiazide??(Unknown) morphine??(Unknown) pravastatin predniSONE??(Unknown) spironolactone sulfa drugs??(Unknown) Social History Electronic Cigarette/Vaping Electronic Cigarette Use: Never. Tobacco Never tobacco user Tobacco Use:. Electronically Signed on 08/04/23 04:29 PM MATIAS Phan Patient Care team information Care Team Personnel Name: RICK SANTO Position: No Access Member Role: Primary Care Physician Address: Address: [address] [place] [id number] [place] Care Team Related Persons Name: TRUE MONTELONGO
== END ==
PROVIDERS: PCP Family Medicine; Visit Provider Nurse Practitioner Family
DX: M43.16 Spondylolisthesis, lumbar region (principal); M48.061 Spinal stenosis, lumbar region without neurogenic claudication; M41.9 Scoliosis, unspecified
CPT/HCPCS: 72148

== ENCOUNTER → 2023-09-28 08:30 | Outpatient (BNVA) | payer MEDICARE, BC, SELFPAY | PROVIDERS: PCP Family Medicine; Referring Provider Family Medicine; Visit Provider Student in an Organized Health Care Education/Training Program | DX: M67.442 Ganglion, left hand (principal) | CPT/HCPCS: 99213 ==

== ENCOUNTER → 2023-10-05 04:38 | Outpatient (CLI) | payer MEDICARE, BC, SELFPAY ==
--- NOTE | 2023-10-05 | DI.MAMMO_ITS ---
Exam(s) MAMMO SCREENING EXAM: MAMMO SCREENING CLINICAL HISTORY: Screening, Z12.31. TECHNIQUE: Bilateral full field digital CC and MLO mammographic images were obtained with 3D tomosyn thesis and utilizing computer aided detection (CAD). COMPARISON: Prior mammograms dating back to 2014 were reviewed. FINDINGS: There has been no significant change in the appearance and distribution of the fibroglandular tissue. Asymmetric densities in the left breast are unchanged from prior mammograms. There are no new spiculated masses nor malignant appearing microcalcification groups. There is no significant architectural distortion nor skin thickening-retraction. IMPRESSION: No radiographic evidence of malignancy. Stable benign-appearing findings BI-RADS Category 2 - Benign Findings Breast Density - Category C - Heterogeneously dense Breast density Category C or D implies that the patient has dense breast tissue. Dense breast tissue can make it harder to find cancer on a mammogram. Dense breast tissue is also associated with an incr eased risk of breast cancer. This information about the result of the mammogram report was provided to the patient to raise their awareness. Use this report when you speak with the patient about their risks for breast cancer, which includes their family history. At that time, you may recommend additional screening tests (Ultrasoun d or MRI) as these tests may add significant information. A negative radiographic report should not delay biopsy if a dominant or clinically suspicious mass is present. Up to ten percent of cancers are not identified on mammography. A negative report may reinforce clinical impression. Adenosis and dense breasts may obscure an underlying neoplasm. False positive reports average 6 to 10%. Patient will receive a letter notifying them of these results.
--- NOTE | 2023-10-05 09:33 | DI.RAD_ITS ---
Exam(s) XR TIB/FIB RT EXAM: XR TIB/FIB RT CLINICAL HISTORY: Rt lower limb pain, M79.604. TECHNIQUE: 2D digital imaging was performed. Two views. COMPARISON: CR XR ANKLE RT COMPLETE from 06/02/2023 FINDINGS: BONES: No acute fracture is present. No bony destructive lesion is seen. No significant degenerative changes at the knee. Degenerative changes at the medial tibiotalar joint. Tibiotalar joint space is maintained. SOFT TISSUE: Anterior soft tissue calcifications. IMPRESSION: Mild degenerative changes of the ankle. No acute abnormality DATA REPOSITORY: RADIATION DOSE DELIVERED:
== END ==
PROVIDERS: PCP Family Medicine; Visit Provider Family Medicine
DX: Z12.31 Encounter for screening mammogram for malignant neoplasm of breast (principal); M79.604 Pain in right leg; M19.071 Primary osteoarthritis, right ankle and foot; R92.30 Dense breasts, unspecified
CPT/HCPCS: 77063; 77067; 73590

== ENCOUNTER 2023-10-06 10:12 | Day surgery (SDC) | payer MEDICARE, BC, SELFPAY ==
--- NOTE | 2023-10-06 09:09 | PDOC.DSDIS_ITS ---
Date of service: 10/06/23 Time of Service: 09:09 Discharge Plan Disposition Patient Disposition: Home Condition: Good Discharge Details Reason For Visit: LMF Cyst Excision Attending Provider: Gregg Sotelo Primary Care Provider: Rehana Cornejo V Home Meds and New Rx's Prescriptions: New acetaminophen 500 mg tablet 1,000 mg PO TID Qty: 90 0RF ibuprofen 600 mg tablet 600 mg PO TID PRN (Reason: pain) Qty: 90 0RF Continued ascorbate calcium (vitamin C) 500 mg tablet 1 g PO DAILY selenium 200 mcg tablet 200 mcg PO DAILY pantoprazole [Protonix] 40 mg tablet,delayed release (DR/EC) 40 mg PO BID vitamin B complex Tablet 1 tab PO DAILY vitamin E 200 unit capsule 400 unit PO DAILY biotin 5 mg tablet 5 mg PO DAILY cholecalciferol (vitamin D3) 125 mcg (5,000 unit) capsule 250 mcg PO DAILY latanoprost [Xalatan] 2.5 ML drops 1 drp Ophthalmic HS Probiotic 1 EACH capsule, sprinkle 1 ea PO DAILY resveratrol 250 mg capsule 1,200 mg PO DAILY hydralazine 25 mg tablet 25 mg PO TID Repatha SureClick 140 mg/mL pen injector 140 mg subcut Q2W aspirin 81 mg Capsule,Delayed Release(Dr/Ec) 81 mg PO gabapentin 100 mg capsule See Rx Instructions PO .COMPLEX Rx Instructions: 1 tab morning and noon, then 2 tabs q hs orally; polyethylene glycol 3350 [Miralax] 17 gram/dose Powder 17 g PO DAILY olmesartan 40 mg tablet 20 mg PO HS sucralfate 1 gram tablet 1 g PO TID Discontinued acetaminophen 500 mg tablet 1,000 mg PO Q8H PRN (Reason: pain) Qty: 90 3RF Discharge Instructions Additional Instructions: Cyst Excision Discharge Instructions Activity: You should keep the hand elevated as much as possible for the first few days. You may use the other fingers as tolerated but avoid trying to do too much too soon. You may increase activities after the dressing has been removed. Dressing/Cast: You may remove your dressing after [address] a band-aid over the wound if desired. You may get the incision wet after 48 hours. Medications: - You should take Tylenol and Ibuprofen for baseline pain control. - You may apply ice over the finger. Follow-up: 7-10 days Stand Alone Forms: Press Ganey (DSU) Referrals: Gregg Sotelo MD [ [facility] STAFF PHYSICIAN] - 10/16/23 9:45 am Activity:: Activity as Tolerated Remove Dressings/Wound Care:: 48 hours Shower/Bathe:: 48 hours Diet:: As Tolerated Discharge Orders Discharge Orders: Discharge Order (Routine); Ordered 10/06/23 Ordered By: Wong Marrero DS: Diagnosis Discharge Diagnosis (1) Digital mucous cyst of finger of left hand: Status: Acute
[2023-10-06 10:23] VITALS: BP 151/68; PULSE 79; RESP 16; TEMP 36.2; O2SAT 99
[2023-10-06] MEDS: Sodium Bicarbonate 50 MEQ/50 ML VIAL (11:53)
[2023-10-06] MEDS: Lidocaine 1% Multi-Dose W/EPI 1/100,000 50 ML VIAL (11:57)
--- NOTE | 2023-10-06 12:11 | W.PM.OP ---
Date of service: 10/06/23 Time of Service: 11:50 Operative Note Operative Note DATE OF PROCEDURE: 10/06/23 PRE-OP DIAGNOSIS: Left Middle Finger Mucous Cyst POST-OP DIAGNOSIS: same PROCEDURE: Mucous Cyst Excision - Left Middle Finger SURGEON: Gregg Sotelo ANESTHESIA TYPE: Local By Surgeon Refer to Anesthesia Record ESTIMATED BLOOD LOSS: 5 PATHOLOGY: none sent COMPLICATIONS: None Patient was transported to: same day Patient's condition: stable Indications: I have seen Tawnya in clinic for symptoms of a digital mucous cyst. The mass persisted and caused pain to direct contact and with use. The diagnosis of a mucous cyst was made. The symptoms had not responded to conservative measures. I discussed cyst excision with the patient. I reviewed the risks of the procedure to include, but not limited to, bleeding, infection, pain, stiffness, recurrence, damage to nerves or vessels. Despite these risks, the patient elected to proceed. Findings: There was a cyst of the distal phalanx, arising from the DIP joint. The cyst and its capsule was removed and an arthrotomy at the cyst location performed. Procedure Description: Tawnya was greeted in the preoperative holding area where the correct side was identified and marked. The consent was reviewed with the patient and signed. All questions were answered. She was taken back to the operating room. The patient was placed into the supine position on the operating room table with the left arm on an arm board. All bony prominences were well padded. No prophylactic antibiotics were administered since this was a clean, elective hand surgical case. The left arm was then prepped with Chloraprep and draped in a standard fashion with stockinette and extremity drape. A timeout to confirm correct identity, side and site, procedure, allergies, anesthesia, and medical concerns was performed. A digital block was then performed using 1% lidocaine with epinephrine and buffered with sodium bicarbonate. This was allowed time to set up completely and was tested before proceeding with the case. A longitudinal incision was then made overlying the cyst. The skin was incised sharply. Full-thickness flaps were then elevated to expose the cyst. The cyst capsule was then removed with a rongeur and followed back towards the DIP joint. Using the rongeur and a [place]ley I was able to penetrate into the DIP joint creating a small arthrotomy from the origin of the mucous cyst. The finger was irrigated and once again checked to make sure that all components of the cyst were removed. The skin was then closed using a #4-0 nylon in interrupted fashion. The finger was dressed with Xeroform, 4 x 4, conformer dressing. The patient tolerated the procedure well and was returned to the Same Day Surgery area in a stable condition suffering no known complication.
[2023-10-06 12:12] VITALS: BP 160/55; PULSE 70; RESP 18; TEMP 36.4; O2SAT 97
== END 2023-10-06 12:24 | disposition home or self-care (01) ==
LOC: SUR 10:12
PROVIDERS: PCP Family Medicine; Visit Provider Student in an Organized Health Care Education/Training Program
PROC: (CPT 26160; principal; 2023-10-06 13:00)
DX: M67.442 Ganglion, left hand (principal)
CPT/HCPCS: 26160; J2004

== ENCOUNTER 2023-10-16 11:21 | Outpatient (CLI) | payer MEDICARE, BC, SELFPAY ==
--- NOTE | 2023-10-16 09:45 | DI.RAD_ITS ---
Exam(s) XR HIP RT AP LAT ONLY EXAM: XR HIP RT AP LAT ONLY CLINICAL HISTORY: ANNUAL F/U R HIP REVISION. TECHNIQUE: 2D digital imaging was performed. Two images were obtained. AP and lateral views were ob tained. COMPARISON: CR XR HIP RT AP LAT ONLY from 10/27/2022 FINDINGS: BONES: There are stable post operative changes of a right total hip replacement present. No fracture or dislocation. JOINTS: The orthopedic hardware is in good position. No evidence of hardware loosening. SOFT TISSUE: Normal. IMPRESSION: Stable right total hip replacement. DATA REPOSITORY: RADIATION DOSE DELIVERED:
== END 2023-10-16 11:22 | disposition home or self-care (01) ==
LOC: DIORS 11:21
PROVIDERS: PCP Family Medicine; Referring Provider Family Medicine; Visit Provider Physician Assistant
DX: Z96.641 Presence of right artificial hip joint; Z47.1 Aftercare following joint replacement surgery; M67.442 Ganglion, left hand
CPT/HCPCS: 73502

== ENCOUNTER → 2023-10-20 04:12 | Outpatient (CLI) | payer MEDICARE, BC, SELFPAY ==
--- NOTE | 2023-10-20 07:30 | DI.MRI_ITS ---
Exam(s) MR LOWER EXTREMITY RT WO EXAM: MR LOWER EXTREMITY RT WO CLINICAL HISTORY: ? peroneal nerve entrapment,PAIN RT HIP AFTER REPLACEMENT,Z96.649,T84.84XA TECHNIQUE: Multiplanar multisequence MRI was performed. COMPARISON: No exams were available for comparison FINDINGS: MARROW:There is no evidence of fracture, bone contusion, nor osseous lesion related to the fibular he ad and neck. No abnormal osseous findings at the level the fibular head and neck. NEURAL: There is mild increased signal within the distal sciatic nerve and common peroneal nerve in t he popliteal fossa. There is no extrinsic compression/impingement of the common peroneal nerve during its inferolateral oblique course within the fat between the lateral gastrocnemius and biceps femoris tendon. There is no mass seen along the course of the nerve. There is also no mass within the nerve nor extrinsic to the nerve in the region of the fibular head and neck nor as it heads towards the ant erior compartment. However, there appears to be some mild increased signal within the extensor digito rum longus and extensor hallucis longus muscles which may represent an element of denervation edema OTHER: Incidentally noted are multiple contiguous small degenerative subarticular cysts in the anteri or aspect of the intercondylar groove of the femur. Some overlying cartilage thinning is noted. Mil d surrounding bone edema. Possible developing osteochondral defect. There is mild thinning of the r etropatellar cartilage over the medial facet and mild subarticular bone edema in the posterior medial patella. No intraosseous signal to suggest recent patellar dislocation. No cruciate nor collateral ligament tears in the knee and no meniscal tears evident. No evidence of significant knee joint eff usion and no Tijerina cyst in the popliteal fossa. IMPRESSION: 1. Mild increased signal seen within the common peroneal nerve along its course between the sciatic b ifurcation and fibular head. Consistent with mild neuritis. There is no extrinsic compression by michael cent soft tissue mass nor intrinsic mass within the visualized nerve itself. There is, however, mild edema noted within the muscles of the anterior compartment which may indicate an element of denervati on edema. 2. Incidental knee findings as above DATA REPOSITORY:
--- NOTE | 2023-10-20 20:20 | DI.VRAD_ITS ---
PROCEDURE INFORMATION: Exam: MR EXTREMITY LOWER OTHER THAN JOINT WO Exam date and time: 10/20/2023 1:24 PM Age: 73 years old Clinical indication: Hip and lower leg and multiple sites; Right; Patient HX: ? Peroneal nerve entrapment, painful RT hip after replacement TECHNIQUE: Imaging protocol: MR EXTREMITY LOWER OTHER THAN JOINT WO Total images: 792 COMPARISON: CT LOWER EXTREMITY RT WO 08/04/2022 8:22 AM FINDINGS: There is increased T2 signal within the distal sciatic nerve and common peroneal nerve including at the level bifurcation above the knee joint. Additional increased signal within superficial and deep branches of the peroneal nerve at the level of the proximal fibula. Small amount of adjacent soft tissue edema evident adjacent to the distal nerve. The peroneal nerve/branches appear intact. There is no mass along the course of the nerve. Subchondral cystic degenerative change superior medial tibial plateau and anterior intercondylar region. Minimal effusion in the suprapatellar bursa. Linear T2 hyperintense signal involving interstitial PCL fibers. Linear focus of fluid signal involving interstitial distal ACL fibers. No medial or lateral meniscal tear. Extensor mechanism is intact. Medial and lateral collateral ligaments are intact. Moderate subcutaneous edema. IMPRESSION: 1. Consistent with mild peroneal nerve injury versus neuritis. No focal entrapping lesion. 2. Partial interstitial ACL/PCL tears. Dictated and Authenticated by: Lavon Villegas MD. Ordering:PRADEEP Escobedo MD
== END ==
PROVIDERS: PCP Family Medicine; Visit Provider Student in an Organized Health Care Education/Training Program
DX: T84.84XA Pain due to internal orthopedic prosthetic devices, implants and grafts, initial encounter (principal); Z96.641 Presence of right artificial hip joint
CPT/HCPCS: 73718

== ENCOUNTER 2023-11-01 10:58 | Emergency (ER) | payer MEDICARE, BC, SELFPAY ==
[2023-11-01] VITALS (15 sets, daily range): BP systolic 173–187; BP diastolic 45–61; PULSE 62–84; RESP 15–31; TEMP 36.3–36.8; O2SAT 96–98
--- NOTE | 2023-11-01 11:00 | DI.CT_ITS ---
Exam(s) CT ABDOMEN PELVIS W EXAM: CT ABDOMEN PELVIS W CLINICAL HISTORY: ?small bowel obstruction TECHNIQUE: Imaging Protocol: Axial computed tomography images with coronal and sagittal reformatted images were created and reviewed. CONTRAST MATERIAL: Intravenous: Omnipaque 350 Contrast volume:100 mL Oral: No COMPARISON: CT CT ABDOMEN PELVIS W from 11/26/[address] ABDOMEN PELVIS W from 07/15/2021 FINDINGS: ABDOMEN: Lung Bases: Interstitial fibrotic changes are seen in the lung bases. There also appears to be bronc hiectasis. Liver: Fatty infiltration of the liver. There are few tiny hypodensities in the liver. They are too small for further characterization but likely reflect small cysts. Portal, Superior Mesenteric, and Splenic Veins: Unremarkable. Gallbladder and Biliary Tract: Status post cholecystectomy. No significant biliary ductal dilatation . Pancreas: Normal density, no abnormal calcifications or inflammatory process. Spleen: Normal. Adrenals: No masses seen. Kidneys: Normal size, contour and axis. No radiodense stones or obstructive uropathy. No masses seen. Abdominal Aorta: Abdominal portion non-dilated. Atherosclerotic calcification is present. Bowel: There are diverticula in the colon but no evidence of acute diverticulitis. There is a duoden al diverticulum adjacent to the head of the pancreas. The stomach is incompletely distended limiting evaluation. There is no evidence of bowel obstruction or bowel wall thickening. No evidence of essie endicitis. Peritoneal Cavity: No ascites, collection or mesenteric inflammatory response. No free air. Lymph Nodes: Within normal limits. Bones: Within normal limits for the patient's age. The patient has bilateral total hip replacements. Soft Tissues: Unremarkable. PELVIS: Bladder: The urinary bladder is partly obscured by artifact from the patient's bilateral total hip re placements. No gross abnormality is identified. Reproductive Organs: Status post hysterectomy. Lymph Nodes: Within normal limits. Bones: Within normal limits for the patient's age. IMPRESSION: 1. No evidence of bowel obstruction. 2. Colonic diverticulosis without evidence of acute diverticulitis. 3. No acute abdominal or pelvic process. RADIATION DOSE DELIVERED: 858.28mGy.cm Total DLP DATA REPOSITORY: All CT scans at this facility are submitted to the National Radiology Data Registry (NRDR) Dose Index Registry (DIR) with the [employer] ([employer]). RADIATION OPTIMIZATION: All CT scans at this facility use at least one of these dose optimization te chniques: automated exposure control; mA and/or kV adjustment per patient size (includes targeted exa ms where dose is matched to clinical indication); or iterative reconstruction.
--- NOTE | 2023-11-01 11:14 | W.ED.GENAD ---
Discharge Plan Disposition Patient Disposition: Home Condition: Stable Discharge Details Clinical Impression: Abdominal pain, Nausea Primary Care Provider: Rehana Cornejo V ED Provider: Mc Live Home Meds and New Rx's Prescriptions: Continued ascorbate calcium (vitamin C) 500 mg tablet 1 g PO DAILY selenium 200 mcg tablet 200 mcg PO DAILY pantoprazole [Protonix] 40 mg tablet,delayed release (DR/EC) 40 mg PO BID vitamin B complex Tablet 1 tab PO DAILY vitamin E 200 unit capsule 400 unit PO DAILY biotin 5 mg tablet 5 mg PO DAILY cholecalciferol (vitamin D3) 125 mcg (5,000 unit) capsule 250 mcg PO DAILY latanoprost [Xalatan] 2.5 ML drops 1 drp Ophthalmic HS Probiotic 1 EACH capsule, sprinkle 1 ea PO DAILY resveratrol 250 mg capsule 1,200 mg PO DAILY hydralazine 25 mg tablet 25 mg PO TID Repatha SureClick 140 mg/mL pen injector 140 mg subcut Q2W aspirin 81 mg Capsule,Delayed Release(Dr/Ec) 81 mg PO DAILY gabapentin 100 mg capsule See Rx Instructions PO .COMPLEX Rx Instructions: 1 tab morning and noon, then 2 tabs q hs orally; polyethylene glycol 3350 [Miralax] 17 gram/dose Powder 17 g PO DAILY olmesartan 40 mg tablet 20 mg PO HS acetaminophen 500 mg tablet 1,000 mg PO TID Qty: 90 0RF ibuprofen 600 mg tablet 600 mg PO TID PRN (Reason: pain) Qty: 90 0RF sucralfate 1 gram tablet 1 g PO TID Discharge Instructions Additional Instructions: Your CAT scan did not show any bowel obstruction, there was signs of general enteritis which is usually due to a stomach bug. Follow-up with either your primary care or general surgery within 1 week if symptoms continue Will, have persistent vomiting or severe worsening of pain return to the emergency department for reevaluation HPI General Mode of arrival: ambulatory. Date/Time Provider Initiated Documentation: 11/01/23 10:59. Limitations to Documentation: no limitations. Information obtained by: patient. History of Present Illness 73 year old F presents to the emergency department with the chief complaint of abdominal pain, described as moderate, Quality is described as aching, and is localized to the abdomen. Patient reports no radiation. Patient started experiencing this week(s) (1) and it has been constant. No relieving factors improve symptom(s), No exacerbating factors reported . Patient notes other (Nausea and constipation). Patient did receive the following treatments prior to arrival, none Related Data Home Medications Medication Instructions Recorded Confirmed latanoprost 0.005 % eye drops 1 drp ophthalmic (eye) HS 10/19/14 11/01/23 (Xalatan) lactobacillus combo no.11 15 1 ea PO DAILY 11/05/17 11/01/23 billion cell sprinkle capsule (Probiotic) biotin 5 mg tablet 5 mg PO DAILY 04/03/20 11/01/23 vitamin B complex 1 tab PO DAILY 04/03/20 11/01/23 vitamin E 200 unit capsule 400 unit PO DAILY 04/03/20 11/01/23 cholecalciferol (vitamin D3) 125 250 mcg PO DAILY 08/22/20 11/01/23 mcg (5,000 unit) capsule polyethylene glycol 3350 17 17 g PO DAILY 12/06/20 11/01/23 gram/dose oral powder (Miralax) evolocumab 140 mg/mL subcutaneous 140 mg subcut Q2W 05/14/22 11/01/23 pen injector (Allen Silva) hydralazine 25 mg tablet 25 mg PO TID 05/14/22 11/01/23 resveratrol 250 mg capsule 1,200 mg PO DAILY 05/14/22 11/01/23 ascorbate calcium (vitamin C) 500 1 g PO DAILY 09/05/22 11/01/23 mg tablet selenium 200 mcg tablet 200 mcg PO DAILY 09/05/22 11/01/23 pantoprazole 40 mg tablet,delayed 40 mg PO BID 09/16/22 11/01/23 release (Protonix) sucralfate 1 gram tablet 1 g PO TID 11/17/22 11/01/23 olmesartan 40 mg tablet 20 mg PO HS 11/24/22 11/01/23 aspirin 81 mg capsule,delayed 81 mg PO DAILY 12/17/22 11/01/23 release gabapentin 100 mg capsule See Rx Instructions PO .COMPLEX 08/11/23 11/01/23 acetaminophen 500 mg tablet 1,000 mg (2 x 500 mg) PO TID #90 10/06/23 11/01/23 tabs ibuprofen 600 mg tablet 600 mg PO TID PRN pain #90 tabs 10/06/23 11/01/23 Previous Rx's Medication Instructions Recorded acetaminophen 500 mg tablet 1,000 mg (2 x 500 mg) PO TID #90 10/06/23 tabs ibuprofen 600 mg tablet 600 mg PO TID PRN pain #90 tabs 10/06/23 Allergies Allergy/AdvReac Type Severity Reaction Status Date / Time Calcium Channel Blocking Allergy Severe Anaphylaxis Verified 11/01/23 11:07 Agent Dilt furosemide Allergy Severe SOB, Verified 11/01/23 11:07 Muscle Pain and Rash hydrochlorothiazide Allergy Severe Anaphylaxis Unverified 11/01/23 11:07 Sulfa (Sulfonamide Allergy Severe Anaphylaxsi Verified 11/01/23 11:07 Antibiotics) s morphine Allergy Mild hives Verified 11/01/23 11:07 brompheniramine maleate Allergy Unknown Anaphylaxsi Unverified 11/01/23 11:07 [From Drixoral] s dexbrompheniramine maleate Allergy Unknown Anaphylaxsi Unverified 11/01/23 11:07 [From Drixoral] s pseudoephedrine HCl Allergy Unknown Anaphylaxsi Unverified 11/01/23 11:07 [From Drixoral] s VINCENZO Inhibitors AdvReac Severe severe Unverified 11/01/23 11:07 muscle fatigue Cokoizf-ZEZ-NxF Reductase AdvReac Severe Severe Unverified 11/01/23 11:07 Inhibitor muscle [Rkjfftl-Ajb-Edz Reductase aches/ankle Inhibitor] & foot swelling pravastatin AdvReac Unknown fatigue, Verified 11/01/23 11:07 muscle pain General Stated Complaint: Abd Prob JULIO C: 3 Review of Systems All systems reviewed & are unremarkable except as noted in HPI and below Constitutional Constitutional: Denies chills, Denies fever(s) and Denies weakness Cardiovascular Cardiovascular: Denies chest pain and Denies dyspnea Respiratory Respiratory: Denies cough and Denies dyspnea Gastrointestinal Gastrointestinal: Reports abdominal pain, Reports nausea and Denies vomiting Musculoskeletal Musculoskeletal: Denies joint swelling Neurologic Neurologic: Denies weakness Psychiatric Psychiatric: Denies depression Exam Const General: no acute distress Orientation: alert HENMD Head: normal to inspection Ears: external ears normal General nose exam: external nose normal Mouth: moist mucous membranes Eyes General: appearance normal, both eyes and all related structures Neck Neck: normal visual inspection Resp Effort & Inspection: normal respiratory effort and able to speak in complete sentences Cardio Rate: regular rate GI Palpation: soft and tender Skin General skin exam: no rashes or lesions noted Neuro General: patient alert and patient oriented x3 Extrem General: normal to inspection Psych Mental Status: mental status grossly normal Course Vital Signs Vital signs: Vital Signs Temperature 36.3 C L 11/01/23 11:01 Pulse 74 11/01/23 11:01 Respiratory Rate 16 11/01/23 11:01 Blood Pressure 184/60 H 11/01/23 11:01 Pulse Oximetry 98 11/01/23 11:01 Temperature 36.3 C L 11/01/23 11:01 Temperature Source Temporal Artery Scan 11/01/23 11:01 Pulse 74 11/01/23 11:01 Respiratory Rate 16 11/01/23 11:01 Blood Pressure 184/60 H 11/01/23 11:01 Pulse Oximetry 98 11/01/23 11:01 Oxygen Delivery Method Room Air 11/01/23 11:01 Oxygen Flow Rate 0 11/01/23 11:01 Pain Level 6 11/01/23 11:01 Medical Decision Making 73-year-old female who has had multiple prior abdominal surgeries and has had a bowel obstruction in the past, comes in with complaints that she may have another bowel obstruction. She says since about Thursday of last week she has had no bowel movements, nausea and abdominal pain. She says she has been trying MiraLAX without relief. She arrives stable, does localize the pain to the right upper and lower abdomen. Is not significantly distended on exam. Given her prior surgeries concern for bowel obstruction we will proceed with CBC, CMP, lipase and obtain a CT abdomen pelvis. Labs show mildly low magnesium, otherwise no significant findings. CT shows no evidence of bowel obstruction. She does have evidence of enteritis. She is feeling better, and has minimal tenderness in the right upper quadrant no guarding or rebound. Discussed results with patient and she is comfortable with discharge will follow-up with either primary care or general surgery who she seen before. Return precautions given. Ua with wbc's but denies urinary symptoms, will hold on antibiotics at this time. She says she already has Zofran at home that she will start taking if needed. Differential Diagnosis Differential Diagnosis: Small bowel obstruction, pancreatitis, constipation Medical Records Medical records reviewed: Yes I reviewed the patient's medical records. Imaging Data Radiologic Study: Attestation: I personally reviewed and interpreted this imaging study as follows: Imaging: CT Scan Radiologist's impression: IMPRESSION: 1. No signs of bowel obstruction. 2. Possible enteritis with air and fluid within most of the small bowel. However there is no significant mesenteric stranding or wall thickening. 3. Complicated colonic diverticulosis. 4. Hepatic steatosis Lab Data Lab results reviewed: Yes I reviewed the patient's lab results. Quality:SDOH Health Related Social Needs: No Data to Display PFSH All Active Problems (Updated 11/01/23 @ 12:48 by Mc Live MD) Nausea (Acute) Abdominal pain (Acute) Lumbar radiculopathy, right (Acute) Arthritis of right ankle (Acute) Spondylosis of lumbar region without myelopathy or radiculopathy (Chronic) Lumbar radiculitis (Acute) Atypical chest pain (Acute) Elevated liver function tests (Acute) Hypertension (Chronic) Chronic GERD (Acute) History of Arriaga's esophagus (Acute) Sensorineural hearing loss of combined sites, bilateral (Acute 01/28/16) fit with b/l bte phonak audeo [id number] [facility] 02/08/16 [place] Dizziness (Acute) Abnormal auditory perception of both ears (Acute 01/28/16) Left rotator cuff tear (Acute ~12/2018) Tendinitis of long head of biceps brachii of left shoulder (Acute) Bursitis of left shoulder (Acute) Abnormal CT of the abdomen (Acute) Diverticular disease of left colon (Acute) minimal Chronic hip pain after total replacement of right hip joint (Acute) Medical History (Updated 11/01/23 @ 12:48 by Mc Live MD) Hx of fracture of ankle right Anemia PTSD (post-traumatic stress disorder) Superior mesenteric artery syndrome Synovial cyst PVD (peripheral vascular disease) Partial small bowel obstruction Barretts esophagus Pain of left sacroiliac joint Pain in right hip Osteoarthritis Hyperlipidemia Cellulitis Screening for HPV (human papillomavirus) Carotid artery stenosis Partial obstruction of small intestine Unresolved grief History of post traumatic stress disorder RUQ pain Arm pain, left Shoulder pain, left Toe pain, left Scapulalgia Head congestion Abnormal laboratory test Disturbance of skin sensation Abn find-abdominal area IBS (irritable bowel syndrome) Hypertension History of anemia Bilateral hearing loss Vertigo Osteoarthritis of hip Mixed hyperlipidemia Depression Femoral neuropathy of right lower extremity History of tobacco use Pain of left calf Hx of abnormal mammogram Sleep apnea CPAP Low back pain Lumbar radiculopathy Surgical History (Updated 10/16/23 @ 10:07 by NITISH Altamirano) Digital mucous cyst of finger of left hand LMF S/P Excision: 10/06/2023 Status post carpal tunnel release of both wrists 1999 2002 History of exploratory laparotomy (2012) SBO due to adhesions [facility] then had abscess and repeat surgery at [facility] History of total right hip replacement (2008) 10/14/22--S/P REVISION ACETABLUAR COMPONENT History of total left hip arthroplasty History of esophagogastroduodenoscopy (EGD) (~05/14/21) History of colonoscopy (~05/14/21) History of cholecystectomy History of hysterectomy (1998) Followed by bladder mesh in 2011 History of ventral hernia repair History of appendectomy History of common carotid artery stent placement On the right carotid - 2006 [facility] Follows yearly - no complications Social History Smoking/Tobacco Use Status: Never Smoking risk assessment performed?: Yes Alcohol Intake: never Drug use: Never Substance use type: does not use Housing: house Current gender identity: female Do you feel safe at home: Yes Do you feel safe in your relationship?: Yes
[2023-11-01 11:29] LABS: Abs Immature Grans 0.03 10^3/uL (0.0-0.06); Absolute Basophil Count 0.06 10^3/uL (0.0-0.2); Absolute Eosinophil Count 0.26 10^3/uL (0.0-0.7); Absolute Lymphocyte Count 1.25 10^3/uL (1.2-3.4); Absolute Monocyte Count 0.62 10^3/uL (0.1-0.8); Absolute Neutrophil Count 6.58 10^3/uL (1.2-6.7); Basophils % 0.7; HCT 41.1 % (36.0-46.0); HGB 13.4 g/dL (11.2-15.7); Immature Grans % 0.3; Lymphocytes % 14.2; MCH 29.3 pg (27.0-33.0); MCHC 32.6 % (32.0-36.0); MCV 90 fL (80-95); MPV 8.9 fL (8.0-11.0); Neutrophils % 74.8; Platelet Count 289 10^3/uL (130-400); RBC 4.58 10^6/uL (3.93-5.22); RDW 12.6 % (11.7-14.6); RDW-SD 41.8 fL
[2023-11-01 11:42] LABS: ALT 38 U/L (14-59); AST 39 U/L (15-37); Albumin 4.2 g/dL (3.4-5.0); Alkaline Phosphatase 91 U/L (46-116); Anion Gap 16.9 mmol/L (3-11); BUN 18 mg/dL (7-18); Bilirubin, Total 0.7 mg/dL (0.2-1.0); CO2 21.1 mmol/L (21.0-32.0); CREATININE 1.2 mg/dL (0.55-1.02); Calcium 9.7 mg/dL (8.5-10.1); Chloride 101 mmol/L (98-107); Glucose 87 mg/dL (74-106); INR 1.1 (0.9-1.1); Lipase 85 U/L (16-77); Magnesium 1.7 mg/dL (1.8-2.4); PTT Activated 33.6 sec (23.6-32.8); Potassium 3.9 mmol/L (3.5-5.1); Prothrombin Time 10.8 sec (9.1-11.1); Sodium 139 mmol/L (136-145)
[2023-11-01] MEDS: Normal Saline 1,000 ML 1000 ML IV (11:43)
[2023-11-01] MEDS: Normal Saline - Diluent 50 ML VIAL IJ (12:04)
[2023-11-01] MEDS: Omnipaque 350 MG/ML 100 ML BTL IJ (12:05)
[2023-11-01] MEDS: Normal Saline Flush 10 ML SYR IVP (12:07)
[2023-11-01] MEDS: hydrALAZINE 25 MG TAB PO (12:18)
[2023-11-01] MEDS: MAGNESIUM SULFATE 1 GM/100 ML BAG IVINF (12:19)
--- NOTE | 2023-11-01 12:41 | DI.VRAD_ITS ---
PROCEDURE INFORMATION: Exam: CT Abdomen And Pelvis With Contrast Exam date and time: 11/01/2023 12:01 PM Age: 73 years old Clinical indication: Other: ? Small bowel obstruction TECHNIQUE: Imaging protocol: Computed tomography of the abdomen and pelvis with contrast. Contrast material: OMNIPAQUE 350; Contrast volume: 100 ml; Contrast route: INTRAVENOUS (IV); COMPARISON: CT ABDOMEN PELVIS W 07/15/2021 7:14 PM FINDINGS: Lungs: Unchanged bronchiolectasis in interstitial prominence in the lower. No lobar consolidations or pleural effusions. Liver: Decreased attenuation. No cysts or masses. Gallbladder and bile ducts: There has been a cholecystectomy. There is no common bile duct dilation. Pancreas: Air-filled cavity lateral to the intrahepatic portion of the common bile duct measuring 2.1 cm in length and 1 cm in greatest diameter is likely a duodenal diverticulum. The pancreatic areas otherwise unremarkable. Spleen: The spleen is normal. Adrenal glands: The adrenal glands are normal. The adrenal glands are normal. Kidneys and ureters: Normal. No hydronephrosis or nephrolithiasis. Stomach and bowel: No obstruction. Small hiatal hernia. The small bowel has fluid and air in nondistended loops. No definite wall thickening. The colon has very little fluid and air within it. There are colonic diverticula without inflammatory changes. Appendix: No evidence of appendicitis. Intraperitoneal space: Unremarkable. No free air. No significant fluid collection. Vasculature: No abdominal aortic aneurysm. The vasculature demonstrates diffuse mild atherosclerotic calcification. Lymph nodes: Unremarkable. No enlarged lymph nodes. Urinary bladder: Unremarkable as visualized. Reproductive: There has been a hysterectomy. Bones/joints: Bilateral total hip arthroplasties. No bone stock fracture or component displacement or definite loosening. Moderate degenerative changes of the lumbar spine has mild dextroscoliosis. No spinal stenosis. Soft tissues: Unremarkable. IMPRESSION: 1. No signs of bowel obstruction. 2. Possible enteritis with air and fluid within most of the small bowel. However there is no significant mesenteric stranding or wall thickening. 3. Complicated colonic diverticulosis. 4. Hepatic steatosis. Dictated and Authenticated by: Wing Echavarria MD. Ordering:ALEK Bentley MD
[2023-11-01 13:27] LABS: Bilirubin Negative (Negative); Blood Negative (Negative); Clarity Clear (Clear); Glucose Negative (Negative); Ketones 15 mg/dL (Negative); Leukocyte Esterase Trace (Negative); Nitrite Negative (Negative); Urobilinogen 0.2 mg/dL (Up to 0.2); pH 6.5 (5-8)
[2023-11-01 13:35] LABS: Epithelial Cells Rare HPF (Negative); Other Cells Few Transitional (Negative); RBC 0-2 HPF (0-2); WBC 20-50 HPF (0-5)
[2023-11-01 13:36] LABS: Bacteria Moderate HPF (Negative); C & S Indicated? Yes; Casts Negative LPF (Negative); Crystals Negative HPF (Negative); Mucus Negative (Negative)
[2023-11-03 09:42] LABS: Calculated LDL 107 mg/dL (<100); Cholesterol 227 mg/dL (<200); HDL Cholesterol 101 mg/dL (40-60); Triglyceride 96 mg/dL (<150)
--- NOTE | 2023-11-04 08:58 | NUR.NOTE ---
Accessed patient chart to see if antibiotic was given for urine culture. Nursing Note:
--- NOTE | 2023-11-04 15:11 | W.ED.FU ---
Follow Up Plan: Patient's urine cultures are positive for pansensitive E. coli. She had been seen in the ED for vomiting and abdominal pain and denied urinary symptoms. Has had previous UTIs in the past. Recommend nitrofurantoin 100 mg p.o. twice daily. Called and left a message with patient to call back and discuss culture results.
== END 2023-11-01 13:24 | disposition home or self-care (01) ==
PROVIDERS: Emergency Provider Emergency Medicine; PCP Family Medicine
DX: K59.00 Constipation, unspecified (principal); I10 Essential (primary) hypertension; E78.5 Hyperlipidemia, unspecified; Z79.82 Long term (current) use of aspirin
CPT/HCPCS: 80053; 80061; 83690; 87077; 96361; 96365; 99285; 74177; 81003; 81015; 83735; 85025; 85610; 85730; 87086; 87186; 99284; J3475; J3490

== ENCOUNTER 2023-11-10 05:22 | Outpatient (CLI) | payer MEDICARE, BC, SELFPAY ==
--- NOTE | 2023-11-11 08:57 | TELEFU_ITS ---
Date of service: 11/10/23 Time of Service: 12:30 Nutrition Note NOTE: Tawnya in today to discuss long history of GI concerns in relation to diet. 17years of age she had appendectomy which resulted in adhesions and SBO and reports GI issues ever since. had cholecystectomy 2013 and also has Arriaga's esophagus, diverticulosis, HLD and IBS with predominant constipation. Has a lot of anxiety about repeat SBO so is very cautious with diet. PT also voices her struggles managing her weight. PT takes some OTC supplements - probiotic, biotin, 5,000IU vit D, severatrol, selenium, B complex, vitamin C, vitamin E. Avoids gluten for the most part, lactose (Although will do lactaid products) and has been trying to avoid white sugar. tends to try time restricted eating and will usually eat from 12-7 or so. Has gone through [employer] diet and feels she has a good idea about what she is sensitive to. Guided her to anti-inflammatory diet style of eating and suggested if she do time rest eating to administration intern her window earlier if she wants to work towards wt loss. Also reminded her a good goal would be to eat small meals but make sure she is not eating more frequently than 2 hours and might need to prioritize nutrient sufficiency over eating window on some days. Instructed on adequate hydration and moving towards high fiber diet slowly with emphasis on low fiber during any types of inflammatory issues (diverticulitis or diarrhea) and then go back to trying to get higher fiber diet (goal of ~30g day) and emphasized non-fermentable soluble fibers in oats, pysllium, beans, citrus. Suggested some supplements as unecessary (saffron, reseratrol and suggested less vitamin D to 2,000 and ask provider about checking levels). Suggested trial of multi-enzyme supplement, 2-5g l-glutamine daily to support gut health. REviewed menu planning with her and worked on getting her back to her routines that she states she is not as consistent with anymore. She took my contact info should she need more resources or has quick questions. Plan to call her midmay for phone follow up. Time Spent in Nutritional Counseling and Treatment: 45 minutes
== END 2023-11-10 05:23 | disposition home or self-care (01) ==
PROVIDERS: PCP Family Medicine; Visit Provider Dietitian, Registered
DX: K58.9 Irritable bowel syndrome, unspecified (principal); Z71.3 Dietary counseling and surveillance; Z90.89 Acquired absence of other organs; E78.5 Hyperlipidemia, unspecified; K22.70 Barrett's esophagus without dysplasia
CPT/HCPCS: 00123; 97802

== ENCOUNTER 2023-12-15 11:54 | Day surgery (SDC) | payer MEDICARE, BC, SELFPAY ==
--- NOTE | 2023-12-15 08:30 | W.PM.DSUDISC ---
Date of service: 12/15/23 Time of Service: 08:32 Discharge Plan Disposition Condition: Good Discharge Details Reason For Visit: Left middle finger cyst Attending Provider: Gregg Sotelo Primary Care Provider: Rehana Cornejo V Home Meds and New Rx's Prescriptions: New acetaminophen 500 mg tablet 500 mg PO Q6H PRN (Reason: pain) Qty: 60 2RF ibuprofen 600 mg tablet 600 mg PO TID PRN (Reason: pain) Qty: 60 0RF Continued ascorbate calcium (vitamin C) 500 mg tablet 1 g PO DAILY selenium 200 mcg tablet 200 mcg PO DAILY pantoprazole [Protonix] 40 mg tablet,delayed release (DR/EC) 40 mg PO BID vitamin B complex Tablet 1 tab PO DAILY vitamin E 200 unit capsule 400 unit PO DAILY biotin 5 mg tablet 5 mg PO DAILY cholecalciferol (vitamin D3) 125 mcg (5,000 unit) capsule 250 mcg PO DAILY latanoprost [Xalatan] 2.5 ML drops 1 drp Ophthalmic HS Probiotic 1 EACH capsule, sprinkle 1 ea PO DAILY resveratrol 250 mg capsule 1,200 mg PO DAILY hydralazine 25 mg tablet 25 mg PO TID Repatha SureClick 140 mg/mL pen injector 140 mg subcut Q2W aspirin 81 mg Capsule,Delayed Release(Dr/Ec) 81 mg PO DAILY gabapentin 100 mg capsule See Rx Instructions PO .COMPLEX Rx Instructions: 1 tab morning and noon, then 2 tabs q hs orally; polyethylene glycol 3350 [Miralax] 17 gram/dose Powder 17 g PO DAILY olmesartan 40 mg tablet 20 mg PO HS sucralfate 1 gram tablet 1 g PO TID Discontinued acetaminophen 500 mg tablet 1,000 mg PO TID Qty: 90 0RF ibuprofen 600 mg tablet 600 mg PO TID PRN (Reason: pain) Qty: 90 0RF Discharge Instructions Additional Instructions: Cyst Excision Discharge Instructions Activity: You should keep the hand elevated as much as possible for the first few days. You may use the other fingers as tolerated but avoid trying to do too much too soon. You may increase activities after the dressing has been removed. Dressing/Cast: You may remove your dressing after [address] a band-aid over the wound if desired. You may get the incision wet after 48 hours. Medications: - You should take Tylenol and Ibuprofen for baseline pain control. - You may apply ice over the finger. Follow-up: 7-10 days Referrals: Gregg Sotelo MD [ [facility] STAFF PHYSICIAN] - Activity:: Elevate Remove Dressings/Wound Care:: 48 hours Shower/Bathe:: 48 hours Activity:: Activity as Tolerated Diet:: As Tolerated Discharge Orders Discharge Orders: Discharge Order (Routine); Ordered 12/15/23 Ordered By: Yoli Whitten
[2023-12-15 12:25] VITALS: BP 143/65; PULSE 78; RESP 16; TEMP 36.5; O2SAT 96
[2023-12-15] MEDS: Sodium Bicarbonate 50 MEQ/50 ML VIAL (12:45)
[2023-12-15] MEDS: Lidocaine 1% Multi-Dose W/EPI 1/100,000 50 ML VIAL (12:45)
[2023-12-15 13:21] VITALS: BP 156/70; PULSE 82; RESP 16; TEMP 36.6; O2SAT 96
--- NOTE | 2023-12-15 13:37 | ROE_ITS ---
Date of service: 12/15/23 Time of Service: 12:30 Operative Note Operative Note DATE OF PROCEDURE: 12/15/23 PRE-OP DIAGNOSIS: Recurrent digital mucous cyst, left middle finger POST-OP DIAGNOSIS: same PROCEDURE: Mucous Cyst Excision -left middle finger SURGEON: Gregg Sotelo ANESTHESIA TYPE: Local By Surgeon Refer to Anesthesia Record ESTIMATED BLOOD LOSS: 5 PATHOLOGY: none sent TOURNIQUET TIME: 0 COMPLICATIONS: None Patient was transported to: same day Patient's condition: stable Indications: I have seen Tawnya in clinic for symptoms of a digital mucous cyst. This was excised about 6 weeks ago. Unfortunate she had recurrence in the first few weeks for that recurrence has continued to be painful and swollen. Therefore, I offered revision excision of the digital mucous cyst. I reviewed the risks of the procedure to include, but not limited to, bleeding, infection, pain, stiffness, recurrence, damage to nerves or vessels. Despite these risks, the patient elected to proceed. Findings: There was a cyst of the distal phalanx, which was fully identified before deflating. It seemed to be coming from within the extensor tendon which is quite abnormal. Further vesication showed a split in the distal aspect of the extensor tendon with access to the joint. The cyst capsule was removed in whole from the space between the extensor tendon but also on either side of it. An extensive arthrotomy was performed. Procedure Description: Tawnya was greeted in the preoperative holding area where the correct side was identified and marked. The consent was reviewed with the patient and signed. All questions were answered. She was taken back to the operating room. The patient was placed into the supine position on the operating room table with the left arm on an arm board. All bony prominences were well padded. No prophylactic antibiotics were administered since this was a clean, elective hand surgical case. The left arm was then prepped with Chloraprep and draped in a standard fashion with stockin ette and extremity drape. A timeout to confirm correct identity, side and site, procedure, allergies, anesthesia, and medical concerns was performed. A digital block was then performed using 1% lidocaine with epinephrine and buffered with sodium bicarbonate. This was allowed time to set up completely and was tested before proceeding with the case. A longitudinal incision was then made overlying the cyst. The skin was incised sharply. Full-thickness flaps were then elevated to expose the cyst. The cyst capsule was fully identified and seem to be tracking slightly more radial. No further evaluation is seen be going actually into the extensor tendon. This is capsule was then incised, deflating it of the mucinous cystic material. The cyst capsule was excised. A small cleft of the distal aspect of the extensor tendon was identified and this area was debrided. The joint was accessed both from the radial and ulnar aspects of the extensor tendon where arthrotomies were made. Debridement of all of this extra tissue was performed with a rongeur. This was taken all the way to the germinal matrix and showed no signs of any cystic material present. The finger was irrigated and once again checked to make sure that all components of the cyst were removed. The skin was then closed using a #4-0 nylon in interrupted fashion. The finger was dressed with Xeroform, 4 x 4, conform dressing. Tawnya tolerated the procedure well and was returned to the Same Day Surgery area in a stable condition suffering no known complication.
== END 2023-12-15 13:41 | disposition home or self-care (01) ==
LOC: SUR 11:55
PROVIDERS: PCP Family Medicine; Visit Provider Student in an Organized Health Care Education/Training Program
PROC: (CPT 26160; principal; 2023-12-15 14:00)
DX: M67.442 Ganglion, left hand (principal)
CPT/HCPCS: 26160; J2004

== ENCOUNTER 2023-12-18 12:55 | Outpatient (REF) | payer MEDICARE, BC, SELFPAY ==
[2023-12-18 15:46] LABS: Anion Gap 10.7 mmol/L (3-11); BUN 37 mg/dL (7-18); CO2 24.3 mmol/L (21.0-32.0); CREATININE 1.2 mg/dL (0.55-1.02); Calcium 9.2 mg/dL (8.5-10.1); Chloride 104 mmol/L (98-107); Glucose 110 mg/dL (74-106); Magnesium 1.9 mg/dL (1.8-2.4); Potassium 5.7 mmol/L (3.5-5.1); Sodium 139 mmol/L (136-145); Vitamin B12 645 pg/mL (193-986); Vitamin D 25 Total 62.1 ng/mL (30-100)
[2023-12-18 16:01] LABS: Creatine Kinase 106 U/L (26-192)
[2023-12-21 11:40] LABS: Lyme Ab w Rflx to Lyme Confirm Negative (Negative)
[2023-12-21 16:57] LABS: Anaplasma phagocytophilum Negative (Negative); B. miyamotoi PCR Negative (Negative); Babesia divergens/MO-1 Negative (Negative); Babesia duncani Negative (Negative); Babesia microti Negative (Negative); Ehrlichia chaffeensis Negative (Negative); Ehrlichia ewingii/canis Negative (Negative); Ehrlichia muris eauclairensis Negative (Negative)
== END 2023-12-18 12:56 | disposition home or self-care (01) ==
LOC: NCHCN 12:55
PROVIDERS: PCP Family Medicine; Visit Provider Physician Assistant Medical
DX: M62.81 Muscle weakness (generalized) (principal); I10 Essential (primary) hypertension; Z79.899 Other long term (current) drug therapy
CPT/HCPCS: 80048; 82306; 82550; 87798; 82607; 83735; 86618

== ENCOUNTER → 2023-12-25 08:15 | Outpatient (BNVA) | payer MEDICARE, BC, SELFPAY | PROVIDERS: PCP Family Medicine; Referring Provider Family Medicine | DX: Z47.89 Encounter for other orthopedic aftercare (principal); M67.442 Ganglion, left hand ==

== ENCOUNTER → 2024-01-05 03:31 | Outpatient (CLI) | payer MEDICARE, BC, SELFPAY ==
--- NOTE | 2024-01-05 | DI.MRI_ITS ---
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 Pre and post contrast infused sequences per formed IV contrast injected was 15 mL Dotarem COMPARISON: No exams were available for comparison FINDINGS: MARROW:There is no evidence of fracture, bone contusion, nor ominous osseous lesions.. There is a pr ominent subchondral cyst in the medial aspect of the talar dome. MUSCLES: There is mild feathery increased T2 signal in the muscle bellies of the anterior extensor co mpartment, as well as within the Peroni is brevis and flexor digitorum longus muscles as well as at t he musculotendinous junction of the medial head of the gastrocnemius. EXTRAMUSCULAR SOFT TISSUES: There is some subcutaneous edema throughout the calf OTHER: None. IMPRESSION: 1. No evidence of mass effect upon nor abnormal signal nor enhancement within the regions of the supe rficial or deep peroneal nerve, tibial nerve, or seroma nerve in the calf. 2. There is some edema noted in the bellies of the anterior extensor compartment musculature, in the Peroni is brevis, and flexor digitorum longus muscles as well as at the musculotendinous junction of the medial head of the gastrocnemius in the right calf. This can be seen with strain or myositis (charles ch as on the basis of denervation/inflammatory/etc.) 3. There is mild subcutaneous edema in the calf DATA REPOSITORY:
--- NOTE | 2024-01-05 | DI.MRI_ITS ---
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 COMPARISON: No exams were available for comparison FINDINGS: MARROW:There is metallic susceptibility artifact from right hip arthroplasty prosthesis. There is ot herwise no abnormal marrow signal in the femur . MUSCLES: There is mild partial fatty atrophy of the muscle bellies of semimembranosus and to lesser e xtent semitendinosis muscles. There is mild feathery increased T2 signal within the muscle bellies, such as seen with strain or myositis NERVES: Were not degraded by metallic susceptibility artifact from the hip prosthesis, there is no ma ss effect on and no abnormal signal or enhancement within the sciatic nerve. EXTRAMUSCULAR SOFT TISSUES: No abnormal signal, mass, or fluid collection. IMPRESSION: 1. No obvious abnormality of the static nerve in the right thigh 2. There is mild edema in the bellies of the semimembranosus and semitendinosis muscles in the right thigh. This can be seen with strain or myositis (such as related to denervation/inflammatory). DATA REPOSITORY:
[2024-01-05] MEDS: Normal Saline Flush 10 ML SYR IVP (10:20)
[2024-01-05] MEDS: Gadoterate meglumine 20 ML SYRINGE 15 ML IVP (10:21)
--- NOTE | 2024-01-05 11:44 | DI.VRAD_ITS ---
PROCEDURE INFORMATION: Exam: MR Right Lower Extremity Without and With Contrast, Tibia Fibula Exam date and time: 01/05/2024 9:43 AM Age: 73 years old Clinical indication: Pain; Foot and lower leg; Right; Patient HX: Evaluate sciatic and peroneal nerves TECHNIQUE: Imaging protocol: Magnetic resonance imaging of the right lower extremity without and with contrast. Exam focused on the tibia and fibula. Contrast material: DOTAREM; Contrast volume: 15 ml; Contrast route: INTRAVENOUS (IV); COMPARISON: No relevant prior studies for comparison. FINDINGS: Bones/joints: Bone marrow signal in the tibia and fibula is normal. There is a large subchondral cyst at the medial talar dome. Soft tissues: There is minor fatty atrophy of the musculature in the calf. There is mild feathery increased T2 signal throughout the muscle bellies in the anterior compartment of the calf (tibialis anterior, extensor hallucis longus, extensor digitorum longus), in the bellies of the peroneus brevis and flexor digitorum longus muscles, and at the musculotendinous junction of the medial head of gastrocnemius. On postcontrast images there is feathery mild enhancement in the bellies of the tibialis anterior and extensor digitorum longus muscles. These findings can be seen with strain or myositis (i.e. on the basis of denervation, inflammatory, etc.). There is no mass or fluid collection. There is nonspecific mild subcutaneous edema throughout the calf. Nerves: There is no mass effect on and no abnormal signal or enhancement in the regions of the superficial or deep peroneal, tibial, or sural nerves. IMPRESSION: 1. No mass effect on and no abnormal signal or enhancement in the regions of the superficial or deep peroneal, tibial, or sural nerves in the right calf. 2. Edema in the bellies of the anterior compartment musculature, in the peroneus brevis and flexor digitorum longus muscles, and at the musculotendinous junction of the medial head of gastrocnemius in the right calf. This can be seen with strain or myositis (i.e. on the basis of denervation, inflammatory, etc.). Dictated and Authenticated by: Whitney Mendoza MD. Ordering:JACQUELIN Ruiz MD
--- NOTE | 2024-01-05 12:03 | DI.VRAD_ITS ---
PROCEDURE INFORMATION: Exam: MR Right Lower Extremity Without and With Contrast, Femur. Exam date and time: 01/05/2024 8:52 AM Age: 73 years old Clinical indication: Pain; Thigh; Right; Patient HX: Evaluate sciatic nerve TECHNIQUE: Imaging protocol: Magnetic resonance imaging of the right lower extremity without and with contrast. Exam focused on the femur. Contrast material: DOTAREM; Contrast volume: 15 ml; Contrast route: INTRAVENOUS (IV); COMPARISON: MR LOWER EXTREMITY RT WO 10/20/2023 1:24 PM FINDINGS: Bones/joints: There is metallic susceptibility artifact from a right total hip prosthesis. Where not degraded by metallic susceptibility artifact, no suspicious bone marrow signal abnormality is seen in the femur. Soft tissues: There is mild partial fatty atrophy of the bellies of the semimembranosus and (to a lesser extent) semitendinosus muscles. There is mild feathery increased T2 signal within the muscle bellies, which can be seen with strain or myositis (i.e. due to denervation, inflammatory). There is otherwise only minimal fatty atrophy of the musculature in the thigh. Nerves: Where not degraded by metallic susceptibility artifact from the right hip prosthesis, there is no mass effect on and no abnormal signal or enhancement in the sciatic nerve. IMPRESSION: 1. No mass effect on and no abnormal signal or enhancement in the sciatic nerve in the right thigh. 2. Mild edema in the bellies of the semimembranosus and semitendinosus muscles in the right thigh. This can be seen with strain or myositis (i.e. due to denervation, inflammatory). Dictated and Authenticated by: Whitney Mendoza MD. Ordering:JACQUELIN Ruiz MD
== END ==
PROVIDERS: PCP Family Medicine; Visit Provider Physician Assistant Surgical
DX: G57.31 Lesion of lateral popliteal nerve, right lower limb (principal)
CPT/HCPCS: 73720

== ENCOUNTER → 2024-01-08 00:33 | Outpatient (CLI) | payer MEDICARE, BC, SELFPAY ==
--- NOTE | 2024-01-08 | DI.MRI_ITS ---
Exam(s) MR THORACIC SPINE WO EXAM: MR THORACIC SPINE WO CLINICAL HISTORY: GAIT INSTABILITY R26.8 INCOORDINATION R27.9 FALLING, R/O THORACIC. TECHNIQUE: Multiplanar multisequence MRI of the Thoracic spine was performed. CONTRAST MATERIAL: IV noncontrast COMPARISON: MR MR LUMBAR SPINE WO from 08/24/2023 FINDINGS: Bones: The vertebral body heights are well maintained. Alignment is satisfactory. Hemangioma left-si ded T10 vertebral body. Additional hemangioma right side of T6. Cord: The thoracic cord is normal size and signal intensity. No intrinsic cord lesion is present. Discs: Mild loss of disc height anteriorly with anterior endplate osteophytes. No evidence of disc h erniation or central canal stenosis. No neural foraminal narrowing. Soft tissues: Normal. IMPRESSION: Some mild degenerative disc changes. Normal cord signal. No central canal stenosis or neural forami nal narrowing. DATA REPOSITORY:
--- NOTE | 2024-01-08 | DI.MRI_ITS ---
Exam(s) MR CERVICAL SPINE WO EXAM: MR CERVICAL SPINE WO CLINICAL HISTORY: GAIT INSTABILITY R26.8 INCOORDINATION R27.9 FALLING, HAND CLUMSINESS, R/O TECHNIQUE: Multiplanar multisequence MRI of the cervical spine was performed without intravenous con trast. COMPARISON: No exams were available for comparison FINDINGS: BONES: Vertebral body heights are maintained. Alignment is normal. Bone marrow signal intensity is wi thin normal limits. Apparent fusion between the facets of C4 and C5 the right. CERVICAL CORD: Craniovertebral junction is unremarkable. The cervical cord is normal size and signal intensity. SOFT TISSUES: Unremarkable. Pjtu-yc-ztjwsgiw loss of disc height. Endplate osteophyte formation throughout. Findings greatest a t C2-3 with osteophytes projecting anteriorly. Facet degenerative changes present throughout causing multilevel neural foraminal narrowing. No central canal stenosis. No evidence of disc herniation. IMPRESSION: Degenerative changes throughout the cervical spine. Normal cord signal. No central canal stenosis. DATA REPOSITORY:
== END ==
PROVIDERS: PCP Family Medicine; Visit Provider Physician Assistant Surgical
DX: M51.34 Other intervertebral disc degeneration, thoracic region (principal); M50.120 Mid-cervical disc disorder, unspecified level
CPT/HCPCS: 72141; 72146

== ENCOUNTER 2024-02-01 08:53 | Outpatient (REF) | payer MEDICARE, BC, SELFPAY ==
[2024-02-01 16:24] LABS: Anion Gap 10.9 mmol/L (3-11); BUN 45 mg/dL (7-18); CO2 25.1 mmol/L (21.0-32.0); CREATININE 1.5 mg/dL (0.55-1.02); Calcium 9.3 mg/dL (8.5-10.1); Calculated LDL 109 mg/dL (<100); Chloride 105 mmol/L (98-107); Cholesterol 233 mg/dL (<200); Estimated GFR 36.57 (mL/min/1.73m2); Glucose 100 mg/dL (74-106); HDL Cholesterol 97 mg/dL (40-60); Potassium 4.5 mmol/L (3.5-5.1); Sodium 141 mmol/L (136-145); Triglyceride 138 mg/dL (<150)
[2024-02-01 16:28] LABS: Hemoglobin A1C 5.5 % (<5.7)
[2024-02-02 10:36] LABS: C-Reactive Protein 1.09 mg/dL (<or=0.5)
[2024-02-02 14:13] LABS: Albumin 61.6 % (55.8-66.1); Albumin g/dL 4.2 g/dL (3.6-5.2); Total Protein 6.8 g/dL (6.3-8.2)
== END 2024-02-01 08:54 | disposition home or self-care (01) ==
LOC: NCHCN 08:53
PROVIDERS: PCP Family Medicine; Visit Provider Family Medicine
DX: I10 Essential (primary) hypertension (principal); E78.5 Hyperlipidemia, unspecified; Z00.00 Encounter for general adult medical examination without abnormal findings; R27.9 Unspecified lack of coordination
CPT/HCPCS: 80048; 80061; 83036; 84165; 84443; 86140

== ENCOUNTER 2024-02-04 07:11 | Outpatient (CLI) | payer MEDICARE, BC, SELFPAY ==
[2024-02-04] VITALS (20 sets, daily range): BP systolic 148–222; BP diastolic 50–81; PULSE 55–97; RESP 11–19; TEMP 36.5; O2SAT 94–99
[2024-02-04] MEDS: fentaNYL 100 MCG/2 ML VIAL IVP (08:52)
[2024-02-04] MEDS: Midazolam 2 MG/2 ML VIAL IVP (08:53)
[2024-02-04] MEDS: Lactated Ringers 500 ML 80 ML IV (08:54)
--- NOTE | 2024-02-04 09:19 | DI.RAD_ITS ---
Exam(s) XR PAIN CLINIC LUMBAR SP 2V EXAM: XR PAIN CLINIC LUMBAR SP 2V CLINICAL HISTORY: Dx: Lumbar Spondylosis TECHNIQUE: 2D and realtime digital imaging was performed. Radiologist not present. CONTRAST MATERIAL: None. COMPARISON: No exams were available for comparison FINDINGS: Fluoroscopy was provided for pain management therapy. Please refer to procedure report or details. Radiation Exposure Index: Ka,r=9.22 mGy IMPRESSION: As above. RADIATION DOSE DELIVERED:
--- NOTE | 2024-02-04 09:20 | PDOC.PAIN ---
Date of service: 02/04/24 Time of Service: 09:20 Pain Managment Procedure Note Procedure Note Procedure Note: PROCEDURE NOTE LEFT LUMBAR RADIOFREQUENCY ABLATION Date of Service: February 04, 2024 Patient:? Macy Mccurdy? Provider:? Joseph Evans DO, MPH Macy Mccurdy [facility] Lumbar Radiofrequency Ablation with the uberall Machine.? Pre Operative Diagnosis: Lumbosacral Spondylosis without Myelopathy Post Operative Diagnosis: Same Pre procedure pain; VAS= 7/10 Comments: She had >6 months of >50% pain relief from her 02/08/23 left L3-L5 RFA PROCEDURE: Radiofrequency Ablation of medial branches - Left L3, L4, L5 and lateral branches of bilateral S1. Erinwas interviewed and the medical record was reviewed.? There were no medical, pharmacologic, radiographic or other structural contraindications to attempting fluoroscopically guided LEFT Lumbar Radiofrequency Ablation.?Risks and expected side effects as well as potential benefit of the procedure were reviewed with Macy, and the patient's voiced concerns were addressed.? The printed consent form was signed.? Standard time-out procedure was performed. Macy was brought into the fluoroscopy suite and positioned into the prone position on the fluoroscopy table and allowed to adjust to a position of comfort. A grounding pad was placed on the left abdomen. The sterile field was prepared using chlorhexidine preparation of the skin and sterile draping. Local anesthesia superficial and deep was provided by local infiltration of 2% lidocaine. A 17g 100 mm radiofrequency introducer needle was placed to the planned anatomic targets guided with intermittent fluoroscopy with a perpendicular approach to terminally place at the junction of the superior articular process and the transverse process of the left L4, L5, the base of the sacral ala on the left for the L5 medial branch nerve and the area between base of the sacral ala to the S1 foramen on the left. The stylets were removed and radiofrequency probes with a 4mm active tip were then inserted. Needle tip position of the probes was verified in the AP, oblique, and lateral views. At each site, the medial branch nerve was stimulated at 2 Hz to a maximum 1-2 volts determined to finalize safe needle and electrode placement. The patient was awake and responsive during this portion of the procedure. Each target was anesthetized with 1-2 mL of 2 % Lidocaine for anesthesia for lesioning and then each target was lesioned at 80 degrees Celsius for 2 minutes and 30 seconds. Tissue impedances were noted to be between 250 and 500 Ohms. I then injected 1/4 cc of Depomedrol (40 mg/cc) followed by 1 cc of 0.5% Bupivacaine at each segmental sensory nerve. There was no unusual discomfort expressed by Macy. The needles were withdrawn without difficulty and bandages placed over the needle placement sites, the patient was observed and was without hemodynamic, neurologic, or allergic reactions. Fluoroscopic images were digitally archived. POST PROCEDURE EVALUATION: IMPRESSION: 1. Summary of procedure. Medication given is documented in the MAR. 2. Follow up plan: Macy to contact [facility] as needed.?This procedure may be repeated if the patient achieves at least 50% improvement in pain/function for at least 6 months. 3. Estimated Blood Loss: <5 mls 4. Fluoroscopy time: Documented in the EMR. Follow up plans and appointments were discussed with the Macy. Post procedure instruction was given as documented in nursing documentation and having met discharge criteria, Macy was discharged from the [facility]. COMMENTS: No apparent complications. Post-procedure pain: VAS= 0/10. I personally completed the entire procedure. JOSEPH EVANS DO, MPH [employer] - Subspecialty board certification in Pain Medicine [facility] [facility]
[2024-02-04] MEDS: Lidocaine 2% Multi-Dose 20 ML VIAL IJ (09:32)
[2024-02-04] MEDS: methylPREDNISolone ACETATE 40 MG/ML VIAL IJ (09:32)
[2024-02-04] MEDS: Nerve Block Tray 1 EACH MC (09:32)
[2024-02-04] MEDS: Bupivacaine 0.5% Pres-Free 10 ML VIAL IJ (09:33)
== END 2024-02-04 07:12 | disposition home or self-care (01) ==
LOC: PC 07:12
PROVIDERS: PCP Family Medicine; Visit Provider Preventive Medicine Occupational Medicine
DX: M54.50 Low back pain, unspecified (principal); M47.817 Spondylosis without myelopathy or radiculopathy, lumbosacral region
CPT/HCPCS: 64635; 64636; 72100; J0665; J1010; J2003; J2250; J3010

== ENCOUNTER → 2024-02-22 02:18 | Outpatient (CLI) | payer MEDICARE, BC, SELFPAY ==
--- NOTE | 2024-02-22 07:45 | DI.MRI_ITS ---
Exam(s) MR UPPER EXTREMITY LT WO EXAM: MR UPPER EXTREMITY LT WO CLINICAL HISTORY: s/p recurrent cyst excision,digital mucous cyst lt hand,m67.442 TECHNIQUE: Multiplanar multisequence MRI was performed. COMPARISON: No prior MRI exams were available for comparison FINDINGS: MARROW:There is no evidence of fracture, bone contusion, nor avascular necrosis. There are no signif icant osseous lesions. 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 There is a significant size joint effusion in the metacarpophalangeal joint of the 2nd-index finger noted. No associated e rosions. EXTRA ARTICULAR SOFT TISSUES: No abnormal signal, mass, or fluid collection. On the dorsal aspect of the 3rd-middle finger there is a multiloculated fluid collection located jus t dorsal to the DIP joint and intimately associated with the attachment site of the extensor tendon o n the dorsal proximal aspect of the distal phalanx. The largest component of this cystic structure i s on the medial aspect and measures 5 mm longitudinal x 2.7 mm wide x 3.5 mm deep. This has the appe arance of a para-articular ganglion cyst. MUSCLES/TENDONS: There are no tendon tears nor tenosynovitis. OTHER: IMPRESSION: 1. Findings are consistent with a para-articular ganglion cyst on the dorsal aspect of the DIP joint of the 3rd-middle finger, this measuring approximately is 5 mm length by 2.7 mm wide by 3.5 mm deep. The largest component of this finding is on the medial aspect with the neck of the collection wall e xtending over the lateral aspect of the distal extensor tendon at this level. There is no evidence o f tendon tear tenosynovitis. 2. Incidentally noted is a joint effusion at the meta carpophalangeal joint of the 2nd-index finger. DATA REPOSITORY:
== END ==
PROVIDERS: PCP Family Medicine; Visit Provider Student in an Organized Health Care Education/Training Program
DX: M67.442 Ganglion, left hand (principal); M25.442 Effusion, left hand
CPT/HCPCS: 73218

== ENCOUNTER → 2024-02-22 02:19 | Outpatient (CLI) | payer MEDICARE, BC, SELFPAY ==
--- NOTE | 2024-02-22 | DI.MRI_ITS ---
Exam(s) MR BRAIN WO/W EXAM: MR BRAIN WO/W CLINICAL HISTORY: M62.81 Muscle weakness. TECHNIQUE: Multiplanar multisequence MRI of the brain was performed. CONTRAST MATERIAL: IV Contrast: 14 ML of Dotarem contrast administered. COMPARISON: No exams were available for comparison FINDINGS: VENTRICLES AND EXTRA AXIAL SPACES: Normal in size and morphology for the patient's age. HEMORRHAGE: None. CEREBRAL PARENCHYMA: No focus of restricted diffusion to suggest acute infarct. No space-occupying le maday identified. Multiple small scattered high signal foci in the white matter consistent with seq uela of microvascular disease. Mild atrophy. MIDLINE SHIFT: None. BRAINSTEM/CEREBELLUM: Normal. CALVARIUM: Normal. ENHANCEMENT: No suspicious enhancement identified. VISUALIZED PARANASAL SINUSES/MASTOIDS: Mild mucosal thickening. Orbits: Unremarkable. Pituitary: Normal. Vasculature: Normal flow voids. IMPRESSION: White matter signal changes are nonspecific but most likely associated with chronic microvascular judit nges. Single punctate focus blooming artifact in the right frontal lobe consistent with petechial manuel rohemorrhage. DATA REPOSITORY:
[2024-02-22] MEDS: Gadoterate meglumine 20 ML SYRINGE 15 ML IVP (14:01)
[2024-02-22] MEDS: Normal Saline Flush 10 ML SYR IVP (14:02)
== END ==
PROVIDERS: PCP Family Medicine; Visit Provider Family Medicine
DX: M62.81 Muscle weakness (generalized) (principal); R90.82 White matter disease, unspecified
CPT/HCPCS: 70553; 73218

== ENCOUNTER → 2024-03-03 14:35 | Outpatient (BNVA) | payer MEDICARE, BC, SELFPAY | PROVIDERS: PCP Family Medicine; Referring Provider Family Medicine; Visit Provider Physician Assistant | DX: M71.342 Other bursal cyst, left hand (principal) | CPT/HCPCS: 99213 ==

== ENCOUNTER 2024-05-27 15:09 | Outpatient (REF) | payer MEDICARE, BC, SELFPAY ==
[2024-05-27 15:20] LABS: BUN 40 mg/dL (7-18); Chloride 106 mmol/L (98-107); Estimated GFR 59.12 (mL/min/1.73m2); Glucose 104 mg/dL (74-106); Potassium 4.5 mmol/L (3.5-5.1); Sodium 141 mmol/L (136-145)
== END 2024-05-27 15:10 | disposition home or self-care (01) ==
LOC: NCHCN 15:09
PROVIDERS: PCP Family Medicine; Visit Provider Family Medicine
DX: I10 Essential (primary) hypertension (principal)
CPT/HCPCS: 80048

== ENCOUNTER 2024-08-12 00:43 | Outpatient (CLI) | payer MEDICARE, BC, SELFPAY ==
--- NOTE | 2024-08-12 | DI.MRI_ITS ---
Exam(s) MR UPPER JOINT RT WO EXAM: MR UPPER JOINT RT WO CLINICAL HISTORY: WEAKNESS RT UPPER LIMB,M62.81,RT SHOULDER PAIN,+ARM DROP TEST,+ALEXANDRE TEST, TECHNIQUE: Multiplanar multisequence MRI of the shoulder was performed. COMPARISON: MR MR UPPER JOINT LT WO from 04/13/2020 CR XR HIP RT AP LAT ONLY from 10/16/2023 FINDINGS: MARROW:There is no evidence of fracture, Hill-Sachs deformity, nor ominous osseous lesions. GLENOHUMERAL JOINT: There are moderate osteoarthritic degenerative changes in the glenohumeral joint with some articular cartilage loss as well as small osteophyte on the inferior articular surface of t he humeral head. There are no degenerative subarticular cysts in the osseous glenoid nor in the boogie ral head. There is small amount of increased joint fluid and some synovial thickening is evident in the inferior recess.. No obvious loose intra-articular bodies. ROTATOR CUFF MECHANISM: AC JOINT/ACROMIUM: There are significant degenerative changes in the AC joint. There is some pinch m int at this level as well as at the acromial level.. There is no evidence of os acromiale. Supraspinatus: There is significant signal abnormality and thickening in the supraspinatus tendon con sistent with advanced tendinitis-tendinosis. There is partial thickness tearing on the articular feliciano face side. There is no retraction musculotendinous junction. There is fluid in the subacromial-subd eltoid bursa but cannot locate an actual full-thickness tear of the supraspinatus tendon. Infraspinatus: Mild tendinitis signal, significantly less than what is evident in the supraspinatus. No atrophy. Teres Minor: Intact. No evidence of tear nor muscle atrophy. Subscapularis/anterior cuff: There is tendinitis signal evident in the insertional fibers. There is also a cystic degenerative change at the musculotendinous junction and extending medially into the mu scle belly for few cm. No true atrophy. BICEPS TENDON: Exhibits normal position within the intertubercular groove. No evidence of tear. LABRUM: There is mild irregularity of the superior labrum posterior to the biceps insertion. Possibl e small area of SLAP tear. The posterior labrum appears intact. There is irregularity of the jim superior labrum noted consistent with probable tear.. The anterior labrum below this level appears u nremarkable. Inferior labrum exhibits some irregularity. There is some fluid extension in the sub c oracoid region but does not appear to be a paralabral cyst. IMPRESSION: 1. Thus advanced tendinitis-tendinosis of the supraspinatus as well as partial thickness tearing. Al though there is some fluid in the overlying subacromial bursa, there does not appear to be an obvious full-thickness tear of the supraspinatus. Suspect severe tendinosis and overlying bursitis. Signif icant degenerative changes are noted in the AC joint. 2. Lesser amount of tendinitis signal noted in the infraspinatus. There is tendinitis signal and cys tic tear of findings within the anterior cuff-subscapularis. 3. There is multi level irregularity of the labrum superiorly as well as probable tearing of the ante rosuperior labrum. The biceps tendon appears intact. 4. There are moderate degenerative changes in the glenohumeral joint. There is some articular carti fabiana loss and small osteophyte on the inferior articular surface of the humeral head. There are no d egenerative subarticular cysts. No loose intra-articular bodies. Small amount of increased joint fl uid noted. DATA REPOSITORY:
--- NOTE | 2024-08-12 | DI.MRI_ITS ---
Exam(s) MR LOWER JOINT RT WO EXAM: MR LOWER JOINT RT WO CLINICAL HISTORY: RT KNEE INSTABILITY,M25.361? MENISCAL ,mCL, ACL INJURY. TECHNIQUE: Multiplanar multisequence MRI was performed. COMPARISON: MR MR LOWER EXTREMITY RT WO from 10/20/2023 FINDINGS: BONES: There is high signal and cystic change in the medial patellar facet superiorly which may be sl ightly worse when compared the previous exam. JOINTS: No joint effusion is present. Articular cartilage: Patellofemoral joint: Articular cartilage shows mild thinning at the medial facet superiorly. Centrally in the femur at the, at the level of the intercondylar notch, there is cartilage thinning a nd underlying cystic change, similar to prior. Medial femoral tibial joint: Articular cartilage is unremarkable. Lateral femoral tibial joint: Articular cartilage is unremarkable. LIGAMENTS/TENDONS: Anterior Cruciate: Somewhat thinned appearance. Mild amount of surrounding fluid. No focal tear. S imilar appearance to prior. Posterior Cruciate: No evidence of tear. Small adjacent cysts. Medial Collateral:Unremarkable. Lateral Collateral ligament complex: Unremarkable. Extensor mechanism: Unremarkable. Medial retinaculum: Unremarkable. Lateral retinaculum: Unremarkable. Popliteus: Unremarkable. Thickening and edema in the distal semimembranosis tendon at the insertion on the posterior proximal tibia. The remaining medial tendons are intact but show some surrounding fluid. MENISCI: The medial meniscus is unremarkable. The lateral meniscus is unremarkable. MUSCLES: Unremarkable. SOFT TISSUES: Edema anterior to patellar tendon. IMPRESSION: Tendinosis of the distal semimembranosus tendon. Surrounding edema. Small cysts adjacent to the posterior cruciate ligament. Stable appearance of chondromalacia and adjacent cystic bony changes in the superior medial patellar facet and anterior femoral intracondylar notch. DATA REPOSITORY:
--- NOTE | 2024-08-12 13:44 | DI.VRAD_ITS ---
PROCEDURE INFORMATION: Exam: MR Right Lower Extremity Joint Without Contrast, Knee Exam date and time: 08/12/2024 9:07 AM Age: 74 years old Clinical indication: Pain; Knee; Right; Additional info: Instability plus nerve abnormality. Please compare to prior mri 10/20/23 TECHNIQUE: Imaging protocol: Magnetic resonance imaging of the right lower extremity joint without contrast. Exam focused on the knee. COMPARISON: MR LOWER EXTREMITY RT WO/W 01/05/2024 9:43 AM FINDINGS: Bones/joints: Small knee joint space effusion. Chondromalacia changes of the patellar facets. Subchondral cystic change with surrounding edema involving the medial patellar facet. Subchondral cystic changes in the intercondylar notch of the femur. Minimal surrounding edema. No edema pattern distal femur or proximal tibia or fibula. Chondral defects present in the anterior femoral condyle. Medial meniscus: Unremarkable. No tear. Lateral meniscus: Unremarkable. No tear. Anterior cruciate ligament: Unremarkable. No tear. Posterior cruciate ligament: Unremarkable. No tear. Medial capsule and supporting structures: Unremarkable. No tear. Lateral capsule and supporting structures: Unremarkable. No tear. Extensor mechanism of knee: Unremarkable. No tear. Soft tissues: Mild anterior subcutaneous edema. There is no evidence of common peroneal neuropathy. There is no edema or enlargement of the common peroneal nerve. No anterior compartment muscle volume loss or fatty atrophy. IMPRESSION: 1. No evidence of common peroneal neuropathy. No anterior compartment muscle volume loss or fatty atrophy. 2. 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 Dictated and Authenticated by: Riley Vargas MD. Ordering:FANNY Bentley MD
== END 2024-08-12 01:03 ==
LOC: DI 00:43
PROVIDERS: PCP Family Medicine; Visit Provider Family Medicine
DX: M25.361 Other instability, right knee (principal); M62.81 Muscle weakness (generalized)
CPT/HCPCS: 73721; 73221

== ENCOUNTER 2024-08-16 15:51 | Outpatient (CLI) | payer MEDICARE, BC, SELFPAY ==
--- NOTE | 2024-08-16 09:15 | DI.RAD_ITS ---
Exam(s) XR SHOULDER RT COMPLETE 2+V EXAM: XR SHOULDER RT COMPLETE 2+V CLINICAL HISTORY: RIGHT SHOULDER PAIN. TECHNIQUE: 2D digital imaging was performed of the right shoulder. Two images were obtained. Grash ey and axillary views were obtained. COMPARISON: MR MR UPPER JOINT RT WO from 08/12/2024 FINDINGS: BONES: No acute fracture is present. No bony destructive lesion is seen. JOINTS: No dislocation present. There are mild degenerative changes seen at the acromioclavicular and glenohumeral joints. SOFT TISSUE: Normal. IMPRESSION: Mild degenerative changes of the shoulder. DATA REPOSITORY: RADIATION DOSE DELIVERED:
--- NOTE | 2024-08-16 09:45 | DI.RAD_ITS ---
Exam(s) XR KNEE RT 3V AP,LAT,JESSICA EXAM: XR KNEE RT 3V AP,LAT,JESSICA CLINICAL HISTORY: right knee injury. TECHNIQUE: 2D digital imaging was performed of the right knee. Three views obtained. Merchant, AP an d lateral views were obtained. COMPARISON: MR MR LOWER JOINT RT WO from 08/12/2024 FINDINGS: BONES: No acute fracture is present. No bony destructive lesion is seen. JOINTS: The knee is normally aligned. No joint effusion is seen. SOFT TISSUE: Normal. IMPRESSION: No acute fracture or dislocation is identified. DATA REPOSITORY: RADIATION DOSE DELIVERED:
== END 2024-08-16 15:52 | disposition home or self-care (01) ==
LOC: DIORS 15:51
PROVIDERS: PCP Family Medicine; Referring Provider Family Medicine; Visit Provider Student in an Organized Health Care Education/Training Program
DX: M17.11 Unilateral primary osteoarthritis, right knee; M75.101 Unspecified rotator cuff tear or rupture of right shoulder, not specified as traumatic; S43.431A Superior glenoid labrum lesion of right shoulder, initial encounter; X50.0XXA Overexertion from strenuous movement or load, initial encounter
CPT/HCPCS: 20610; 73562; 99214; J1010; 73030

== ENCOUNTER 2024-08-18 17:42 | Outpatient (REF) | payer MEDICARE, BC, SELFPAY ==
[2024-08-18 15:40] LABS: Anion Gap 6.7 mmol/L (3-11); BUN 27 mg/dL (7-18); CO2 27.3 mmol/L (21.0-32.0); Calcium 9.6 mg/dL (8.5-10.1); Chloride 106 mmol/L (98-107); Estimated GFR 59.12 (mL/min/1.73m2); Glucose 106 mg/dL (74-106); Potassium 4.5 mmol/L (3.5-5.1); Sodium 140 mmol/L (136-145)
== END 2024-08-18 17:43 | disposition home or self-care (01) ==
LOC: NCHCN 17:42
PROVIDERS: PCP Family Medicine; Visit Provider Family Medicine
DX: N18.9 Chronic kidney disease, unspecified (principal)
CPT/HCPCS: 80048

== ENCOUNTER → 2024-10-10 09:51 | Outpatient (BNVA) | payer MEDICARE, BC, SELFPAY | PROVIDERS: PCP Family Medicine; Referring Provider Family Medicine; Visit Provider Student in an Organized Health Care Education/Training Program | DX: M17.11 Unilateral primary osteoarthritis, right knee (principal) | CPT/HCPCS: 99213 ==

== ENCOUNTER → 2024-10-11 09:51 | Outpatient (BNVA) | payer MEDICARE, BC, SELFPAY | PROVIDERS: PCP Family Medicine; Referring Provider Family Medicine; Visit Provider Student in an Organized Health Care Education/Training Program | DX: M75.101 Unspecified rotator cuff tear or rupture of right shoulder, not specified as traumatic (principal); M12.811 Other specific arthropathies, not elsewhere classified, right shoulder; S43.431A Superior glenoid labrum lesion of right shoulder, initial encounter; X58.XXXA Exposure to other specified factors, initial encounter | CPT/HCPCS: 99213 ==

== ENCOUNTER 2024-10-13 07:02 | Outpatient (CLI) | payer MEDICARE, BC, SELFPAY ==
--- NOTE | 2024-10-13 06:00 | DI.RAD_ITS ---
Exam(s) XR PAIN CLINIC LUMBAR SP 2V EXAM: XR PAIN CLINIC LUMBAR SP 2V CLINICAL HISTORY: DX: Lumbar Spondylosis TECHNIQUE: 2D and realtime digital imaging was performed. Radiologist not present. CONTRAST MATERIAL: None. COMPARISON: No exams were available for comparison FINDINGS: Fluoroscopy was provided for pain management therapy. Lumbar spine therapeutic injections. Please refer to procedure report or details. Radiation Exposure Index: Ka,r=9.07 mGy IMPRESSION: As above. RADIATION DOSE DELIVERED:
[2024-10-13 07:03] VITALS: BP 170/53; PULSE 76; RESP 20; TEMP 37; O2SAT 98
[2024-10-13 08:09] VITALS: PULSE 56; PULSE 57; O2SAT 98
[2024-10-13 08:10] VITALS: BP 164/78; PULSE 55; RESP 17; O2SAT 98
[2024-10-13] MEDS: Midazolam 2 MG/2 ML VIAL IVP (08:15)
[2024-10-13] MEDS: fentaNYL 100 MCG/2 ML VIAL IVP ×2 (08:15→08:20)
[2024-10-13 08:20] VITALS: PULSE 49; PULSE 50; RESP 9; O2SAT 97
[2024-10-13 08:30] VITALS: PULSE 49; PULSE 50; RESP 12; O2SAT 93
[2024-10-13] MEDS: Lactated Ringers 500 ML 80 ML IV (08:32)
[2024-10-13 08:45] VITALS: BP 164/55; PULSE 53
[2024-10-13] MEDS: Lidocaine 2% Multi-Dose 20 ML VIAL IJ (08:45)
[2024-10-13] MEDS: methylPREDNISolone ACETATE 40 MG/ML VIAL IJ (08:45)
[2024-10-13] MEDS: Bupivacaine 0.5% Pres-Free 10 ML VIAL IJ (08:45)
[2024-10-13] MEDS: Nerve Block Tray 1 EACH MC (08:46)
--- NOTE | 2024-10-13 08:47 | PDOC.PAIN ---
Date of service: 10/13/24 Time of Service: 08:47 Pain Managment Procedure Note Procedure Note Procedure Note: PROCEDURE NOTE LEFT LUMBAR RADIOFREQUENCY ABLATION Date of Service: October 13, 2024 Patient:? Macy Mccurdy? Provider:? Joseph Evans DO, MPH Macy Mccurdy [facility] Left Lumbar Radiofrequency Ablation with the [employer] Machine.? Pre Operative Diagnosis: Lumbosacral Spondylosis without Myelopathy ICD-10 M47.816 Post Operative Diagnosis: Same Pre procedure pain; VAS= 8/10 Comments: She has >7 months of >50% pain relief with her last RFA in 01/2024. She was able to go to PT and walk her dogs. PROCEDURE: Radiofrequency Ablation of medial branches - left L3, L4, L5 and lateral branches of left S1. Erinwas interviewed and the medical record was reviewed.? There were no medical, pharmacologic, radiographic or other structural contraindications to attempting fluoroscopically guided LEFT Lumbar Radiofrequency Ablation.?Risks and expected side effects as well as potential benefit of the procedure were reviewed with Macy, and the patient's voiced concerns were addressed.? The printed consent form was signed.? Standard time-out procedure was performed. Macy was brought into the fluoroscopy suite and positioned into the prone position on the fluoroscopy table and allowed to adjust to a position of comfort. A grounding pad was placed on the left abdomen. The sterile field was prepared using chlorhexidine preparation of the skin and sterile draping. Local anesthesia superficial and deep was provided by local infiltration of 2% lidocaine. A 17g 100 mm radiofrequency introducer needle was placed to the planned anatomic targets guided with intermittent fluoroscopy with a perpendicular approach to terminally place at the junction of the superior articular process and the transverse process of the left L4, L5, the base of the sacral ala on the left for the L5 medial branch nerve and the area between base of the sacral ala to the S1 foramen on the left. The stylets were removed and radiofrequency probes with a 4mm active tip were then inserted. Needle tip position of the probes was verified in the AP, oblique, and lateral views. At each site, the medial branch nerve was stimulated at 2 Hz to a maximum 1-2 volts determined to finalize safe needle and electrode placement. The patient was awake and responsive during this portion of the procedure. Each target was anesthetized with 1-2 mL of 2 % Lidocaine for anesthesia for lesioning and then each target was lesioned at 80 degrees Celsius for 2 minutes and 30 seconds. Tissue impedances were noted to be between 250 and 500 Ohms. Next, I injected 1/4cc of Depomedrol followed by 1 cc of 0.5% Bupivacaine at each sensory nerve. There was no unusual discomfort expressed by Macy. The needles were withdrawn without difficulty and bandages placed over the needle placement sites, the patient was observed and was without hemodynamic, neurologic, or allergic reactions. Fluoroscopic images were digitally archived. POST PROCEDURE EVALUATION: IMPRESSION: 1. Summary of procedure. Medication given is documented in the MAR. 2. Follow up plan: Macy to contact [facility] as needed.?This procedure may be repeated if the patient achieves at least 50% improvement in pain/function for at least 6 months. 3. Estimated Blood Loss: <5 mls 4. Fluoroscopy time: Documented in the EMR. Follow up plans and appointments were discussed with the Macy. Post procedure instruction was given as documented in nursing documentation and having met discharge criteria, Macy was discharged from the [facility]. This advanced procedure uses cooled radiofrequency energy to safely target the sensory nerves responsible for sending pain signals.1 A radiofrequency generator transmits a small current of Radiofrequency energy through an insulated electrode, or probe, placed within tissue. Ionic heating, produced by the friction of charged molecules, thermally deactivates the nerves responsible for sending pain signals to the brain. Radiofrequency energy heats and cools the tissue at the site of pain. Unlike other Radiofrequency procedures, Coolief circulates water through the device while heating nervous tissue to create a larger treatment area, increasing the opportunity to help with pain. This combination targets the pain-transmitting nerves without excessive heating, leading to pain relief. COMMENTS: No apparent complications. Post-procedure pain: VAS= 0/10. I personally completed the entire procedure. JOSEPH EVANS DO, MPH ABPM[employer]R - Subspecialty board certification in Pain Medicine [facility] Coding Conscious Sedation used for procedure: Yes CPT Codes: Single Facet Joint, Lumbar/Sacral cool - 58605W (24555H15~G) Single Facet Joint, Standard each add'l - 24731 (1921900~G) Additional Codes: Date of Service (33336) Date of service: 10/13/24
== END 2024-10-13 07:03 | disposition home or self-care (01) ==
LOC: PC 07:02
PROVIDERS: PCP Family Medicine; Visit Provider Preventive Medicine Occupational Medicine
DX: M54.50 Low back pain, unspecified (principal); M47.816 Spondylosis without myelopathy or radiculopathy, lumbar region
CPT/HCPCS: 64635; 64636; 64640; 72100; J0665; J1010; J2003; J2250; J3010

== ENCOUNTER → 2024-10-24 14:09 | Outpatient (BNVA) | payer MEDICARE, BC, SELFPAY | PROVIDERS: PCP Family Medicine; Referring Provider Family Medicine; Visit Provider Podiatrist | DX: L60.0 Ingrowing nail (principal); L81.4 Other melanin hyperpigmentation; M79.671 Pain in right foot; M79.675 Pain in left toe(s) | CPT/HCPCS: 11750; 11755 ==

== ENCOUNTER → 2024-11-07 10:44 | Outpatient (BNVA) | payer MEDICARE, BC, SELFPAY | PROVIDERS: PCP Family Medicine; Referring Provider Family Medicine; Visit Provider Podiatrist | DX: L60.0 Ingrowing nail (principal); L81.4 Other melanin hyperpigmentation; M79.671 Pain in right foot; M79.672 Pain in left foot | CPT/HCPCS: 11750 ==

== ENCOUNTER → 2024-11-28 14:19 | Outpatient (BNVA) | payer MEDICARE, BC, SELFPAY | PROVIDERS: PCP Family Medicine; Referring Provider Family Medicine; Visit Provider Podiatrist | DX: L60.0 Ingrowing nail (principal); L81.9 Disorder of pigmentation, unspecified; M79.671 Pain in right foot; B35.1 Tinea unguium | CPT/HCPCS: 99214 ==

== ENCOUNTER → 2024-12-20 11:08 | Outpatient (BNVA) | payer MEDICARE, BC, SELFPAY | PROVIDERS: PCP Family Medicine; Referring Provider Family Medicine; Visit Provider Podiatrist | DX: L60.0 Ingrowing nail (principal); M79.671 Pain in right foot; M79.672 Pain in left foot; L81.9 Disorder of pigmentation, unspecified; B35.1 Tinea unguium | CPT/HCPCS: 11750 ==

== ENCOUNTER 2025-01-06 15:08 | Outpatient (REF) | payer MEDICARE, BC, SELFPAY ==
[2025-01-06 15:50] LABS: Abs Immature Grans 0.04 10^3/uL (0.0-0.06); Absolute Basophil Count 0.05 10^3/uL (0.0-0.2); Absolute Eosinophil Count 0.29 10^3/uL (0.0-0.7); Absolute Lymphocyte Count 1.51 10^3/uL (1.2-3.4); Absolute Monocyte Count 0.65 10^3/uL (0.1-0.8); Basophils % 0.6 %; Eosinophils % 3.7 %; HCT 40.1 % (36.0-46.0); Immature Grans % 0.5 %; Lymphocytes % 19.3 %; MCH 28.6 pg (27.0-33.0); MCHC 32.4 % (32.0-36.0); MCV 88 fL (80-95); MPV 9.7 fL (8.0-11.0); Monocytes % 8.3 %; Neutrophils % 67.6 %; Platelet Count 283 10^3/uL (130-400); RBC 4.55 10^6/uL (3.93-5.22); RDW 12.6 % (11.7-14.6); RDW-SD 40.8 fL; WBC 7.84 10^3/uL (4.4-10.8)
[2025-01-06 17:01] LABS: ALT 34 U/L (14-59); AST 27 U/L (15-37); Alkaline Phosphatase 81 U/L (46-116); Anion Gap 8.7 mmol/L (3-11); BUN 17 mg/dL (7-18); Bilirubin, Total 0.5 mg/dL (0.2-1.0); CO2 27.3 mmol/L (21.0-32.0); CREATININE 1.3 mg/dL (0.55-1.02); Calcium 9.5 mg/dL (8.5-10.1); Calculated LDL 144 mg/dL (<100); Chloride 94 mmol/L (98-107); Cholesterol 266 mg/dL (<200); Estimated GFR 43.15 (mL/min/1.73m2); Glucose 110 mg/dL (74-106); HDL Cholesterol 83 mg/dL (>or=50); Potassium 4.6 mmol/L (3.5-5.1); Sodium 130 mmol/L (136-145); TSH 1.21 uIU/mL (0.36-3.74); Total Protein 7.2 g/dL (6.4-8.2); Triglyceride 195 mg/dL (<150); Vitamin D 25 Total 55 ng/mL (30-100)
[2025-01-06 17:06] LABS: Hemoglobin A1C 5.7 % (<5.7)
== END 2025-01-06 15:09 | disposition home or self-care (01) ==
LOC: NCHCN 15:08
PROVIDERS: PCP Family Medicine; Visit Provider Family Medicine
DX: M85.80 Other specified disorders of bone density and structure, unspecified site (principal); I10 Essential (primary) hypertension
CPT/HCPCS: 80053; 80061; 82306; 83036; 84439; 84443; 85025

== ENCOUNTER → 2025-01-10 12:56 | Outpatient (BNVA) | payer MEDICARE, BC, SELFPAY | PROVIDERS: PCP Family Medicine; Referring Provider Family Medicine; Visit Provider Podiatrist | DX: M20.41 Other hammer toe(s) (acquired), right foot (principal); M20.42 Other hammer toe(s) (acquired), left foot; M79.671 Pain in right foot; M79.672 Pain in left foot; L60.0 Ingrowing nail; B35.1 Tinea unguium; L81.9 Disorder of pigmentation, unspecified | CPT/HCPCS: 99213 ==

== ENCOUNTER → 2025-01-17 13:11 | Outpatient (BNVA) | payer MEDICARE, BC, SELFPAY | PROVIDERS: PCP Family Medicine; Referring Provider Family Medicine; Visit Provider Podiatrist | DX: L60.0 Ingrowing nail (principal); M20.41 Other hammer toe(s) (acquired), right foot; M20.42 Other hammer toe(s) (acquired), left foot; M79.671 Pain in right foot; M79.672 Pain in left foot; L81.8 Other specified disorders of pigmentation; B35.1 Tinea unguium | CPT/HCPCS: 99213 ==

== ENCOUNTER 2025-02-01 02:11 | Outpatient (CLI) | payer MEDICARE, BC, SELFPAY ==
--- NOTE | 2025-02-01 | DI.MAMMO_ITS ---
Exam(s) MAMMO SCREENING EXAM: MAMMO SCREENING CLINICAL HISTORY: SCREENING,MZ12.31 TECHNIQUE: Bilateral full field digital CC and MLO mammographic images were obtained with 3D tomosynthesis and utilizing computer aided detection (CAD). COMPARISON: Comparison is made with prior examinations. FINDINGS: Masses/Architectural Distortion: No suspicious masses or areas of architectural distortion are present. Microcalcifications: No suspicious pleomorphic-type are seen. Skin Thickening/Nipple Retraction: None. IMPRESSION: 1. No significant interval change with no specific features of malignancy noted. 2. Unless there is more urgent need, screening mammography is recommended, as per [employer] guidelines. BI-RADS Category 1 - Negative Breast Density - Category C - The breast are heterogeneously dense, which may obscure small masses. Breast density Category C or D implies that the patient has dense breast tissue. Dense breast tissue can make it harder to find cancer on a mammogram. Dense breast tissue is also associated with an increased risk of breast cancer. This information about the result of the mammogram report was provided to the patient to raise their awareness. Use this report when you speak with the patient about their risks for breast cancer, which includes their family history. At that time, you may recommend additional screening tests (Ultrasound or MRI) as these tests may add significant information. A negative radiographic report should not delay biopsy if a dominant or clinically suspicious mass is present. Up to ten percent of cancers are not identified on mammography. A negative report may reinforce clinical impression. Adenosis and dense breasts may obscure an underlying neoplasm. False positive reports average 6 to 10%. Patient will receive a letter notifying them of these results.
--- NOTE | 2025-02-01 | DI.DEXA_ITS ---
Exam(s) XR DEXA BONE DENSITY W/WO JONATHON EXAM: XR DEXA BONE DENSITY W/WO JONATHON CLINICAL HISTORY: SCREENING FOR OSTEOPOROSIS ASYMPTOMATIC MENOPAUSAL STATE,Z78.0 TECHNIQUE: COMPARISON: Comparison examination is 11/10/2002. FINDINGS: Lateral Spine Image: Unremarkable. No compression deformities identified. Right forearm: Total T-Score: -0.8 Total Z-Score: 1.6 T- and Z-scores: Within normal limits. Lumbar Spine: Total T-Score: 1.1. This compares to 0.1 on the prior examination. Total Z-Score: 3.4 T- and Z-scores: Within normal limits. IMPRESSION: No evidence of osteoporosis.
== END 2025-02-01 02:31 ==
LOC: DI 02:11
PROVIDERS: PCP Family Medicine; Visit Provider Family Medicine
DX: Z12.31 Encounter for screening mammogram for malignant neoplasm of breast (principal); Z13.820 Encounter for screening for osteoporosis; Z78.0 Asymptomatic menopausal state
CPT/HCPCS: 77063; 77067; 77080

== ENCOUNTER 2025-02-15 03:59 | Outpatient (CLI) | payer MEDICARE, BC, SELFPAY ==
[2025-02-15 08:15] LABS: Anion Gap 11.0 mmol/L (3-11); BUN 22 mg/dL (7-18); CO2 24.0 mmol/L (21.0-32.0); Calcium 9.7 mg/dL (8.5-10.1); Chloride 102 mmol/L (98-107); Estimated GFR 67.08 (mL/min/1.73m2); Glucose 104 mg/dL (74-106); Magnesium 2.0 mg/dL (1.8-2.4); Potassium 4.4 mmol/L (3.5-5.1); Sodium 137 mmol/L (136-145)
[2025-02-15 08:35] LABS: Sodium, Urine 48 mmol/L
[2025-02-15 17:25] LABS: Osmolality, Urine 409 mOsm/kg (150-1150)
== END 2025-02-15 04:00 | disposition home or self-care (01) ==
LOC: LBO 03:59
PROVIDERS: PCP Family Medicine; Visit Provider Family Medicine
DX: E87.1 Hypo-osmolality and hyponatremia (principal)
CPT/HCPCS: 36415; 80048; 82533; 83935; 83735; 84300

== ENCOUNTER → 2025-04-18 12:58 | Outpatient (BNVA) | payer MEDICARE, BC, SELFPAY | PROVIDERS: PCP Family Medicine; Referring Provider Family Medicine; Visit Provider Podiatrist | DX: L60.2 Onychogryphosis (principal); M79.671 Pain in right foot; M89.8X7 Other specified disorders of bone, ankle and foot | CPT/HCPCS: 99214 ==

== ENCOUNTER 2025-04-25 01:16 | Outpatient (CLI) | payer MEDICARE, BC, SELFPAY ==
--- NOTE | 2025-04-25 06:45 | DI.RAD_ITS ---
Exam(s) XR TOE RT GREAT EXAM: XR TOE RT GREAT CLINICAL HISTORY: Subungual exostosis right great toe,PAIN RT FOOT,M79.671,M89.9. TECHNIQUE: 2D digital imaging was performed. Three images were obtained. COMPARISON: No exams were available for comparison FINDINGS: BONES: No acute fracture is present. No bony destructive lesion is seen. No suspicious osseous masses are present. JOINTS: No dislocation present. SOFT TISSUE: There are no suspicious soft tissue calcifications. IMPRESSION: No evidence of acute fracture, dislocation, or subluxation. DATA REPOSITORY: RADIATION DOSE DELIVERED:
== END 2025-04-25 01:36 ==
LOC: DI 01:16
PROVIDERS: PCP Family Medicine; Visit Provider Podiatrist
DX: M89.9 Disorder of bone, unspecified (principal); M79.671 Pain in right foot
CPT/HCPCS: 73660

== ENCOUNTER → 2025-05-11 11:27 | Outpatient (BNVA) | payer MEDICARE, BC, SELFPAY | PROVIDERS: PCP Family Medicine; Referring Provider Family Medicine; Visit Provider Podiatrist | DX: L60.0 Ingrowing nail (principal); M79.671 Pain in right foot; M79.672 Pain in left foot | CPT/HCPCS: 11730; 11750 ==

== ENCOUNTER → 2025-06-01 13:50 | Outpatient (BNVA) | payer MEDICARE, BC, SELFPAY | PROVIDERS: PCP Family Medicine; Referring Provider Family Medicine; Visit Provider Podiatrist | DX: L60.0 Ingrowing nail (principal); B99.9 Unspecified infectious disease; M89.8X7 Other specified disorders of bone, ankle and foot; M79.671 Pain in right foot; M79.672 Pain in left foot | CPT/HCPCS: 99213 ==

== ENCOUNTER 2025-06-01 15:08 | Outpatient (REF) | payer MEDICARE, BC, SELFPAY | END 2025-06-01 15:09 | disposition home or self-care (01) | LOC: LBN 15:08 | PROVIDERS: PCP Family Medicine; Visit Provider Podiatrist | DX: B99.9 Unspecified infectious disease (principal) | CPT/HCPCS: 87070; 87075; 87205 ==

== ENCOUNTER → 2025-06-19 15:11 | Outpatient (BNVA) | payer MEDICARE, BC, SELFPAY | PROVIDERS: PCP Family Medicine; Referring Provider Family Medicine; Visit Provider Podiatrist | DX: Z51.89 Encounter for other specified aftercare (principal); L03.115 Cellulitis of right lower limb; L97.519 Non-pressure chronic ulcer of other part of right foot with unspecified severity | CPT/HCPCS: 99214 ==

== ENCOUNTER 2025-06-19 15:55 | Outpatient (REF) | payer MEDICARE, BC, SELFPAY | END 2025-06-19 15:56 | disposition home or self-care (01) | LOC: LBN 15:55 | PROVIDERS: PCP Family Medicine; Visit Provider Podiatrist | DX: M79.674 Pain in right toe(s) (principal); L97.529 Non-pressure chronic ulcer of other part of left foot with unspecified severity | CPT/HCPCS: 87070; 87075; 87205 ==

== ENCOUNTER → 2025-06-22 08:29 | Outpatient (CLI) | payer MEDICARE, BC, SELFPAY ==
--- NOTE | 2025-06-22 08:15 | DI.RAD_ITS ---
Exam(s) XR TOE RT GREAT EXAM: XR TOE RT GREAT CLINICAL HISTORY: ? Any periosteal reaction dorsally,cellulitis, l03.90. TECHNIQUE: 2D digital imaging was performed. COMPARISON: CR XR TOE RT SECOND from 06/22/2025 FINDINGS: 3 views No evidence of fracture nor diastasis of the Lisfranc joint. No degenerative changes at the 1st tarsometatarsal joint nor at the level the great toe metatarsophalangeal joint nor at the interphalangeal joint of the great toe. The more medial of the 2 sesamoid bones subjacent to the great toe metatarsal head is again noted to be bipartite. There is no evidence of osteomyelitis. IMPRESSION: No significant findings in the bones of the great toe. DATA REPOSITORY: RADIATION DOSE DELIVERED:
--- NOTE | 2025-06-22 08:15 | DI.RAD_ITS ---
Exam(s) XR TOE RT SECOND EXAM: XR TOE RT SECOND CLINICAL HISTORY: ? Periosteal reaction dorsally,cellulitis, l03.90. TECHNIQUE: 2D digital imaging was performed. COMPARISON: CR XR TOE RT GREAT from 04/25/2025 FINDINGS: 3 views No evidence of fracture or diastasis of the Lisfranc joint. The more medial of the 2 sesamoid bones subjacent to the great toe metatarsal head is again noted to be bipartite. The great toe metatarsophalangeal joint appears unremarkable. On the lateral view there is an ulcer over the dorsal aspect of the distal 2nd toe. There is no evidence of subjacent osteomyelitis in the distal phalanx. IMPRESSION: No obvious osteomyelitis. DATA REPOSITORY: RADIATION DOSE DELIVERED:
== END ==
LOC: DI 08:30
PROVIDERS: PCP Family Medicine; Visit Provider Podiatrist
DX: L03.90 Cellulitis, unspecified (principal)
CPT/HCPCS: 73660

== ENCOUNTER → 2025-07-06 13:28 | Outpatient (BNVA) | payer MEDICARE, BC, SELFPAY | PROVIDERS: PCP Family Medicine; Referring Provider Family Medicine; Visit Provider Podiatrist | DX: L60.0 Ingrowing nail (principal); L03.115 Cellulitis of right lower limb; M79.674 Pain in right toe(s) | CPT/HCPCS: 99214 ==